=== PATIENT | female | born 1960 | race Caucasian/White ===

== ENCOUNTER 2016-09-02 10:21 | Inpatient (IN) | payer OTHER ==
[2016-09-02 10:26] VITALS: BMI 32.8
--- NOTE | 2016-09-02 12:50 | HP ---
CIWA Score - CIWA Score Nausea/Vomitin Muscle Tremors: 3 Anxiety: 3 Agitation: 2 Paroxysmal Sweats: 2 Orientation: 0-Oriented Tacttile Disturbances: 2-Mild Itch/Numbness/Burn Auditory Disturbances: 2-Mild Harshness/Frighten Visual Disturbances: 2-Mild Sensitivity Headache: 2-Mild CIWA-Ar Total Score: 21 Admission ROS BHS - HPI Chief Complaint: i need help to stop drinking alcohol and marijuana Allergies/Adverse Reactions: Allergies Allergy/AdvReac Type Severity Reaction Status Date / Time watermelon Allergy Severe Difficulty Verified 09/02/16 11:20 Breathing No Known Drug Allergies Allergy Verified 09/02/16 11:20 History of Present Illness: this 56 years old female with alcohol and marijuana dependence,withdrawal symptom,last detox [facility] 04/06/16 to 04/10/16 syncope alcohol related frequent falls s/p back surgery herniated disc at [facility] 12/10 ambulation with cane asthma schizoaffective disorder sobriety longest 5 years Exam Limitations: No Limitations - Ebola screening Have you traveled outside of the country in the last 21 days: No Have you had contact with anyone from an Ebola affected area: No Have you been sick,other than usual withdrawal symptoms: No - Review of Systems Constitutional: Loss of Appetite, Malaise, Changes in sleep EENT: reports: Nose Congestion Respiratory: reports: No Symptoms reported Cardiac: reports: Palpitations GI: reports: Diarrhea, Nausea, Vomiting : reports: No Symptoms Reported Musculoskeletal: reports: Back Pain, Muscle Pain Neuro: reports: Tremors Endocrine: reports: No Symptoms Reported Hematology: reports: No Symptoms Reported Psychiatric: reports: other (schzoaffective disorder) Patient History - Patient Medical History Hx Anemia: No Hx Asthma: Yes (Pt is on MDI) Hx Chronic Obstructive Pulmonary Disease (COPD): No Hx Cancer: No Hx Cardiac Disorders: No Hx Congestive Heart Failure: No Hx Hypertension: No Hx Hypercholesterolemia: No Hx Pacemaker: No HX Cerebrovascular Accident: No Hx Seizures: No Hx Dementia: No Hx Diabetes: No Hx Gastrointestinal Disorders: No Hx Liver Disease: Yes (fatty liver) Hx Genitourinary Disorders: No Hx Sexually Transmitted Disorders: No Hx Renal Disease (ESRD): No Hx Thyroid Disease: No Hx Human Immunodeficiency Virus (HIV): No (last 2014 negative) Hx Hepatitis C: No Hx Depression: Yes Hx Suicide Attempt: Yes (Tried to cut wrist in 2010) Hx Bipolar Disorder: No Hx Schizophrenia: Yes (schizoaffective disorder) Other Medical History: no suicidal,no homicidal,s/p back surgery ambulate with cane - Patient Surgical History Past Surgical History: Yes Hx Neurologic Surgery: No Hx Cataract Extraction: No Hx Cardiac Surgery: No Hx Lung Surgery: No Hx Breast Surgery: No Hx Breast Biopsy: No Hx Abdominal Surgery: No Hx Appendectomy: No Hx Cholecystectomy: No Hx Genitourinary Surgery: No Hx Section: No Hx Orthopedic Surgery: Yes (discectomy 2011; rt bunion sx 1993; rt knee arthoscopy 1991) Other Surgical History: ectopic 1983 R foot sx at age 7 yrs old. Anesthesia Reaction: No - PPD History Previous Implant?: Yes Documented Results: Positive w/o proof Implanted On Prior [facility] Admission?: No PPD to be Administered?: No - Reproductive History Patient is a Female of Child Bearing Age (11 -55 yrs old): No Last Menstrual Period: 09/29/09 Patient : No - Smoking Cessation Smoking history: Current every day smoker Have you smoked in the past 12 months: Yes Aproximately how many cigarettes per day: 20 Hx Chewing Tobacco Use: No Initiated information on smoking cessation: Yes 'Breaking Loose' booklet given: 09/02/16 - Substance & Tx. History Hx Alcohol Use: Yes Hx Substance Use: Yes Substance Use Type: Alcohol, Marijuana Hx Substance Use Treatment: Yes ([facility] 04/06/16 to 04/10/16) - Substances Abused Alcohol Route: Oral Frequency: Daily Amount used: 4 PINTS VODKA/ 5 BEERS Age of first use: 8 Date of Last Use: 09/02/16 Marijuana/Hashish Route: Smoking Frequency: Daily Amount used: 5 BAGS Age of first use: 13 Date of Last Use: 09/01/16 Family Disease History - Family Disease History Family Disease History: CA: Father (alcohol,decesed), Mother (decesed) Admission Physical Exam S - Vital Signs Vital Signs: Vital Signs - 24 hr 09/02/16 10:23 Temperature 97.7 F Pulse Rate 108 H Respiratory 20 Rate Blood Pressure 120/74 - Physical General Appearance: Yes: Moderate Distress, Tremorous, Irritable, Sweating, Anxious HEENTM: Yes: Rhinorrhea Respiratory: Yes: Lungs Clear Neck: Yes: Within Normal Limits Breast: Yes: Within Normal Limits Cardiology: Yes: Tachycardia Abdominal: Yes: Within Normal Limits, Normal Bowel Sounds, Non Tender, Flat, Soft Genitourinary: Yes: Within Normal Limits Back: Yes: Muscle Spasm, Surgical Scar Musculoskeletal: Yes: Back pain, Muscle Pain Extremities: Yes: Tremors, Swelling, Erythema Neurological: Yes: dispute resolution analyst II-XII NML intact, Fully Oriented, Alert, Motor Strength 5/5 Integumentary: Yes: Dry Lymphatic: Yes: Within Normal Limits - Diagnostic (1) Alcohol dependence with uncomplicated withdrawal Current Visit: No Status: Chronic (2) Asthma Current Visit: No Status: Chronic Qualifiers: Asthma severity: mild intermittent Asthma complication type: uncomplicated Qualified Code(s): J45.20 - Mild intermittent asthma, uncomplicated (3) Nicotine dependence Current Visit: No Status: Chronic Qualifiers: Nicotine product type: cigarettes Substance use status: uncomplicated Qualified Code(s): F17.210 - Nicotine dependence, cigarettes, uncomplicated (4) PTSD (post-traumatic stress disorder) Current Visit: No Status: Chronic (5) Schizoaffective disorder Current Visit: No Status: Chronic (6) Cannabis dependence Current Visit: Yes Status: Acute (7) Bilateral cellulitis of lower leg Current Visit: Yes Status: Acute (8) Neuropathy Current Visit: Yes Status: Acute Cleared for Admission [facility] - Detox or Rehab [facility] Level of Care: Medically Managed Detox Regimen/Protocol: Librium [facility] Breath Alcohol Content Breath Alcohol Content: 0.148 Urine Pregancy Test - Result Urine Test Results: Negative- NO Line Present Urine Drug Screen - Results Drug Screen Negative: No Urine Drug Screen Results: THC-Marijuana
[2016-09-02] MEDS ORDERED: guaiFENesin/D-METHORPHAN HB 10 ML UNIT-DOSE CUPS PO PRN (13:02)
[2016-09-02] MEDS ORDERED: MAG HYDROX/AL HYDROX/SIMETH 30 ML UNIT-DOSE CUP PO PRN (13:02)
[2016-09-02] MEDS ORDERED: P-EPHED 60MG/TRIPROLIDI 2.5MG TABLET PO PRN (13:02)
[2016-09-02] MEDS ORDERED: ACETAMINOPHEN 325 MG TABLET (FP) PO PRN (13:02)
[2016-09-02] MEDS ORDERED: MENTHOL/PHENOL 1 EACH UD MM PRN (13:02)
[2016-09-02] MEDS ORDERED: IBUPROFEN 400 MG TABLET (FP) PO PRN (13:02)
[2016-09-02] MEDS ORDERED: hydrOXYzine PAMOATE 50 MG CAPSULE (FP) PO PRN (13:02)
[2016-09-02] MEDS ORDERED: diphenhydrAMINE HCL 50 MG CAPSULE PO PRN (13:02)
[2016-09-02] MEDS ORDERED: LOPERAMIDE HCL 2 MG CAPSULE PO PRN (13:02)
[2016-09-02] MEDS ORDERED: MAGNESIUM HYDROX 2400MG/30ML ORAL SUSPENSION 30 ML CUP PO PRN (13:02)
[2016-09-02] MEDS ORDERED: MAGNESIUM CITRATE 300 ML BOTTLE PO PRN (13:02)
[2016-09-02] MEDS ORDERED: ALBUTEROL SO4 6.7 GM HFA INHALER IH PRN (13:05)
[2016-09-02] MEDS ORDERED: chlordiazePOXIDE HCL 25 MG CAPSULE PO ONE (13:48)
[2016-09-02] MEDS: GABAPENTIN 300 MG CAPSULE (FP) PO SCH ×3 (14:25→22:17)
[2016-09-02] MEDS: NICOTINE 21 MG/24 HOURS TOPICAL PATCH TD SCH (14:27)
--- NOTE | 2016-09-02 16:42 | EKG ---
Test Reason : Blood Pressure : / mmHG Vent. Rate : 093 BPM Atrial Rate : 093 BPM P-R Int : 144 ms QRS Dur : 082 ms QT Int : 352 ms P-R-T Axes : 072 079 054 degrees QTc Int : 437 ms NORMAL SINUS RHYTHM POSSIBLE LEFT ATRIAL ENLARGEMENT BORDERLINE ECG NO PREVIOUS ECGS AVAILABLE Confirmed by FUAD SANTOYO, LEIGH ([id number]) on 09/02/2016 4:41:52 PM Referred By: Alfie Malhotra Confirmed By:LEIGH MERIDA MD
[2016-09-02] MEDS: chlordiazePOXIDE HCL 25 MG CAPSULE PO SCH ×2 (17:22→22:18)
[2016-09-02] MEDS: CEPHALEXIN MONOHYDRATE 500 MG CAPSULE (UD) PO SCH ×2 (17:23→23:07)
[2016-09-02 17:31] LABS: URINE APPEARANCE CLEAR; URINE BILIRUBIN NEGATIVE (NEGATIVE); URINE BLOOD NEGATIVE (NEGATIVE); URINE COLOR LTYELLOW; URINE GLUCOSE (UA) NEGATIVE (NEGATIVE); URINE KETONE NEGATIVE (NEGATIVE); URINE LEUK ESTERASE NEGATIVE (NEGATIVE); URINE NITRITE NEGATIVE (NEGATIVE); URINE PROTEIN NEGATIVE (NEGATIVE); URINE UROBILINOGEN NEGATIVE E.U./dl (0.2-1.0)
[2016-09-02 19:45] LABS: HIV 1 & 2 AB NEGATIVE; HIV 1 AGp24 NEGATIVE
[2016-09-02] MEDS: BUDESONIDE/FORMETEROL FUMARATE 80/4.5 mcg INHALER IH SCH (22:17)
[2016-09-02] MEDS: MONTELUKAST NA 10 MG TABLET PO SCH (22:17)
[2016-09-02] MEDS: THIAMINE HCL 100 MG TABLET (FP) PO SCH (22:18)
[2016-09-03] MEDS: chlordiazePOXIDE HCL 25 MG CAPSULE PO SCH ×4 (05:47→22:14)
[2016-09-03] MEDS: CEPHALEXIN MONOHYDRATE 500 MG CAPSULE (UD) PO SCH ×4 (06:30→23:02)
[2016-09-03] MEDS: GABAPENTIN 300 MG CAPSULE (FP) PO SCH ×3 (06:31→22:14)
[2016-09-03] MEDS: PRENATAL VITAMINS W/ FOLIC ACID TABLET (FP) PO SCH (10:24)
[2016-09-03] MEDS: BUDESONIDE/FORMETEROL FUMARATE 80/4.5 mcg INHALER IH SCH ×2 (10:24→22:14)
[2016-09-03] MEDS: NICOTINE 21 MG/24 HOURS TOPICAL PATCH TD SCH (10:27)
[2016-09-03 10:32] LABS: ALBUMIN 3.8 g/dl (3.4-5.0); ALK PHOS 163 U/L (45-117); ANION GAP 9 (8-16); BILIRUBIN,TOTAL 0.3 mg/dL (0.2-1.0); CALCIUM 9.5 mg/dL (8.5-10.1); CO2 26 mmol/L (21-32); CREATININE 0.9 mg/dL (0.55-1.02); GLUCOSE,RANDOM 91 mg/dL (74-106); SGOT/AST 93 U/L (15-37); SGPT/ALT 67 U/L (12-78); TOT PROT 7.7 g/dl (6.4-8.2)
[2016-09-03 11:07] LABS: MCH 36.4 pg (25.7-33.7); MEAN CELL VOLUME 107.2 fl (80-96); MEAN PLT VOLUME 8.6 fl (7.5-11.1); PLATELET COUNT 250 K/MM3 (134-434); RDW 14.4 % (11.6-15.6); WHITE BLOOD COUNT 5.9 K/mm3 (4.0-10.0)
[2016-09-03] MEDS: CYCLOBENZAPRINE HCL 10 MG TABLET (FP) PO PRN ×2 (11:18→20:03)
--- NOTE | 2016-09-03 11:41 | CONSULT ---
[facility] Psychiatric Consult - Data Date of interview: 09/03/16 Admission source: [facility] Identifying data: Readmission to [facility] for this 56 y/o female seeking detox treatment on for alcohol and marijuana dependence.Patient is ,a mother of one,domiciled,disabled and supported on SSI benefits. Substance Abuse History: - Smoking Cessation. Smoking history: Current every day smoker. Have you smoked in the past 12 months: Yes. Aproximately how many cigarettes per day: 20. Hx Chewing Tobacco Use: No. Initiated information on smoking cessation: Yes. 'Breaking Loose' booklet given: 09/02/16. - Substance & Tx. History. Hx Alcohol Use: Yes. Hx Substance Use: Yes. Substance Use Type : Alcohol, Marijuana. Hx Substance Use Treatment: Yes ([facility] 04/06/16 to ). - Substances Abused. Alcohol. Route: Oral. Frequency: Daily. Amount used: 4 PINTS VODKA/ 5 BEERS. Age of first use: 8. Date of Last Use: . Marijuana/Hashish. Route: Smoking. Frequency: Daily. Amount used : 5 BAGS. Age of first use: 13. Date of Last Use: 09/01/16. Confirmed by patient. Medical History: Significant for a history of bronchial asthma,fatty liver,low back pain (history of discectomy),right bunionectomy and arthroscopic surgery ( right knee). Psychiatric History: Diagnosed with PTSD and Schizoaffective Disorder.History of two psychiatric hospitalizations ([facility] and [facility]).Ms Tim sees Dr Moe at [facility] for medication management (Wellbutrin XL 150 mg po daily + Prozac 40 mg po daily + Trazodone 200 mg po HS + Haldol Decanoate 75 mg IM Q 4 weeks (most recent injection :08/26).Patient reports a remote history of suicide attempts (years ago) via wrist- cutting. Physical/Sexual Abuse/Trauma History: Patient declines to discuss this section. Additional Comment: Urine Drug Screen Results: THC-Marijuana Mental Status Exam - Mental Status Exam Alert and Oriented to: Time, Place, Person Cognitive Function: Good Patient Appearance: Well Groomed (obese) Mood: Nervous, Anxious, Hopeful Affect: Mood Congruent Patient Behavior: Fatigued, Appropriate, Cooperative Speech Pattern: Clear, Appropriate Voice Loudness: Normal Thought Process: Goal Oriented Thought Disorder: Not Present Hallucinations: Denies Suicidal Ideation: Denies Homicidal Ideation: Denies Insight/Judgement: Fair Sleep: Fair (on trazodone at bedtime) Appetite: Fair Muscle strength/Tone: Normal Gait/Station: Other (walks with cane) Psychiatric Findings - Problem List ([place] 1, 2,3) (1) Cannabis dependence Current Visit: Yes Status: Acute (2) Drug-induced mood disorder Current Visit: Yes Status: Acute (3) Alcohol dependence with uncomplicated withdrawal Current Visit: Yes Status: Acute (4) Nicotine dependence Current Visit: Yes Status: Acute Qualifiers: Nicotine product type: cigarettes Substance use status: uncomplicated Qualified Code(s): F17.210 - Nicotine dependence, cigarettes, uncomplicated (5) PTSD (post-traumatic stress disorder) Current Visit: Yes Status: Chronic (6) Schizoaffective disorder Current Visit: Yes Status: Chronic (7) Neuropathy Current Visit: Yes Status: Chronic (8) Positive PPD, treated Current Visit: Yes Status: Chronic (9) Asthma Current Visit: Yes Status: Chronic Qualifiers: Asthma severity: mild intermittent Asthma complication type: uncomplicated Qualified Code(s): J45.20 - Mild intermittent asthma, uncomplicated (10) Bilateral cellulitis of lower leg Current Visit: Yes Status: Acute - Initial Treatment Plan Initial Treatment Plan: Psychoeducation.Detoxification.Medications ordered.See Psychiatric History section for details.Side effects/benefits discussed with patient.She is in agreement with this careplan.Observation.Fall precautions.No scripts at discharge :patient states that she has refills from her OPD psychiatrist,Dr Arreaga.
[2016-09-03] MEDS: FLUoxetine HCL 20 MG CAPSULE (FP) PO SCH (12:27)
[2016-09-03] MEDS: chlordiazePOXIDE HCL 25 MG CAPSULE PO PRN ×2 (14:07→20:03)
[2016-09-03] MEDS: THIAMINE HCL 100 MG TABLET (FP) PO SCH (22:14)
[2016-09-03] MEDS: MONTELUKAST NA 10 MG TABLET PO SCH (22:14)
[2016-09-03] MEDS: traZODone HCL 100 MG TABLET (FP) PO SCH (22:14)
[2016-09-04] MEDS: CEPHALEXIN MONOHYDRATE 500 MG CAPSULE (UD) PO SCH ×4 (05:51→23:14)
[2016-09-04] MEDS: CYCLOBENZAPRINE HCL 10 MG TABLET (FP) PO PRN ×3 (05:51→22:32)
[2016-09-04] MEDS: GABAPENTIN 300 MG CAPSULE (FP) PO SCH ×3 (05:51→22:32)
[2016-09-04] MEDS: chlordiazePOXIDE HCL 25 MG CAPSULE PO SCH ×2 (05:51→10:37)
[2016-09-04] MEDS: BUDESONIDE/FORMETEROL FUMARATE 80/4.5 mcg INHALER IH SCH ×2 (10:36→23:15)
[2016-09-04] MEDS: NICOTINE 21 MG/24 HOURS TOPICAL PATCH TD SCH (10:37)
[2016-09-04] MEDS: PRENATAL VITAMINS W/ FOLIC ACID TABLET (FP) PO SCH (10:37)
[2016-09-04] MEDS: FLUoxetine HCL 20 MG CAPSULE (FP) PO SCH (10:37)
--- NOTE | 2016-09-04 12:58 | PN ---
[facility] CIWA - CIWA Score Nausea/Vomitin Muscle Tremors: 3 Anxiety: 3 Agitation: 2 Paroxysmal Sweats: 1-Minimal Palms Moist Orientation: 0-Oriented Tacttile Disturbances: 1-Very Mild Itch/Numbness Auditory Disturbances: 1-Very Mild Visual Disturbances: 1-Very Mild Sensitivity Headache: 2-Mild CIWA-Ar Total Score: 17 BHS Progress Note (SOAP) Subjective: ALERT,IRRITABLE,ANXIOUS,INTERRUPTED SLEEP,TREMOR Objective: 09/04/16 12:55 Vital Signs Temperature 97.3 F L 09/04/16 09:44 Pulse Rate 99 H 09/04/16 09:44 Respiratory Rate 16 09/04/16 09:44 Blood Pressure 146/80 09/04/16 09:44 O2 Sat by Pulse Oximetry (%) EKG NSR, 09/04/16 12:56 Laboratory Last Values WBC 5.9 K/mm3 (4.0-10.0) 09/03/16 06:00 RBC 3.67 M/mm3 (3.60-5.2) 09/03/16 06:00 Hgb 13.3 GM/dL (10.7-15.3) 09/03/16 06:00 Hct 39.3 % (32.4-45.2) 09/03/16 06:00 MCV 107.2 fl (80-96) H 09/03/16 06:00 MCHC 34.0 g/dl (32.0-36.0) 09/03/16 06:00 RDW 14.4 % (11.6-15.6) 09/03/16 06:00 Plt Count 250 K/MM3 (134-434) 09/03/16 06:00 MPV 8.6 fl (7.5-11.1) 09/03/16 06:00 Macrocytosis 1+ 09/03/16 06:00 Sodium 142 mmol/L (136-145) 09/03/16 06:00 Potassium 4.4 mmol/L (3.5-5.1) 09/03/16 06:00 Chloride 107 mmol/L (98-107) 09/03/16 06:00 Carbon Dioxide 26 mmol/L (21-32) 09/03/16 06:00 Anion Gap 9 (8-16) 09/03/16 06:00 BUN 9 mg/dL (7-18) D 09/03/16 06:00 Creatinine 0.9 mg/dL (0.55-1.02) 09/03/16 06:00 Creat Clearance w eGFR > 60 (>60) 09/03/16 06:00 Random Glucose 91 mg/dL (74-106) 09/03/16 06:00 Calcium 9.5 mg/dL (8.5-10.1) 09/03/16 06:00 Total Bilirubin 0.3 mg/dL (0.2-1.0) D 09/03/16 06:00 AST 93 U/L (15-37) H D 09/03/16 06:00 ALT 67 U/L (12-78) D 09/03/16 06:00 Alkaline Phosphatase 163 U/L (45-117) H D 09/03/16 06:00 Total Protein 7.7 g/dl (6.4-8.2) 09/03/16 06:00 Albumin 3.8 g/dl (3.4-5.0) 09/03/16 06:00 Urine Color Ltyellow 09/02/16 15:00 Urine Appearance Clear 09/02/16 15:00 Urine pH 5.0 (5.0-8.0) 09/02/16 15:00 Ur Specific [place] 1.006 (1.001-1.035) 09/02/16 15:00 Urine Protein Negative (NEGATIVE) 09/02/16 15:00 Urine Glucose (UA) Negative (NEGATIVE) 09/02/16 15:00 Urine Ketones Negative (NEGATIVE) 09/02/16 15:00 Urine Blood Negative (NEGATIVE) 09/02/16 15:00 Urine Nitrite Negative (NEGATIVE) 09/02/16 15:00 Urine Bilirubin Negative (NEGATIVE) 09/02/16 15:00 Urine Urobilinogen Negative E.U./dl (0.2-1.0) 09/02/16 15:00 Ur Leukocyte Esterase Negative (NEGATIVE) 09/02/16 15:00 RPR Titer Nonreactive (NONREACTIVE) 09/03/16 06:00 HIV 1&2 Antibody Screen Negative 09/02/16 11:40 HIV P24 Antigen Negative 09/02/16 11:40 Assessment: 09/04/16 12:57 WITHDRAWAL SYMPTOM Plan: CONTINUE DETOX,D/C TYLENOL,REPEAT CMP,INR
[2016-09-04] MEDS: chlordiazePOXIDE 5 MG CAPSULE PO SCH ×2 (17:30→22:32)
[2016-09-04] MEDS: MONTELUKAST NA 10 MG TABLET PO SCH (22:32)
[2016-09-04] MEDS: traZODone HCL 100 MG TABLET (FP) PO SCH (22:32)
[2016-09-04] MEDS: THIAMINE HCL 100 MG TABLET (FP) PO SCH (23:15)
[2016-09-05] MEDS: chlordiazePOXIDE 5 MG CAPSULE PO SCH ×2 (05:38→10:19)
[2016-09-05] MEDS: CYCLOBENZAPRINE HCL 10 MG TABLET (FP) PO PRN ×3 (05:38→22:09)
[2016-09-05] MEDS: CEPHALEXIN MONOHYDRATE 500 MG CAPSULE (UD) PO SCH ×3 (05:38→18:02)
[2016-09-05] MEDS: GABAPENTIN 300 MG CAPSULE (FP) PO SCH ×3 (05:38→22:09)
[2016-09-05] MEDS: FLUoxetine HCL 20 MG CAPSULE (FP) PO SCH (10:15)
[2016-09-05] MEDS: PRENATAL VITAMINS W/ FOLIC ACID TABLET (FP) PO SCH (10:15)
[2016-09-05] MEDS: NICOTINE 21 MG/24 HOURS TOPICAL PATCH TD SCH (10:15)
[2016-09-05] MEDS: BUDESONIDE/FORMETEROL FUMARATE 80/4.5 mcg INHALER IH SCH ×2 (10:15→22:09)
--- NOTE | 2016-09-05 13:08 | PN ---
S Progress Note (SOAP) Subjective: ALERT,IRRITABLE,ANXIOUS,INTERRUPTED SLEEP Objective: 09/05/16 13:07 Vital Signs Temperature 96.4 F L 09/05/16 10:30 Pulse Rate 92 H 09/05/16 10:30 Respiratory Rate 16 09/05/16 10:30 Blood Pressure 106/72 09/05/16 10:30 O2 Sat by Pulse Oximetry (%) Assessment: 09/05/16 13:07 WITHDRAWAL SYMPTOM Plan: CONTINUE DETOX,DISCHARGE IN AM
[2016-09-05] MEDS: chlordiazePOXIDE HCL 10 MG CAPSULE PO SCH ×2 (18:02→22:09)
[2016-09-05] MEDS: traZODone HCL 100 MG TABLET (FP) PO SCH (22:09)
[2016-09-05] MEDS: THIAMINE HCL 100 MG TABLET (FP) PO SCH (22:09)
[2016-09-05] MEDS: MONTELUKAST NA 10 MG TABLET PO SCH (22:09)
[2016-09-06] MEDS: CEPHALEXIN MONOHYDRATE 500 MG CAPSULE (UD) PO SCH ×2 (00:34→06:50)
--- NOTE | 2016-09-06 02:14 | PN ---
S Progress Note Note: PT. ASSESSED AFTER FALLING IN HER ROOM. THE PATIENT WAS FOUND SLEEPING COMFORTABLY IN BED. SHE REPORTS SHE FELL ON HER KNEES WHILE TRYING TO CLINICAL INFORMATION SYSTEMS DIRECTOR THE CAP OF A MARKER ON THE FLOOR. SHE DENIED PAIN AND DISCOMFORT; SKIN IS INTACT. SHE WAS ENCOURAGED TO NOTIFY THE NURSING STAFF IF SHE NEEDS TO CLINICAL INFORMATION SYSTEMS DIRECTOR ITEMS OFF THE GROUND. FALL PROTOCOL 2 WAS INITIATED AND SHE IS SCHEDULED TO HAVE AMMONIA LEVELS DRAWN AT 6:00AM.
[2016-09-06] MEDS: chlordiazePOXIDE HCL 10 MG CAPSULE PO SCH (06:34)
[2016-09-06] MEDS: GABAPENTIN 300 MG CAPSULE (FP) PO SCH (06:50)
--- NOTE | 2016-09-06 09:31 | DS ---
[facility] Detox Discharge Summary Admission Date: 09/02/16 Discharge Date: 09/06/16 - History Present History: Alcohol Dependence, Cannabis Dependence - Physical Exam Results Vital Signs: Vital Signs Temperature 97.2 F L 09/06/16 06:00 Pulse Rate 99 H 09/06/16 06:00 Respiratory Rate 18 09/06/16 06:00 Blood Pressure 128/73 09/06/16 06:00 O2 Sat by Pulse Oximetry (%) - Treatment Hospital Course: Detox Protocol Followed, Detoxed Safely, Responded well, Discharged Condition Good, Rehab Referral Accepted - Medication Discharge Medications: Ambulatory Orders Naltrexone HCl [Revia -] 50 mg PO HS 04/06/16 Bupropion HCl [Wellbutrin Xl -] 150 mg PO DAILY #30 tab.sr.24h 04/07/16 Fluoxetine HCl [Prozac -] 40 mg PO DAILY #30 capsule 04/07/16 Trazodone HCl [Desyrel -] 200 mg PO HS #30 tablet 04/07/16 Albuterol Sulfate Inhaler - [Ventolin HFA Inhaler -] 2 puff IH Q4H PRN #1 inhaler 04/10/16 Fluticasone/Salmeterol [Advair 250-50 Diskus] 1 each IH BID #1 disk.w.dev Montelukast Na [Singulair -] 10 mg PO HS #30 tablet 04/10/16 Azelastine HCl 205.5 mcg NS BID 09/02/16 Folic Acid - 1 mg PO DAILY 09/02/16 Gabapentin [Neurontin -] 300 mg PO Q8H 09/02/16 Haloperidol Decanoate [Haldol Decanoate 100] 75 mg IM MONTHLY 09/02/16 Loratadine 10 mg PO DAILY 09/02/16 Cephalexin Monohydrate [Keflex -] 500 mg PO Q6HPO #7 capsule 09/06/16 - Diagnosis (1) Alcohol dependence with uncomplicated withdrawal Current Visit: Yes Status: Chronic (2) Bilateral cellulitis of lower leg Current Visit: Yes Status: Chronic (3) Cannabis dependence Current Visit: Yes Status: Chronic (4) Drug-induced mood disorder Current Visit: Yes Status: Chronic (5) Nicotine dependence Current Visit: Yes Status: Chronic Qualifiers: Nicotine product type: cigarettes Substance use status: uncomplicated Qualified Code(s): F17.210 - Nicotine dependence, cigarettes, uncomplicated (6) Asthma Current Visit: Yes Status: Chronic Qualifiers: Asthma severity: mild intermittent Asthma complication type: uncomplicated Qualified Code(s): J45.20 - Mild intermittent asthma, uncomplicated (7) Neuropathy Current Visit: Yes Status: Chronic (8) PTSD (post-traumatic stress disorder) Current Visit: Yes Status: Chronic (9) Positive PPD, treated Current Visit: Yes Status: Chronic (10) Schizoaffective disorder Current Visit: Yes Status: Chronic - AMA Did Patient Leave Against Medical Advice: No
[2016-09-06] MEDS: FLUoxetine HCL 20 MG CAPSULE (FP) PO SCH (10:22)
[2016-09-06] MEDS: PRENATAL VITAMINS W/ FOLIC ACID TABLET (FP) PO SCH (10:23)
[2016-09-06] MEDS: BUDESONIDE/FORMETEROL FUMARATE 80/4.5 mcg INHALER IH SCH (10:24)
[2016-09-06] MEDS: NICOTINE 21 MG/24 HOURS TOPICAL PATCH TD SCH (10:25)
[2016-09-06 12:27] VITALS: BP 137/73; PULSE 87; TEMP 996.4
== END 2016-09-06 11:03 | disposition home or self-care (01) | DRG 775 ==
LOC: YASAS 10:21 → Y6N 13:16
PROVIDERS: ADMIT Internal Medicine Addiction Medicine; ATTEND Internal Medicine Addiction Medicine
PROC: HZ2ZZZZ Detoxification Services for Substance Abuse Treatment (ICD-10-PCS; principal; 2016-09-02)
DX: F10.230 Alcohol dependence with withdrawal, uncomplicated (principal); F12.20 Cannabis dependence, uncomplicated; F17.210 Nicotine dependence, cigarettes, uncomplicated; F19.24 Other psychoactive substance dependence with psychoactive substance-induced mood disorder; F43.10 Post-traumatic stress disorder, unspecified; F25.9 Schizoaffective disorder, unspecified; L03.116 Cellulitis of left lower limb; L03.115 Cellulitis of right lower limb; J45.20 Mild intermittent asthma, uncomplicated; G62.9 Polyneuropathy, unspecified; R76.11 Nonspecific reaction to tuberculin skin test without active tuberculosis; M54.5 Low back pain; K76.0 Fatty (change of) liver, not elsewhere classified; R00.0 Tachycardia, unspecified; R29.6 Repeated falls; Z91.81 History of falling; R26.2 Difficulty in walking, not elsewhere classified; Z91.5 Personal history of self-harm; W18.30XA Fall on same level, unspecified, initial encounter; Y93.9 Activity, unspecified; Y92.230 Patient room in hospital as the place of occurrence of the external cause
CPT/HCPCS: 36415; 71020-TC; 80053; 81003; 82140; 85027; 86593; 87389; 93005; 93010

== ENCOUNTER 2017-01-07 14:19 | Inpatient (IN) | payer OTHER ==
[2017-01-07 19:09] VITALS: BMI 30.3
--- NOTE | 2017-01-07 20:10 | HP ---
CIWA Score - CIWA Score Nausea/Vomitin-Mild Nausea/No Vomiting Muscle Tremors: 4-Moderate,w/Arms Extend Anxiety: 4-Mod. Anxious/Guarded Agitation: 4-Moderately Restless Paroxysmal Sweats: 1-Minimal Palms Moist Orientation: 3-Disoriented Date>2 days Tacttile Disturbances: 0-None Auditory Disturbances: 0-None Visual Disturbances: 0-None Headache: 0-None Present CIWA-Ar Total Score: 17 Admission ROS S - HPI Chief Complaint: withdrawal sx Allergies/Adverse Reactions: Allergies Allergy/AdvReac Type Severity Reaction Status Date / Time watermelon Allergy Severe Difficulty Verified 01/07/17 20:21 Breathing No Known Drug Allergies Allergy Verified 01/07/17 20:21 History of Present Illness: 56 years old female with long history of alcohol nicotine dependence has allergic to dust asthma copd right leg neropathy use cane for ambulation, and depression is admitted to detox Exam Limitations: No Limitations - Ebola screening Have you traveled outside of the country in the last 21 days: No Have you had contact with anyone from an Ebola affected area: No Have you been sick,other than usual withdrawal symptoms: No Do you have a fever: No - Review of Systems Constitutional: Chills, Changes in sleep, Weight Stable EENT: reports: No Symptoms Reported Respiratory: reports: SOB with Exertion, Productive cough (greenish) Cardiac: reports: No Symptoms Reported GI: reports: Nausea, Poor Fluid Intake, Abdominal cramping : reports: No Symptoms Reported Musculoskeletal: reports: Joint Pain (right leg) Integumentary: reports: No Symptoms Reported Neuro: reports: Tremors Endocrine: reports: No Symptoms Reported Hematology: reports: No Symptoms Reported Psychiatric: reports: Judgement Intact, Depressed Other Systems: Reviewed and Negative Patient History - Patient Medical History Hx Anemia: No Hx Asthma: Yes (Pt is on MDI) Hx Chronic Obstructive Pulmonary Disease (COPD): Yes Hx Cancer: No Hx Cardiac Disorders: No Hx Congestive Heart Failure: No Hx Hypertension: No Hx Hypercholesterolemia: No Hx Pacemaker: No HX Cerebrovascular Accident: No Hx Seizures: No Hx Dementia: No Hx Diabetes: No Hx Gastrointestinal Disorders: No Hx Liver Disease: Yes (fatty liver) Hx Genitourinary Disorders: No Hx Sexually Transmitted Disorders: No Hx Renal Disease (ESRD): No Hx Thyroid Disease: No Hx Human Immunodeficiency Virus (HIV): No (last 2014 negative) Hx Hepatitis C: No Hx Depression: Yes Hx Suicide Attempt: Yes (Tried to cut wrist in 2010) Hx Bipolar Disorder: No Hx Schizophrenia: Yes (schizoaffective disorder) - Patient Surgical History Past Surgical History: Yes Hx Neurologic Surgery: No Hx Cataract Extraction: No Hx Cardiac Surgery: No Hx Lung Surgery: No Hx Breast Surgery: No Hx Breast Biopsy: No Hx Abdominal Surgery: No Hx Appendectomy: No Hx Cholecystectomy: No Hx Genitourinary Surgery: No Hx Section: No Hx Orthopedic Surgery: Yes (discectomy 2011; rt bunion sx 1993; rt knee arthoscopy 1991) Other Surgical History: ectopic 1983 R foot sx at age 7 yrs old. Anesthesia Reaction: No - PPD History Previous Implant?: Yes Documented Results: Positive w/o proof Implanted On Prior [facility] Admission?: No PPD to be Administered?: No - Reproductive History Patient is a Female of Child Bearing Age (11 -55 yrs old): No Last Menstrual Period: 09/29/09 Patient : No - Smoking Cessation Smoking history: Current every day smoker Have you smoked in the past 12 months: Yes Aproximately how many cigarettes per day: 20 Cigars Per Day: 0 Hx Chewing Tobacco Use: No Initiated information on smoking cessation: Yes 'Breaking Loose' booklet given: 01/07/17 - Substance & Tx. History Hx Alcohol Use: Yes Hx Substance Use: Yes Substance Use Type: Alcohol, Marijuana Hx Substance Use Treatment: Yes - Substances Abused Alcohol Route: Oral Frequency: Daily Amount used: 3 pints volka Age of first use: 13 Date of Last Use: 01/07/17 Family Disease History - Family Disease History Family Disease History: [place]: Father (alcohol,), Mother (), Other : Brother () Admission Physical Exam BHS - Vital Signs Vital Signs: Vital Signs - 24 hr 01/07/17 19:01 Temperature 97.2 F L Pulse Rate 84 Respiratory 20 Rate Blood Pressure 130/78 - Physical General Appearance: Yes: Appropriately Dressed, Moderate Distress, Alcohol on Breath, Obese, Tremorous, Irritable, Sweating, Anxious HEENTM: Yes: Hearing grossly Normal, Normal ENT Inspection, Normocephalic, Normal Voice Respiratory: Yes: Chest Non-Tender, Lungs Clear, Normal Breath Sounds, No Respiratory Distress, No Accessory Muscle Use Neck: Yes: Supple, Trachea in good position Breast: Yes: Breasts Symetrical Cardiology: Yes: Regular Rhythm, Regular Rate, S1, S2 Abdominal: Yes: Non Tender, Soft Genitourinary: Yes: Within Normal Limits Back: Yes: Normal Inspection Musculoskeletal: Yes: full range of Motion, Gait Steady, Back pain, Muscle Pain , Muscle weakness (right leg) Extremities: Yes: Non-Tender, Tremors Neurological: Yes: Alert, Normal Response, Depressed Affect Integumentary: Yes: Warm Lymphatic: Yes: Within Normal Limits - Diagnostic (1) Alcohol dependence with uncomplicated withdrawal Current Visit: Yes Status: Acute (2) Asthma Current Visit: Yes Status: Chronic Qualifiers: Asthma severity: mild intermittent Asthma complication type: uncomplicated Qualified Code(s): J45.20 - Mild intermittent asthma, uncomplicated (3) Neuropathy Current Visit: Yes Status: Chronic (4) Nicotine dependence Current Visit: Yes Status: Acute Qualifiers: Nicotine product type: cigarettes Substance use status: in withdrawal Qualified Code(s): F17.213 - Nicotine dependence, cigarettes, with withdrawal (5) Positive PPD, treated Current Visit: Yes Status: Resolved (6) Schizoaffective disorder Current Visit: Yes Status: Chronic Qualifiers: Schizoaffective disorder type: other Qualified Code(s): F25.8 - Other schizoaffective disorders (7) COPD (chronic obstructive pulmonary disease) Current Visit: Yes Status: Chronic Qualifiers: COPD type: emphysema Emphysema type: other Qualified Code(s): J43.8 - Other emphysema (8) Use of cane as ambulatory aid Current Visit: Yes Status: Chronic Comment: right leg weakness Cleared for Admission [facility] - Detox or Rehab [facility] Level of Care: Medically Managed Detox Regimen/Protocol: Librium [facility] Breath Alcohol Content Breath Alcohol Content: 0.264 Urine Pregancy Test - Result Urine Test Results: Negative- NO Line Present Urine Drug Screen - Results Drug Screen Negative: No Urine Drug Screen Results: THC-Marijuana
[2017-01-07] MEDS ORDERED: NICOTINE POLACRILEX 4 MG GUM BUC PRN (20:21)
[2017-01-07] MEDS ORDERED: MENTHOL/PHENOL 1 EACH UD MM PRN (20:21)
[2017-01-07] MEDS ORDERED: MAGNESIUM CITRATE 300 ML BOTTLE PO PRN (20:21)
[2017-01-07] MEDS ORDERED: chlordiazePOXIDE HCL 25 MG CAPSULE PO ONE (20:21)
[2017-01-07] MEDS ORDERED: LOPERAMIDE HCL 2 MG CAPSULE PO PRN (20:21)
[2017-01-07] MEDS ORDERED: MAG HYDROX/AL HYDROX/SIMETH 30 ML UNIT-DOSE CUP PO PRN (20:21)
[2017-01-07] MEDS ORDERED: P-EPHED 60MG/TRIPROLIDI 2.5MG TABLET PO PRN (20:21)
[2017-01-07] MEDS ORDERED: hydrOXYzine PAMOATE 50 MG CAPSULE (FP) PO PRN (20:21)
[2017-01-07] MEDS ORDERED: diphenhydrAMINE HCL 50 MG CAPSULE PO PRN (20:21)
[2017-01-07] MEDS ORDERED: guaiFENesin/D-METHORPHAN HB 10 ML UNIT-DOSE CUPS PO PRN (20:21)
[2017-01-07] MEDS ORDERED: ACETAMINOPHEN 325 MG TABLET (FP) PO PRN (20:21)
[2017-01-07] MEDS ORDERED: IBUPROFEN 400 MG TABLET (FP) PO PRN (20:21)
[2017-01-07] MEDS ORDERED: ALBUTEROL SO4 2.5/IPRATROPIUM 0.5 INH SOL 3 ML VIAL.NEB. NEB PRN (20:25)
[2017-01-07] MEDS ORDERED: ALBUTEROL SO4 6.7 GM HFA INHALER IH PRN (20:25)
[2017-01-07] MEDS ORDERED: GABAPENTIN 300 MG CAPSULE (FP) PO SCH (20:30)
[2017-01-07] MEDS: GABAPENTIN 300 MG CAPSULE (FP) PO SCH (21:39)
[2017-01-07] MEDS: MONTELUKAST NA 10 MG TABLET PO SCH (22:26)
[2017-01-07] MEDS: THIAMINE HCL 100 MG TABLET (FP) PO SCH (22:26)
[2017-01-07] MEDS: BUDESONIDE/FORMETEROL FUMARATE 80/4.5 mcg INHALER IH SCH (22:27)
[2017-01-07] MEDS: chlordiazePOXIDE HCL 25 MG CAPSULE PO SCH (22:28)
[2017-01-07 23:08] LABS: URINE APPEARANCE CLEAR; URINE BILIRUBIN NEGATIVE (NEGATIVE); URINE BLOOD NEGATIVE (NEGATIVE); URINE COLOR STRAW; URINE GLUCOSE (UA) NEGATIVE (NEGATIVE); URINE KETONE NEGATIVE (NEGATIVE); URINE LEUK ESTERASE NEGATIVE (NEGATIVE); URINE NITRITE NEGATIVE (NEGATIVE); URINE PROTEIN NEGATIVE (NEGATIVE); URINE UROBILINOGEN NEGATIVE E.U./dl (0.2-1.0)
[2017-01-08] MEDS: GABAPENTIN 300 MG CAPSULE (FP) PO SCH ×3 (06:16→22:03)
[2017-01-08] MEDS: chlordiazePOXIDE HCL 25 MG CAPSULE PO SCH ×4 (06:16→22:03)
[2017-01-08] MEDS: chlordiazePOXIDE HCL 25 MG CAPSULE PO PRN ×3 (08:56→19:40)
[2017-01-08 10:25] LABS: MCH 34.6 pg (25.7-33.7); MCHC 34.4 g/dl (32.0-36.0); MEAN CELL VOLUME 100.6 fl (80-96); PLATELET COUNT 245 K/MM3 (134-434); RDW 14.3 % (11.6-15.6); WHITE BLOOD COUNT 8.4 K/mm3 (4.0-10.0)
--- NOTE | 2017-01-08 10:28 | CONSULT ---
[facility] Psychiatric Consult - Data Date of interview: 01/08/17 Admission source: [facility] Identifying data: This is one of multiple admissions to [facility] for this 56 y/ o female seeking detox treatment on for alcohol and marijuana dependence.Patient is ,a mother of one,domiciled,disabled and supported on SSI benefits. Substance Abuse History: - Smoking Cessation. Smoking history: Current every day smoker. Have you smoked in the past 12 months: Yes. Aproximately how many cigarettes per day: 20. Cigars Per Day: 0. Hx Chewing Tobacco Use: No. Initiated information on smoking cessation: Yes. 'Breaking Loose' booklet given : 01/07/17. - Substance & Tx. History. Hx Alcohol Use: Yes. Hx Substance Use : Yes. Substance Use Type: Alcohol, Marijuana. Hx Substance Use Treatment: Yes. - Substances Abused. Alcohol. Route: Oral. Frequency: Daily. Amount used: 3 pints volka. Age of first use: 13. Date of Last Use: 01/07/17. Confirmed by patient. Medical History: Bronchial asthma,COPD,neuropathy (uses a cane),fatty liver,low back pain (history of discectomy),right bunionectomy and arthroscopic surgery ( right knee).Noted additional history of ectopic (1983). Psychiatric History: Patient is a clear and consistent historian.No major changes from previous encounters at [facility] : Diagnosed with PTSD and Schizoaffective Disorder.History of two psychiatric hospitalizations ([facility] and [facility]).Ms Tim is still under the care of Dr Moe at [facility]PD for medication management (Wellbutrin XL 150 mg po daily + Prozac 40 mg po daily + Trazodone 200 mg po HS + Haldol Decanoate 100 mg IM Q 4 weeks (most recent refill on 01/04/17).Remote history of suicide attempts (years ago) via wrist-cutting/overdoses with " pills " .Pharmacy claims are revisited (medications verified). Physical/Sexual Abuse/Trauma History: Patient declines to volunteer information on that subject. Additional Comment: Urine Drug Screen Results: THC-Marijuana.Noted. Mental Status Exam - Mental Status Exam Alert and Oriented to: Time, Place, Person Cognitive Function: Good Patient Appearance: Well Groomed Mood: Withdrawn, Anxious Affect: Mood Congruent Patient Behavior: Fatigued, Appropriate, Cooperative Speech Pattern: Clear, Appropriate Voice Loudness: Normal Thought Process: Goal Oriented Thought Disorder: Not Present Hallucinations: Denies Suicidal Ideation: Denies Homicidal Ideation: Denies Insight/Judgement: Fair Sleep: Poorly, Difficulty falling asleep Appetite: Good Gait/Station: Other (uses a cane for ambulation.) Psychiatric Findings - Problem List ([place] 1, 2,3) (1) Alcohol dependence with uncomplicated withdrawal Current Visit: Yes Status: Acute (2) Nicotine dependence Current Visit: Yes Status: Acute Qualifiers: Nicotine product type: cigarettes Substance use status: in withdrawal Qualified Code(s): F17.213 - Nicotine dependence, cigarettes, with withdrawal (3) Cannabis dependence Current Visit: Yes Status: Acute (4) PTSD (post-traumatic stress disorder) Current Visit: Yes Status: Chronic (5) Schizoaffective disorder Current Visit: Yes Status: Chronic Qualifiers: Schizoaffective disorder type: other Qualified Code(s): F25.8 - Other schizoaffective disorders (6) Drug-induced mood disorder Current Visit: Yes Status: Acute (7) Asthma Current Visit: Yes Status: Chronic Qualifiers: Asthma severity: mild intermittent Asthma complication type: uncomplicated Qualified Code(s): J45.20 - Mild intermittent asthma, uncomplicated (8) COPD (chronic obstructive pulmonary disease) Current Visit: Yes Status: Chronic Qualifiers: COPD type: emphysema Emphysema type: other Qualified Code(s): J43.8 - Other emphysema (9) Neuropathy Current Visit: Yes Status: Chronic (10) Positive PPD, treated Current Visit: Yes Status: Resolved (11) Use of cane as ambulatory aid Current Visit: Yes Status: Chronic Comment: right leg weakness (12) Insomnia Current Visit: Yes Status: Acute - Initial Treatment Plan Initial Treatment Plan: Psychoeducation.Detoxification.Orders entered for medications (refer to Psychiatric Hisory section for details).Side effects/ benefits of each drug are discussed with the patient,including potential for seizures (wellbutrin) and suicidal ideation/sexual dysfunction (prozac).Patient is in agreement with this careplan.Observation.No need for scripts at discharge.
[2017-01-08 10:33] LABS: ALBUMIN 3.7 g/dl (3.4-5.0); ANION GAP 9 (8-16); BILIRUBIN,TOTAL 0.7 mg/dL (0.2-1.0); CALCIUM 9.3 mg/dL (8.5-10.1); CO2 29 mmol/L (21-32); COCKROFT - GAULT 104.4395; CREATININE 0.8 mg/dL (0.55-1.02); GLUCOSE,RANDOM 84 mg/dL (74-106); SGOT/AST 23 U/L (15-37); SGPT/ALT 23 U/L (12-78)
[2017-01-08 10:34] LABS: ALK PHOS 128 U/L (45-117); TOT PROT 7.3 g/dl (6.4-8.2)
[2017-01-08] MEDS: PRENATAL VITAMINS W/ FOLIC ACID TABLET (FP) PO SCH (11:07)
[2017-01-08] MEDS: LORATADINE 10 MG TABLET PO SCH (11:07)
[2017-01-08] MEDS: BUDESONIDE/FORMETEROL FUMARATE 80/4.5 mcg INHALER IH SCH ×2 (11:07→22:02)
[2017-01-08] MEDS: NICOTINE 21 MG/24 HOURS TOPICAL PATCH TD SCH (11:08)
[2017-01-08] MEDS: FLUoxetine HCL 20 MG CAPSULE (FP) PO SCH (11:10)
--- NOTE | 2017-01-08 14:29 | PN ---
S CIWA - CIWA Score Nausea/Vomitin Muscle Tremors: 3 Anxiety: 3 Agitation: 2 Paroxysmal Sweats: 1-Minimal Palms Moist Orientation: 0-Oriented Tacttile Disturbances: 1-Very Mild Itch/Numbness Auditory Disturbances: 1-Very Mild Visual Disturbances: 1-Very Mild Sensitivity Headache: 2-Mild CIWA-Ar Total Score: 17 S Progress Note (SOAP) Subjective: ALERT,IRRITABLE,ANXIOUS,INTERRUPTED SLEEP,PAIN IN THE BODY,BACK,TREMOR Objective: 01/08/17 14:27 01/08/17 14:27 Vital Signs Temperature 98.1 F 01/08/17 10:39 Pulse Rate 94 H 01/08/17 10:39 Respiratory Rate 20 01/08/17 10:39 Blood Pressure 146/84 01/08/17 10:39 O2 Sat by Pulse Oximetry (%) EKG NSR,NORMAL ECG Laboratory Last Values WBC 8.4 K/mm3 (4.0-10.0) D 01/08/17 08:00 RBC 3.84 M/mm3 (3.60-5.2) 01/08/17 08:00 Hgb 13.3 GM/dL (10.7-15.3) 01/08/17 08:00 Hct 38.6 % (32.4-45.2) 01/08/17 08:00 MCV 100.6 fl (80-96) H 01/08/17 08:00 MCHC 34.4 g/dl (32.0-36.0) 01/08/17 08:00 RDW 14.3 % (11.6-15.6) 01/08/17 08:00 Plt Count 245 K/MM3 (134-434) 01/08/17 08:00 MPV 8.0 fl (7.5-11.1) 01/08/17 08:00 Sodium 140 mmol/L (136-145) 01/08/17 07:40 Potassium 4.0 mmol/L (3.5-5.1) 01/08/17 07:40 Chloride 102 mmol/L (98-107) 01/08/17 07:40 Carbon Dioxide 29 mmol/L (21-32) 01/08/17 07:40 Anion Gap 9 (8-16) 01/08/17 07:40 BUN 11 mg/dL (7-18) D 01/08/17 07:40 Creatinine 0.8 mg/dL (0.55-1.02) 01/08/17 07:40 Creat Clearance w eGFR > 60 (>60) 01/08/17 07:40 Random Glucose 84 mg/dL (74-106) 01/08/17 07:40 Calcium 9.3 mg/dL (8.5-10.1) 01/08/17 07:40 Total Bilirubin 0.7 mg/dL (0.2-1.0) D 01/08/17 07:40 AST 23 U/L (15-37) D 01/08/17 07:40 ALT 23 U/L (12-78) D 01/08/17 07:40 Alkaline Phosphatase 128 U/L (45-117) H D 01/08/17 07:40 Total Protein 7.3 g/dl (6.4-8.2) 01/08/17 07:40 Albumin 3.7 g/dl (3.4-5.0) 01/08/17 07:40 Urine Color Straw 01/07/17 22:14 Urine Appearance Clear 01/07/17 22:14 Urine pH 6.0 (5.0-8.0) 01/07/17 22:14 Urine Protein Negative (NEGATIVE) 01/07/17 22:14 Urine Glucose (UA) Negative (NEGATIVE) 01/07/17 22:14 Urine Ketones Negative (NEGATIVE) 01/07/17 22:14 Urine Blood Negative (NEGATIVE) 01/07/17 22:14 Urine Nitrite Negative (NEGATIVE) 01/07/17 22:14 Urine Bilirubin Negative (NEGATIVE) 01/07/17 22:14 Urine Urobilinogen Negative E.U./dl (0.2-1.0) 01/07/17 22:14 Ur Leukocyte Esterase Negative (NEGATIVE) 01/07/17 22:14 RPR Titer Nonreactive (NONREACTIVE) 01/08/17 07:40 Assessment: 01/08/17 14:28 WITHDRAWAL SYMPTOM Plan: CONTINUE DETOX
[2017-01-08] MEDS: THIAMINE HCL 100 MG TABLET (FP) PO SCH (22:03)
[2017-01-08] MEDS: traZODone HCL 100 MG TABLET (FP) PO SCH (22:03)
[2017-01-08] MEDS: MONTELUKAST NA 10 MG TABLET PO SCH (22:04)
[2017-01-09] MEDS: chlordiazePOXIDE HCL 25 MG CAPSULE PO SCH ×3 (05:43→17:18)
[2017-01-09] MEDS: GABAPENTIN 300 MG CAPSULE (FP) PO SCH ×3 (05:43→22:26)
[2017-01-09] MEDS: PRENATAL VITAMINS W/ FOLIC ACID TABLET (FP) PO SCH (10:04)
[2017-01-09] MEDS: FLUoxetine HCL 20 MG CAPSULE (FP) PO SCH (10:04)
[2017-01-09] MEDS: BUDESONIDE/FORMETEROL FUMARATE 80/4.5 mcg INHALER IH SCH ×2 (10:04→22:26)
[2017-01-09] MEDS: NICOTINE 21 MG/24 HOURS TOPICAL PATCH TD SCH (10:04)
[2017-01-09] MEDS: LORATADINE 10 MG TABLET PO SCH (10:04)
[2017-01-09] MEDS: MAGNESIUM HYDROX 2400MG/30ML ORAL SUSPENSION 30 ML CUP PO PRN (11:06)
--- NOTE | 2017-01-09 11:47 | PN ---
S CIWA - CIWA Score Nausea/Vomitin Muscle Tremors: 3 Anxiety: 3 Agitation: 2 Paroxysmal Sweats: 1-Minimal Palms Moist Orientation: 0-Oriented Tacttile Disturbances: 1-Very Mild Itch/Numbness Auditory Disturbances: 1-Very Mild Visual Disturbances: 1-Very Mild Sensitivity Headache: 2-Mild CIWA-Ar Total Score: 17 BHS Progress Note (SOAP) Subjective: ALERT,IRRITABLE,ANXIOUS,INTERRUPTED SLEEP,TREMOR Objective: 01/09/17 11:47 Vital Signs Temperature 97.7 F 01/09/17 10:22 Pulse Rate 89 01/09/17 10:22 Respiratory Rate 18 01/09/17 10:22 Blood Pressure 130/62 01/09/17 10:22 O2 Sat by Pulse Oximetry (%) Assessment: 01/09/17 11:47 WITHDRAWAL SYMPTOM Plan: CONTINUE DETOX
[2017-01-09] MEDS: chlordiazePOXIDE HCL 25 MG CAPSULE PO PRN ×2 (14:11→19:14)
[2017-01-09] MEDS: traZODone HCL 100 MG TABLET (FP) PO SCH (22:26)
[2017-01-09] MEDS: MONTELUKAST NA 10 MG TABLET PO SCH (22:26)
[2017-01-09] MEDS: chlordiazePOXIDE 5 MG CAPSULE PO SCH (22:26)
[2017-01-09] MEDS: THIAMINE HCL 100 MG TABLET (FP) PO SCH (22:26)
[2017-01-10] MEDS: chlordiazePOXIDE 5 MG CAPSULE PO SCH ×3 (05:40→16:49)
[2017-01-10] MEDS: GABAPENTIN 300 MG CAPSULE (FP) PO SCH ×3 (05:40→22:16)
[2017-01-10] MEDS: chlordiazePOXIDE HCL 25 MG CAPSULE PO PRN ×2 (08:11→12:44)
[2017-01-10] MEDS: LORATADINE 10 MG TABLET PO SCH (10:40)
[2017-01-10] MEDS: FLUoxetine HCL 20 MG CAPSULE (FP) PO SCH (10:40)
[2017-01-10] MEDS: PRENATAL VITAMINS W/ FOLIC ACID TABLET (FP) PO SCH (10:40)
[2017-01-10] MEDS: BUDESONIDE/FORMETEROL FUMARATE 80/4.5 mcg INHALER IH SCH ×2 (10:40→23:26)
[2017-01-10] MEDS: NICOTINE 21 MG/24 HOURS TOPICAL PATCH TD SCH (10:41)
--- NOTE | 2017-01-10 11:06 | PN ---
BHS Progress Note (SOAP) Subjective: INTERRUPTED SLEEP, RT ANKLE SPASM , ANXIETY Objective: 01/10/17 11:03 Vital Signs Temperature 97.5 F L 01/10/17 09:50 Pulse Rate 84 01/10/17 09:50 Respiratory Rate 18 01/10/17 09:50 Blood Pressure 142/70 01/10/17 09:50 O2 Sat by Pulse Oximetry (%) Laboratory Tests 01/07/17 01/08/17 01/08/17 22:14 07:40 07:40 WBC RBC Hgb Hct MCV MCHC RDW Plt Count MPV Sodium 140 Potassium 4.0 Chloride 102 Carbon Dioxide 29 Anion Gap 9 BUN 11 D Creatinine 0.8 Creat Clearance w eGFR > 60 Random Glucose 84 Calcium 9.3 Total Bilirubin 0.7 D AST 23 D ALT 23 D Alkaline Phosphatase 128 H D Total Protein 7.3 Albumin 3.7 Urine Color Straw Urine Appearance Clear Urine pH 6.0 Ur Specific [place] < 1.005 L Urine Protein Negative Urine Glucose (UA) Negative Urine Ketones Negative Urine Blood Negative Urine Nitrite Negative Urine Bilirubin Negative Urine Urobilinogen Negative Ur Leukocyte Esterase Negative RPR Titer Nonreactive 01/08/17 08:00 WBC 8.4 D RBC 3.84 Hgb 13.3 Hct 38.6 MCV 100.6 H MCHC 34.4 RDW 14.3 Plt Count 245 MPV 8.0 Sodium Potassium Chloride Carbon Dioxide Anion Gap BUN Creatinine Creat Clearance w eGFR Random Glucose Calcium Total Bilirubin AST ALT Alkaline Phosphatase Total Protein Albumin Urine Color Urine Appearance Urine pH Ur Specific [place] Urine Protein Urine Glucose (UA) Urine Ketones Urine Blood Urine Nitrite Urine Bilirubin Urine Urobilinogen Ur Leukocyte Esterase RPR Titer PT AOX3 IN NAD AMBULATING WITH LIMP Assessment: 01/10/17 11:04 WWITHDRAWAL SX;S RT ANKLE SPRAIN 01/10/17 11:04 Plan: CONT. DETOX INCREASE FLUIDS D/C IN AM
--- NOTE | 2017-01-10 13:05 | EKG ---
Test Reason : Blood Pressure : / mmHG Vent. Rate : 082 BPM Atrial Rate : 082 BPM P-R Int : 174 ms QRS Dur : 090 ms QT Int : 378 ms P-R-T Axes : 056 076 053 degrees QTc Int : 441 ms NORMAL SINUS RHYTHM NORMAL ECG WHEN COMPARED WITH ECG OF 02-SEP-2016 14:19, NO SIGNIFICANT CHANGE WAS FOUND Confirmed by SENTHIL SANTIAGO MD ([id number]) on 01/10/2017 1:05:07 PM Referred By: Alfie Malhotra Confirmed By:SENTHIL SANTIAGO MD
[2017-01-10] MEDS: MONTELUKAST NA 10 MG TABLET PO SCH (22:16)
[2017-01-10] MEDS: traZODone HCL 100 MG TABLET (FP) PO SCH (22:16)
[2017-01-10] MEDS: THIAMINE HCL 100 MG TABLET (FP) PO SCH (22:16)
[2017-01-10] MEDS: chlordiazePOXIDE HCL 10 MG CAPSULE PO SCH (22:17)
[2017-01-11] MEDS: chlordiazePOXIDE HCL 10 MG CAPSULE PO SCH (05:37)
[2017-01-11] MEDS: GABAPENTIN 300 MG CAPSULE (FP) PO SCH (05:37)
[2017-01-11] MEDS: MAGNESIUM HYDROX 2400MG/30ML ORAL SUSPENSION 30 ML CUP PO PRN (05:49)
[2017-01-11 07:07] VITALS: BP 147/92; PULSE 74; TEMP 97.5
--- NOTE | 2017-01-11 09:07 | DS ---
[facility] Detox Discharge Summary Admission Date: 01/07/17 Discharge Date: 01/11/17 - History Present History: Alcohol Dependence, Cannabis Dependence - Physical Exam Results Vital Signs: Vital Signs Temperature 97.5 F L 01/11/17 06:00 Pulse Rate 74 01/11/17 06:00 Respiratory Rate 18 01/11/17 06:00 Blood Pressure 147/92 01/11/17 06:00 O2 Sat by Pulse Oximetry (%) - Treatment Hospital Course: Detox Protocol Followed, Detoxed Safely, Responded well, Discharged Condition Good, Rehab Referral Accepted - Medication Discharge Medications: Ambulatory Orders Naltrexone HCl [Revia -] 50 mg PO HS 04/06/16 Bupropion HCl [Wellbutrin Xl -] 150 mg PO DAILY #30 tab.sr.24h 04/07/16 Fluoxetine HCl [Prozac -] 40 mg PO DAILY #30 capsule 04/07/16 Trazodone HCl [Desyrel -] 200 mg PO HS #30 tablet 04/07/16 Albuterol Sulfate Inhaler - [Ventolin HFA Inhaler -] 2 puff IH Q4H PRN #1 inhaler 04/10/16 Fluticasone/Salmeterol [Advair 250-50 Diskus] 1 each IH BID #1 disk.w.dev Montelukast Na [Singulair -] 10 mg PO HS #30 tablet 04/10/16 Azelastine HCl 205.5 mcg NS BID 09/02/16 Folic Acid - 1 mg PO DAILY 09/02/16 Gabapentin [Neurontin -] 300 mg PO Q8H 09/02/16 Haloperidol Decanoate [Haldol Decanoate 100] 75 mg IM MONTHLY 09/02/16 Loratadine 10 mg PO DAILY 09/02/16 Cephalexin Monohydrate [Keflex -] 500 mg PO Q6HPO #7 capsule 09/06/16 - Diagnosis (1) Alcohol dependence with uncomplicated withdrawal Current Visit: Yes Status: Chronic (2) Cannabis dependence Current Visit: Yes Status: Chronic (3) Drug-induced mood disorder Current Visit: Yes Status: Acute (4) Insomnia Current Visit: Yes Status: Acute (5) Nicotine dependence Current Visit: Yes Status: Chronic Qualifiers: Nicotine product type: cigarettes Substance use status: uncomplicated Qualified Code(s): F17.210 - Nicotine dependence, cigarettes, uncomplicated (6) Asthma Current Visit: Yes Status: Chronic Qualifiers: Asthma severity: mild intermittent Asthma complication type: uncomplicated Qualified Code(s): J45.20 - Mild intermittent asthma, uncomplicated (7) COPD (chronic obstructive pulmonary disease) Current Visit: Yes Status: Chronic Qualifiers: COPD type: emphysema Emphysema type: other Qualified Code(s): J43.8 - Other emphysema (8) Neuropathy Current Visit: Yes Status: Chronic (9) PTSD (post-traumatic stress disorder) Current Visit: Yes Status: Chronic (10) Schizoaffective disorder Current Visit: Yes Status: Chronic Qualifiers: Schizoaffective disorder type: other Qualified Code(s): F25.8 - Other schizoaffective disorders (11) Use of cane as ambulatory aid Current Visit: Yes Status: Chronic (12) Positive PPD, treated Current Visit: Yes Status: Resolved (13) Bilateral cellulitis of lower leg Current Visit: No Status: Chronic - AMA Did Patient Leave Against Medical Advice: No
== END 2017-01-11 09:11 | disposition home or self-care (01) | DRG 775 ==
LOC: YASAS 14:19 → Y6N 20:18
PROVIDERS: ADMIT Internal Medicine Addiction Medicine; ATTEND Internal Medicine Addiction Medicine
PROC: HZ2ZZZZ Detoxification Services for Substance Abuse Treatment (ICD-10-PCS; principal; 2017-01-07)
DX: F10.230 Alcohol dependence with withdrawal, uncomplicated (principal); F12.20 Cannabis dependence, uncomplicated; F17.210 Nicotine dependence, cigarettes, uncomplicated; F19.24 Other psychoactive substance dependence with psychoactive substance-induced mood disorder; F43.10 Post-traumatic stress disorder, unspecified; F25.8 Other schizoaffective disorders; G47.00 Insomnia, unspecified; J45.20 Mild intermittent asthma, uncomplicated; J43.8 Other emphysema; G62.9 Polyneuropathy, unspecified; R26.2 Difficulty in walking, not elsewhere classified; M54.5 Low back pain; R76.11 Nonspecific reaction to tuberculin skin test without active tuberculosis; L03.116 Cellulitis of left lower limb; L03.115 Cellulitis of right lower limb; K76.0 Fatty (change of) liver, not elsewhere classified; E66.9 Obesity, unspecified; Z68.30 Body mass index [BMI] 30.0-30.9, adult
CPT/HCPCS: 36415; 73130-TC-RT; 80053; 81003; 85027; 86593; 93005; 93010

== ENCOUNTER 2017-03-08 08:36 | Inpatient (IN) | payer OTHER ==
[2017-03-08 09:42] VITALS: BMI 21.9
--- NOTE | 2017-03-08 10:18 | HP ---
CIWA Score - CIWA Score Nausea/Vomitin Muscle Tremors: 3 Anxiety: 3 Agitation: 3 Paroxysmal Sweats: 1-Minimal Palms Moist Orientation: 0-Oriented Tacttile Disturbances: 2-Mild Itch/Numbness/Burn Auditory Disturbances: 2-Mild Harshness/Frighten Visual Disturbances: 2-Mild Sensitivity Headache: 2-Mild CIWA-Ar Total Score: 21 Admission ROS BHS - HPI Chief Complaint: i do not want to drink anymore Allergies/Adverse Reactions: Allergies Allergy/AdvReac Type Severity Reaction Status Date / Time watermelon Allergy Severe Difficulty Verified 03/08/17 10:07 Breathing No Known Drug Allergies Allergy Verified 03/08/17 10:07 History of Present Illness: this 56 years old female with alcohol and cannabis dependence,seeking help to stop drinking alcohol,last detox [facility] form 01/07/17 to 01/11/17 [facility] several admissions in detox but relapsed longest period of sobriety 5 years copd schizoaffective disorder Exam Limitations: No Limitations - Ebola screening Have you traveled outside of the country in the last 21 days: No Have you had contact with anyone from an Ebola affected area: No Have you been sick,other than usual withdrawal symptoms: No - Review of Systems Constitutional: Loss of Appetite, Malaise, Night Sweats, Changes in sleep, Weakness EENT: reports: Tearing, Nose Congestion Respiratory: reports: Wheezing, Other (copd) GI: reports: Diarrhea, Nausea, Vomiting, Abdominal cramping : reports: No Symptoms Reported Musculoskeletal: reports: Back Pain, Muscle Pain Integumentary: reports: Dryness Neuro: reports: Headache, Tremors Endocrine: reports: No Symptoms Reported Hematology: reports: No Symptoms Reported Psychiatric: reports: other (shizoaffective disorder) Patient History - Patient Medical History Hx Anemia: No Hx Asthma: Yes (Pt is on MDI) Hx Chronic Obstructive Pulmonary Disease (COPD): Yes Hx Cancer: No Hx Cardiac Disorders: No Hx Congestive Heart Failure: No Hx Hypertension: No Hx Hypercholesterolemia: No Hx Pacemaker: No HX Cerebrovascular Accident: No Hx Seizures: No Hx Dementia: No Hx Diabetes: No Hx Gastrointestinal Disorders: No Hx Liver Disease: Yes (fatty liver) Hx Genitourinary Disorders: No Hx Sexually Transmitted Disorders: No Hx Renal Disease (ESRD): No Hx Thyroid Disease: No Hx Human Immunodeficiency Virus (HIV): No (last 2014 negative) Hx Hepatitis C: No Hx Depression: Yes Hx Suicide Attempt: Yes (Tried to cut wrist in 2010) Hx Bipolar Disorder: No Hx Schizophrenia: Yes (schizoaffective disorder) Other Medical History: no suicidal,no homicidal,low back pain,neuropathy, pancreatitis - Patient Surgical History Past Surgical History: Yes Hx Neurologic Surgery: No Hx Cataract Extraction: No Hx Cardiac Surgery: No Hx Lung Surgery: No Hx Breast Surgery: No Hx Breast Biopsy: No Hx Abdominal Surgery: No Hx Appendectomy: No Hx Cholecystectomy: No Hx Genitourinary Surgery: No Hx Section: No Hx Orthopedic Surgery: Yes (discectomy 2011; rt bunion sx 1993; rt knee arthoscopy 1991) Other Surgical History: ectopic 1983 R foot sx at age 7 yrs old. Anesthesia Reaction: No - PPD History Implanted On Prior [facility] Admission?: No PPD to be Administered?: No - Reproductive History Last Menstrual Period: 09/29/09 Patient : No - Smoking Cessation Smoking history: Current every day smoker Have you smoked in the past 12 months: Yes Aproximately how many cigarettes per day: 10 Cigars Per Day: 0 Hx Chewing Tobacco Use: No Initiated information on smoking cessation: Yes 'Breaking Loose' booklet given: 03/08/17 - Substance & Tx. History Hx Alcohol Use: Yes Hx Substance Use: Yes Substance Use Type: Alcohol, Marijuana Hx Substance Use Treatment: Yes ([facility] 01/07/17 to ) - Substances Abused Alcohol Route: Oral Frequency: Daily Amount used: 3-4 pints of vodka Age of first use: 13 Date of Last Use: 03/08/17 Marijuana/Hashish Route: Smoking Frequency: 1-2 times per week Amount used: $10 Age of first use: 13 Date of Last Use: 03/07/17 Family Disease History - Family Disease History Family Disease History: [place]: Father (alcohol,), Mother (), Other : Brother () Admission Physical Exam S - Vital Signs Vital Signs: Vital Signs - 24 hr 03/08/17 09:33 Temperature 98.6 F Pulse Rate 109 H Respiratory 16 Rate Blood Pressure 129/70 - Physical General Appearance: Yes: Moderate Distress, Tremorous, Irritable, Sweating, Anxious HEENTM: Yes: Hearing grossly Normal, Normal ENT Inspection, RICARDO Respiratory: Yes: Wheezing Neck: Yes: Within Normal Limits, Supple, Trachea in good position Breast: Yes: Breast Exam Deferred Cardiology: Yes: Within Normal Limits, Regular Rhythm, Regular Rate, S1, S2 Abdominal: Yes: Within Normal Limits, Normal Bowel Sounds, Non Tender, Flat, Soft Genitourinary: Yes: Within Normal Limits Back: Yes: Muscle Spasm Musculoskeletal: Yes: Back pain, Muscle Pain Extremities: Yes: Tremors Neurological: Yes: key cutter II-XII NML intact, Alert, Motor Strength 5/5, Other ( scar in the back) Integumentary: Yes: Dry Lymphatic: Yes: Within Normal Limits - Diagnostic (1) Alcohol dependence with uncomplicated withdrawal Current Visit: No Status: Chronic (2) Asthma Current Visit: No Status: Chronic Qualifiers: Asthma severity: mild intermittent Asthma complication type: uncomplicated Qualified Code(s): J45.20 - Mild intermittent asthma, uncomplicated (3) COPD (chronic obstructive pulmonary disease) Current Visit: No Status: Chronic Qualifiers: COPD type: emphysema Emphysema type: other Qualified Code(s): J43.8 - Other emphysema (4) Cannabis dependence Current Visit: No Status: Chronic (5) Neuropathy Current Visit: No Status: Chronic (6) PTSD (post-traumatic stress disorder) Current Visit: No Status: Chronic (7) Schizoaffective disorder Current Visit: No Status: Chronic Qualifiers: Schizoaffective disorder type: other Qualified Code(s): F25.8 - Other schizoaffective disorders (8) Nicotine dependence Current Visit: No Status: Chronic Qualifiers: Nicotine product type: cigarettes Substance use status: uncomplicated Qualified Code(s): F17.210 - Nicotine dependence, cigarettes, uncomplicated (9) Low back pain Current Visit: Yes Status: Acute (10) Pancreatitis Current Visit: Yes Status: Acute Cleared for Admission S - Detox or Rehab [facility] Level of Care: Medically Managed Detox Regimen/Protocol: Librium [facility] Breath Alcohol Content Breath Alcohol Content: 0.069 Urine Drug Screen - Results Drug Screen Negative: No Urine Drug Screen Results: THC-Marijuana
[2017-03-08] MEDS ORDERED: IBUPROFEN 400 MG TABLET (FP) PO PRN (10:33)
[2017-03-08] MEDS ORDERED: LOPERAMIDE HCL 2 MG CAPSULE PO PRN (10:33)
[2017-03-08] MEDS ORDERED: ACETAMINOPHEN 325 MG TABLET (FP) PO PRN (10:33)
[2017-03-08] MEDS ORDERED: MENTHOL/PHENOL 1 EACH UD MM PRN (10:33)
[2017-03-08] MEDS ORDERED: guaiFENesin/D-METHORPHAN HB 10 ML UNIT-DOSE CUPS PO PRN (10:33)
[2017-03-08] MEDS ORDERED: P-EPHED 60MG/TRIPROLIDI 2.5MG TABLET PO PRN (10:33)
[2017-03-08] MEDS ORDERED: MAGNESIUM CITRATE 300 ML BOTTLE PO PRN (10:33)
[2017-03-08] MEDS ORDERED: MAGNESIUM HYDROX 2400MG/30ML ORAL SUSPENSION 30 ML CUP PO PRN (10:33)
[2017-03-08] MEDS ORDERED: MAG HYDROX/AL HYDROX/SIMETH 30 ML UNIT-DOSE CUP PO PRN (10:33)
[2017-03-08] MEDS ORDERED: ALBUTEROL SO4 6.7 GM HFA INHALER IH PRN (10:36)
[2017-03-08] MEDS ORDERED: ALBUTEROL SO4 2.5/IPRATROPIUM 0.5 INH SOL 3 ML VIAL.NEB. NEB PRN (10:40)
[2017-03-08] MEDS ORDERED: chlordiazePOXIDE HCL 25 MG CAPSULE PO ONE (10:40)
[2017-03-08] MEDS: GABAPENTIN 400 MG CAPSULE (FP) PO SCH ×2 (11:37→19:41)
[2017-03-08] MEDS: NICOTINE 21 MG/24 HOURS TOPICAL PATCH TD SCH (11:38)
[2017-03-08] MEDS: chlordiazePOXIDE HCL 25 MG CAPSULE PO PRN ×2 (14:11→19:43)
[2017-03-08] MEDS: chlordiazePOXIDE HCL 25 MG CAPSULE PO SCH ×2 (16:38→22:03)
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
--- NOTE | 2017-03-08 17:16 | EKG ---
Test Reason : Blood Pressure : / mmHG Vent. Rate : 082 BPM Atrial Rate : 082 BPM P-R Int : 148 ms QRS Dur : 088 ms QT Int : 342 ms P-R-T Axes : 062 083 056 degrees QTc Int : 399 ms NORMAL SINUS RHYTHM NORMAL ECG WHEN COMPARED WITH ECG OF 07-JAN-2017 20:20, NO SIGNIFICANT CHANGE WAS FOUND Confirmed by CONCEPCION CAMARGO MD ([id number]) on 03/08/2017 5:16:29 PM Referred By: Confirmed By:CONCEPCION CAMARGO MD
[2017-03-08] MEDS: THIAMINE HCL 100 MG TABLET (FP) PO SCH (22:03)
[2017-03-08] MEDS: traZODone HCL 100 MG TABLET (FP) PO SCH (22:04)
[2017-03-08] MEDS: BUDESONIDE/FORMETEROL FUMARATE 160/4.5 mcg INHALER IH SCH (22:04)
[2017-03-08] MEDS: FLUTICASONE PROP 0.05% 16 GM NASAL SPRAY NS SCH (22:04)
[2017-03-08] MEDS: MONTELUKAST NA 10 MG TABLET PO SCH (22:04)
[2017-03-08] MEDS: diphenhydrAMINE HCL 50 MG CAPSULE PO PRN (22:05)
[2017-03-08 22:57] LABS: URINE APPEARANCE CLEAR; URINE BILIRUBIN NEGATIVE (NEGATIVE); URINE BLOOD NEGATIVE (NEGATIVE); URINE COLOR STRAW; URINE GLUCOSE (UA) NEGATIVE (NEGATIVE); URINE KETONE NEGATIVE (NEGATIVE); URINE LEUK ESTERASE NEGATIVE (NEGATIVE); URINE NITRITE NEGATIVE (NEGATIVE); URINE PROTEIN NEGATIVE (NEGATIVE); URINE UROBILINOGEN NEGATIVE E.U./dl (0.2-1.0)
[2017-03-09] MEDS: chlordiazePOXIDE HCL 25 MG CAPSULE PO SCH ×4 (05:06→22:21)
[2017-03-09] MEDS: GABAPENTIN 400 MG CAPSULE (FP) PO SCH ×3 (05:06→22:22)
[2017-03-09] MEDS: BUDESONIDE/FORMETEROL FUMARATE 160/4.5 mcg INHALER IH SCH ×2 (10:02→22:21)
[2017-03-09] MEDS: PRENATAL VITAMINS W/ FOLIC ACID TABLET (FP) PO SCH (10:02)
[2017-03-09] MEDS: FLUoxetine HCL 20 MG CAPSULE (FP) PO SCH (10:02)
[2017-03-09] MEDS: LORATADINE 10 MG TABLET PO SCH (10:02)
[2017-03-09] MEDS: FLUTICASONE PROP 0.05% 16 GM NASAL SPRAY NS SCH ×2 (10:02→22:21)
[2017-03-09] MEDS: NICOTINE 21 MG/24 HOURS TOPICAL PATCH TD SCH (10:02)
[2017-03-09] MEDS: hydrOXYzine PAMOATE 50 MG CAPSULE (FP) PO PRN ×2 (11:37→22:25)
--- NOTE | 2017-03-09 11:44 | PN ---
[facility] CIWA - CIWA Score Nausea/Vomitin-No Nausea/No Vomiting Muscle Tremors: 4-Moderate,w/Arms Extend Anxiety: 4-Mod. Anxious/Guarded Agitation: 3 Paroxysmal Sweats: 3 Orientation: 0-Oriented Tacttile Disturbances: 2-Mild Itch/Numbness/Burn Auditory Disturbances: 0-None Visual Disturbances: 0-None Headache: 3-Moderate CIWA-Ar Total Score: 19 BHS Progress Note (SOAP) Subjective: Tremors, Body Aches, H/A, Sweating, Lower Back Ache. Objective: PT. A & O X 3, OBSERVED AMBULATING ON UNIT. NO ACUTE DISTRESS. PT. DENIES CHEST PAIN. 03/09/17 11:41 Vital Signs Temperature 97.7 F 03/09/17 09:11 Pulse Rate 89 03/09/17 09:11 Respiratory Rate 18 03/09/17 09:11 Blood Pressure 129/78 03/09/17 09:11 O2 Sat by Pulse Oximetry (%) Laboratory Tests 03/08/17 16:53 Urine Color Straw Urine Appearance Clear Urine pH 6.0 Ur Specific [place] <= 1.005 Urine Protein Negative Urine Glucose (UA) Negative Urine Ketones Negative Urine Blood Negative Urine Nitrite Negative Urine Bilirubin Negative Urine Urobilinogen Negative Ur Leukocyte Esterase Negative UA RESULTS NOTED. OTHER ADMISSION LABS VALUES PENDING. Assessment: 03/09/17 11:43 WITHDRAWAL SYMPTOMS. Plan: CONTINUE DETOX.
[2017-03-09] MEDS: chlordiazePOXIDE HCL 25 MG CAPSULE PO PRN (13:57)
[2017-03-09 14:41] LABS: MCH 34.9 pg (25.7-33.7); MCHC 33.9 g/dl (32.0-36.0); MEAN CELL VOLUME 103.1 fl (80-96); MEAN PLT VOLUME 8.2 fl (7.5-11.1); PLATELET COUNT 200 K/MM3 (134-434); WHITE BLOOD COUNT 4.7 K/mm3 (4.0-10.0)
[2017-03-09 14:59] LABS: ALBUMIN 3.3 g/dl (3.4-5.0); ANION GAP 5 (8-16); CALCIUM 9.3 mg/dL (8.5-10.1); CO2 32 mmol/L (21-32); CREATININE 0.9 mg/dL (0.55-1.02); GLUCOSE,RANDOM 132 mg/dL (74-106); SGOT/AST 46 U/L (15-37); SGPT/ALT 52 U/L (12-78)
[2017-03-09 15:01] LABS: ALK PHOS 102 U/L (45-117); BILIRUBIN,TOTAL 0.3 mg/dL (0.2-1.0); TOT PROT 6.6 g/dl (6.4-8.2)
[2017-03-09] MEDS: THIAMINE HCL 100 MG TABLET (FP) PO SCH (22:21)
[2017-03-09] MEDS: traZODone HCL 100 MG TABLET (FP) PO SCH (22:22)
[2017-03-09] MEDS: MONTELUKAST NA 10 MG TABLET PO SCH (22:22)
[2017-03-10] MEDS: chlordiazePOXIDE HCL 25 MG CAPSULE PO PRN ×2 (03:03→13:21)
[2017-03-10] MEDS: GABAPENTIN 400 MG CAPSULE (FP) PO SCH ×3 (05:39→22:33)
[2017-03-10] MEDS: chlordiazePOXIDE HCL 25 MG CAPSULE PO SCH ×2 (05:39→10:15)
[2017-03-10] MEDS: BUDESONIDE/FORMETEROL FUMARATE 160/4.5 mcg INHALER IH SCH ×2 (10:15→22:32)
[2017-03-10] MEDS: LORATADINE 10 MG TABLET PO SCH (10:15)
[2017-03-10] MEDS: FLUoxetine HCL 20 MG CAPSULE (FP) PO SCH (10:15)
[2017-03-10] MEDS: FLUTICASONE PROP 0.05% 16 GM NASAL SPRAY NS SCH ×2 (10:15→22:33)
[2017-03-10] MEDS: NICOTINE 21 MG/24 HOURS TOPICAL PATCH TD SCH (10:15)
[2017-03-10] MEDS: PRENATAL VITAMINS W/ FOLIC ACID TABLET (FP) PO SCH (10:15)
[2017-03-10] MEDS: CYCLOBENZAPRINE HCL 10 MG TABLET (FP) PO PRN ×2 (10:17→22:36)
--- NOTE | 2017-03-10 10:57 | PN ---
[facility] CIWA - CIWA Score Nausea/Vomitin-Mild Nausea/No Vomiting Muscle Tremors: 3 Anxiety: 4-Mod. Anxious/Guarded Agitation: 3 Paroxysmal Sweats: No Perspiration Orientation: 0-Oriented Tacttile Disturbances: 3-Moderate Itch/Numb/Burn Auditory Disturbances: 0-None Visual Disturbances: 1-Very Mild Sensitivity Headache: 2-Mild CIWA-Ar Total Score: 17 S Progress Note (SOAP) Subjective: Body Aches, Lower Back Ache, Diarrhea, H/A, Tremors. Objective: PT. A & O X 3, OBSERVED AMBULATING ON UNIT. NO ACUTE DISTRESS. 03/10/17 10:55 Vital Signs Temperature 96.5 F L 03/10/17 09:48 Pulse Rate 82 03/10/17 09:48 Respiratory Rate 16 03/10/17 09:48 Blood Pressure 133/82 03/10/17 09:48 O2 Sat by Pulse Oximetry (%) Laboratory Tests 03/08/17 03/09/17 03/09/17 16:53 10:45 10:45 WBC 4.7 D RBC 3.77 Hgb 13.2 Hct 38.8 MCV 103.1 H MCH 34.9 H MCHC 33.9 RDW 13.0 Plt Count 200 MPV 8.2 Sodium 142 Potassium 4.1 Chloride 105 Carbon Dioxide 32 Anion Gap 5 L BUN 14 D Creatinine 0.9 Creat Clearance w eGFR > 60 Random Glucose 132 H D Calcium 9.3 Total Bilirubin 0.3 D AST 46 H D ALT 52 D Alkaline Phosphatase 102 D Total Protein 6.6 Albumin 3.3 L Urine Color Straw Urine Appearance Clear Urine pH 6.0 Ur Specific [place] <= 1.005 Urine Protein Negative Urine Glucose (UA) Negative Urine Ketones Negative Urine Blood Negative Urine Nitrite Negative Urine Bilirubin Negative Urine Urobilinogen Negative Ur Leukocyte Esterase Negative RPR Titer Hepatitis C Antibody 03/09/17 03/09/17 10:45 10:45 WBC RBC Hgb Hct MCV MCH MCHC RDW Plt Count MPV Sodium Potassium Chloride Carbon Dioxide Anion Gap BUN Creatinine Creat Clearance w eGFR Random Glucose Calcium Total Bilirubin AST ALT Alkaline Phosphatase Total Protein Albumin Urine Color Urine Appearance Urine pH Ur Specific [place] Urine Protein Urine Glucose (UA) Urine Ketones Urine Blood Urine Nitrite Urine Bilirubin Urine Urobilinogen Ur Leukocyte Esterase RPR Titer Nonreactive Hepatitis C Antibody <0.1 LABS NOTED. Assessment: 03/10/17 10:55 WITHDRAWAL SYMPTOMS. Plan: CONTINUE DETOX. ACBK X 1 TOMORROW FOR ELEVATED ADMISSION RANDOM GLUCOSE LEVEL. PRN FLEXERIL FOR BODY ACHES / MUSCLE SPASMS. PRN IMMODIUM FOR DIARRHEA. INCREASE PO FLUID INTAKE.
[2017-03-10] MEDS: chlordiazePOXIDE 5 MG CAPSULE PO SCH ×2 (17:03→22:33)
[2017-03-10] MEDS: THIAMINE HCL 100 MG TABLET (FP) PO SCH (22:32)
[2017-03-10] MEDS: MONTELUKAST NA 10 MG TABLET PO SCH (22:33)
[2017-03-10] MEDS: traZODone HCL 100 MG TABLET (FP) PO SCH (22:34)
[2017-03-10] MEDS: diphenhydrAMINE HCL 50 MG CAPSULE PO PRN (22:34)
[2017-03-11] MEDS: chlordiazePOXIDE 5 MG CAPSULE PO SCH ×2 (05:56→10:35)
[2017-03-11] MEDS: GABAPENTIN 400 MG CAPSULE (FP) PO SCH ×3 (05:56→22:20)
[2017-03-11] MEDS: FLUTICASONE PROP 0.05% 16 GM NASAL SPRAY NS SCH ×2 (10:35→22:48)
[2017-03-11] MEDS: PRENATAL VITAMINS W/ FOLIC ACID TABLET (FP) PO SCH (10:35)
[2017-03-11] MEDS: LORATADINE 10 MG TABLET PO SCH (10:35)
[2017-03-11] MEDS: FLUoxetine HCL 20 MG CAPSULE (FP) PO SCH (10:35)
[2017-03-11] MEDS: NICOTINE 21 MG/24 HOURS TOPICAL PATCH TD SCH (10:36)
[2017-03-11] MEDS: BUDESONIDE/FORMETEROL FUMARATE 160/4.5 mcg INHALER IH SCH ×2 (10:36→22:48)
[2017-03-11] MEDS: CYCLOBENZAPRINE HCL 10 MG TABLET (FP) PO PRN ×2 (10:37→17:02)
--- NOTE | 2017-03-11 10:37 | PN ---
S Progress Note (SOAP) Subjective: ALERT O X 3. OOB EATING IN DAY ROOM. STATES WILL BE GOING TO [facility] FOR AFTERCARE. Objective: 03/11/17 10:36 Vital Signs Temperature 97.7 F 03/11/17 06:24 Pulse Rate 83 03/11/17 06:24 Respiratory Rate 18 03/11/17 06:24 Blood Pressure 105/72 03/11/17 06:24 O2 Sat by Pulse Oximetry (%) Laboratory Last Values WBC 4.7 K/mm3 (4.0-10.0) D 03/09/17 10:45 RBC 3.77 M/mm3 (3.60-5.2) 03/09/17 10:45 Hgb 13.2 GM/dL (10.7-15.3) 03/09/17 10:45 Hct 38.8 % (32.4-45.2) 03/09/17 10:45 MCV 103.1 fl (80-96) H 03/09/17 10:45 MCH 34.9 pg (25.7-33.7) H 03/09/17 10:45 MCHC 33.9 g/dl (32.0-36.0) 03/09/17 10:45 RDW 13.0 % (11.6-15.6) 03/09/17 10:45 Plt Count 200 K/MM3 (134-434) 03/09/17 10:45 MPV 8.2 fl (7.5-11.1) 03/09/17 10:45 Sodium 142 mmol/L (136-145) 03/09/17 10:45 Potassium 4.1 mmol/L (3.5-5.1) 03/09/17 10:45 Chloride 105 mmol/L (98-107) 03/09/17 10:45 Carbon Dioxide 32 mmol/L (21-32) 03/09/17 10:45 Anion Gap 5 (8-16) L 03/09/17 10:45 BUN 14 mg/dL (7-18) D 03/09/17 10:45 Creatinine 0.9 mg/dL (0.55-1.02) 03/09/17 10:45 Creat Clearance w eGFR > 60 (>60) 03/09/17 10:45 POC Glucometer 103 UNITS (()) 03/11/17 05:59 Random Glucose 132 mg/dL (74-106) H D 03/09/17 10:45 Calcium 9.3 mg/dL (8.5-10.1) 03/09/17 10:45 Total Bilirubin 0.3 mg/dL (0.2-1.0) D 03/09/17 10:45 AST 46 U/L (15-37) H D 03/09/17 10:45 ALT 52 U/L (12-78) D 03/09/17 10:45 Alkaline Phosphatase 102 U/L (45-117) D 03/09/17 10:45 Total Protein 6.6 g/dl (6.4-8.2) 03/09/17 10:45 Albumin 3.3 g/dl (3.4-5.0) L 03/09/17 10:45 Urine Color Straw 03/08/17 16:53 Urine Appearance Clear 03/08/17 16:53 Urine pH 6.0 (5.0-8.0) 03/08/17 16:53 Ur Specific [place] <= 1.005 (1.005-1.025) 03/08/17 16:53 Urine Protein Negative (NEGATIVE) 03/08/17 16:53 Urine Glucose (UA) Negative (NEGATIVE) 03/08/17 16:53 Urine Ketones Negative (NEGATIVE) 03/08/17 16:53 Urine Blood Negative (NEGATIVE) 03/08/17 16:53 Urine Nitrite Negative (NEGATIVE) 03/08/17 16:53 Urine Bilirubin Negative (NEGATIVE) 03/08/17 16:53 Urine Urobilinogen Negative E.U./dl (0.2-1.0) 03/08/17 16:53 Ur Leukocyte Esterase Negative (NEGATIVE) 03/08/17 16:53 RPR Titer Nonreactive (NONREACTIVE) 03/09/17 10:45 Hepatitis C Antibody <0.1 s/co ratio (0.0-0.9) 03/09/17 10:45 Assessment: 03/11/17 10:37 WITHDRAWAL SX Plan: CONTINUE DETOX
[2017-03-11] MEDS: hydrOXYzine PAMOATE 50 MG CAPSULE (FP) PO PRN ×2 (14:20→20:00)
[2017-03-11] MEDS: chlordiazePOXIDE HCL 10 MG CAPSULE PO SCH ×2 (17:03→22:20)
[2017-03-11] MEDS: THIAMINE HCL 100 MG TABLET (FP) PO SCH (22:20)
[2017-03-11] MEDS: MONTELUKAST NA 10 MG TABLET PO SCH (22:21)
[2017-03-11] MEDS: diphenhydrAMINE HCL 50 MG CAPSULE PO PRN (22:21)
[2017-03-11] MEDS: traZODone HCL 100 MG TABLET (FP) PO SCH (22:21)
--- NOTE | 2017-03-12 01:37 | PN ---
S Progress Note Note: called by nurse to evaluate patient who reach out for the cap of marker,no injury note,no head injury Vital Signs Temperature 97.3 F L 03/11/17 22:23 Pulse Rate 75 03/11/17 22:23 Respiratory Rate 18 03/12/17 00:30 Blood Pressure 127/84 03/11/17 22:23 O2 Sat by Pulse Oximetry (%) treatment initiate fall protocol 2 fall precaution continue detox
[2017-03-12] MEDS: GABAPENTIN 400 MG CAPSULE (FP) PO SCH (05:42)
[2017-03-12] MEDS: chlordiazePOXIDE HCL 10 MG CAPSULE PO SCH (06:24)
[2017-03-12 08:59] VITALS: BP 135/85; PULSE 76; TEMP 97.8
[2017-03-12] MEDS: FLUoxetine HCL 20 MG CAPSULE (FP) PO SCH (09:30)
[2017-03-12] MEDS: PRENATAL VITAMINS W/ FOLIC ACID TABLET (FP) PO SCH (09:30)
[2017-03-12] MEDS: NICOTINE 21 MG/24 HOURS TOPICAL PATCH TD SCH (09:31)
--- NOTE | 2017-03-12 09:39 | DS ---
[facility] Detox Discharge Summary Admission Date: 03/08/17 Discharge Date: 03/12/17 - History Present History: Alcohol Dependence Pertinent Past History: Asthma, COPD, pancreatitis, h/o suicide attempt - Physical Exam Results Vital Signs: Vital Signs Temperature 97.8 F 03/12/17 08:40 Pulse Rate 76 03/12/17 08:40 Respiratory Rate 18 03/12/17 08:40 Blood Pressure 135/85 03/12/17 08:40 O2 Sat by Pulse Oximetry (%) Pertinent Admission Physical Exam Findings: withdrawal sx Lab Results WBC 4.7 K/mm3 (4.0-10.0) D 03/09/17 10:45 RBC 3.77 M/mm3 (3.60-5.2) 03/09/17 10:45 Hgb 13.2 GM/dL (10.7-15.3) 03/09/17 10:45 Hct 38.8 % (32.4-45.2) 03/09/17 10:45 MCV 103.1 fl (80-96) H 03/09/17 10:45 MCHC 33.9 g/dl (32.0-36.0) 03/09/17 10:45 RDW 13.0 % (11.6-15.6) 03/09/17 10:45 Plt Count 200 K/MM3 (134-434) 03/09/17 10:45 Sodium 142 mmol/L (136-145) 03/09/17 10:45 Potassium 4.1 mmol/L (3.5-5.1) 03/09/17 10:45 Chloride 105 mmol/L (98-107) 03/09/17 10:45 Carbon Dioxide 32 mmol/L (21-32) 03/09/17 10:45 Anion Gap 5 (8-16) L 03/09/17 10:45 BUN 14 mg/dL (7-18) D 03/09/17 10:45 Creatinine 0.9 mg/dL (0.55-1.02) 03/09/17 10:45 Random Glucose 132 mg/dL (74-106) H D 03/09/17 10:45 Calcium 9.3 mg/dL (8.5-10.1) 03/09/17 10:45 Labs noted - Treatment Hospital Course: Detox Protocol Followed, Detoxed Safely, Responded well, Discharged Condition Good - Medication Discharge Medications: Ambulatory Orders Naltrexone HCl [Revia -] 50 mg PO HS 04/06/16 Bupropion HCl [Wellbutrin Xl -] 150 mg PO DAILY #30 tab.sr.24h 04/07/16 Fluoxetine HCl [Prozac -] 40 mg PO DAILY #30 capsule 04/07/16 Trazodone HCl [Desyrel -] 200 mg PO HS #30 tablet 04/07/16 Albuterol Sulfate Inhaler - [Ventolin HFA Inhaler -] 2 puff IH Q4H PRN #1 inhaler 04/10/16 Fluticasone/Salmeterol [Advair 250-50 Diskus] 1 each IH BID #1 disk.w.dev Montelukast Na [Singulair -] 10 mg PO HS #30 tablet 04/10/16 Azelastine HCl 205.5 mcg NS BID 09/02/16 Folic Acid - 1 mg PO DAILY 09/02/16 Gabapentin [Neurontin -] 800 mg PO Q8H 09/02/16 Haloperidol Decanoate [Haldol Decanoate 100] 75 mg IM MONTHLY 09/02/16 Loratadine 10 mg PO DAILY 09/02/16 Hydroxyzine HCl 50 mg PO BID 03/08/17 - Diagnosis (1) Alcohol dependence with uncomplicated withdrawal Current Visit: Yes Status: Acute (2) Nicotine dependence Current Visit: Yes Status: Acute Qualifiers: Nicotine product type: cigarettes Substance use status: uncomplicated Qualified Code(s): F17.210 - Nicotine dependence, cigarettes, uncomplicated (3) COPD (chronic obstructive pulmonary disease) Current Visit: Yes Status: Chronic Qualifiers: COPD type: emphysema Emphysema type: other Qualified Code(s): J43.8 - Other emphysema (4) PTSD (post-traumatic stress disorder) Current Visit: Yes Status: Chronic (5) Schizoaffective disorder Current Visit: Yes Status: Chronic Qualifiers: Schizoaffective disorder type: other Qualified Code(s): F25.8 - Other schizoaffective disorders (6) Drug-induced mood disorder Current Visit: No Status: Acute - AMA Did Patient Leave Against Medical Advice: No
--- NOTE | 2017-03-12 09:39 | PN ---
BHS Progress Note (SOAP) Subjective: Denies pain Objective: 03/12/17 09:36 Vital Signs 03/12/17 03/12/17 03/12/17 04:40 04:53 08:40 Temperature 96.8 F L 96.8 F L 97.8 F Pulse Rate 77 77 76 Respiratory 18 18 18 Rate Blood Pressure 112/71 112/71 135/85 Laboratory Last Values WBC 4.7 K/mm3 (4.0-10.0) D 03/09/17 10:45 RBC 3.77 M/mm3 (3.60-5.2) 03/09/17 10:45 Hgb 13.2 GM/dL (10.7-15.3) 03/09/17 10:45 Hct 38.8 % (32.4-45.2) 03/09/17 10:45 MCV 103.1 fl (80-96) H 03/09/17 10:45 MCH 34.9 pg (25.7-33.7) H 03/09/17 10:45 MCHC 33.9 g/dl (32.0-36.0) 03/09/17 10:45 RDW 13.0 % (11.6-15.6) 03/09/17 10:45 Plt Count 200 K/MM3 (134-434) 03/09/17 10:45 MPV 8.2 fl (7.5-11.1) 03/09/17 10:45 Sodium 142 mmol/L (136-145) 03/09/17 10:45 Potassium 4.1 mmol/L (3.5-5.1) 03/09/17 10:45 Chloride 105 mmol/L (98-107) 03/09/17 10:45 Carbon Dioxide 32 mmol/L (21-32) 03/09/17 10:45 Anion Gap 5 (8-16) L 03/09/17 10:45 BUN 14 mg/dL (7-18) D 03/09/17 10:45 Creatinine 0.9 mg/dL (0.55-1.02) 03/09/17 10:45 Creat Clearance w eGFR > 60 (>60) 03/09/17 10:45 POC Glucometer 115 UNITS (()) 03/12/17 05:43 Random Glucose 132 mg/dL (74-106) H D 03/09/17 10:45 Calcium 9.3 mg/dL (8.5-10.1) 03/09/17 10:45 Total Bilirubin 0.3 mg/dL (0.2-1.0) D 03/09/17 10:45 AST 46 U/L (15-37) H D 03/09/17 10:45 ALT 52 U/L (12-78) D 03/09/17 10:45 Alkaline Phosphatase 102 U/L (45-117) D 03/09/17 10:45 Total Protein 6.6 g/dl (6.4-8.2) 03/09/17 10:45 Albumin 3.3 g/dl (3.4-5.0) L 03/09/17 10:45 Urine Color Straw 03/08/17 16:53 Urine Appearance Clear 03/08/17 16:53 Urine pH 6.0 (5.0-8.0) 03/08/17 16:53 Ur Specific [place] <= 1.005 (1.005-1.025) 03/08/17 16:53 Urine Protein Negative (NEGATIVE) 03/08/17 16:53 Urine Glucose (UA) Negative (NEGATIVE) 03/08/17 16:53 Urine Ketones Negative (NEGATIVE) 03/08/17 16:53 Urine Blood Negative (NEGATIVE) 03/08/17 16:53 Urine Nitrite Negative (NEGATIVE) 03/08/17 16:53 Urine Bilirubin Negative (NEGATIVE) 03/08/17 16:53 Urine Urobilinogen Negative E.U./dl (0.2-1.0) 03/08/17 16:53 Ur Leukocyte Esterase Negative (NEGATIVE) 03/08/17 16:53 RPR Titer Nonreactive (NONREACTIVE) 03/09/17 10:45 Hepatitis C Antibody <0.1 s/co ratio (0.0-0.9) 03/09/17 10:45 Labs noted a&ox3,s/p fall on right hip, no visible injury, denies hitting head, no ecchymosis or bruises, right hip area non-tender,moves all extremities x4, denies pain Assessment: 03/12/17 09:36 Resolved withdrawal symptoms Fall, no visible injury Plan: Completed detox, d/c home
== END 2017-03-12 09:34 | disposition home or self-care (01) | DRG 775 ==
LOC: YASAS 08:36 → Y3N 10:27
PROVIDERS: ADMIT Internal Medicine; ATTEND Internal Medicine
PROC: HZ2ZZZZ Detoxification Services for Substance Abuse Treatment (ICD-10-PCS; principal; 2017-03-12)
DX: F10.230 Alcohol dependence with withdrawal, uncomplicated (principal); F12.20 Cannabis dependence, uncomplicated; F19.24 Other psychoactive substance dependence with psychoactive substance-induced mood disorder; F43.10 Post-traumatic stress disorder, unspecified; J43.8 Other emphysema; M54.5 Low back pain; G62.9 Polyneuropathy, unspecified; R26.89 Other abnormalities of gait and mobility; Z99.89 Dependence on other enabling machines and devices
CPT/HCPCS: 36415; 80053; 81003; 85027; 86593; 86803; 93005; 93010; 94640

== ENCOUNTER 2017-06-24 11:09 | Inpatient (IN) | payer OTHER ==
[2017-06-24 13:02] VITALS: BMI 30.7
[2017-06-24] MEDS ORDERED: diphenhydrAMINE HCL 50 MG CAPSULE PO PRN (15:13)
[2017-06-24] MEDS ORDERED: chlordiazePOXIDE HCL 25 MG CAPSULE PO ONE (15:13)
[2017-06-24] MEDS ORDERED: MAG HYDROX/AL HYDROX/SIMETH 30 ML UNIT-DOSE CUP PO PRN (15:13)
[2017-06-24] MEDS ORDERED: MAGNESIUM HYDROX 2400MG/30ML ORAL SUSPENSION 30 ML CUP PO PRN (15:13)
[2017-06-24] MEDS ORDERED: IBUPROFEN 400 MG TABLET (FP) PO PRN (15:13)
[2017-06-24] MEDS ORDERED: LOPERAMIDE HCL 2 MG CAPSULE PO PRN (15:13)
[2017-06-24] MEDS ORDERED: P-EPHED 60MG/TRIPROLIDI 2.5MG TABLET PO PRN (15:13)
[2017-06-24] MEDS ORDERED: guaiFENesin/D-METHORPHAN HB 10 ML UNIT-DOSE CUPS PO PRN (15:13)
[2017-06-24] MEDS ORDERED: MAGNESIUM CITRATE 300 ML BOTTLE PO PRN (15:13)
[2017-06-24] MEDS ORDERED: ACETAMINOPHEN 325 MG TABLET (FP) PO PRN (15:13)
[2017-06-24] MEDS ORDERED: NICOTINE POLACRILEX 2 MG GUM BC PRN (15:13)
[2017-06-24] MEDS ORDERED: MENTHOL/PHENOL 1 EACH UD MM PRN (15:13)
--- NOTE | 2017-06-24 15:24 | HP ---
CIWA Score - CIWA Score Nausea/Vomitin-Mild Nausea/No Vomiting Muscle Tremors: 4-Moderate,w/Arms Extend Anxiety: 4-Mod. Anxious/Guarded Agitation: 3 Paroxysmal Sweats: 3 Orientation: 0-Oriented Tacttile Disturbances: 0-None Auditory Disturbances: 0-None Visual Disturbances: 0-None Headache: 0-None Present CIWA-Ar Total Score: 15 Admission ROS BHS - HPI Chief Complaint: Withdrawal sx. Allergies/Adverse Reactions: Allergies Allergy/AdvReac Type Severity Reaction Status Date / Time watermelon Allergy Severe Difficulty Verified 03/08/17 10:07 Breathing No Known Drug Allergies Allergy Verified 03/08/17 10:07 History of Present Illness: 57 y/o woman with a long hx. of alcoholism is admitted for detox. Pt. has been in previous detox, denies significant sobriety. She was her 3x this year. Exam Limitations: No Limitations - Ebola screening Have you traveled outside of the country in the last 21 days: No Have you had contact with anyone from an Ebola affected area: No Have you been sick,other than usual withdrawal symptoms: No Do you have a fever: No - Review of Systems Constitutional: Diaphoresis EENT: reports: No Symptoms Reported Respiratory: reports: No Symptoms reported Cardiac: reports: No Symptoms Reported GI: reports: Nausea, Abdominal cramping : reports: Frequency Musculoskeletal: reports: Back Pain Integumentary: reports: Sweating Neuro: reports: Numbness, Tingling, Tremors Endocrine: reports: No Symptoms Reported Hematology: reports: No Symptoms Reported Psychiatric: reports: No Sypmtoms Reported Other Systems: Reviewed and Negative Patient History - Patient Medical History Hx Anemia: No Hx Asthma: Yes (Pt is on MDI) Hx Chronic Obstructive Pulmonary Disease (COPD): Yes Hx Cancer: No Hx Cardiac Disorders: No Hx Congestive Heart Failure: No Hx Hypertension: No Hx Hypercholesterolemia: Yes (No meds) Hx Pacemaker: No HX Cerebrovascular Accident: No Hx Seizures: No Hx Dementia: No Hx Diabetes: No Hx Gastrointestinal Disorders: No Hx Liver Disease: Yes (fatty liver) Hx Genitourinary Disorders: No Hx Sexually Transmitted Disorders: Yes (GC) Hx Renal Disease (ESRD): No Hx Thyroid Disease: No Hx Human Immunodeficiency Virus (HIV): No Hx Hepatitis C: No Hx Depression: Yes Hx Suicide Attempt: Yes (Tried to cut wrist in 2010) Hx Bipolar Disorder: No Hx Schizophrenia: Yes (schizoaffective disorder) - Patient Surgical History Past Surgical History: Yes Hx Neurologic Surgery: No Hx Cataract Extraction: No Hx Cardiac Surgery: No Hx Lung Surgery: No Hx Breast Surgery: No Hx Breast Biopsy: No Hx Abdominal Surgery: No Hx Appendectomy: No Hx Cholecystectomy: No Hx Genitourinary Surgery: No Hx Section: No Hx Orthopedic Surgery: Yes (discectomy 2011; rt bunion sx 1993; rt knee arthoscopy 1991) Other Surgical History: ectopic 1983 R foot sx at age 7 yrs old. Anesthesia Reaction: No - PPD History Previous Implant?: Yes Documented Results: Positive w/o proof PPD to be Administered?: No - Reproductive History Last Menstrual Period: 09/29/09 Patient : No - Smoking Cessation Smoking history: Current every day smoker Have you smoked in the past 12 months: Yes Aproximately how many cigarettes per day: 13 Cigars Per Day: 0 Hx Chewing Tobacco Use: No Initiated information on smoking cessation: Yes 'Breaking Loose' booklet given: 06/24/17 - Substance & Tx. History Hx Alcohol Use: Yes Hx Substance Use: Yes Substance Use Type: Alcohol, Marijuana Hx Substance Use Treatment: Yes (Detox at [facility] this year & [facility] rehab) - Substances Abused Alcohol-vodka/beer Route: Oral Frequency: Daily Amount used: Vodka 3-4 pints, Beer 1(6pack) Age of first use: 13 Date of Last Use: 06/24/17 Family Disease History - Family Disease History Family Disease History: [place]: Father (alcohol,), Mother (), Other : Brother () Admission Physical Exam [facility] - Vital Signs Vital Signs: Vital Signs - 24 hr 06/24/17 12:53 Temperature 98 F Pulse Rate 99 H Respiratory 20 Rate Blood Pressure 96/58 - Physical General Appearance: Yes: Alcohol on Breath, Tremorous, Irritable, Sweating, Anxious HEENTM: Yes: Within Normal Limits Respiratory: Yes: Chest Non-Tender, Lungs Clear, Normal Breath Sounds Neck: Yes: Supple Breast: Yes: Breast Exam Deferred Cardiology: Yes: Regular Rhythm, Regular Rate, S1, S2 Abdominal: Yes: Normal Bowel Sounds, Non Tender, Soft Genitourinary: Yes: Within Normal Limits Back: Yes: Within Normal Limits Musculoskeletal: Yes: Within Normal Limits Extremities: Yes: Tremors Neurological: Yes: Fully Oriented, Alert Integumentary: Yes: Diaphoresis Lymphatic: Yes: Within Normal Limits - Diagnostic (1) Alcohol dependence with uncomplicated withdrawal Current Visit: Yes Status: Acute (2) Cannabis dependence Current Visit: Yes Status: Acute (3) Nicotine dependence Current Visit: Yes Status: Acute Qualifiers: Nicotine product type: cigarettes Substance use status: uncomplicated Qualified Code(s): F17.210 - Nicotine dependence, cigarettes, uncomplicated; F17.210 - Nicotine dependence, cigarettes, uncomplicated (4) Asthma Current Visit: Yes Status: Chronic Qualifiers: Asthma severity: mild intermittent Asthma complication type: uncomplicated Qualified Code(s): J45.20 - Mild intermittent asthma, uncomplicated; J45.20 - Mild intermittent asthma, uncomplicated; J45.20 - Mild intermittent asthma, uncomplicated Cleared for Admission [facility] - Detox or Rehab [facility] Level of Care: Medically Managed Detox Regimen/Protocol: Librium S Breath Alcohol Content Breath Alcohol Content: 0.139 Urine Pregancy Test - Result Urine Test Results: Negative- NO Line Present Urine Drug Screen - Results Drug Screen Negative: No Urine Drug Screen Results: THC-Marijuana, BZO-Benzodiazepines, TCA-Tricyclic Antidepress
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
[2017-06-24] MEDS: chlordiazePOXIDE HCL 25 MG CAPSULE PO SCH ×2 (18:18→22:28)
[2017-06-24] MEDS: NICOTINE 21 MG/24 HOURS TOPICAL PATCH TD SCH (18:19)
[2017-06-24 21:05] LABS: URINE APPEARANCE SLCLOUDY; URINE BILIRUBIN NEGATIVE (NEGATIVE); URINE BLOOD NEGATIVE (NEGATIVE); URINE COLOR LTYELLOW; URINE GLUCOSE (UA) NEGATIVE (NEGATIVE); URINE KETONE NEGATIVE (NEGATIVE); URINE NITRITE NEGATIVE (NEGATIVE); URINE PROTEIN NEGATIVE (NEGATIVE); URINE UROBILINOGEN NEGATIVE mg/dL (0.2-1.0)
[2017-06-24] MEDS: THIAMINE HCL 100 MG TABLET (FP) PO SCH (22:27)
[2017-06-24] MEDS: hydrOXYzine PAMOATE 50 MG CAPSULE (FP) PO SCH (22:27)
[2017-06-24] MEDS: MONTELUKAST NA 10 MG TABLET PO SCH (22:28)
[2017-06-24] MEDS: CYCLOBENZAPRINE HCL 5 MG TABLET PO PRN (22:28)
[2017-06-24] MEDS: traZODone HCL 100 MG TABLET (FP) PO SCH (22:28)
[2017-06-24 23:03] LABS: URINE LEUK ESTERASE Negative (NEGATIVE)
[2017-06-25] MEDS: chlordiazePOXIDE HCL 25 MG CAPSULE PO SCH ×4 (05:51→23:00)
[2017-06-25] MEDS: PRENATAL VITAMINS W/ FOLIC ACID TABLET (FP) PO SCH (10:42)
[2017-06-25] MEDS: hydrOXYzine PAMOATE 50 MG CAPSULE (FP) PO SCH ×2 (10:43→23:00)
[2017-06-25] MEDS: NICOTINE 21 MG/24 HOURS TOPICAL PATCH TD SCH (10:43)
[2017-06-25] MEDS: CYCLOBENZAPRINE HCL 5 MG TABLET PO PRN (10:43)
[2017-06-25] MEDS: FLUoxetine HCL 20 MG CAPSULE (FP) PO SCH (10:43)
[2017-06-25 11:06] LABS: MCH 35.7 pg (25.7-33.7); MCHC 34.3 g/dl (32.0-36.0); MEAN PLT VOLUME 8.2 fl (7.5-11.1); PLATELET COUNT 276 K/MM3 (134-434); WHITE BLOOD COUNT 7.3 K/mm3 (4.0-10.0)
[2017-06-25 11:15] LABS: ALBUMIN 3.8 g/dl (3.4-5.0); ANION GAP 8 (8-16); CO2 28 mmol/L (21-32); GLUCOSE,RANDOM 106 mg/dL (74-106)
[2017-06-25 11:21] LABS: ALK PHOS 114 U/L (45-117); BILIRUBIN,TOTAL 0.3 mg/dL (0.2-1.0); CREATININE 1.1 mg/dL (0.55-1.02); SGOT/AST 48 U/L (15-37); SGPT/ALT 36 U/L (12-78); TOT PROT 7.6 g/dl (6.4-8.2)
[2017-06-25 12:07] LABS: HIV 1 & 2 AB NEGATIVE; HIV 1 AGp24 NEGATIVE
[2017-06-25] MEDS: GABAPENTIN 400 MG CAPSULE (FP) PO SCH ×2 (14:07→23:01)
[2017-06-25] MEDS: chlordiazePOXIDE HCL 25 MG CAPSULE PO PRN ×2 (14:07→18:28)
[2017-06-25] MEDS: ALBUTEROL SO4 18 GM HFA INHALER IH PRN (14:08)
--- NOTE | 2017-06-25 14:25 | PN ---
S CIWA - CIWA Score Nausea/Vomitin Muscle Tremors: 3 Anxiety: 3 Agitation: 3 Paroxysmal Sweats: 1-Minimal Palms Moist Orientation: 0-Oriented Tacttile Disturbances: 1-Very Mild Itch/Numbness Auditory Disturbances: 1-Very Mild Visual Disturbances: 0-None Headache: 2-Mild CIWA-Ar Total Score: 17 BHS Progress Note (SOAP) Subjective: ALERT,IRRITABLE,ANXIOUS,INTERRUPTED SLEEP,TREMOR Objective: 06/25/17 14:23 Vital Signs Temperature 97.4 F L 06/25/17 14:10 Pulse Rate 96 H 06/25/17 14:10 Respiratory Rate 18 06/25/17 14:10 Blood Pressure 153/88 06/25/17 14:10 O2 Sat by Pulse Oximetry (%) EKG NSR 06/25/17 14:24 Laboratory Last Values WBC 7.3 K/mm3 (4.0-10.0) D 06/25/17 06:08 RBC 3.73 M/mm3 (3.60-5.2) 06/25/17 06:08 Hgb 13.3 GM/dL (10.7-15.3) 06/25/17 06:08 Hct 38.8 % (32.4-45.2) 06/25/17 06:08 MCV 104.0 fl (80-96) H 06/25/17 06:08 MCH 35.7 pg (25.7-33.7) H 06/25/17 06:08 MCHC 34.3 g/dl (32.0-36.0) 06/25/17 06:08 RDW 15.0 % (11.6-15.6) D 06/25/17 06:08 Plt Count 276 K/MM3 (134-434) D 06/25/17 06:08 MPV 8.2 fl (7.5-11.1) 06/25/17 06:08 Sodium 142 mmol/L (136-145) 06/25/17 06:08 Potassium 4.0 mmol/L (3.5-5.1) 06/25/17 06:08 Chloride 106 mmol/L (98-107) 06/25/17 06:08 Carbon Dioxide 28 mmol/L (21-32) 06/25/17 06:08 Anion Gap 8 (8-16) 06/25/17 06:08 BUN 19 mg/dL (7-18) H D 06/25/17 06:08 Creatinine 1.1 mg/dL (0.55-1.02) H D 06/25/17 06:08 Creat Clearance w eGFR 51.02 (>60) 06/25/17 06:08 Random Glucose 106 mg/dL (74-106) 06/25/17 06:08 Calcium 9.0 mg/dL (8.5-10.1) 06/25/17 06:08 Total Bilirubin 0.3 mg/dL (0.2-1.0) 06/25/17 06:08 AST 48 U/L (15-37) H 06/25/17 06:08 ALT 36 U/L (12-78) D 06/25/17 06:08 Alkaline Phosphatase 114 U/L (45-117) 06/25/17 06:08 Total Protein 7.6 g/dl (6.4-8.2) 06/25/17 06:08 Albumin 3.8 g/dl (3.4-5.0) 06/25/17 06:08 Urine Color Ltyellow 06/24/17 20:00 Urine Appearance Slcloudy 06/24/17 20:00 Urine pH 5.0 (5.0-8.0) 06/24/17 20:00 Ur Specific [place] 1.015 (1.005-1.025) 06/24/17 20:00 Urine Protein Negative (NEGATIVE) 06/24/17 20:00 Urine Glucose (UA) Negative (NEGATIVE) 06/24/17 20:00 Urine Ketones Negative (NEGATIVE) 06/24/17 20:00 Urine Blood Negative (NEGATIVE) 06/24/17 20:00 Urine Nitrite Negative (NEGATIVE) 06/24/17 20:00 Urine Bilirubin Negative (NEGATIVE) 06/24/17 20:00 Urine Urobilinogen Negative mg/dL (0.2-1.0) 06/24/17 20:00 Ur Leukocyte Esterase Negative (NEGATIVE) 06/24/17 20:00 RPR Titer Nonreactive (NONREACTIVE) 06/25/17 06:08 HIV 1&2 Antibody Screen Negative 06/25/17 08:45 HIV P24 Antigen Negative 06/25/17 08:45 Assessment: 06/25/17 14:24 WITHDRAWAL SYMPTOM Plan: CONTINUE DETOX,ENCOURAGE ORAL FLUID,BUN 19,CREATININE 1.1
[2017-06-25] MEDS: THIAMINE HCL 100 MG TABLET (FP) PO SCH (23:00)
[2017-06-25] MEDS: traZODone HCL 100 MG TABLET (FP) PO SCH (23:01)
[2017-06-25] MEDS: MONTELUKAST NA 10 MG TABLET PO SCH (23:02)
[2017-06-26] MEDS: chlordiazePOXIDE HCL 25 MG CAPSULE PO SCH ×2 (05:58→10:51)
[2017-06-26] MEDS: GABAPENTIN 400 MG CAPSULE (FP) PO SCH ×3 (05:58→22:35)
--- NOTE | 2017-06-26 09:13 | EKG ---
Test Reason : Blood Pressure : / mmHG Vent. Rate : 093 BPM Atrial Rate : 093 BPM P-R Int : 150 ms QRS Dur : 090 ms QT Int : 350 ms P-R-T Axes : 069 080 050 degrees QTc Int : 435 ms NORMAL SINUS RHYTHM POSSIBLE LEFT ATRIAL ENLARGEMENT BORDERLINE ECG WHEN COMPARED WITH ECG OF 08-MAR-2017 10:42, NO SIGNIFICANT CHANGE WAS FOUND Confirmed by JIM WADE MD ([id number]) on 06/26/2017 9:12:50 AM Referred By: Confirmed By:JIM WADE MD
[2017-06-26] MEDS: FLUoxetine HCL 20 MG CAPSULE (FP) PO SCH (10:51)
[2017-06-26] MEDS: CYCLOBENZAPRINE HCL 5 MG TABLET PO PRN (10:51)
[2017-06-26] MEDS: PRENATAL VITAMINS W/ FOLIC ACID TABLET (FP) PO SCH (10:51)
[2017-06-26] MEDS: hydrOXYzine PAMOATE 50 MG CAPSULE (FP) PO SCH ×2 (10:52→22:35)
[2017-06-26] MEDS: NICOTINE 21 MG/24 HOURS TOPICAL PATCH TD SCH (10:52)
[2017-06-26] MEDS: ALBUTEROL SO4 18 GM HFA INHALER IH PRN (10:53)
[2017-06-26] MEDS: chlordiazePOXIDE HCL 25 MG CAPSULE PO PRN ×2 (13:14→17:26)
--- NOTE | 2017-06-26 14:42 | PN ---
S CIWA - CIWA Score Nausea/Vomitin Muscle Tremors: 3 Anxiety: 3 Agitation: 3 Paroxysmal Sweats: 1-Minimal Palms Moist Orientation: 0-Oriented Tacttile Disturbances: 1-Very Mild Itch/Numbness Auditory Disturbances: 1-Very Mild Visual Disturbances: 0-None Headache: 2-Mild CIWA-Ar Total Score: 17 BHS Progress Note (SOAP) Subjective: ALERT,IRRITABLE,ANXIOUS,INTERRUPTED SLEEP,PAIN IN THE BODY Objective: 06/26/17 14:40 Vital Signs Temperature 98.2 F 06/26/17 13:56 Pulse Rate 85 06/26/17 13:56 Respiratory Rate 18 06/26/17 13:56 Blood Pressure 126/73 06/26/17 13:56 O2 Sat by Pulse Oximetry (%) 06/26/17 14:41 Laboratory Last Values WBC 7.3 K/mm3 (4.0-10.0) D 06/25/17 06:08 RBC 3.73 M/mm3 (3.60-5.2) 06/25/17 06:08 Hgb 13.3 GM/dL (10.7-15.3) 06/25/17 06:08 Hct 38.8 % (32.4-45.2) 06/25/17 06:08 MCV 104.0 fl (80-96) H 06/25/17 06:08 MCH 35.7 pg (25.7-33.7) H 06/25/17 06:08 MCHC 34.3 g/dl (32.0-36.0) 06/25/17 06:08 RDW 15.0 % (11.6-15.6) D 06/25/17 06:08 Plt Count 276 K/MM3 (134-434) D 06/25/17 06:08 MPV 8.2 fl (7.5-11.1) 06/25/17 06:08 Sodium 142 mmol/L (136-145) 06/25/17 06:08 Potassium 4.0 mmol/L (3.5-5.1) 06/25/17 06:08 Chloride 106 mmol/L (98-107) 06/25/17 06:08 Carbon Dioxide 28 mmol/L (21-32) 06/25/17 06:08 Anion Gap 8 (8-16) 06/25/17 06:08 BUN 19 mg/dL (7-18) H D 06/25/17 06:08 Creatinine 1.1 mg/dL (0.55-1.02) H D 06/25/17 06:08 Creat Clearance w eGFR 51.02 (>60) 06/25/17 06:08 Random Glucose 106 mg/dL (74-106) 06/25/17 06:08 Calcium 9.0 mg/dL (8.5-10.1) 06/25/17 06:08 Total Bilirubin 0.3 mg/dL (0.2-1.0) 06/25/17 06:08 AST 48 U/L (15-37) H 06/25/17 06:08 ALT 36 U/L (12-78) D 06/25/17 06:08 Alkaline Phosphatase 114 U/L (45-117) 06/25/17 06:08 Total Protein 7.6 g/dl (6.4-8.2) 06/25/17 06:08 Albumin 3.8 g/dl (3.4-5.0) 06/25/17 06:08 Urine Color Ltyellow 06/24/17 20:00 Urine Appearance Slcloudy 06/24/17 20:00 Urine pH 5.0 (5.0-8.0) 06/24/17 20:00 Ur Specific [place] 1.015 (1.005-1.025) 06/24/17 20:00 Urine Protein Negative (NEGATIVE) 06/24/17 20:00 Urine Glucose (UA) Negative (NEGATIVE) 06/24/17 20:00 Urine Ketones Negative (NEGATIVE) 06/24/17 20:00 Urine Blood Negative (NEGATIVE) 06/24/17 20:00 Urine Nitrite Negative (NEGATIVE) 06/24/17 20:00 Urine Bilirubin Negative (NEGATIVE) 06/24/17 20:00 Urine Urobilinogen Negative mg/dL (0.2-1.0) 06/24/17 20:00 Ur Leukocyte Esterase Negative (NEGATIVE) 06/24/17 20:00 RPR Titer Nonreactive (NONREACTIVE) 06/25/17 06:08 HIV 1&2 Antibody Screen Negative 06/25/17 08:45 HIV P24 Antigen Negative 06/25/17 08:45 Assessment: 06/26/17 14:41 WITHDRAWAL SYMPTOM Plan: CONTINUE DETOX,ENCOURAGE ORAL FLUID
[2017-06-26] MEDS: chlordiazePOXIDE 5 MG CAPSULE PO SCH ×2 (17:28→22:35)
[2017-06-26] MEDS: MONTELUKAST NA 10 MG TABLET PO SCH (22:35)
[2017-06-26] MEDS: traZODone HCL 100 MG TABLET (FP) PO SCH (22:35)
[2017-06-26] MEDS: THIAMINE HCL 100 MG TABLET (FP) PO SCH (22:35)
[2017-06-27] MEDS: chlordiazePOXIDE 5 MG CAPSULE PO SCH ×2 (06:24→10:33)
[2017-06-27] MEDS: GABAPENTIN 400 MG CAPSULE (FP) PO SCH ×3 (06:24→22:22)
[2017-06-27] MEDS: PRENATAL VITAMINS W/ FOLIC ACID TABLET (FP) PO SCH (10:33)
[2017-06-27] MEDS: FLUoxetine HCL 20 MG CAPSULE (FP) PO SCH (10:33)
[2017-06-27] MEDS: hydrOXYzine PAMOATE 50 MG CAPSULE (FP) PO SCH ×2 (10:33→22:23)
[2017-06-27] MEDS: CYCLOBENZAPRINE HCL 5 MG TABLET PO PRN ×2 (10:33→22:23)
[2017-06-27] MEDS: NICOTINE 21 MG/24 HOURS TOPICAL PATCH TD SCH (10:34)
--- NOTE | 2017-06-27 11:22 | PN ---
BHS Progress Note (SOAP) Subjective: tired sleepy Objective: 06/27/17 11:22 Vital Signs Temperature 97.7 F 06/27/17 09:44 Pulse Rate 84 06/27/17 09:44 Respiratory Rate 18 06/27/17 09:44 Blood Pressure 127/78 06/27/17 09:44 O2 Sat by Pulse Oximetry (%) aaox3 ambulating no acute distress Assessment: 06/27/17 11:22 mild withdrawal sx Plan: continue detox increase fluids d/c in am
[2017-06-27] MEDS: chlordiazePOXIDE HCL 25 MG CAPSULE PO PRN (14:24)
[2017-06-27] MEDS: chlordiazePOXIDE HCL 10 MG CAPSULE PO SCH ×2 (16:49→22:21)
[2017-06-27] MEDS: MONTELUKAST NA 10 MG TABLET PO SCH (22:22)
[2017-06-27] MEDS: traZODone HCL 100 MG TABLET (FP) PO SCH (22:22)
[2017-06-27] MEDS: THIAMINE HCL 100 MG TABLET (FP) PO SCH (22:23)
[2017-06-28] MEDS: GABAPENTIN 400 MG CAPSULE (FP) PO SCH (05:49)
[2017-06-28] MEDS: chlordiazePOXIDE HCL 10 MG CAPSULE PO SCH (05:49)
[2017-06-28 06:17] VITALS: BP 136/79; PULSE 90; TEMP 98.2
[2017-06-28] MEDS: hydrOXYzine PAMOATE 50 MG CAPSULE (FP) PO SCH (09:17)
[2017-06-28] MEDS: PRENATAL VITAMINS W/ FOLIC ACID TABLET (FP) PO SCH (09:17)
[2017-06-28] MEDS: NICOTINE 21 MG/24 HOURS TOPICAL PATCH TD SCH (09:18)
[2017-06-28] MEDS: FLUoxetine HCL 20 MG CAPSULE (FP) PO SCH (09:18)
--- NOTE | 2017-06-28 11:06 | DS ---
[facility] Detox Discharge Summary Admission Date: 06/24/17 Discharge Date: 06/28/17 - History Present History: Alcohol Dependence, Cannabis Dependence Additional Comments: Detox completed. Patient is alert and oriented x 3 and in acute distress. Patient encouraged to follow up with Dr. Moe at [facility] for medical management. Patient has a history of suicidal attempt and denies suicidal ideation at this time. - Physical Exam Results Vital Signs: Vital Signs Temperature 98.2 F 06/28/17 06:00 Pulse Rate 90 06/28/17 06:00 Respiratory Rate 18 06/28/17 06:00 Blood Pressure 136/79 06/28/17 06:00 O2 Sat by Pulse Oximetry (%) Laboratory Last Values WBC 7.3 K/mm3 (4.0-10.0) D 06/25/17 06:08 RBC 3.73 M/mm3 (3.60-5.2) 06/25/17 06:08 Hgb 13.3 GM/dL (10.7-15.3) 06/25/17 06:08 Hct 38.8 % (32.4-45.2) 06/25/17 06:08 MCV 104.0 fl (80-96) H 06/25/17 06:08 MCH 35.7 pg (25.7-33.7) H 06/25/17 06:08 MCHC 34.3 g/dl (32.0-36.0) 06/25/17 06:08 RDW 15.0 % (11.6-15.6) D 06/25/17 06:08 Plt Count 276 K/MM3 (134-434) D 06/25/17 06:08 MPV 8.2 fl (7.5-11.1) 06/25/17 06:08 Sodium 142 mmol/L (136-145) 06/25/17 06:08 Potassium 4.0 mmol/L (3.5-5.1) 06/25/17 06:08 Chloride 106 mmol/L (98-107) 06/25/17 06:08 Carbon Dioxide 28 mmol/L (21-32) 06/25/17 06:08 Anion Gap 8 (8-16) 06/25/17 06:08 BUN 19 mg/dL (7-18) H D 06/25/17 06:08 Creatinine 1.1 mg/dL (0.55-1.02) H D 06/25/17 06:08 Creat Clearance w eGFR 51.02 (>60) 06/25/17 06:08 Random Glucose 106 mg/dL (74-106) 06/25/17 06:08 Calcium 9.0 mg/dL (8.5-10.1) 06/25/17 06:08 Total Bilirubin 0.3 mg/dL (0.2-1.0) 06/25/17 06:08 AST 48 U/L (15-37) H 06/25/17 06:08 ALT 36 U/L (12-78) D 06/25/17 06:08 Alkaline Phosphatase 114 U/L (45-117) 06/25/17 06:08 Total Protein 7.6 g/dl (6.4-8.2) 06/25/17 06:08 Albumin 3.8 g/dl (3.4-5.0) 06/25/17 06:08 Urine Color Ltyellow 06/24/17 20:00 Urine Appearance Slcloudy 06/24/17 20:00 Urine pH 5.0 (5.0-8.0) 06/24/17 20:00 Ur Specific [place] 1.015 (1.005-1.025) 06/24/17 20:00 Urine Protein Negative (NEGATIVE) 06/24/17 20:00 Urine Glucose (UA) Negative (NEGATIVE) 06/24/17 20:00 Urine Ketones Negative (NEGATIVE) 06/24/17 20:00 Urine Blood Negative (NEGATIVE) 06/24/17 20:00 Urine Nitrite Negative (NEGATIVE) 06/24/17 20:00 Urine Bilirubin Negative (NEGATIVE) 06/24/17 20:00 Urine Urobilinogen Negative mg/dL (0.2-1.0) 06/24/17 20:00 Ur Leukocyte Esterase Negative (NEGATIVE) 06/24/17 20:00 RPR Titer Nonreactive (NONREACTIVE) 06/25/17 06:08 HIV 1&2 Antibody Screen Negative 06/25/17 08:45 HIV P24 Antigen Negative 06/25/17 08:45 Lab s reviewed Pertinent Admission Physical Exam Findings: Alcohol withdrawal symptoms - Treatment Hospital Course: Detox Protocol Followed, Detoxed Safely, Responded well, Discharged Condition Good Patient has Accepted a Rehab Referral to: [facility].[place], [place]. - Medication Discharge Medications: Ambulatory Orders Naltrexone HCl [Revia -] 50 mg PO HS 04/06/16 Bupropion HCl [Wellbutrin Xl -] 150 mg PO DAILY #30 tab.sr.24h 04/07/16 Fluoxetine HCl [Prozac -] 40 mg PO DAILY #30 capsule 04/07/16 Albuterol Sulfate Inhaler - [Ventolin HFA Inhaler -] 2 puff IH Q4H PRN #1 inhaler 04/10/16 Fluticasone/Salmeterol [Advair 250-50 Diskus] 1 each IH BID #1 disk.w.dev Montelukast Na [Singulair -] 10 mg PO HS #30 tablet 04/10/16 Azelastine HCl 205.5 mcg NS BID 09/02/16 Gabapentin [Neurontin -] 800 mg PO Q8H 09/02/16 Haloperidol Decanoate [Haldol Decanoate 100] 75 mg IM MONTHLY 09/02/16 Loratadine 10 mg PO DAILY 09/02/16 Hydroxyzine HCl 50 mg PO BID 03/08/17 Cyclobenzaprine HCl 5 mg PO TID 06/24/17 Trazodone HCl [Desyrel -] 300 mg PO HS 06/24/17 - Diagnosis (1) Alcohol dependence with uncomplicated withdrawal Status: Acute (2) Cannabis dependence Status: Acute (3) Nicotine dependence Status: Acute Qualifiers: Nicotine product type: cigarettes Substance use status: uncomplicated Qualified Code(s): F17.210 - Nicotine dependence, cigarettes, uncomplicated; F17.210 - Nicotine dependence, cigarettes, uncomplicated (4) Pancreatitis Status: Chronic (5) Asthma Status: Chronic Qualifiers: Asthma severity: mild intermittent Asthma complication type: uncomplicated (6) COPD (chronic obstructive pulmonary disease) Status: Chronic Qualifiers: COPD type: emphysema Emphysema type: other Qualified Code(s): J43.8 - Other emphysema; J43.8 - Other emphysema; J43.8 - Other emphysema; J43.8 - Other emphysema (7) Low back pain Status: Chronic (8) Use of cane as ambulatory aid Status: Chronic - AMA Did Patient Leave Against Medical Advice: No
== END 2017-06-28 09:38 | disposition home or self-care (01) | DRG 775 ==
LOC: YASAS 11:09 → Y6N 17:04
PROVIDERS: ADMIT Internal Medicine; ATTEND Internal Medicine
PROC: HZ2ZZZZ Detoxification Services for Substance Abuse Treatment (ICD-10-PCS; principal; 2017-06-24)
DX: F10.230 Alcohol dependence with withdrawal, uncomplicated (principal); F12.20 Cannabis dependence, uncomplicated; F17.210 Nicotine dependence, cigarettes, uncomplicated; F19.24 Other psychoactive substance dependence with psychoactive substance-induced mood disorder; F25.8 Other schizoaffective disorders; F43.10 Post-traumatic stress disorder, unspecified; G62.9 Polyneuropathy, unspecified; G47.00 Insomnia, unspecified; K85.90 Acute pancreatitis without necrosis or infection, unspecified; J43.8 Other emphysema; J45.20 Mild intermittent asthma, uncomplicated; M54.5 Low back pain; G89.29 Other chronic pain; R26.89 Other abnormalities of gait and mobility; Z99.89 Dependence on other enabling machines and devices
CPT/HCPCS: 36415; 80053; 81003; 85027; 86593; 87389; 93005; 93010

== ENCOUNTER 2017-09-17 09:54 | Inpatient (IN) | payer OTHER ==
[2017-09-17 10:21] VITALS: BMI 29.5
--- NOTE | 2017-09-17 11:59 | HP ---
CIWA Score - CIWA Score Nausea/Vomitin-Mild Nausea/No Vomiting Muscle Tremors: 4-Moderate,w/Arms Extend Anxiety: 4-Mod. Anxious/Guarded Agitation: 1-Slight > Activity Paroxysmal Sweats: 1-Minimal Palms Moist Orientation: 1-Uncertain about Date Tacttile Disturbances: 0-None Auditory Disturbances: 1-Very Mild Visual Disturbances: 1-Very Mild Sensitivity Headache: 1-Very Mild CIWA-Ar Total Score: 15 Admission ROS BHS - HPI Chief Complaint: I want to stop drinking, I can't, I have too many cravings Allergies/Adverse Reactions: Allergies Allergy/AdvReac Type Severity Reaction Status Date / Time watermelon Allergy Severe Difficulty Verified 09/17/17 12:43 Breathing No Known Drug Allergies Allergy Verified 09/17/17 12:43 History of Present Illness: 57 yo woman last here may 2017 for detox from alcohol - denies seizures but does have black outs - this is one of many admissions. Exam Limitations: Clinical Condition - Ebola screening Have you traveled outside of the country in the last 21 days: No (N) Have you had contact with anyone from an Ebola affected area: No Have you been sick,other than usual withdrawal symptoms: No Do you have a fever: No - Review of Systems Constitutional: Loss of Appetite, Night Sweats, Changes in sleep EENT: reports: Blurred Vision Respiratory: reports: Cough, SOB with Exertion Cardiac: reports: Palpitations GI: reports: Nausea, Poor Appetite, Indigestion : reports: Frequency Musculoskeletal: reports: Back Pain, Muscle Pain Integumentary: reports: Dryness Neuro: reports: Headache, Tremors Endocrine: reports: No Symptoms Reported Hematology: reports: No Symptoms Reported Psychiatric: reports: Judgement Intact, Mood/Affect Appropiate, Anxious Other Systems: Reviewed and Negative Patient History - Patient Medical History Hx Anemia: No Hx Asthma: Yes (on inhalers) Hx Chronic Obstructive Pulmonary Disease (COPD): Yes Hx Cancer: No Hx Cardiac Disorders: No Hx Congestive Heart Failure: No Hx Hypertension: No Hx Hypercholesterolemia: Yes (No meds) Hx Pacemaker: No HX Cerebrovascular Accident: No Hx Seizures: No Hx Dementia: No Hx Diabetes: No Hx Gastrointestinal Disorders: No Hx Liver Disease: Yes (fatty liver) Hx Genitourinary Disorders: No Hx Sexually Transmitted Disorders: Yes (GC) Hx Renal Disease (ESRD): No Hx Thyroid Disease: No Hx Human Immunodeficiency Virus (HIV): No Hx Hepatitis C: No Hx Depression: Yes Hx Suicide Attempt: Yes (Tried to cut wrist in 2010) Hx Bipolar Disorder: No Hx Schizophrenia: Yes (schizoaffective disorder) Other Medical History: back pain - Patient Surgical History Past Surgical History: Yes Hx Neurologic Surgery: No Hx Cataract Extraction: No Hx Cardiac Surgery: No Hx Lung Surgery: No Hx Breast Surgery: No Hx Breast Biopsy: No Hx Abdominal Surgery: No Hx Appendectomy: No Hx Cholecystectomy: No Hx Genitourinary Surgery: No Hx Section: No Hx Orthopedic Surgery: Yes (discectomy 2011; rt bunion sx 1993; rt knee arthoscopy 1991) Other Surgical History: ectopic 1983 R foot sx at age 7 yrs old. Anesthesia Reaction: No - PPD History Previous Implant?: Yes Documented Results: Positive w/o proof (took medication 'years ago') PPD to be Administered?: No - Reproductive History Patient is a Female of Child Bearing Age (11 -55 yrs old): Yes Last Menstrual Period: 09/29/09 Patient : No - Smoking Cessation Smoking history: Current every day smoker Have you smoked in the past 12 months: Yes Aproximately how many cigarettes per day: 20 Cigars Per Day: 0 Hx Chewing Tobacco Use: No Initiated information on smoking cessation: Yes 'Breaking Loose' booklet given: 09/17/17 (give on floor) - Substance & Tx. History Hx Alcohol Use: Yes Hx Substance Use: Yes Substance Use Type: Alcohol, Marijuana Hx Substance Use Treatment: Yes (detox, rehab) - Substances Abused Alcohol Frequency: Daily Amount used: 3 pints vodka, 2 cans 24 oz beer Age of first use: 13 Date of Last Use: 09/17/17 Marijuana/Hashish Route: Smoking Frequency: 1-3 times last 30 days Amount used: 1 joint Age of first use: 13 Date of Last Use: 09/16/17 cocaine Route: Inhalation Frequency: 1-3 times last 30 days Amount used: $20 Age of first use: 57 Date of Last Use: 09/14/17 Family Disease History - Family Disease History Family Disease History: [place]: Father (alcohol,), Mother (, etoh), Sister (three - lupus, depression, ), Other: Brother (, etoh), Sister, Daughter (one - lupus, age 38) Admission Physical Exam [facility] - Vital Signs Vital Signs: Vital Signs - 24 hr 09/17/17 10:18 Temperature 98.4 F Pulse Rate 106 H Respiratory 18 Rate Blood Pressure 124/78 - Physical General Appearance: Yes: Nourished, Appropriately Dressed, Mild Distress, Irritable HEENTM: Yes: Hearing grossly Normal, Normocephalic, Normal Voice, Pharynx Normal , Other (states tooth abscess, poor dentition) Respiratory: Yes: No Respiratory Distress, Rhonchi Neck: Yes: No masses,lesions,Nodules, Supple Breast: Yes: Breast Exam Deferred Cardiology: Yes: Regular Rhythm, Regular Rate Abdominal: Yes: Flat, Soft Genitourinary: Yes: Frequency Back: Yes: Normal Inspection, Surgical Scar Musculoskeletal: Yes: full range of Motion, Gait Steady, Back pain Extremities: Yes: Normal Inspection, Non-Tender Neurological: Yes: Alert, Motor Strength 5/5, Normal Mood/Affect, Normal Response, Numbness Integumentary: Yes: Normal Color, Warm Lymphatic: Yes: Within Normal Limits - Diagnostic (1) Alcohol dependence with uncomplicated withdrawal Current Visit: Yes Status: Chronic (2) Asthma Current Visit: Yes Status: Chronic Qualifiers: Asthma severity: moderate Asthma complication type: uncomplicated (3) Nicotine dependence Current Visit: Yes Status: Chronic Qualifiers: Nicotine product type: cigarettes Substance use status: uncomplicated Qualified Code(s): F17.210 - Nicotine dependence, cigarettes, uncomplicated (4) Cannabis dependence Current Visit: Yes Status: Chronic (5) Neuropathy Current Visit: Yes Status: Chronic (6) Use of cane as ambulatory aid Current Visit: Yes Status: Chronic Comment: right leg weakness (7) COPD (chronic obstructive pulmonary disease) Current Visit: Yes Status: Chronic Qualifiers: COPD type: emphysema Emphysema type: other Qualified Code(s): J43.8 - Other emphysema (8) Low back pain Current Visit: Yes Status: Chronic Qualifiers: Chronicity: chronic Back pain laterality: bilateral Sciatica laterality: sciatica of right side (9) Tooth abscess Current Visit: Yes Status: Acute Comment: on augmentin - for three more days (10) Cocaine abuse Current Visit: Yes Status: Acute Cleared for Admission [facility] - Detox or Rehab [facility] Level of Care: Medically Managed Detox Regimen/Protocol: Librium S Breath Alcohol Content Breath Alcohol Content: 0.177 Urine Pregancy Test - Result Urine Test Results: Negative- NO Line Present Urine Drug Screen - Results Drug Screen Negative: No Urine Drug Screen Results: THC-Marijuana, SAMANTHA-Cocaine, TCA-Tricyclic Antidepress
[2017-09-17] MEDS ORDERED: MENTHOL/PHENOL 1 EACH UD MM PRN (12:37)
[2017-09-17] MEDS ORDERED: IBUPROFEN 400 MG TABLET (FP) PO PRN (12:37)
[2017-09-17] MEDS ORDERED: MAG HYDROX/AL HYDROX/SIMETH 30 ML UNIT-DOSE CUP PO PRN (12:37)
[2017-09-17] MEDS ORDERED: LOPERAMIDE HCL 2 MG CAPSULE PO PRN (12:37)
[2017-09-17] MEDS ORDERED: ACETAMINOPHEN 325 MG TABLET (FP) PO PRN (12:37)
[2017-09-17] MEDS ORDERED: hydrOXYzine PAMOATE 25 MG CAPSULE (FP) PO PRN (12:37)
[2017-09-17] MEDS ORDERED: P-EPHED 60MG/TRIPROLIDI 2.5MG TABLET PO PRN (12:37)
[2017-09-17] MEDS ORDERED: guaiFENesin/D-METHORPHAN HB 10 ML UNIT-DOSE CUPS PO PRN (12:37)
[2017-09-17] MEDS ORDERED: MAGNESIUM HYDROX 2400MG/30ML ORAL SUSPENSION 30 ML CUP PO PRN (12:37)
[2017-09-17] MEDS ORDERED: MAGNESIUM CITRATE 300 ML BOTTLE PO PRN (12:37)
[2017-09-17] MEDS ORDERED: ALBUTEROL SO4 2.5/IPRATROPIUM 0.5 INH SOL 3 ML VIAL.NEB. NEB PRN (12:44)
[2017-09-17] MEDS ORDERED: chlordiazePOXIDE HCL 25 MG CAPSULE PO ONE (13:30)
[2017-09-17] MEDS: CYCLOBENZAPRINE HCL 5 MG TABLET PO SCH ×2 (13:58→22:41)
[2017-09-17] MEDS: BUDESONIDE/FORMETEROL FUMARATE 160/4.5 mcg INHALER IH SCH ×2 (13:59→22:40)
[2017-09-17] MEDS: ALBUTEROL SO4 18 GM HFA INHALER IH PRN (14:00)
[2017-09-17] MEDS: NICOTINE 21 MG/24 HOURS TOPICAL PATCH TD SCH (14:03)
[2017-09-17] MEDS: chlordiazePOXIDE HCL 25 MG CAPSULE PO SCH ×2 (17:36→22:41)
[2017-09-17 19:47] LABS: URINE APPEARANCE CLOUDY; URINE BILIRUBIN NEGATIVE (NEGATIVE); URINE BLOOD NEGATIVE (NEGATIVE); URINE COLOR DKYELLOW; URINE GLUCOSE (UA) NEGATIVE (NEGATIVE); URINE KETONE TRACE (NEGATIVE); URINE NITRITE NEGATIVE (NEGATIVE)
[2017-09-17 19:50] LABS: URINE LEUK ESTERASE 1+ (NEGATIVE); URINE PROTEIN 1+ (NEGATIVE)
[2017-09-17 19:52] LABS: EPI CELLS MODERATE /HPF (FEW); URINE BACTERIA RARE /hpf (NONE SEEN); URINE HYALINE CAST 2 /lpf; URINE MUCUS RARE; YEAST MANY
[2017-09-17] MEDS: chlordiazePOXIDE HCL 25 MG CAPSULE PO PRN (20:10)
[2017-09-17] MEDS ORDERED: MONTELUKAST NA 10 MG TABLET PO SCH (22:00)
[2017-09-17] MEDS: AMOX TR/POT CLAV 875MG/125MG TABLETS (FP) PO SCH (22:40)
[2017-09-17] MEDS: THIAMINE HCL 100 MG TABLET (FP) PO SCH (22:40)
[2017-09-18] MEDS: chlordiazePOXIDE HCL 25 MG CAPSULE PO PRN ×4 (01:18→19:10)
[2017-09-18] MEDS: chlordiazePOXIDE HCL 25 MG CAPSULE PO SCH ×4 (05:49→22:46)
[2017-09-18] MEDS: CYCLOBENZAPRINE HCL 5 MG TABLET PO SCH ×3 (05:49→22:46)
--- NOTE | 2017-09-18 09:43 | PN ---
S CIWA - CIWA Score Nausea/Vomitin-No Nausea/No Vomiting Muscle Tremors: 3 Anxiety: 4-Mod. Anxious/Guarded Agitation: 4-Moderately Restless Paroxysmal Sweats: 1-Minimal Palms Moist Orientation: 0-Oriented Tacttile Disturbances: 1-Very Mild Itch/Numbness Auditory Disturbances: 0-None Visual Disturbances: 0-None Headache: 0-None Present CIWA-Ar Total Score: 13 BHS Progress Note (SOAP) Subjective: tremor sweat restlessness anxiety Objective: 09/18/17 09:42 Vital Signs Temperature 97.7 F 09/18/17 06:29 Pulse Rate 86 09/18/17 06:29 Respiratory Rate 18 09/18/17 06:29 Blood Pressure 113/77 09/18/17 06:29 O2 Sat by Pulse Oximetry (%) Laboratory Last Values Urine Color Dkyellow 09/17/17 19:00 Urine Appearance Cloudy 09/17/17 19:00 Urine pH 5.0 (5.0-8.0) 09/17/17 19:00 Ur Specific [place] 1.026 (1.001-1.035) 09/17/17 19:00 Urine Protein 1+ (NEGATIVE) H 09/17/17 19:00 Urine Glucose (UA) Negative (NEGATIVE) 09/17/17 19:00 Urine Ketones Trace (NEGATIVE) H 09/17/17 19:00 Urine Blood Negative (NEGATIVE) 09/17/17 19:00 Urine Nitrite Negative (NEGATIVE) 09/17/17 19:00 Urine Bilirubin Negative (NEGATIVE) 09/17/17 19:00 Urine Urobilinogen 2.0 mg/dL (0.2-1.0) H 09/17/17 19:00 Ur Leukocyte Esterase 1+ (NEGATIVE) H 09/17/17 19:00 Urine WBC (Auto) 5 /hpf (3-5) 09/17/17 19:00 Urine RBC (Auto) 2 /hpf (0-3) 09/17/17 19:00 Ur Epithelial Cells Moderate /HPF (FEW) 09/17/17 19:00 Urine Bacteria Rare /hpf (NONE SEEN) 09/17/17 19:00 Hyaline Casts 2 /lpf 09/17/17 19:00 Urine Mucus Rare 09/17/17 19:00 Urine Yeast Many 09/17/17 19:00 lab noted Assessment: 09/18/17 09:42 withdrawal sx Plan: continue detox
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
[2017-09-18 10:29] LABS: HEMATOCRIT 41.2 % (32.4-45.2); RBC 4.03 M/mm3 (3.60-5.2); WHITE BLOOD COUNT 5.5 K/mm3 (4.0-10.0)
[2017-09-18 10:31] LABS: HEMOGLOBIN 13.5 GM/dL (10.7-15.3); MCH 33.6 pg (25.7-33.7); MCHC 32.8 g/dl (32.0-36.0); MEAN CELL VOLUME 102.3 fl (80-96); PLATELET COUNT 272 K/MM3 (134-434); RDW 13.6 % (11.6-15.6)
[2017-09-18 10:37] LABS: CHLORIDE 100 mmol/L (98-107); POTASSIUM 3.9 mmol/L (3.5-5.1); SODIUM 137 mmol/L (136-145)
[2017-09-18 10:45] LABS: ALBUMIN 3.6 g/dl (3.4-5.0); ALK PHOS 117 U/L (45-117); ANION GAP 9 (8-16); BILIRUBIN,TOTAL 0.6 mg/dL (0.2-1.0); BLOOD UREA NITROGEN 22 mg/dL (7-18); CALCIUM 9.5 mg/dL (8.5-10.1); CO2 28 mmol/L (21-32); CREATININE 0.9 mg/dL (0.55-1.02); GLUCOSE,RANDOM 139 mg/dL (74-106); SGOT/AST 34 U/L (15-37); SGPT/ALT 48 U/L (12-78); TOT PROT 7.6 g/dl (6.4-8.2)
[2017-09-18] MEDS: GABAPENTIN 400 MG CAPSULE (FP) PO SCH ×3 (10:53→22:46)
[2017-09-18] MEDS: PRENATAL VITAMINS W/ FOLIC ACID TABLET (FP) PO SCH (10:53)
[2017-09-18] MEDS: BUDESONIDE/FORMETEROL FUMARATE 160/4.5 mcg INHALER IH SCH ×2 (10:53→22:46)
[2017-09-18] MEDS: AMOX TR/POT CLAV 875MG/125MG TABLETS (FP) PO SCH ×2 (10:53→22:46)
[2017-09-18] MEDS: NICOTINE 21 MG/24 HOURS TOPICAL PATCH TD SCH (10:54)
[2017-09-18] MEDS ORDERED: MONTELUKAST NA 10 MG TABLET PO SCH (11:15)
--- NOTE | 2017-09-18 12:57 | EKG ---
Test Reason : Blood Pressure : / mmHG Vent. Rate : 097 BPM Atrial Rate : 097 BPM P-R Int : 144 ms QRS Dur : 084 ms QT Int : 330 ms P-R-T Axes : 066 076 050 degrees QTc Int : 419 ms NORMAL SINUS RHYTHM POSSIBLE LEFT ATRIAL ENLARGEMENT BORDERLINE ECG WHEN COMPARED WITH ECG OF 24-JUN-2017 17:37, NO SIGNIFICANT CHANGE WAS FOUND Confirmed by Ritesh Adams ([id number]) on 09/18/2017 12:57:12 PM Referred By: Confirmed By:Ritesh Adams
[2017-09-18] MEDS: FLUoxetine HCL 20 MG CAPSULE (FP) PO SCH (15:10)
[2017-09-18] MEDS ORDERED: QUEtiapine FUMARATE 100 MG TABLET (FP) PO SCH (22:00)
[2017-09-18] MEDS: THIAMINE HCL 100 MG TABLET (FP) PO SCH (22:46)
[2017-09-18] MEDS: ALBUTEROL SO4 18 GM HFA INHALER IH PRN (23:27)
[2017-09-19] MEDS: CYCLOBENZAPRINE HCL 5 MG TABLET PO SCH ×2 (05:22→13:13)
[2017-09-19] MEDS: chlordiazePOXIDE HCL 25 MG CAPSULE PO SCH ×2 (05:22→11:07)
[2017-09-19] MEDS: GABAPENTIN 400 MG CAPSULE (FP) PO SCH ×2 (05:22→13:13)
[2017-09-19] MEDS: chlordiazePOXIDE HCL 25 MG CAPSULE PO PRN ×2 (09:11→13:13)
[2017-09-19 09:28] VITALS: BP 146/72; PULSE 94; TEMP 97.1
[2017-09-19] MEDS: FLUoxetine HCL 20 MG CAPSULE (FP) PO SCH (11:07)
[2017-09-19] MEDS: PRENATAL VITAMINS W/ FOLIC ACID TABLET (FP) PO SCH (11:07)
[2017-09-19] MEDS: NICOTINE 21 MG/24 HOURS TOPICAL PATCH TD SCH (11:07)
[2017-09-19] MEDS: AMOX TR/POT CLAV 875MG/125MG TABLETS (FP) PO SCH (11:07)
[2017-09-19] MEDS: BUDESONIDE/FORMETEROL FUMARATE 160/4.5 mcg INHALER IH SCH (11:08)
--- NOTE | 2017-09-19 14:43 | PN ---
S CIWA - CIWA Score Nausea/Vomitin Muscle Tremors: 3 Anxiety: 3 Agitation: 3 Paroxysmal Sweats: 1-Minimal Palms Moist Orientation: 0-Oriented Tacttile Disturbances: 0-None Auditory Disturbances: 0-None Visual Disturbances: 0-None Headache: 0-None Present CIWA-Ar Total Score: 12 S Progress Note (SOAP) Subjective: tremors shakes Objective: 09/19/17 14:41 Laboratory Last Values WBC 5.5 K/mm3 (4.0-10.0) 09/18/17 07:40 RBC 4.03 M/mm3 (3.60-5.2) 09/18/17 07:40 Hgb 13.5 GM/dL (10.7-15.3) 09/18/17 07:40 Hct 41.2 % (32.4-45.2) 09/18/17 07:40 MCV 102.3 fl (80-96) H 09/18/17 07:40 MCH 33.6 pg (25.7-33.7) 09/18/17 07:40 MCHC 32.8 g/dl (32.0-36.0) 09/18/17 07:40 RDW 13.6 % (11.6-15.6) 09/18/17 07:40 Plt Count 272 K/MM3 (134-434) 09/18/17 07:40 MPV 8.0 fl (7.5-11.1) 09/18/17 07:40 Sodium 137 mmol/L (136-145) 09/18/17 07:40 Potassium 3.9 mmol/L (3.5-5.1) 09/18/17 07:40 Chloride 100 mmol/L (98-107) 09/18/17 07:40 Carbon Dioxide 28 mmol/L (21-32) 09/18/17 07:40 Anion Gap 9 (8-16) 09/18/17 07:40 BUN 22 mg/dL (7-18) H 09/18/17 07:40 Creatinine 0.9 mg/dL (0.55-1.02) 09/18/17 07:40 Creat Clearance w eGFR > 60 (>60) 09/18/17 07:40 Random Glucose 139 mg/dL (74-106) H 09/18/17 07:40 Calcium 9.5 mg/dL (8.5-10.1) 09/18/17 07:40 Total Bilirubin 0.6 mg/dL (0.2-1.0) D 09/18/17 07:40 AST 34 U/L (15-37) 09/18/17 07:40 ALT 48 U/L (12-78) 09/18/17 07:40 Alkaline Phosphatase 117 U/L (45-117) 09/18/17 07:40 Total Protein 7.6 g/dl (6.4-8.2) 09/18/17 07:40 Albumin 3.6 g/dl (3.4-5.0) 09/18/17 07:40 Urine Color [place] 09/17/17 19:00 Urine Appearance Cloudy 09/17/17 19:00 Urine pH 5.0 (5.0-8.0) 09/17/17 19:00 Ur Specific [place] 1.026 (1.001-1.035) 09/17/17 19:00 Urine Protein 1+ (NEGATIVE) H 09/17/17 19:00 Urine Glucose (UA) Negative (NEGATIVE) 09/17/17 19:00 Urine Ketones Trace (NEGATIVE) H 09/17/17 19:00 Urine Blood Negative (NEGATIVE) 09/17/17 19:00 Urine Nitrite Negative (NEGATIVE) 09/17/17 19:00 Urine Bilirubin Negative (NEGATIVE) 09/17/17 19:00 Urine Urobilinogen 2.0 mg/dL (0.2-1.0) H 09/17/17 19:00 Ur Leukocyte Esterase 1+ (NEGATIVE) H 09/17/17 19:00 Urine WBC (Auto) 5 /hpf (3-5) 09/17/17 19:00 Urine RBC (Auto) 2 /hpf (0-3) 09/17/17 19:00 Ur Epithelial Cells Moderate /HPF (FEW) 09/17/17 19:00 Urine Bacteria Rare /hpf (NONE SEEN) 09/17/17 19:00 Hyaline Casts 2 /lpf 09/17/17 19:00 Urine Mucus Rare 09/17/17 19:00 Urine Yeast Many 09/17/17 19:00 RPR Titer Nonreactive (NONREACTIVE) 09/18/17 07:40 HIV 1&2 Antibody Screen Negative 09/18/17 07:40 HIV P24 Antigen Negative 09/18/17 07:40 labs noted Assessment: 09/19/17 14:42 withdrawal sx Plan: continue detox
--- NOTE | 2017-09-19 16:16 | DS ---
[facility] Detox Discharge Summary Admission Date: 09/17/17 Discharge Date: 09/19/17 - History Additional Comments: pt insisted on leaving despite education to the contrary to complete detox. Pt was A & ox 3, not in acute distress. Pertinent Past History: Asthma - Physical Exam Results Vital Signs: Vital Signs Temperature 97.1 F L 09/19/17 09:27 Pulse Rate 94 H 09/19/17 09:27 Respiratory Rate 20 09/19/17 09:27 Blood Pressure 146/72 09/19/17 09:27 O2 Sat by Pulse Oximetry (%) Pertinent Admission Physical Exam Findings: withdrawal sx - Medication Discharge Medications: Ambulatory Orders Naltrexone HCl [Revia -] 50 mg PO HS 04/06/16 Bupropion HCl [Wellbutrin Xl -] 150 mg PO DAILY #30 tab.sr.24h 04/07/16 Albuterol Sulfate Inhaler - [Ventolin HFA Inhaler -] 2 puff IH Q4H PRN #1 inhaler 04/10/16 Fluticasone/Salmeterol [Advair 250-50 Diskus] 1 each IH BID #1 disk.w.dev Montelukast Na [Singulair -] 10 mg PO HS #30 tablet 04/10/16 Azelastine HCl 205.5 mcg NS BID 09/02/16 Gabapentin [Neurontin -] 800 mg PO Q8H 09/02/16 Haloperidol Decanoate [Haldol Decanoate 100] 75 mg IM MONTHLY 09/02/16 Loratadine 10 mg PO DAILY 09/02/16 Hydroxyzine HCl 50 mg PO BID 03/08/17 Cyclobenzaprine HCl 5 mg PO TID 06/24/17 Amox-Tr/K Cl [Augmentin - 875Mg Tablet] 1 tab PO BID 09/17/17 Budesonide/Formeterol Fumarate [SYMBICORT 160/4.5mcg -] 1 inh PO BID 09/17/17 Bupropion HCl [Wellbutrin Xl -] 150 mg PO DAILY #30 tab.sr.24h 09/18/17 Fluoxetine HCl [Prozac -] 40 mg PO DAILY #60 capsule 09/18/17 Quetiapine Fumarate [Seroquel] 100 tab PO HS #30 tablet 09/18/17 - Diagnosis (1) Alcohol dependence with uncomplicated withdrawal Status: Acute (2) Cannabis dependence Status: Acute (3) Cocaine abuse Status: Acute (4) Asthma Status: Chronic Qualifiers: Asthma severity: moderate Asthma complication type: uncomplicated - AMA Did Patient Leave Against Medical Advice: Yes
[2017-09-19] MEDS ORDERED: chlordiazePOXIDE 5 MG CAPSULE PO SCH (17:00)
[2017-09-20] MEDS ORDERED: chlordiazePOXIDE HCL 10 MG CAPSULE PO SCH (17:00)
== END 2017-09-19 14:00 | disposition left against medical advice (07) | DRG 770 ==
LOC: YASAS 09:54 → Y6N 13:07
PROVIDERS: ADMIT Internal Medicine; ATTEND Internal Medicine
PROC: HZ2ZZZZ Detoxification Services for Substance Abuse Treatment (ICD-10-PCS; principal; 2017-09-17)
DX: F10.230 Alcohol dependence with withdrawal, uncomplicated (principal); F12.20 Cannabis dependence, uncomplicated; F14.10 Cocaine abuse, uncomplicated; F17.210 Nicotine dependence, cigarettes, uncomplicated; F25.8 Other schizoaffective disorders; F43.10 Post-traumatic stress disorder, unspecified; F19.24 Other psychoactive substance dependence with psychoactive substance-induced mood disorder; F19.282 Other psychoactive substance dependence with psychoactive substance-induced sleep disorder; J45.909 Unspecified asthma, uncomplicated; J43.8 Other emphysema; M54.5 Low back pain; G89.29 Other chronic pain; K76.0 Fatty (change of) liver, not elsewhere classified; R26.2 Difficulty in walking, not elsewhere classified; K04.7 Periapical abscess without sinus; Z99.89 Dependence on other enabling machines and devices; Z91.018 Allergy to other foods; Z87.42 Personal history of other diseases of the female genital tract; Z91.5 Personal history of self-harm
CPT/HCPCS: 36415; 71046-TC; 80053; 81003; 81015; 85027; 86593; 87389; 93005; 93010

== ENCOUNTER 2017-10-06 16:25 | Inpatient (IN) | payer OTHER ==
[2017-10-06 16:49] VITALS: BMI 31.1
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
[2017-10-06] MEDS ORDERED: MENTHOL/PHENOL 1 EACH UD MM PRN (19:57)
[2017-10-06] MEDS ORDERED: IBUPROFEN 400 MG TABLET (FP) PO PRN (19:57)
[2017-10-06] MEDS ORDERED: P-EPHED 60MG/TRIPROLIDI 2.5MG TABLET PO PRN (19:57)
[2017-10-06] MEDS ORDERED: MAGNESIUM CITRATE 300 ML BOTTLE PO PRN (19:57)
[2017-10-06] MEDS ORDERED: MAG HYDROX/AL HYDROX/SIMETH 30 ML UNIT-DOSE CUP PO PRN (19:57)
[2017-10-06] MEDS ORDERED: hydrOXYzine PAMOATE 50 MG CAPSULE (FP) PO PRN (19:57)
[2017-10-06] MEDS ORDERED: guaiFENesin/D-METHORPHAN HB 10 ML UNIT-DOSE CUPS PO PRN (19:57)
[2017-10-06] MEDS ORDERED: ACETAMINOPHEN 325 MG TABLET (FP) PO PRN (19:57)
[2017-10-06] MEDS ORDERED: LOPERAMIDE HCL 2 MG CAPSULE PO PRN (19:57)
[2017-10-06] MEDS ORDERED: NICOTINE POLACRILEX 4 MG GUM BC PRN (19:57)
[2017-10-06] MEDS ORDERED: MAGNESIUM HYDROX 2400MG/30ML ORAL SUSPENSION 30 ML CUP PO PRN (19:57)
[2017-10-06] MEDS ORDERED: chlordiazePOXIDE HCL 25 MG CAPSULE PO ONE (19:57)
[2017-10-06] MEDS ORDERED: ALBUTEROL SO4 18 GM HFA INHALER IH PRN (19:59)
[2017-10-06] MEDS ORDERED: ALBUTEROL SO4 2.5/IPRATROPIUM 0.5 INH SOL 3 ML VIAL.NEB. NEB PRN (20:13)
[2017-10-06] MEDS ORDERED: ALBUTEROL SO4 2.5/IPRATROPIUM 0.5 INH SOL 3 ML VIAL.NEB. NEB ONE (20:15)
[2017-10-06] MEDS: NICOTINE 21 MG/24 HOURS TOPICAL PATCH TD SCH (21:50)
[2017-10-06] MEDS ORDERED: PATIENT'S OWN MEDICATION (NON-FORMULARY) (Azelastine Hcl [Azelastine Hcl] 205.5 MCG) NS SCH (22:00)
[2017-10-06] MEDS: CYCLOBENZAPRINE HCL 5 MG TABLET PO SCH (22:19)
[2017-10-06] MEDS: NAPROXEN 500 MG TABLET (FP) PO SCH (22:19)
[2017-10-06] MEDS: THIAMINE HCL 100 MG TABLET (FP) PO SCH (22:19)
[2017-10-06] MEDS: MONTELUKAST NA 10 MG TABLET PO SCH (22:19)
[2017-10-06] MEDS: GABAPENTIN 400 MG CAPSULE (FP) PO SCH (22:19)
[2017-10-06] MEDS: chlordiazePOXIDE HCL 25 MG CAPSULE PO SCH (22:20)
[2017-10-06] MEDS: BUDESONIDE/FORMETEROL FUMARATE 80/4.5 mcg INHALER IH SCH (22:22)
[2017-10-07] MEDS: CYCLOBENZAPRINE HCL 5 MG TABLET PO SCH ×3 (05:16→22:28)
[2017-10-07] MEDS: chlordiazePOXIDE HCL 25 MG CAPSULE PO SCH ×4 (05:16→22:28)
[2017-10-07] MEDS: GABAPENTIN 400 MG CAPSULE (FP) PO SCH ×3 (06:41→22:28)
[2017-10-07] MEDS: chlordiazePOXIDE HCL 25 MG CAPSULE PO PRN ×3 (08:40→19:43)
[2017-10-07] MEDS: NAPROXEN 500 MG TABLET (FP) PO SCH ×2 (10:11→22:28)
[2017-10-07] MEDS: NICOTINE 21 MG/24 HOURS TOPICAL PATCH TD SCH (10:11)
[2017-10-07] MEDS: PRENATAL VITAMINS W/ FOLIC ACID TABLET (FP) PO SCH (10:11)
[2017-10-07] MEDS: FLUoxetine HCL 20 MG CAPSULE (FP) PO SCH (10:12)
[2017-10-07] MEDS: BUDESONIDE/FORMETEROL FUMARATE 80/4.5 mcg INHALER IH SCH ×2 (10:12→22:28)
[2017-10-07 10:30] LABS: HEMATOCRIT 40.7 % (32.4-45.2); HEMOGLOBIN 13.4 GM/dL (10.7-15.3); MCH 33.5 pg (25.7-33.7); MEAN CELL VOLUME 101.6 fl (80-96); MEAN PLT VOLUME 7.8 fl (7.5-11.1); PLATELET COUNT 263 K/MM3 (134-434); RBC 4.01 M/mm3 (3.60-5.2); RDW 14.4 % (11.6-15.6)
[2017-10-07 10:46] LABS: ALBUMIN 3.4 g/dl (3.4-5.0); ANION GAP 7 (8-16); BILIRUBIN,TOTAL 0.6 mg/dL (0.2-1.0); BLOOD UREA NITROGEN 10 mg/dL (7-18); CALCIUM 8.3 mg/dL (8.5-10.1); CHLORIDE 105 mmol/L (98-107); CO2 30 mmol/L (21-32); CREATININE 0.7 mg/dL (0.55-1.02); GLUCOSE,RANDOM 92 mg/dL (74-106); POTASSIUM 3.6 mmol/L (3.5-5.1); SGOT/AST 41 U/L (15-37); SGPT/ALT 44 U/L (12-78); SODIUM 142 mmol/L (136-145); TOT PROT 6.6 g/dl (6.4-8.2)
[2017-10-07 10:48] LABS: ALK PHOS 108 U/L (45-117)
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
--- NOTE | 2017-10-07 10:59 | PN ---
S CIWA - CIWA Score Nausea/Vomitin Muscle Tremors: 3 Anxiety: 3 Agitation: 2 Paroxysmal Sweats: 1-Minimal Palms Moist Orientation: 0-Oriented Tacttile Disturbances: 1-Very Mild Itch/Numbness Auditory Disturbances: 1-Very Mild Visual Disturbances: 0-None Headache: 2-Mild CIWA-Ar Total Score: 16 BHS Progress Note (SOAP) Subjective: ALERT,IRRITABLE,ANXIOUS,INTERRUPTED SLEEP,TREMOR,PAIN IN THE BODY Objective: 10/07/17 10:57 Vital Signs Temperature 97.3 F L 10/07/17 05:56 Pulse Rate 76 10/07/17 05:56 Respiratory Rate 18 10/07/17 05:56 Blood Pressure 150/87 10/07/17 05:56 O2 Sat by Pulse Oximetry (%) EKG NSR Laboratory Last Values WBC 4.0 K/mm3 (4.0-10.0) 10/07/17 07:00 RBC 4.01 M/mm3 (3.60-5.2) 10/07/17 07:00 Hgb 13.4 GM/dL (10.7-15.3) 10/07/17 07:00 Hct 40.7 % (32.4-45.2) 10/07/17 07:00 MCV 101.6 fl (80-96) H 10/07/17 07:00 MCH 33.5 pg (25.7-33.7) 10/07/17 07:00 MCHC 33.0 g/dl (32.0-36.0) 10/07/17 07:00 RDW 14.4 % (11.6-15.6) 10/07/17 07:00 Plt Count 263 K/MM3 (134-434) 10/07/17 07:00 MPV 7.8 fl (7.5-11.1) 10/07/17 07:00 Sodium 142 mmol/L (136-145) 10/07/17 07:00 Potassium 3.6 mmol/L (3.5-5.1) 10/07/17 07:00 Chloride 105 mmol/L (98-107) 10/07/17 07:00 Carbon Dioxide 30 mmol/L (21-32) 10/07/17 07:00 Anion Gap 7 (8-16) L 10/07/17 07:00 BUN 10 mg/dL (7-18) 10/07/17 07:00 Creatinine 0.7 mg/dL (0.55-1.02) 10/07/17 07:00 Creat Clearance w eGFR > 60 (>60) 10/07/17 07:00 Random Glucose 92 mg/dL (74-106) 10/07/17 07:00 Calcium 8.3 mg/dL (8.5-10.1) L 10/07/17 07:00 Total Bilirubin 0.6 mg/dL (0.2-1.0) 10/07/17 07:00 AST 41 U/L (15-37) H 10/07/17 07:00 ALT 44 U/L (12-78) 10/07/17 07:00 Alkaline Phosphatase 108 U/L (45-117) 10/07/17 07:00 Total Protein 6.6 g/dl (6.4-8.2) 10/07/17 07:00 Albumin 3.4 g/dl (3.4-5.0) 10/07/17 07:00 Assessment: 10/07/17 10:58 WITHDRAWAL SYMPTOM Plan: CONTINUE DETOX
--- NOTE | 2017-10-07 14:20 | EKG ---
Test Reason : Blood Pressure : / mmHG Vent. Rate : 083 BPM Atrial Rate : 083 BPM P-R Int : 148 ms QRS Dur : 088 ms QT Int : 390 ms P-R-T Axes : 061 074 048 degrees QTc Int : 458 ms POOR DATA QUALITY, INTERPRETATION MAY BE ADVERSELY AFFECTED NORMAL SINUS RHYTHM POSSIBLE LEFT ATRIAL ENLARGEMENT WHEN COMPARED WITH ECG OF 17-SEP-2017 14:05, NO SIGNIFICANT CHANGE WAS FOUND Confirmed by GABRIELA LUCERO MD ([id number]) on 10/07/2017 2:20:09 PM Referred By: Confirmed By:GABRIELA LUCERO MD
[2017-10-07 15:24] LABS: URINE APPEARANCE CLEAR; URINE BILIRUBIN NEGATIVE (NEGATIVE); URINE BLOOD NEGATIVE (NEGATIVE); URINE COLOR AMBER; URINE GLUCOSE (UA) NEGATIVE (NEGATIVE); URINE KETONE 1+ (NEGATIVE); URINE LEUK ESTERASE NEGATIVE (NEGATIVE); URINE NITRITE NEGATIVE (NEGATIVE)
[2017-10-07 15:41] LABS: URINE PROTEIN 1+ (NEGATIVE)
[2017-10-07 15:54] LABS: EPI CELLS RARE /HPF (FEW); URINE HYALINE CAST 6 /lpf; URINE MUCUS MANY; YEAST FEW
[2017-10-07] MEDS: FLUTICASONE PROP 0.05% 16 GM NASAL SPRAY NS SCH (19:00)
[2017-10-07] MEDS: THIAMINE HCL 100 MG TABLET (FP) PO SCH (22:27)
[2017-10-07] MEDS: MONTELUKAST NA 10 MG TABLET PO SCH (22:28)
[2017-10-07] MEDS: QUEtiapine FUMARATE 100 MG TABLET (FP) PO SCH (22:28)
[2017-10-08] MEDS: chlordiazePOXIDE HCL 25 MG CAPSULE PO SCH ×3 (06:01→17:25)
[2017-10-08] MEDS: GABAPENTIN 400 MG CAPSULE (FP) PO SCH ×3 (06:01→22:28)
[2017-10-08] MEDS: CYCLOBENZAPRINE HCL 5 MG TABLET PO SCH ×3 (06:01→22:28)
[2017-10-08] MEDS: chlordiazePOXIDE HCL 25 MG CAPSULE PO PRN ×3 (08:04→21:18)
[2017-10-08] MEDS: NICOTINE 21 MG/24 HOURS TOPICAL PATCH TD SCH (10:25)
[2017-10-08] MEDS: PRENATAL VITAMINS W/ FOLIC ACID TABLET (FP) PO SCH (10:25)
[2017-10-08] MEDS: NAPROXEN 500 MG TABLET (FP) PO SCH ×2 (10:25→22:28)
[2017-10-08] MEDS: FLUoxetine HCL 20 MG CAPSULE (FP) PO SCH (10:25)
[2017-10-08] MEDS: BUDESONIDE/FORMETEROL FUMARATE 80/4.5 mcg INHALER IH SCH ×2 (10:26→22:29)
[2017-10-08] MEDS: FLUTICASONE PROP 0.05% 16 GM NASAL SPRAY NS SCH (10:30)
--- NOTE | 2017-10-08 13:19 | PN ---
S CIWA - CIWA Score Nausea/Vomitin Muscle Tremors: 3 Anxiety: 4-Mod. Anxious/Guarded Agitation: 4-Moderately Restless Paroxysmal Sweats: 2 Orientation: 0-Oriented Tacttile Disturbances: 0-None Auditory Disturbances: 0-None Visual Disturbances: 0-None Headache: 0-None Present CIWA-Ar Total Score: 16 S Progress Note (SOAP) Subjective: shakes sleep disturbance Objective: 10/08/17 13:17 ambulating steadily within unit no acute distress noted Vital Signs Temperature 97 F L 10/08/17 10:00 Pulse Rate 76 10/08/17 10:00 Respiratory Rate 18 10/08/17 10:00 Blood Pressure 132/91 10/08/17 10:00 O2 Sat by Pulse Oximetry (%) Laboratory Last Values WBC 4.0 K/mm3 (4.0-10.0) 10/07/17 07:00 RBC 4.01 M/mm3 (3.60-5.2) 10/07/17 07:00 Hgb 13.4 GM/dL (10.7-15.3) 10/07/17 07:00 Hct 40.7 % (32.4-45.2) 10/07/17 07:00 MCV 101.6 fl (80-96) H 10/07/17 07:00 MCH 33.5 pg (25.7-33.7) 10/07/17 07:00 MCHC 33.0 g/dl (32.0-36.0) 10/07/17 07:00 RDW 14.4 % (11.6-15.6) 10/07/17 07:00 Plt Count 263 K/MM3 (134-434) 10/07/17 07:00 MPV 7.8 fl (7.5-11.1) 10/07/17 07:00 Sodium 142 mmol/L (136-145) 10/07/17 07:00 Potassium 3.6 mmol/L (3.5-5.1) 10/07/17 07:00 Chloride 105 mmol/L (98-107) 10/07/17 07:00 Carbon Dioxide 30 mmol/L (21-32) 10/07/17 07:00 Anion Gap 7 (8-16) L 10/07/17 07:00 BUN 10 mg/dL (7-18) 10/07/17 07:00 Creatinine 0.7 mg/dL (0.55-1.02) 10/07/17 07:00 Creat Clearance w eGFR > 60 (>60) 10/07/17 07:00 Random Glucose 92 mg/dL (74-106) 10/07/17 07:00 Calcium 8.3 mg/dL (8.5-10.1) L 10/07/17 07:00 Total Bilirubin 0.6 mg/dL (0.2-1.0) 10/07/17 07:00 AST 41 U/L (15-37) H 10/07/17 07:00 ALT 44 U/L (12-78) 10/07/17 07:00 Alkaline Phosphatase 108 U/L (45-117) 10/07/17 07:00 Total Protein 6.6 g/dl (6.4-8.2) 10/07/17 07:00 Albumin 3.4 g/dl (3.4-5.0) 10/07/17 07:00 Urine Color [place] 10/07/17 11:25 Urine Appearance Clear 10/07/17 11:25 Urine pH 5.0 (5.0-8.0) 10/07/17 11:25 Ur Specific [place] 1.026 (1.001-1.035) 10/07/17 11:25 Urine Protein 1+ (NEGATIVE) H 10/07/17 11:25 Urine Glucose (UA) Negative (NEGATIVE) 10/07/17 11:25 Urine Ketones 1+ (NEGATIVE) H 10/07/17 11:25 Urine Blood Negative (NEGATIVE) 10/07/17 11:25 Urine Nitrite Negative (NEGATIVE) 10/07/17 11:25 Urine Bilirubin Negative (NEGATIVE) 10/07/17 11:25 Urine Urobilinogen 2.0 mg/dL (0.2-1.0) H 10/07/17 11:25 Ur Leukocyte Esterase Negative (NEGATIVE) 10/07/17 11:25 Urine WBC (Auto) 3 /hpf (3-5) 10/07/17 11:25 Urine RBC (Auto) 4 /hpf (0-3) 10/07/17 11:25 Ur Epithelial Cells Rare /HPF (FEW) 10/07/17 11:25 Hyaline Casts 6 /lpf 10/07/17 11:25 Urine Mucus Many 10/07/17 11:25 Urine Yeast Few 10/07/17 11:25 RPR Titer Nonreactive (NONREACTIVE) 10/07/17 07:00 labs noted Assessment: 10/08/17 13:18 withdrawal sx Plan: continue detox
[2017-10-08] MEDS: QUEtiapine FUMARATE 100 MG TABLET (FP) PO SCH (22:28)
[2017-10-08] MEDS: MONTELUKAST NA 10 MG TABLET PO SCH (22:28)
[2017-10-08] MEDS: THIAMINE HCL 100 MG TABLET (FP) PO SCH (22:28)
[2017-10-08] MEDS: chlordiazePOXIDE 5 MG CAPSULE PO SCH (23:48)
[2017-10-09] MEDS: chlordiazePOXIDE HCL 25 MG CAPSULE PO PRN ×3 (01:17→18:53)
[2017-10-09] MEDS: CYCLOBENZAPRINE HCL 5 MG TABLET PO SCH ×3 (05:26→23:17)
[2017-10-09] MEDS: GABAPENTIN 400 MG CAPSULE (FP) PO SCH ×3 (05:26→22:09)
[2017-10-09] MEDS: chlordiazePOXIDE 5 MG CAPSULE PO SCH ×3 (05:26→16:49)
[2017-10-09] MEDS: FLUoxetine HCL 20 MG CAPSULE (FP) PO SCH (10:25)
[2017-10-09] MEDS: PRENATAL VITAMINS W/ FOLIC ACID TABLET (FP) PO SCH (10:25)
[2017-10-09] MEDS: NAPROXEN 500 MG TABLET (FP) PO SCH ×2 (10:26→22:09)
[2017-10-09] MEDS: BUDESONIDE/FORMETEROL FUMARATE 80/4.5 mcg INHALER IH SCH ×2 (10:26→22:10)
[2017-10-09] MEDS: NICOTINE 21 MG/24 HOURS TOPICAL PATCH TD SCH (10:26)
[2017-10-09] MEDS: FLUTICASONE PROP 0.05% 16 GM NASAL SPRAY NS SCH (10:26)
--- NOTE | 2017-10-09 10:51 | PN ---
BHS Progress Note (SOAP) Subjective: alert oriented x 3 mild sweat no tremor reports feeling better Objective: 10/09/17 10:52 Vital Signs Temperature 97.5 F L 10/09/17 10:00 Pulse Rate 79 10/09/17 10:00 Respiratory Rate 18 10/09/17 10:00 Blood Pressure 118/73 10/09/17 10:00 O2 Sat by Pulse Oximetry (%) Laboratory Last Values WBC 4.0 K/mm3 (4.0-10.0) 10/07/17 07:00 RBC 4.01 M/mm3 (3.60-5.2) 10/07/17 07:00 Hgb 13.4 GM/dL (10.7-15.3) 10/07/17 07:00 Hct 40.7 % (32.4-45.2) 10/07/17 07:00 MCV 101.6 fl (80-96) H 10/07/17 07:00 MCH 33.5 pg (25.7-33.7) 10/07/17 07:00 MCHC 33.0 g/dl (32.0-36.0) 10/07/17 07:00 RDW 14.4 % (11.6-15.6) 10/07/17 07:00 Plt Count 263 K/MM3 (134-434) 10/07/17 07:00 MPV 7.8 fl (7.5-11.1) 10/07/17 07:00 Sodium 142 mmol/L (136-145) 10/07/17 07:00 Potassium 3.6 mmol/L (3.5-5.1) 10/07/17 07:00 Chloride 105 mmol/L (98-107) 10/07/17 07:00 Carbon Dioxide 30 mmol/L (21-32) 10/07/17 07:00 Anion Gap 7 (8-16) L 10/07/17 07:00 BUN 10 mg/dL (7-18) 10/07/17 07:00 Creatinine 0.7 mg/dL (0.55-1.02) 10/07/17 07:00 Creat Clearance w eGFR > 60 (>60) 10/07/17 07:00 Random Glucose 92 mg/dL (74-106) 10/07/17 07:00 Calcium 8.3 mg/dL (8.5-10.1) L 10/07/17 07:00 Total Bilirubin 0.6 mg/dL (0.2-1.0) 10/07/17 07:00 AST 41 U/L (15-37) H 10/07/17 07:00 ALT 44 U/L (12-78) 10/07/17 07:00 Alkaline Phosphatase 108 U/L (45-117) 10/07/17 07:00 Total Protein 6.6 g/dl (6.4-8.2) 10/07/17 07:00 Albumin 3.4 g/dl (3.4-5.0) 10/07/17 07:00 Urine Color [place] 10/07/17 11:25 Urine Appearance Clear 10/07/17 11:25 Urine pH 5.0 (5.0-8.0) 10/07/17 11:25 Ur Specific [place] 1.026 (1.001-1.035) 10/07/17 11:25 Urine Protein 1+ (NEGATIVE) H 10/07/17 11:25 Urine Glucose (UA) Negative (NEGATIVE) 10/07/17 11:25 Urine Ketones 1+ (NEGATIVE) H 10/07/17 11:25 Urine Blood Negative (NEGATIVE) 10/07/17 11:25 Urine Nitrite Negative (NEGATIVE) 10/07/17 11:25 Urine Bilirubin Negative (NEGATIVE) 10/07/17 11:25 Urine Urobilinogen 2.0 mg/dL (0.2-1.0) H 10/07/17 11:25 Ur Leukocyte Esterase Negative (NEGATIVE) 10/07/17 11:25 Urine WBC (Auto) 3 /hpf (3-5) 10/07/17 11:25 Urine RBC (Auto) 4 /hpf (0-3) 10/07/17 11:25 Ur Epithelial Cells Rare /HPF (FEW) 10/07/17 11:25 Hyaline Casts 6 /lpf 10/07/17 11:25 Urine Mucus Many 10/07/17 11:25 Urine Yeast Few 10/07/17 11:25 RPR Titer Nonreactive (NONREACTIVE) 10/07/17 07:00 lab noted Assessment: 10/09/17 10:53 mild withdrawal sx Plan: medically supervised detox soft diet - upper teeth removed "few days ago" chlorhexidine mouth rinsing
[2017-10-09] MEDS ORDERED: CHLORHEXIDINE GLUCONATE 0.12% 15ML CUP MM SCH ×2 (11:00→11:41)
[2017-10-09] MEDS: THIAMINE HCL 100 MG TABLET (FP) PO SCH (22:09)
[2017-10-09] MEDS: MONTELUKAST NA 10 MG TABLET PO SCH (22:09)
[2017-10-09] MEDS: chlordiazePOXIDE HCL 10 MG CAPSULE PO SCH (22:09)
[2017-10-09] MEDS: QUEtiapine FUMARATE 100 MG TABLET (FP) PO SCH (22:09)
[2017-10-10] MEDS: chlordiazePOXIDE HCL 10 MG CAPSULE PO SCH (05:37)
[2017-10-10] MEDS: GABAPENTIN 400 MG CAPSULE (FP) PO SCH (05:37)
[2017-10-10] MEDS: CYCLOBENZAPRINE HCL 5 MG TABLET PO SCH (05:37)
[2017-10-10 06:14] VITALS: BP 141/84; PULSE 72; TEMP 97.5
--- NOTE | 2017-10-10 09:15 | DS ---
[facility] Detox Discharge Summary Admission Date: 10/06/17 Discharge Date: 10/10/17 - History Present History: Alcohol Dependence, Cannabis Dependence, Cocaine Dependence Additional Comments: follow up with after care program as arrangement Pertinent Past History: asthma copd neuropathy nicotine dependence - Physical Exam Results Vital Signs: Vital Signs Temperature 97.5 F L 10/10/17 06:14 Pulse Rate 72 10/10/17 06:14 Respiratory Rate 18 10/10/17 06:14 Blood Pressure 141/84 10/10/17 06:14 O2 Sat by Pulse Oximetry (%) Pertinent Admission Physical Exam Findings: withdrawal symptom and finding - Treatment Hospital Course: Detox Protocol Followed, Detoxed Safely, Responded well, Discharged Condition Good, Rehab Referral Accepted Patient has Accepted [facility] Referral [facility] - Medication Discharge Medications: Ambulatory Orders Naltrexone HCl [Revia -] 50 mg PO HS 04/06/16 Bupropion HCl [Wellbutrin Xl -] 150 mg PO DAILY #30 tab.sr.24h 04/07/16 Albuterol Sulfate Inhaler - [Ventolin HFA Inhaler -] 2 puff IH Q4H PRN #1 inhaler 04/10/16 Fluticasone/Salmeterol [Advair 250-50 Diskus] 1 each IH BID #1 disk.w.dev Montelukast Na [Singulair -] 10 mg PO HS #30 tablet 04/10/16 Azelastine HCl 205.5 mcg NS BID 09/02/16 Gabapentin [Neurontin -] 800 mg PO Q8H 09/02/16 Haloperidol Decanoate [Haldol Decanoate 100] 75 mg IM MONTHLY 09/02/16 Loratadine 10 mg PO DAILY 09/02/16 Hydroxyzine HCl 50 mg PO BID 03/08/17 Cyclobenzaprine HCl 5 mg PO TID 06/24/17 Amox-Tr/K Cl [Augmentin - 875Mg Tablet] 1 tab PO BID 09/17/17 Budesonide/Formeterol Fumarate [SYMBICORT 160/4.5mcg -] 1 inh PO BID 09/17/17 Bupropion HCl [Wellbutrin Xl -] 150 mg PO DAILY #30 tab.sr.24h 09/18/17 Fluoxetine HCl [Prozac -] 40 mg PO DAILY #60 capsule 09/18/17 Quetiapine Fumarate [Seroquel] 100 tab PO HS #30 tablet 09/18/17 - Diagnosis (1) Alcohol dependence with uncomplicated withdrawal Current Visit: Yes Status: Acute (2) Nicotine dependence Current Visit: Yes Status: Chronic Qualifiers: Nicotine product type: cigarettes Substance use status: uncomplicated Qualified Code(s): F17.210 - Nicotine dependence, cigarettes, uncomplicated (3) PTSD (post-traumatic stress disorder) Current Visit: Yes Status: Chronic (4) Cannabis dependence Current Visit: No Status: Acute (5) Cocaine abuse Current Visit: No Status: Acute (6) Drug-induced mood disorder Current Visit: No Status: Acute (7) Substance induced mood disorder Current Visit: No Status: Acute (8) Substance-induced sleep disorder Current Visit: No Status: Acute (9) Asthma Current Visit: No Status: Chronic Qualifiers: Asthma severity: moderate Asthma complication type: uncomplicated (10) COPD (chronic obstructive pulmonary disease) Current Visit: No Status: Chronic Qualifiers: COPD type: emphysema Emphysema type: other Qualified Code(s): J43.8 - Other emphysema (11) Insomnia Current Visit: No Status: Chronic (12) Low back pain Current Visit: No Status: Chronic Qualifiers: Chronicity: chronic Back pain laterality: bilateral Sciatica laterality: sciatica of right side (13) Neuropathy Current Visit: No Status: Chronic - AMA Did Patient Leave Against Medical Advice: No
== END 2017-10-10 09:23 | disposition home or self-care (01) | DRG 774 ==
LOC: YASAS 16:25 → Y6N 18:13
PROVIDERS: ADMIT Internal Medicine; ATTEND Internal Medicine
PROC: HZ2ZZZZ Detoxification Services for Substance Abuse Treatment (ICD-10-PCS; principal; 2017-10-06)
DX: F10.230 Alcohol dependence with withdrawal, uncomplicated (principal); F14.20 Cocaine dependence, uncomplicated; F12.10 Cannabis abuse, uncomplicated; F17.210 Nicotine dependence, cigarettes, uncomplicated; F43.10 Post-traumatic stress disorder, unspecified; F19.24 Other psychoactive substance dependence with psychoactive substance-induced mood disorder; F19.282 Other psychoactive substance dependence with psychoactive substance-induced sleep disorder; F25.9 Schizoaffective disorder, unspecified; J45.909 Unspecified asthma, uncomplicated; J43.8 Other emphysema; G47.00 Insomnia, unspecified; M54.5 Low back pain; G89.29 Other chronic pain; G62.9 Polyneuropathy, unspecified; Z87.42 Personal history of other diseases of the female genital tract; Z91.5 Personal history of self-harm
CPT/HCPCS: 36415; 80053; 81003; 81015; 85027; 86593; 93005; 93010

== ENCOUNTER 2020-04-11 15:48 | Inpatient (IN) | payer OTHER ==
--- NOTE | 2020-04-11 19:47 | BHS.RME ---
Substance Use & Tx History - Substance Use History Alcohol Substance amount: 4 pints of Vodka Frequency of use: Daily Substance route: Oral Date of Last Use: 04/11/20 - Last Treatment Date of last treatment: 01/23/20-01/27/20 Treatment type: Substance Use Disorder (JODIE) Where was last treatment: Detox Physical/Psych/Mental Status - Behavior Eye Contact: Normal - Cooperativeness Cooperativeness: Cooperative - Thinking Thought Processes: Logical Thought content: Future oriented - Physical Health Problems Is patient presently having any pain?: No Does patient presently have any injuries (include location): No Does patient currently have a fever: No Is patient : No CIWA Nausea/Vomitin Muscle Tremors: 3 Anxiety: 3 Agitation: 3 Paroxysmal Sweats: 2 Orientation: 0-Oriented Tacttile Disturbances: 0-None Auditory Disturbances: 0-None Visual Disturbances: 0-None Headache: 0-None Present CIWA-Ar Total Score: 13
[2020-04-11 21:11] VITALS: BMI 34.2
--- NOTE | 2020-04-11 22:00 | HP ---
CIWA Score Nausea/Vomitin Muscle Tremors: 3 Anxiety: 3 Agitation: 3 Paroxysmal Sweats: 2 Orientation: 0-Oriented Tacttile Disturbances: 0-None Auditory Disturbances: 0-None Visual Disturbances: 0-None Headache: 3-Moderate (Frontal dull heacheache "6") CIWA-Ar Total Score: 16 - Admission Criteria OASAS Guidelines: Admission for Medically Managed Detox: Requires at least one of the followin. CIWA greater than 12 2. Seizures within the past 24 hours 3. Delirium tremens within the past 24 hours 4. Hallucinations within the past 24 hours 5. Acute intervention needed for co occurring medical disorder 6. Acute intervention needed for co occurring psychiatric disorder 7. Severe withdrawal that cannot be handled at a lower level of care (continued vomiting, continued diarrhea, abnormal vital signs) requiring intravenous medication and/or fluids 8. Patient presents the following: CIWA greater than 12 Admission Criteria Met: Admission criteria met Admitting History and Physical - Past Medical History ...LMP: 09/29/09 ...: No - Smoking History Smoking history: Current every day smoker Have you smoked in the past 12 months: Yes Aproximately how many cigarettes per day: 20 If you are a former smoker, when did you quit?: pt is on chantix quit 1 wk ago - Alcohol/Substance Use Hx Alcohol Use: Yes Admission ROS S - HPI Chief Complaint: States I need detox because I'm tired of drinking. Allergies/Adverse Reactions: Allergies Allergy/AdvReac Type Severity Reaction Status Date / Time clindamycin Allergy Severe Verified 04/11/20 20:37 watermelon Allergy Severe Difficulty Verified 04/11/20 20:37 Breathing History of Present Illness: 59 y0 w/ alcohol intoxication and withdrawal symptoms seeking detox. TICO: 0.128 UTox: Neg Denies seizures or overdoses. Last blackout - 5 months ago Alcohol use began at age 13. Currently drinks 4 pints of Vodka/day. Last drink today. Nicotine use began at age. Smokes 1 PPD. PMHx: HTN, Asthma/COPD; Back and hip pain - uses a rolling walker/ MHx: Anxiety, Depression, Schizo-affective disorder, PTSD. Last saw MH Provider 03/26/20. Denies thoughts of harming self or others. SHx: Domiciled. SSI. Denies current legal issues. Search Terms: Kasia Glenroy, 1960 Search Date: 04/11/2020 22:03:09 PM The Drug Utilization Report below displays all of the controlled substance prescriptions, if any, that your patient has filled in the last twelve months. The information displayed on this report is compiled from pharmacy submissions to the Department, and accurately reflects the information as submitted by the pharmacies. This report was requested by: Yaz Swift | Reference #: [id number] There are no results for the search terms that you entered. Exam Limitations: No Limitations - Ebola screening Have you traveled outside of the country in the last 21 days: No (Denies known COVID exposure) Have you had contact with anyone from an Ebola affected area: No Have you been sick,other than usual withdrawal symptoms: No Do you have a fever: No - Review of Systems Constitutional: Diaphoresis EENT: reports: Cataracts ((L) eye), Blurred Vision, Dental Problems (Dentures at home. Chews and swallows ok) Respiratory: reports: Cough (Cough x years), Shortness of Breath Cardiac: reports: Edema (Edema of legs x 2 years - off and on), Palpitations ( triggered by withdrawal) GI: reports: Nausea, Indigestion (on Pantoprazole) : reports: No Symptoms Reported Musculoskeletal: reports: Back Pain (Chronic sharp low back - triggered by walking. Improves w/ sitting.), Joint Pain (Hip pain - achy.), Other (Uses a rolling walker.) Integumentary: reports: Change in Color (Legs swollen and reddened x 2 weeks) Neuro: reports: Headache (Frontal dull heacheache "6") Endocrine: reports: Increased Thirst Hematology: reports: Easy Bruising Psychiatric: reports: Judgement Intact, Orientated x3, Agitated, Anxious, Depressed (Denies thoughts of harming self or others.) Patient History - Patient Medical History Hx Anemia: No Hx Asthma: Yes Hx Chronic Obstructive Pulmonary Disease (COPD): Yes Hx Cancer: No Hx Cardiac Disorders: No Hx Congestive Heart Failure: No Hx Hypertension: No Hx Hypercholesterolemia: Yes (No meds) Hx Pacemaker: No HX Cerebrovascular Accident: No Hx Seizures: No Hx Dementia: No Hx Diabetes: No Hx Gastrointestinal Disorders: No Hx Liver Disease: Yes (fatty liver) Hx Genitourinary Disorders: No Hx Sexually Transmitted Disorders: No Hx Renal Disease (ESRD): No Hx Thyroid Disease: No Hx Human Immunodeficiency Virus (HIV): No Hx Hepatitis C: No Hx Depression: Yes Hx Suicide Attempt: No Hx Bipolar Disorder: No Hx Schizophrenia: No - Patient Surgical History Past Surgical History: Yes Hx Neurologic Surgery: No Hx Cataract Extraction: No Hx Cardiac Surgery: No Hx Lung Surgery: No Hx Breast Surgery: No Hx Breast Biopsy: No Hx Abdominal Surgery: No Hx Appendectomy: No Hx Cholecystectomy: No Hx Genitourinary Surgery: No Hx Section: No Hx Orthopedic Surgery: Yes (discectomy 2011; rt bunion sx 1993; rt knee arthoscopy 1991) Other Surgical History: ectopic 1984 R foot sx at age 7 yrs old. Anesthesia Reaction: No - PPD History Previous Implant?: Yes Documented Results: Positive w/o proof Results: CXR 12/2019 PPD to be Administered?: No - Reproductive History Last Menstrual Period: 09/29/09 Patient : No - Smoking Cessation Smoking history: Current every day smoker Have you smoked in the past 12 months: Yes Aproximately how many cigarettes per day: 20 If you are a former smoker, when did you quit?: pt is on chantix states completed 3 weeks ago Cigars Per Day: 0 Hx Chewing Tobacco Use: No Initiated information on smoking cessation: Yes 'Breaking Loose' booklet given: 04/11/20 - Substance & Tx. History Hx Alcohol Use: Yes Hx Substance Use: Yes Substance Use Type: Alcohol Hx Substance Use Treatment: Yes (detox, rehab) - Substances abused Alcohol Substance route: Oral Frequency: Daily Amount used: 4 pints of vodka Age of first use: 13 Date of last use: 04/11/20 Admission Physical Exam S - Vital Signs Vital Signs: Vital Signs - 24 hr 04/11/20 04/11/20 21:07 21:18 Temperature 98.5 F Pulse Rate 108 H Respiratory 18 Rate Blood Pressure 155/83 O2 Sat by Pulse 96 Oximetry (%) - Physical General Appearance: Yes: Nourished, Mild Distress, Alcohol on Breath, Intoxicated, Tremorous, Sweating (Increased facial moisture), Anxious HEENTM: Yes: EOMI (Jerking movement of eyes upon lateral gaze), Hearing grossly Normal, Normocephalic, Normal Voice, RICARDO (Pupils = 3 mm), Pharynx Normal Respiratory: Yes: Lungs Clear, Normal Breath Sounds, Wheezing (Inspiratory and expiratory. Pulse Ox = 95%), Other (Cough productive yellowish phlegm) Neck: Yes: No masses,lesions,Nodules, Supple Breast: Yes: Breast Exam Deferred Cardiology: Yes: Regular Rhythm, Regular Rate (HR: 96), S1, S2 Abdominal: Yes: Non Tender, Soft, Increased Bowel Sounds, Protuberent (Increased abdominal adiposity) Genitourinary: Yes: Within Normal Limits Back: Yes: Normal Inspection Musculoskeletal: Yes: full range of Motion, Gait Steady (Gait slow/slightly unsteady w/o walker) Extremities: Yes: Normal Capillary Refill, Tremors (Gross tremors), Erythema (Bilatera erythema, 1+ edema and increased warmth from ankles to below knee. Pedal pulses faint. Capp refill < 3 sec.) Neurological: Yes: cupola charger insulation II-XII NML intact (Jerking movement of eyes upon lateral gaze), Fully Oriented, Alert, Normal Response Integumentary: Yes: Normal Color, Warm, Moist (Increased facial moisture), Other (Bilateral increased erythema, 1+ edema and increased warmth from ankles to below knee. Pedal pulses faint. Capp refill < 3 sec.) Lymphatic: Yes: Within Normal Limits - Diagnostic (1) History of positive PPD Current Visit: Yes Status: Chronic (2) Alcohol dependence with uncomplicated withdrawal Current Visit: Yes Status: Acute (3) Nicotine dependence Current Visit: Yes Status: Chronic Qualifiers: Nicotine product type: cigarettes Substance use status: uncomplicated Qualified Code(s): F17.210 - Nicotine dependence, cigarettes, uncomplicated (4) Asthma Current Visit: Yes Status: Chronic Qualifiers: Asthma severity: mild Asthma persistence: intermittent Asthma complication type: uncomplicated Qualified Code(s): J45.20 - Mild intermittent asthma, uncomplicated (5) Uses roller walker Current Visit: Yes Status: Chronic (6) Bilateral cellulitis of lower leg Current Visit: Yes Status: Acute (7) Unspecified nystagmus Current Visit: Yes Status: Acute (8) COPD (chronic obstructive pulmonary disease) Current Visit: Yes Status: Chronic Qualifiers: COPD type: unspecified COPD Qualified Code(s): J44.9 - Chronic obstructive pulmonary disease, unspecified (9) Chronic low back pain Current Visit: Yes Status: Chronic Qualifiers: Back pain laterality: unspecified Sciatica presence: unspecified whether sciatica present Qualified Code(s): M54.5 - Low back pain; G89.29 - Other chronic pain (10) Obesity (BMI 30.0-34.9) Current Visit: Yes Status: Chronic (11) Cough Current Visit: Yes Status: Chronic (12) HTN (hypertension) Current Visit: Yes Status: Chronic Qualifiers: Hypertension type: unspecified Qualified Code(s): I10 - Essential (primary) hypertension Cleared for Admission S - Detox or Rehab [facility] Level of Care: Medically Managed Detox Regimen/Protocol: Librium Claeared for Rehab Admission: No Breathalyzer - Breathalyzer Breathalyzer: 0.128 Urine Drug Screen - Test Device Lot number: [id number] Expiration date: 12/04/21 - Control Is test valid?: Yes - Results Drug screen NEGATIVE: Yes Inpatient Rehab Admission - Rehab Decision to Admit Inpatient rehab admission?: No
[2020-04-11] MEDS ORDERED: ACETAMINOPHEN 325 MG TABLET (FP) PO PRN ×2 (22:46)
[2020-04-11] MEDS ORDERED: MENTHOL/PHENOL 1 EACH UD MM PRN (22:46)
[2020-04-11] MEDS ORDERED: MAGNESIUM HYDROX 2400MG/30ML ORAL SUSPENSION 30 ML CUP PO PRN (22:46)
[2020-04-11] MEDS ORDERED: MAG HYDROX/AL HYDROX/SIMETH 30 ML UNIT-DOSE CUP PO PRN (22:46)
[2020-04-11] MEDS ORDERED: BISMUTH SUBSALICYLATE 524 MG/30 ML UD PO PRN (22:46)
[2020-04-11] MEDS ORDERED: NICOTINE POLACRILEX 2 MG GUM BUC PRN (22:46)
[2020-04-11] MEDS ORDERED: MAGNESIUM CITRATE 300 ML BOTTLE PO PRN (22:46)
[2020-04-11] MEDS ORDERED: traZODone HCL 100 MG TABLET (FP) PO ONE (22:50)
[2020-04-11] MEDS ORDERED: ONDANSETRON *ODT* 4 MG TABLET SL ONE (23:15)
[2020-04-11] MEDS: chlordiazePOXIDE HCL 25 MG CAPSULE PO SCH (23:43)
[2020-04-11] MEDS: guaiFENesin 200 MG/10 ML 10 ML UNIT-DOSE CUPS PO SCH (23:43)
[2020-04-11] MEDS: CEPHALEXIN MONOHYDRATE 500 MG CAPSULE (UD) PO SCH (23:43)
[2020-04-12] MEDS: chlordiazePOXIDE HCL 25 MG CAPSULE PO SCH ×4 (06:06→22:24)
[2020-04-12] MEDS: guaiFENesin 200 MG/10 ML 10 ML UNIT-DOSE CUPS PO SCH ×3 (06:07→18:07)
[2020-04-12] MEDS: CEPHALEXIN MONOHYDRATE 500 MG CAPSULE (UD) PO SCH ×3 (06:07→18:07)
[2020-04-12] MEDS ORDERED: PATIENT'S OWN MEDICATION (NON-FORMULARY) (Fluticasone Propion/Salmeterol [Fluticasone-Salm PO SCH (10:00)
[2020-04-12] MEDS ORDERED: UMECLIDINIUM BROMIDE PO SCH (10:00)
[2020-04-12] MEDS: HYDROCHLOROTHIAZIDE 25 MG TABLET (FP) PO SCH (10:38)
[2020-04-12] MEDS: LORATADINE 10 MG TABLET PO SCH (10:38)
[2020-04-12] MEDS: PANTOPRAZOLE 40 MG TABLET PO SCH (10:38)
[2020-04-12] MEDS: NICOTINE 14 MG/24 HOURS TOPICAL PATCH TD SCH (10:39)
[2020-04-12] MEDS: PRENATAL VITAMINS W/ FOLIC ACID TABLET (FP) PO SCH (10:39)
[2020-04-12] MEDS: TIOTROPIUM BROMIDE 2.5 MCG (SPIRIVA) RESPIMAT INHALER IH SCH (11:16)
[2020-04-12] MEDS: BUDESONIDE/FORMETEROL FUMARATE 80/4.5 mcg INHALER IH SCH ×2 (11:17→22:25)
[2020-04-12 12:01] LABS: HEMATOCRIT 37.6 % (32.4-45.2); HEMOGLOBIN 12.9 GM/dL (10.7-15.3); MCH 35.2 pg (25.7-33.7); MCHC 34.3 g/dl (32.0-36.0); MEAN CELL VOLUME 102.6 fl (80-96); PLATELET COUNT 167 K/MM3 (134-434); RBC 3.66 M/mm3 (3.60-5.2); RDW 15.1 % (11.6-15.6); WHITE BLOOD COUNT 5.2 K/mm3 (4.0-10.0)
[2020-04-12 12:03] LABS: ALBUMIN 3.2 g/dl (3.4-5.0); BILIRUBIN,TOTAL 0.5 mg/dL (0.2-1); BLOOD UREA NITROGEN 9.3 mg/dL (7-18); CALCIUM 8.8 mg/dL (8.5-10.1); CREATININE 0.6 mg/dL (0.55-1.3); POTASSIUM 3.8 mmol/L (3.5-5.1); TOT PROT 6.7 g/dl (6.4-8.2)
[2020-04-12] MEDS: chlordiazePOXIDE HCL 25 MG CAPSULE PO PRN ×2 (13:35→19:27)
--- NOTE | 2020-04-12 15:44 | PN ---
[facility] CIWA - CIWA Score Nausea/Vomitin-No Nausea/No Vomiting Muscle Tremors: 3 Anxiety: 2 Agitation: 2 Paroxysmal Sweats: 3 Orientation: 0-Oriented Tacttile Disturbances: 0-None Auditory Disturbances: 2-Mild Harshness/Frighten Visual Disturbances: 0-None Headache: 0-None Present CIWA-Ar Total Score: 12 S Progress Note (SOAP) Subjective: Anxious, Restless, Sweating, Stomach Cramping, Tremors. Objective: Patient A & O X 3, Observed Ambulating on Detox Unit Unassisted. In No Acute Distress. 04/12/20 15:42 Vital Signs Temperature 98.6 F 04/12/20 12:55 Pulse Rate 105 H 04/12/20 12:55 Respiratory Rate 18 04/12/20 12:55 Blood Pressure 129/87 04/12/20 12:55 O2 Sat by Pulse Oximetry (%) 97 04/12/20 12:55 Laboratory Tests 04/12/20 04/12/20 04/12/20 07:50 07:50 07:50 WBC 5.2 RBC 3.66 Hgb 12.9 Hct 37.6 D MCV 102.6 H MCH 35.2 H MCHC 34.3 RDW 15.1 Plt Count 167 D MPV 8.0 Sodium 140 Potassium 3.8 Chloride 103 Carbon Dioxide 28 Anion Gap 10 BUN 9.3 Creatinine 0.6 Est GFR (CKD-EPI)AfAm 114.82 Est GFR (CKD-EPI)NonAf 99.07 Random Glucose 110 H Calcium 8.8 Total Bilirubin 0.5 AST 55 H ALT 80 H Alkaline Phosphatase 137 H Total Protein 6.7 Albumin 3.2 L Syphilis Serology Non-reactive Lab Results Noted. Assessment: 04/12/20 15:42 WITHDRAWAL SYMPTOMS. ELEVATED ALT LEVEL. ELEVATED AST LEVEL. ELEVATED AP LEVEL. 04/12/20 15:43 Plan: Continue Detox. PRN Mylanta Oral for upset Stomach.
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
[2020-04-12] MEDS: ALBUTEROL SO4 HFA INHALER IH PRN (17:21)
[2020-04-12] MEDS ORDERED: MIRTAZAPINE 15 MG TABLET (FP) PO SCH (22:00)
[2020-04-12] MEDS: ATORVASTATIN CA 40 MG TABLET (FP) PO SCH (22:24)
[2020-04-12] MEDS: THIAMINE HCL 100 MG TABLET (FP) PO SCH (22:25)
[2020-04-12] MEDS: MONTELUKAST NA 10 MG TABLET PO SCH (22:25)
[2020-04-12] MEDS: MELATONIN 5 MG TABLETS PO SCH (22:25)
[2020-04-12] MEDS: IBUPROFEN 400 MG TABLET (FP) PO PRN (22:26)
[2020-04-13] MEDS: guaiFENesin 200 MG/10 ML 10 ML UNIT-DOSE CUPS PO SCH ×4 (00:19→17:52)
[2020-04-13] MEDS: CEPHALEXIN MONOHYDRATE 500 MG CAPSULE (UD) PO SCH ×4 (00:19→17:52)
[2020-04-13] MEDS: chlordiazePOXIDE HCL 25 MG CAPSULE PO SCH ×4 (06:12→22:08)
[2020-04-13] MEDS: FLUoxetine HCL 20 MG CAPSULE PO SCH (10:33)
[2020-04-13] MEDS: HYDROCHLOROTHIAZIDE 25 MG TABLET (FP) PO SCH (10:33)
[2020-04-13] MEDS: LORATADINE 10 MG TABLET PO SCH (10:33)
[2020-04-13] MEDS: BUDESONIDE/FORMETEROL FUMARATE 80/4.5 mcg INHALER IH SCH ×2 (10:34→22:08)
[2020-04-13] MEDS: TIOTROPIUM BROMIDE 2.5 MCG (SPIRIVA) RESPIMAT INHALER IH SCH (10:34)
[2020-04-13] MEDS: PANTOPRAZOLE 40 MG TABLET PO SCH (10:34)
[2020-04-13] MEDS: PRENATAL VITAMINS W/ FOLIC ACID TABLET (FP) PO SCH (10:34)
[2020-04-13] MEDS: NICOTINE 14 MG/24 HOURS TOPICAL PATCH TD SCH (10:34)
--- NOTE | 2020-04-13 13:17 | PN ---
[facility] Progress Note Note: Psychiatric nurse practitoner note: Patient approached mortgage underwriter in the [place] concerning her trazodone dose. Patient reports taking trazodone 300mg HS. Patient seen by Dr. Daniels on 04/12/20. Dr. Daniels note read and appreciated. Patient reports poor sleep. She is currently prescribed Wellbutrin 150mg daily + Prozac 20mg daily + trazodone 300mg HS + Haldol Decanoate 100mg which she received last week. There is no justification for three antidepressants medication at antidepressant doses, therefore will address patient's insomnia with Seroquel 50mg HS.
[2020-04-13] MEDS: chlordiazePOXIDE HCL 25 MG CAPSULE PO PRN (13:30)
[2020-04-13] MEDS: CYCLOBENZAPRINE HCL 10 MG TABLET (FP) PO PRN ×2 (13:30→22:07)
[2020-04-13] MEDS: IBUPROFEN 400 MG TABLET (FP) PO PRN (15:37)
--- NOTE | 2020-04-13 17:29 | PN ---
S CIWA - CIWA Score Nausea/Vomitin-Mild Nausea/No Vomiting Muscle Tremors: 2 Anxiety: 2 Agitation: 2 Paroxysmal Sweats: 2 Orientation: 0-Oriented Tacttile Disturbances: 1-Very Mild Itch/Numbness Auditory Disturbances: 0-None Visual Disturbances: 0-None Headache: 0-None Present CIWA-Ar Total Score: 10 BHS Progress Note (SOAP) Subjective: Interrupted sleep, sweating Objective: 04/13/20 17:26 Last Vital Signs Temp Pulse Resp BP Pulse Ox 98.4 F 96 H 18 114/66 95 04/13/20 12:54 04/13/20 12:54 04/13/20 12:54 04/13/20 12:54 04/13/20 12:54 Laboratory Tests 04/11/20 04/12/20 04/12/20 22:00 07:50 07:50 WBC 5.2 RBC 3.66 Hgb 12.9 Hct 37.6 D MCV 102.6 H MCH 35.2 H MCHC 34.3 RDW 15.1 Plt Count 167 D MPV 8.0 Sodium 140 Potassium 3.8 Chloride 103 Carbon Dioxide 28 Anion Gap 10 BUN 9.3 Creatinine 0.6 Est GFR (CKD-EPI)AfAm 114.82 Est GFR (CKD-EPI)NonAf 99.07 Random Glucose 110 H Calcium 8.8 Total Bilirubin 0.5 AST 55 H ALT 80 H Alkaline Phosphatase 137 H Total Protein 6.7 Albumin 3.2 L Syphilis Serology COVID-19 (KARLOS) Not detected 04/12/20 07:50 WBC RBC Hgb Hct MCV MCH MCHC RDW Plt Count MPV Sodium Potassium Chloride Carbon Dioxide Anion Gap BUN Creatinine Est GFR (CKD-EPI)AfAm Est GFR (CKD-EPI)NonAf Random Glucose Calcium Total Bilirubin AST ALT Alkaline Phosphatase Total Protein Albumin Syphilis Serology Non-reactive COVID-19 (KARLOS) Labs reviewed: elevated LFTs and mild hyperglycemia noted Assessment: 04/13/20 17:27 Withdrawal sxs Elevated LFTs and mild hyperglycemia noted Plan: Continue detox Encourage PO water hydration Elevated LFTs: most likely due to alcoholism, repeat LFTs Mild hyperglycemia: most likely due to withdrawal, repeat fasting glucose level
[2020-04-13] MEDS: THIAMINE HCL 100 MG TABLET (FP) PO SCH (22:07)
[2020-04-13] MEDS: MONTELUKAST NA 10 MG TABLET PO SCH (22:07)
[2020-04-13] MEDS: QUEtiapine FUMARATE 50 MG TABLET PO SCH (22:07)
[2020-04-13] MEDS: ATORVASTATIN CA 40 MG TABLET (FP) PO SCH (22:07)
[2020-04-13] MEDS: ALBUTEROL SO4 HFA INHALER IH PRN (22:08)
[2020-04-13] MEDS: MELATONIN 5 MG TABLETS PO SCH (22:08)
[2020-04-14] MEDS ORDERED: chlordiazePOXIDE HCL 10 MG CAPSULE PO PRN
[2020-04-14] MEDS: guaiFENesin 200 MG/10 ML 10 ML UNIT-DOSE CUPS PO SCH ×5 (01:13→23:32)
[2020-04-14] MEDS: CEPHALEXIN MONOHYDRATE 500 MG CAPSULE (UD) PO SCH ×5 (01:14→23:33)
[2020-04-14] MEDS: chlordiazePOXIDE HCL 10 MG CAPSULE PO SCH ×4 (05:13→22:08)
[2020-04-14] MEDS: HYDROCHLOROTHIAZIDE 25 MG TABLET (FP) PO SCH (10:14)
[2020-04-14] MEDS: FLUoxetine HCL 20 MG CAPSULE PO SCH (10:14)
[2020-04-14] MEDS: PRENATAL VITAMINS W/ FOLIC ACID TABLET (FP) PO SCH (10:14)
[2020-04-14] MEDS: NICOTINE 14 MG/24 HOURS TOPICAL PATCH TD SCH (10:14)
[2020-04-14] MEDS: PANTOPRAZOLE 40 MG TABLET PO SCH (10:14)
[2020-04-14] MEDS: BUDESONIDE/FORMETEROL FUMARATE 80/4.5 mcg INHALER IH SCH ×2 (10:15→22:07)
[2020-04-14] MEDS: LORATADINE 10 MG TABLET PO SCH (10:15)
[2020-04-14] MEDS: TIOTROPIUM BROMIDE 2.5 MCG (SPIRIVA) RESPIMAT INHALER IH SCH (10:15)
--- NOTE | 2020-04-14 11:37 | PN ---
S CIWA - CIWA Score Nausea/Vomitin-No Nausea/No Vomiting Muscle Tremors: 1-None Visible, but [place] Anxiety: 1-Mildly Anxious Agitation: 0-Normal Activity Paroxysmal Sweats: 1-Minimal Palms Moist Orientation: 0-Oriented Tacttile Disturbances: 0-None Auditory Disturbances: 0-None Visual Disturbances: 0-None Headache: 0-None Present CIWA-Ar Total Score: 3 BHS Progress Note (SOAP) Subjective: mild shakes sweats the flexiril 10mg is not helping with my muscle spasms Objective: 04/14/20 11:30 Vital Signs Temperature 97.5 F L 04/14/20 05:50 Pulse Rate 86 04/14/20 05:50 Respiratory Rate 16 04/14/20 05:50 Blood Pressure 118/70 04/14/20 05:50 O2 Sat by Pulse Oximetry (%) 95 04/14/20 05:50 aaox3 ambulating no acute distress Assessment: 04/14/20 11:57 withdrawals Plan: continue detox flexiril d/c robaxin ordered.
[2020-04-14] MEDS: METHOCARBAMOL 500 MG TABLET PO PRN (11:55)
[2020-04-14 12:36] LABS: ALBUMIN 3.1 g/dl (3.4-5.0); BILIRUBIN,DIRECT 0.1 mg/dL (0.0-0.2); TOT PROT 6.7 g/dl (6.4-8.2)
[2020-04-14] MEDS ORDERED: METHOCARBAMOL 500 MG TABLET PO SCH (14:00)
[2020-04-14] MEDS: ALBUTEROL SO4 HFA INHALER IH PRN (18:23)
[2020-04-14] MEDS: ATORVASTATIN CA 40 MG TABLET (FP) PO SCH (22:07)
[2020-04-14] MEDS: THIAMINE HCL 100 MG TABLET (FP) PO SCH (22:07)
[2020-04-14] MEDS: MONTELUKAST NA 10 MG TABLET PO SCH (22:08)
[2020-04-14] MEDS: QUEtiapine FUMARATE 50 MG TABLET PO SCH (22:08)
[2020-04-14] MEDS: MELATONIN 5 MG TABLETS PO SCH (22:11)
[2020-04-15] MEDS: METHOCARBAMOL 500 MG TABLET PO PRN (00:49)
[2020-04-15] MEDS ORDERED: chlordiazePOXIDE HCL 10 MG CAPSULE PO SCH (05:00)
[2020-04-15] MEDS: CEPHALEXIN MONOHYDRATE 500 MG CAPSULE (UD) PO SCH (05:20)
[2020-04-15 06:32] VITALS: BP 103/70; PULSE 89; TEMP 97.1
--- NOTE | 2020-04-15 06:57 | DS ---
[facility] Detox Discharge Summary Admission Date: 04/11/20 - History Additional Comments: pt requesting to leave , states " I have things to do in my house " . Pt was educated about the risks of leaving before completing detox, including seizures and . Pt declined further medical assistance and insisted on leaving . Pt ambulating freely w/ walker , AAO . Vital Signs - 24 hr 04/14/20 04/14/20 04/14/20 09:03 12:56 17:10 Temperature 96.8 F L 97.8 F 97.6 F Pulse Rate 95 H 101 H 97 H Respiratory 18 18 18 Rate Blood Pressure 128/78 125/57 L 130/81 O2 Sat by Pulse 95 95 95 Oximetry (%) 04/14/20 04/15/20 21:00 06:30 Temperature 97.9 F 97.1 F L Pulse Rate 94 H 89 Respiratory 18 18 Rate Blood Pressure 106/66 103/70 O2 Sat by Pulse 97 97 Oximetry (%) - Physical Exam Results Vital Signs: Vital Signs Temperature 97.1 F L 04/15/20 06:30 Pulse Rate 89 04/15/20 06:30 Respiratory Rate 18 04/15/20 06:30 Blood Pressure 103/70 04/15/20 06:30 O2 Sat by Pulse Oximetry (%) 97 04/15/20 06:30 - Medication Discharge Medications: Ambulatory Orders Albuterol Sulfate Inhaler - [Ventolin HFA Inhaler -] 2 puff IH Q4H PRN #1 inhaler 04/10/16 Montelukast Na [Singulair -] 10 mg PO HS #30 tablet 04/10/16 Haloperidol Decanoate [Haldol Decanoate (Long-Acting) -] 75 mg IM MONTHLY 09/02/16 Budesonide/Formeterol Fumarate [SYMBICORT 160/4.5mcg -] 1 inh PO BID 09/17/17 Bupropion HCl [Wellbutrin Xl -] 150 mg PO DAILY #30 tab.sr.24h 10/10/17 Gabapentin [Neurontin -] 800 mg PO TID capsule 10/10/17 Mirtazapine 7.5 mg PO DAILY 01/23/20 Varenicline Tartrate [Chantix -] 1 mg PO BID 01/23/20 Acamprosate Calcium [Campral -] 2 tablet PO TID 04/11/20 Atorvastatin Ca [Lipitor] 40 mg PO HS 04/11/20 Fluoxetine HCl [Prozac] 40 mg PO DAILY 04/11/20 Fluticasone Propion/Salmeterol [Fluticasone-Salmeterol 500-50] 1 puff PO BID 04/11/20 Folic Acid 1 mg PO DAILY 04/11/20 Hydrochlorothiazide [Hctz -] 25 mg PO DAILY 04/11/20 Loratadine 10 mg PO DAILY 04/11/20 Pantoprazole Sodium [Protonix] 40 mg PO DAILY 04/11/20 Trazodone HCl 2 tab PO HS 04/11/20 Umeclidinium [place] [Incruse Ellipta] 1 inhaler PO DAILY 04/11/20 - AMA Did Patient Leave Against Medical Advice: Yes
[2020-04-16] MEDS ORDERED: chlordiazePOXIDE HCL 10 MG CAPSULE PO ONE (05:00)
== END 2020-04-15 08:10 | disposition home or self-care (01) | DRG 775 ==
LOC: YASAS 15:48 → Y6N 21:05
PROVIDERS: ADMIT Allergy & Immunology; ATTEND Allergy & Immunology
PROC: HZ2ZZZZ Detoxification Services for Substance Abuse Treatment (ICD-10-PCS; principal; 2020-04-11)
DX: F10.230 Alcohol dependence with withdrawal, uncomplicated (principal); F12.20 Cannabis dependence, uncomplicated; F17.210 Nicotine dependence, cigarettes, uncomplicated; F25.9 Schizoaffective disorder, unspecified; F43.10 Post-traumatic stress disorder, unspecified; G62.9 Polyneuropathy, unspecified; L03.115 Cellulitis of right lower limb; L03.116 Cellulitis of left lower limb; J44.9 Chronic obstructive pulmonary disease, unspecified; G47.39 Other sleep apnea; J45.20 Mild intermittent asthma, uncomplicated; M54.17 Radiculopathy, lumbosacral region; H55.00 Unspecified nystagmus; R05 Cough; R94.5 Abnormal results of liver function studies; R73.9 Hyperglycemia, unspecified; R60.0 Localized edema; R76.11 Nonspecific reaction to tuberculin skin test without active tuberculosis; Z62.810 Personal history of physical and sexual abuse in childhood; E66.9 Obesity, unspecified; Z68.34 Body mass index [BMI] 34.0-34.9, adult; Z91.410 Personal history of adult physical and sexual abuse; Z91.018 Allergy to other foods
CPT/HCPCS: 36415; 80053; 80076; 82947; 85027; 86780; Q0162; U0003

== ENCOUNTER 2021-07-06 18:00 | Inpatient (IN) | payer OTHER ==
[2021-07-06] MEDS ORDERED: ALBUTEROL SO4 2.5/IPRATROPIUM 0.5 INH SOL 3 ML VIAL.NEB. NEB ONE (19:58)
[2021-07-06] MEDS ORDERED: ALBUTEROL SO4 HFA INHALER IH ONE ×2 (20:35→21:42)
[2021-07-06 20:47] LABS: BASO % 0.4 % (0-2.0); EOS % 0.6 % (0-4.5); HEMATOCRIT 24.2 % (32.4-45.2); LYMPH % 11.6 % (8-40); MCH 36.2 pg (25.7-33.7); MCHC 33.1 g/dl (32.0-36.0); MEAN CELL VOLUME 109.2 fl (80-96); MEAN PLT VOLUME 9.8 fl (7.5-11.1); MONO % 1.9 % (3.8-10.2); NEUT % 85.5 % (42.8-82.8); PLATELET COUNT 210 10^3/uL (134-434); RBC 2.22 M/mm3 (3.60-5.2); RDW 16.4 % (11.6-15.6); WHITE BLOOD COUNT 11.1 K/mm3 (4.0-10.0)
[2021-07-06 20:53] LABS: INR 1.56 (0.83-1.09); PROTHROMBIN TIME (PATIENT) 17.5 SEC (9.7-13.0)
[2021-07-06 20:56] LABS: ACTIVATED PTT 29.9 SECONDS (25.2-36.5)
[2021-07-06 21:15] LABS: CHLORIDE 92 mmol/L (98-107); LACTIC ACID 3.5 mmol/L (0.4-2.0); SODIUM 132 mmol/L (136-145)
[2021-07-06 21:18] LABS: ALBUMIN 1.9 g/dl (3.4-5.0); ANION GAP 14 MMOL/L (8-16); BLOOD UREA NITROGEN 34.2 mg/dL (7-18); CALCIUM 8.6 mg/dL (8.5-10.1); CO2 26 mmol/L (21-32); LIPASE 1087 U/L (73-393)
[2021-07-06 21:20] LABS: BILIRUBIN,DIRECT 2.8 mg/dL (0.0-0.2)
[2021-07-06 21:21] LABS: CREATININE 2.4 mg/dL (0.55-1.3); SGOT/AST 86 U/L (15-37); SGPT/ALT 19 U/L (13-61)
[2021-07-06 21:23] LABS: BILIRUBIN,TOTAL 3.5 mg/dL (0.2-1); TOT PROT 6.2 g/dl (6.4-8.2)
[2021-07-06] MEDS ORDERED: LACTATED RINGERS SOLUTION 1,000 ML with POTASSIUM CHLORIDE 20 MEQ IV ONE (21:23)
[2021-07-06 21:24] LABS: ALK PHOS 246 U/L (45-117)
[2021-07-06 21:29] LABS: GLUCOSE,RANDOM 39 mg/dL (74-106)
[2021-07-06] MEDS ORDERED: DEXTROSE 50%-WATER - 25 GM/50 ML VIAL IVPUSH ONE ×4 (21:31→23:10)
[2021-07-06] MEDS ORDERED: DEXTROSE 50%-WATER 25 GM/50 ML DISP.SYRIN ONE ×2 (21:44→23:06)
[2021-07-06] MEDS ORDERED: THIAMINE HCL 200 MG/2 ML VIAL IVPB ONE (21:47)
[2021-07-06 21:49] LABS: ANISOCYTOSIS 2+; MACROCYTOSIS 2+; PLATELET ESTIMATE NORMAL; TARGET CELLS 2+
[2021-07-06] MEDS ORDERED: PANTOPRAZOLE SODIUM 40 MG VIAL IVPUSH ONE ×2 (22:55→22:56)
[2021-07-06] MEDS ORDERED: DEXTROSE 10%-WATER 500 ML INFUS.BAG IV ONE (23:04)
[2021-07-06] MEDS ORDERED: THIAMINE HCL 200 MG/2 ML VIAL ONE ×2 (23:14→23:15)
[2021-07-06] MEDS ORDERED: PIPERACILLIN/TAZOB 3.375 GM 3.375 GM in DEXTROSE 5%-WATER - 50 ML IVPB ONE (23:22)
[2021-07-06] MEDS ORDERED: PANTOPRAZOLE SODIUM 40 MG VIAL ONE (23:24)
[2021-07-06] MEDS ORDERED: LORazepam 2 MG/ML SDV VIAL IVPUSH SCH (23:45)
[2021-07-07] MEDS ORDERED: DEXTROSE 50%-WATER 25 GM/50 ML DISP.SYRIN ONE (00:09)
[2021-07-07] MEDS ORDERED: PIPERACILLIN/TAZOB 3.375 GM 3.375 GM/50 ML BAG IVPB ONE ×2 (00:09→12:50)
[2021-07-07] MEDS ORDERED: LORazepam 2 MG/ML SDV VIAL IVPUSH PRN (02:16)
[2021-07-07 02:51] LABS: LACTIC ACID 4.3 mmol/L (0.4-2.0)
[2021-07-07 03:44] LABS: TRIGLYCERIDES 277 mg/dL (0-150)
[2021-07-07 03:45] LABS: IRON SERUM 116 ug/dL (50-175); TOTAL IRON BINDING CAPACITY 98 ug/dL (250-450)
[2021-07-07] MEDS ORDERED: SODIUM CHLORIDE IVPB ONE (05:45)
[2021-07-07] MEDS ORDERED: FOLIC ACID IVPB ONE (05:45)
[2021-07-07] MEDS ORDERED: THIAMINE HCL IVPB ONE (05:45)
[2021-07-07] MEDS ORDERED: ACETAMINOPHEN 325 MG TABLET (FP) PO PRN (05:55)
[2021-07-07] MEDS ORDERED: ACAMPROSATE CALCIUM 333 MG TABLET.DR PO SCH ×2 (06:00)
[2021-07-07] MEDS: LACTATED RINGERS SOLUTION 1,000 ML/1,000 ML INFUS.BAG IV SCH ×2 (06:29→21:51)
[2021-07-07 09:06] LABS: BASO % 0.3 % (0-2.0); EOS % 1.3 % (0-4.5); HEMATOCRIT 26.1 % (32.4-45.2); HEMOGLOBIN 8.9 GM/dL (10.7-15.3); LYMPH % 11.3 % (8-40); MEAN CELL VOLUME 102.8 fl (80-96); MEAN PLT VOLUME 9.6 fl (7.5-11.1); MONO % 2.6 % (3.8-10.2); NEUT % 84.5 % (42.8-82.8); PLATELET COUNT 182 10^3/uL (134-434); RBC 2.53 M/mm3 (3.60-5.2); RDW 19.8 % (11.6-15.6)
[2021-07-07 09:15] LABS: CHLORIDE 94 mmol/L (98-107); SODIUM 133 mmol/L (136-145)
[2021-07-07 09:16] LABS: CALCIUM 8.5 mg/dL (8.5-10.1)
[2021-07-07 09:17] LABS: BLOOD UREA NITROGEN 39.9 mg/dL (7-18); CO2 29 mmol/L (21-32); GLUCOSE,RANDOM 92 mg/dL (74-106); MAGNESIUM 1.6 mg/dL (1.8-2.4)
[2021-07-07 09:20] LABS: CREATININE 2.4 mg/dL (0.55-1.3); PHOSPHOROUS 1.8 mg/dL (2.5-4.9)
[2021-07-07 09:23] LABS: ANION GAP 11 MMOL/L (8-16)
[2021-07-07] MEDS ORDERED: PANTOPRAZOLE SODIUM 40 MG VIAL IVPUSH SCH (10:00)
[2021-07-07] MEDS ORDERED: LORATADINE 10 MG TABLET PO SCH (10:00)
[2021-07-07] MEDS: KCL 10 MEQ IVPB 10 MEQ/100 ML INFUS.BAG IVPB SCH ×4 (12:48→14:07)
[2021-07-07] MEDS ORDERED: PT OWN MED DRAWER 7, Y5N ONE (12:49)
[2021-07-07] MEDS: PIPERACILLIN/TAZOB 3.375 GM 3.375 GM in DEXTROSE 5%-WATER - 50 ML IVPB SCH ×2 (12:50→19:50)
[2021-07-07] MEDS ORDERED: PHYTONADIONE 10 MG/1 ML AMP ONE (12:54)
[2021-07-07] MEDS ORDERED: KCL 10 MEQ IVPB 10 MEQ/100 ML INFUS.BAG IVPB ONE (12:54)
[2021-07-07] MEDS ORDERED: OCTREOTIDE ACETATE 100 MCG/1 ML ONE (12:55)
[2021-07-07] MEDS ORDERED: PHYTONADIONE 10 MG/1 ML AMP IVPB ONE (13:00)
[2021-07-07] MEDS ORDERED: OCTREOTIDE ACETATE 50 MCG/1 ML - 1 ML VIAL IVPUSH ONE (13:00)
[2021-07-07] MEDS: OCTREOTIDE ACETATE 1,200 MCG in DEXTROSE 5%-WATER - 488 ML IVPB SCH (14:07)
[2021-07-07] MEDS: PANTOPRAZOLE SODIUM 80 MG in SODIUM CHLORIDE 100 ML IVPB SCH (14:07)
[2021-07-07] MEDS: POTASSIUM CHLORIDE TABS 20 MEQ TABLET.ER (FP) PO SCH ×2 (15:56→19:54)
[2021-07-07] MEDS ORDERED: POTASSIUM CHLORIDE TABS 20 MEQ TABLET.ER (FP) PO ONE (15:59)
[2021-07-07] MEDS ORDERED: ALBUTEROL SO4 HFA INHALER IH PRN (16:15)
[2021-07-07] MEDS ORDERED: MAGNESIUM SULF 50% (8.12 MEQ/2 ML-1 GM VIAL) IVPB ONE (16:22)
[2021-07-07] MEDS ORDERED: NAPH,MB-DB/K PH,MBDB POWDER PACKET PO ONE (16:27)
[2021-07-07] MEDS ORDERED: MAGNESIUM SULFATE IN WATER 2 GM/50 ML IVPB IVPB ONE (16:38)
[2021-07-07 19:45] LABS: BASO % 0.3 % (0-2.0); EOS % 2.7 % (0-4.5); HEMATOCRIT 25.2 % (32.4-45.2); HEMOGLOBIN 8.7 GM/dL (10.7-15.3); MCH 35.1 pg (25.7-33.7); MCHC 34.4 g/dl (32.0-36.0); MEAN CELL VOLUME 102.1 fl (80-96); MEAN PLT VOLUME 9.6 fl (7.5-11.1); MONO % 2.1 % (3.8-10.2); NEUT % 81.9 % (42.8-82.8); PLATELET COUNT 192 10^3/uL (134-434); RBC 2.47 M/mm3 (3.60-5.2); RDW 19.9 % (11.6-15.6); WHITE BLOOD COUNT 8.6 K/mm3 (4.0-10.0)
[2021-07-07 20:26] LABS: CHLORIDE 95 mmol/L (98-107); SODIUM 132 mmol/L (136-145)
[2021-07-07 20:30] LABS: CALCIUM 8.2 mg/dL (8.5-10.1)
[2021-07-07 20:31] LABS: BLOOD UREA NITROGEN 43.7 mg/dL (7-18); CO2 28 mmol/L (21-32); GLUCOSE,RANDOM 142 mg/dL (74-106); LIPASE 804 U/L (73-393)
[2021-07-07 20:34] LABS: CREATININE 2.4 mg/dL (0.55-1.3)
[2021-07-07 20:37] LABS: AMYLASE 901 U/L (25-115); ANION GAP 10 MMOL/L (8-16)
[2021-07-07] MEDS ORDERED: PIPERACILLIN/TAZOBACTAM 2.25 GM VIAL IVPB ONE (21:35)
[2021-07-07] MEDS ORDERED: DEXTROSE 5%-WATER - 50 ML IVPB ONE (21:36)
[2021-07-07] MEDS: traZODone HCL 100 MG TABLET (FP) PO SCH (21:38)
[2021-07-07] MEDS: PIPERACILLIN/TAZOB 2.25 GM 2.25 GM in DEXTROSE 5%-WATER - 50 ML IVPB SCH (21:38)
[2021-07-07] MEDS: MONTELUKAST NA 10 MG TABLET PO SCH (21:39)
[2021-07-07] MEDS: MIRTAZAPINE 15 MG TABLET (FP) PO SCH (21:39)
[2021-07-07] MEDS: BUDESONIDE/FORMETEROL FUMARATE 160/4.5 mcg INHALER IH SCH (21:58)
[2021-07-08 00:19] VITALS: BMI 31.3
[2021-07-08] MEDS ORDERED: PT OWN MED DRAWER 7, Y5N ONE ×2 (01:15→15:34)
[2021-07-08] MEDS ORDERED: DEXTROSE 5%-WATER - 50 ML IVPB ONE ×3 (01:25→21:22)
[2021-07-08] MEDS ORDERED: PIPERACILLIN/TAZOBACTAM 2.25 GM VIAL IVPB ONE ×3 (01:25→21:21)
[2021-07-08] MEDS: PANTOPRAZOLE SODIUM 80 MG in SODIUM CHLORIDE 100 ML IVPB SCH ×2 (01:39→10:59)
[2021-07-08] MEDS: PIPERACILLIN/TAZOB 2.25 GM 2.25 GM in DEXTROSE 5%-WATER - 50 ML IVPB SCH ×4 (02:03→21:31)
[2021-07-08] MEDS: LACTATED RINGERS SOLUTION 1,000 ML/1,000 ML INFUS.BAG IV SCH ×2 (06:43→16:08)
[2021-07-08 09:12] LABS: BASO % 0.3 % (0-2.0); EOS % 2.5 % (0-4.5); HEMATOCRIT 24.3 % (32.4-45.2); HEMOGLOBIN 8.4 GM/dL (10.7-15.3); LYMPH % 12.2 % (8-40); MCH 34.9 pg (25.7-33.7); MCHC 34.5 g/dl (32.0-36.0); MEAN CELL VOLUME 101.1 fl (80-96); MEAN PLT VOLUME 9.3 fl (7.5-11.1); MONO % 3.2 % (3.8-10.2); NEUT % 81.8 % (42.8-82.8); PLATELET COUNT 174 10^3/uL (134-434); RBC 2.41 M/mm3 (3.60-5.2); RDW 19.8 % (11.6-15.6); WHITE BLOOD COUNT 8.3 K/mm3 (4.0-10.0)
[2021-07-08 09:13] LABS: INR 1.54 (0.83-1.09); PROTHROMBIN TIME (PATIENT) 17.3 SEC (9.7-13.0)
[2021-07-08 09:44] LABS: CALCIUM 8.4 mg/dL (8.5-10.1)
[2021-07-08 09:47] LABS: BILIRUBIN,DIRECT 2.4 mg/dL (0.0-0.2)
[2021-07-08 09:48] LABS: TOT PROT 5.2 g/dl (6.4-8.2)
[2021-07-08 09:49] LABS: BILIRUBIN,TOTAL 2.7 mg/dL (0.2-1)
[2021-07-08 09:53] LABS: ALBUMIN 1.5 g/dl (3.4-5.0)
[2021-07-08] MEDS ORDERED: PIPERACILLIN/TAZOB 3.375 GM 3.375 GM in DEXTROSE 5%-WATER - 50 ML IVPB SCH (10:00)
[2021-07-08 10:21] LABS: MAGNESIUM 1.5 mg/dL (1.8-2.4)
[2021-07-08] MEDS: BUDESONIDE/FORMETEROL FUMARATE 160/4.5 mcg INHALER IH SCH ×2 (11:00→21:32)
[2021-07-08] MEDS: FLUoxetine HCL 20 MG CAPSULE PO SCH ×2 (11:00→15:36)
[2021-07-08] MEDS: POLYETHYLENE GLYCOL (HEALTHYLAX) 3350 17 GM PACKET PO SCH ×2 (15:19→21:31)
[2021-07-08] MEDS: OCTREOTIDE ACETATE 1,200 MCG in DEXTROSE 5%-WATER - 488 ML IVPB SCH (15:27)
[2021-07-08] MEDS ORDERED: MAGNESIUM 2GM/50ML STERILE WATER IVPB IVPB ONE (18:26)
[2021-07-08] MEDS: KCL 10 MEQ IVPB 10 MEQ/100 ML INFUS.BAG IVPB SCH (21:31)
[2021-07-08] MEDS: MIRTAZAPINE 15 MG TABLET (FP) PO SCH (21:31)
[2021-07-08] MEDS: NAPH,MB-DB/K PH,MBDB POWDER PACKET PO SCH (21:31)
[2021-07-08] MEDS: traZODone HCL 100 MG TABLET (FP) PO SCH (21:31)
[2021-07-08] MEDS: MONTELUKAST NA 10 MG TABLET PO SCH (21:32)
[2021-07-09] MEDS ORDERED: DEXTROSE 5%-WATER - 50 ML IVPB ONE ×2 (01:54→10:42)
[2021-07-09] MEDS ORDERED: PIPERACILLIN/TAZOBACTAM 2.25 GM VIAL IVPB ONE ×2 (01:54→10:42)
[2021-07-09] MEDS: PIPERACILLIN/TAZOB 2.25 GM 2.25 GM in DEXTROSE 5%-WATER - 50 ML IVPB SCH ×2 (02:01→10:44)
[2021-07-09] MEDS: POLYETHYLENE GLYCOL (HEALTHYLAX) 3350 17 GM PACKET PO SCH ×4 (05:23→23:19)
[2021-07-09] MEDS ORDERED: PEG 3350/NA SULF BICARB CL/KCL 4000 ML SOLN.RECON PO ONE (09:00)
[2021-07-09 10:36] LABS: URINE APPEARANCE CLEAR; URINE BILIRUBIN 1+ (NEGATIVE); URINE COLOR DK YELLOW; URINE GLUCOSE (UA) NEGATIVE (NEGATIVE); URINE KETONE NEGATIVE (NEGATIVE); URINE LEUK ESTERASE NEGATIVE (NEGATIVE); URINE NITRITE NEGATIVE (NEGATIVE); URINE PROTEIN NEGATIVE (NEGATIVE)
[2021-07-09 10:40] LABS: HEMATOCRIT 25.7 % (32.4-45.2); HEMOGLOBIN 8.8 GM/dL (10.7-15.3); MCH 34.8 pg (25.7-33.7); MCHC 34.1 g/dl (32.0-36.0); MEAN PLT VOLUME 9.2 fl (7.5-11.1); PLATELET COUNT 166 10^3/uL (134-434); RBC 2.52 M/mm3 (3.60-5.2); RDW 19.4 % (11.6-15.6); WHITE BLOOD COUNT 7.9 K/mm3 (4.0-10.0)
[2021-07-09 10:41] LABS: CHLORIDE 102 mmol/L (98-107); SODIUM 138 mmol/L (136-145)
[2021-07-09] MEDS ORDERED: PT OWN MED DRAWER 7, Y5N ONE (10:41)
[2021-07-09] MEDS: NAPH,MB-DB/K PH,MBDB POWDER PACKET PO SCH ×3 (10:44→23:17)
[2021-07-09] MEDS: PANTOPRAZOLE 40 MG TABLET PO SCH (10:44)
[2021-07-09] MEDS: FLUoxetine HCL 20 MG CAPSULE PO SCH (10:45)
[2021-07-09 10:46] LABS: CALCIUM 8.8 mg/dL (8.5-10.1)
[2021-07-09 10:47] LABS: ALBUMIN 1.5 g/dl (3.4-5.0); ANION GAP 5 MMOL/L (8-16); CO2 31 mmol/L (21-32); GLUCOSE,RANDOM 102 mg/dL (74-106); MAGNESIUM 2.1 mg/dL (1.8-2.4)
[2021-07-09] MEDS: BUDESONIDE/FORMETEROL FUMARATE 160/4.5 mcg INHALER IH SCH ×2 (10:48→23:17)
[2021-07-09 10:50] LABS: CREATININE 1.2 mg/dL (0.55-1.3); SGOT/AST 44 U/L (15-37); SGPT/ALT 12 U/L (13-61)
[2021-07-09 10:52] LABS: TOT PROT 5.2 g/dl (6.4-8.2)
[2021-07-09 10:53] LABS: ALK PHOS 215 U/L (45-117)
[2021-07-09 12:46] LABS: INR 1.34 (0.83-1.09)
[2021-07-09 13:10] LABS: LIPASE 259 U/L (73-393)
[2021-07-09 13:11] LABS: BILIRUBIN,DIRECT 2.6 mg/dL (0.0-0.2)
[2021-07-09 13:20] LABS: AMYLASE 788 U/L (25-115); PHOSPHOROUS 0.8 mg/dL (2.5-4.9)
[2021-07-09 14:25] LABS: ANISOCYTOSIS 1+; MACROCYTOSIS 1+; PLATELET ESTIMATE NORMAL; TARGET CELLS 2+
[2021-07-09] MEDS: LACTATED RINGERS SOLUTION 1,000 ML/1,000 ML INFUS.BAG IV SCH (14:37)
[2021-07-09] MEDS ORDERED: POTASSIUM PHOSPHATE 15 MM in DEXTROSE 5%-WATER - 250 ML IVPB ONE (15:00)
[2021-07-09] MEDS ORDERED: BISACODYL 5 MG TABLET.DR (FP) PO ONE (18:00)
[2021-07-09] MEDS: KCL 10 MEQ IVPB 10 MEQ/100 ML INFUS.BAG IVPB SCH ×2 (18:11→22:39)
[2021-07-09] MEDS: MONTELUKAST NA 10 MG TABLET PO SCH (22:38)
[2021-07-09] MEDS: MIRTAZAPINE 15 MG TABLET (FP) PO SCH ×2 (22:38→23:19)
[2021-07-09] MEDS: traZODone HCL 100 MG TABLET (FP) PO SCH ×2 (22:38→23:18)
[2021-07-10] MEDS ORDERED: KCL 10 MEQ IVPB 10 MEQ/100 ML INFUS.BAG IVPB SCH (01:15)
[2021-07-10] MEDS: KCL 10 MEQ IVPB 10 MEQ/100 ML INFUS.BAG IVPB SCH (01:20)
[2021-07-10] MEDS: NAPH,MB-DB/K PH,MBDB POWDER PACKET PO SCH ×3 (06:59→22:09)
[2021-07-10] MEDS: POLYETHYLENE GLYCOL (HEALTHYLAX) 3350 17 GM PACKET PO SCH ×3 (06:59→22:09)
[2021-07-10 09:06] LABS: INR 1.28 (0.83-1.09)
[2021-07-10 09:09] LABS: HEMATOCRIT 24.1 % (32.4-45.2); HEMOGLOBIN 8.2 GM/dL (10.7-15.3); MCH 35.3 pg (25.7-33.7); MCHC 34.1 g/dl (32.0-36.0); MEAN CELL VOLUME 103.5 fl (80-96); MEAN PLT VOLUME 10.5 fl (7.5-11.1); PLATELET COUNT 160 10^3/uL (134-434); RBC 2.33 M/mm3 (3.60-5.2); RDW 19.2 % (11.6-15.6); WHITE BLOOD COUNT 10.6 K/mm3 (4.0-10.0)
[2021-07-10 09:23] LABS: ALBUMIN 1.4 g/dl (3.4-5.0); BLOOD UREA NITROGEN 28.1 mg/dL (7-18); CALCIUM 8.3 mg/dL (8.5-10.1); MAGNESIUM 1.7 mg/dL (1.8-2.4)
[2021-07-10 09:27] LABS: CREATININE 0.7 mg/dL (0.55-1.3)
[2021-07-10 09:28] LABS: BILIRUBIN,TOTAL 2.9 mg/dL (0.2-1)
[2021-07-10 10:29] LABS: ANISOCYTOSIS 2+; MACROCYTOSIS 2+; PLATELET ESTIMATE NORMAL; TARGET CELLS 1+
[2021-07-10] MEDS ORDERED: PT OWN MED DRAWER 7, Y5N ONE (10:36)
[2021-07-10] MEDS: PANTOPRAZOLE 40 MG TABLET PO SCH (10:39)
[2021-07-10] MEDS: FLUoxetine HCL 20 MG CAPSULE PO SCH ×2 (10:39→10:46)
[2021-07-10] MEDS: BUDESONIDE/FORMETEROL FUMARATE 160/4.5 mcg INHALER IH SCH ×2 (10:40→22:10)
[2021-07-10] MEDS: LACTATED RINGERS SOLUTION 1,000 ML/1,000 ML INFUS.BAG IV SCH (13:16)
[2021-07-10] MEDS: MAGNESIUM OXIDE 400 MG TABLET (FP) PO ONE ×2 (14:44→14:51)
[2021-07-10] MEDS: traZODone HCL 100 MG TABLET (FP) PO SCH (22:09)
[2021-07-10] MEDS: MIRTAZAPINE 15 MG TABLET (FP) PO SCH (22:09)
[2021-07-10] MEDS: MONTELUKAST NA 10 MG TABLET PO SCH (22:10)
[2021-07-11] MEDS: POLYETHYLENE GLYCOL (HEALTHYLAX) 3350 17 GM PACKET PO SCH ×3 (06:17→22:03)
[2021-07-11] MEDS: NAPH,MB-DB/K PH,MBDB POWDER PACKET PO SCH ×3 (06:17→22:05)
[2021-07-11] MEDS ORDERED: PT OWN MED DRAWER 7, Y5N ONE (10:39)
[2021-07-11] MEDS: BUDESONIDE/FORMETEROL FUMARATE 160/4.5 mcg INHALER IH SCH ×2 (11:02→23:52)
[2021-07-11] MEDS: PANTOPRAZOLE 40 MG TABLET PO SCH (11:02)
[2021-07-11] MEDS: FLUoxetine HCL 20 MG CAPSULE PO SCH (11:02)
[2021-07-11 19:38] LABS: BASO % 0.2 % (0-2.0); EOS % 1.3 % (0-4.5); HEMATOCRIT 25.8 % (32.4-45.2); HEMOGLOBIN 8.5 GM/dL (10.7-15.3); LYMPH % 14.7 % (8-40); MCH 34.1 pg (25.7-33.7); MEAN CELL VOLUME 103.5 fl (80-96); MEAN PLT VOLUME 9.6 fl (7.5-11.1); MONO % 10.6 % (3.8-10.2); NEUT % 73.2 % (42.8-82.8); PLATELET COUNT 195 10^3/uL (134-434); RDW 19.6 % (11.6-15.6); WHITE BLOOD COUNT 18.8 K/mm3 (4.0-10.0)
[2021-07-11 19:44] LABS: INR 1.43 (0.83-1.09); PROTHROMBIN TIME (PATIENT) 16.1 SEC (9.7-13.0)
[2021-07-11 20:06] LABS: ALBUMIN 1.4 g/dl (3.4-5.0); BLOOD UREA NITROGEN 16.1 mg/dL (7-18); CALCIUM 8.5 mg/dL (8.5-10.1); MAGNESIUM 1.5 mg/dL (1.8-2.4)
[2021-07-11 20:09] LABS: CREATININE 0.6 mg/dL (0.55-1.3); PHOSPHOROUS 1.4 mg/dL (2.5-4.9)
[2021-07-11 20:10] LABS: BILIRUBIN,TOTAL 4.5 mg/dL (0.2-1); TOT PROT 5.3 g/dl (6.4-8.2)
[2021-07-11 20:15] LABS: ANISOCYTOSIS 2+; MACROCYTOSIS 0; PLATELET ESTIMATE NORMAL; TARGET CELLS 1+
[2021-07-11] MEDS: MAGNESIUM OXIDE 400 MG TABLET (FP) PO SCH (22:06)
[2021-07-11] MEDS: MIRTAZAPINE 15 MG TABLET (FP) PO SCH (23:52)
[2021-07-11] MEDS: traZODone HCL 100 MG TABLET (FP) PO SCH (23:52)
[2021-07-11] MEDS: MONTELUKAST NA 10 MG TABLET PO SCH (23:52)
[2021-07-12] MEDS: NAPH,MB-DB/K PH,MBDB POWDER PACKET PO SCH ×4 (05:50→22:27)
[2021-07-12] MEDS: POLYETHYLENE GLYCOL (HEALTHYLAX) 3350 17 GM PACKET PO SCH ×3 (06:05→22:23)
[2021-07-12] MEDS ORDERED: PT OWN MED DRAWER 7, Y5N ONE ×2 (06:29→11:46)
[2021-07-12] MEDS: MAGNESIUM OXIDE 400 MG TABLET (FP) PO SCH ×2 (07:17→12:06)
[2021-07-12] MEDS: PANTOPRAZOLE 40 MG TABLET PO SCH (12:06)
[2021-07-12] MEDS: BUDESONIDE/FORMETEROL FUMARATE 160/4.5 mcg INHALER IH SCH ×2 (12:07→22:24)
[2021-07-12] MEDS: FLUoxetine HCL 20 MG CAPSULE PO SCH (12:07)
[2021-07-12 12:09] LABS: LACTIC ACID 2.2 mmol/L (0.4-2.0)
[2021-07-12] MEDS ORDERED: PIPERACILLIN/TAZOB 3.375 GM 3.375 GM in DEXTROSE 5%-WATER - 50 ML IVPB ONE (13:54)
[2021-07-12] MEDS ORDERED: methylPREDNISolone 4 MG TABLET PO ONE (17:23)
[2021-07-12] MEDS ORDERED: DEXTROSE 5%-WATER - 50 ML IVPB ONE (17:55)
[2021-07-12] MEDS ORDERED: PIPERACILLIN/TAZOBACTAM 3.375 GM VIAL IVPB ONE (17:55)
[2021-07-12] MEDS: MONTELUKAST NA 10 MG TABLET PO SCH (22:23)
[2021-07-12] MEDS: traZODone HCL 100 MG TABLET (FP) PO SCH (22:23)
[2021-07-12] MEDS: MIRTAZAPINE 15 MG TABLET (FP) PO SCH (22:23)
[2021-07-13] MEDS: MAGNESIUM OXIDE 400 MG TABLET (FP) PO SCH ×3 (01:27→21:47)
[2021-07-13] MEDS: POLYETHYLENE GLYCOL (HEALTHYLAX) 3350 17 GM PACKET PO SCH ×3 (05:58→21:47)
[2021-07-13] MEDS: NAPH,MB-DB/K PH,MBDB POWDER PACKET PO SCH ×3 (05:58→21:48)
[2021-07-13 08:50] LABS: BASO % 0.6 % (0-2.0); EOS % 1.1 % (0-4.5); HEMATOCRIT 23.4 % (32.4-45.2); HEMOGLOBIN 7.8 GM/dL (10.7-15.3); LYMPH % 12.3 % (8-40); MCH 34.3 pg (25.7-33.7); MCHC 33.4 g/dl (32.0-36.0); MEAN CELL VOLUME 102.7 fl (80-96); MEAN PLT VOLUME 9.7 fl (7.5-11.1); MONO % 6.6 % (3.8-10.2); NEUT % 79.4 % (42.8-82.8); PLATELET COUNT 247 10^3/uL (134-434); RBC 2.28 M/mm3 (3.60-5.2); RDW 18.8 % (11.6-15.6); WHITE BLOOD COUNT 19.8 K/mm3 (4.0-10.0)
[2021-07-13 09:30] LABS: BLOOD UREA NITROGEN 14.8 mg/dL (7-18)
[2021-07-13 09:32] LABS: ALBUMIN 1.3 g/dl (3.4-5.0); CALCIUM 8.4 mg/dL (8.5-10.1); MAGNESIUM 1.5 mg/dL (1.8-2.4)
[2021-07-13 09:33] LABS: CREATININE 0.7 mg/dL (0.55-1.3)
[2021-07-13 09:35] LABS: BILIRUBIN,TOTAL 4.7 mg/dL (0.2-1); TOT PROT 4.9 g/dl (6.4-8.2)
[2021-07-13] MEDS ORDERED: PT OWN MED DRAWER 7, Y5N ONE (09:55)
[2021-07-13] MEDS: BUDESONIDE/FORMETEROL FUMARATE 160/4.5 mcg INHALER IH SCH ×2 (10:47→21:48)
[2021-07-13] MEDS: PANTOPRAZOLE 40 MG TABLET PO SCH (10:47)
[2021-07-13] MEDS: FLUoxetine HCL 20 MG CAPSULE PO SCH (10:47)
[2021-07-13] MEDS ORDERED: PIPERACILLIN/TAZOBACTAM 3.375 GM VIAL IVPB ONE (14:05)
[2021-07-13] MEDS ORDERED: DEXTROSE 5%-WATER - 50 ML IVPB ONE (14:06)
[2021-07-13] MEDS: PIPERACILLIN/TAZOB 3.375 GM 3.375 GM in DEXTROSE 5%-WATER - 50 ML IVPB SCH ×2 (15:56→18:09)
[2021-07-13] MEDS ORDERED: AMOX TR/POT CLAV 875MG/125MG TABLETS (FP) PO SCH (17:30)
[2021-07-13] MEDS: MONTELUKAST NA 10 MG TABLET PO SCH (21:43)
[2021-07-13] MEDS: MIRTAZAPINE 15 MG TABLET (FP) PO SCH (21:43)
[2021-07-13] MEDS: traZODone HCL 100 MG TABLET (FP) PO SCH (21:47)
[2021-07-14] MEDS ORDERED: PIPERACILLIN/TAZOBACTAM 3.375 GM VIAL IVPB ONE ×3 (01:30→16:27)
[2021-07-14] MEDS ORDERED: DEXTROSE 5%-WATER - 50 ML IVPB ONE ×3 (01:31→16:27)
[2021-07-14] MEDS: PIPERACILLIN/TAZOB 3.375 GM 3.375 GM in DEXTROSE 5%-WATER - 50 ML IVPB SCH ×3 (02:00→17:03)
[2021-07-14] MEDS: POLYETHYLENE GLYCOL (HEALTHYLAX) 3350 17 GM PACKET PO SCH ×3 (06:56→23:01)
[2021-07-14] MEDS: NAPH,MB-DB/K PH,MBDB POWDER PACKET PO SCH ×3 (06:57→23:02)
[2021-07-14] MEDS: MAGNESIUM OXIDE 400 MG TABLET (FP) PO SCH (10:09)
[2021-07-14] MEDS: PANTOPRAZOLE 40 MG TABLET PO SCH (10:10)
[2021-07-14] MEDS ORDERED: PT OWN MED DRAWER 7, Y5N ONE (10:12)
[2021-07-14] MEDS: FLUoxetine HCL 20 MG CAPSULE PO SCH (10:16)
[2021-07-14] MEDS: BUDESONIDE/FORMETEROL FUMARATE 160/4.5 mcg INHALER IH SCH ×2 (10:17→22:59)
[2021-07-14 10:54] LABS: BASO % 0.3 % (0-2.0); EOS % 0.8 % (0-4.5); HEMATOCRIT 24.1 % (32.4-45.2); LYMPH % 10.4 % (8-40); MCH 34.1 pg (25.7-33.7); MCHC 33.4 g/dl (32.0-36.0); MEAN CELL VOLUME 102.1 fl (80-96); MEAN PLT VOLUME 9.7 fl (7.5-11.1); MONO % 6.1 % (3.8-10.2); NEUT % 82.4 % (42.8-82.8); PLATELET COUNT 284 10^3/uL (134-434); RBC 2.36 M/mm3 (3.60-5.2); RDW 18.6 % (11.6-15.6); WHITE BLOOD COUNT 19.8 K/mm3 (4.0-10.0)
[2021-07-14 10:59] LABS: INR 1.43 (0.83-1.09); PROTHROMBIN TIME (PATIENT) 16.8 SEC (9.7-13.0)
[2021-07-14 11:42] LABS: ALBUMIN 1.3 g/dl (3.4-5.0); BLOOD UREA NITROGEN 13.4 mg/dL (7-18)
[2021-07-14 11:43] LABS: BILIRUBIN,TOTAL 5.5 mg/dL (0.2-1); TOT PROT 5.2 g/dl (6.4-8.2)
[2021-07-14 11:44] LABS: CALCIUM 8.5 mg/dL (8.5-10.1); CREATININE 0.9 mg/dL (0.55-1.3)
[2021-07-14 11:45] LABS: MAGNESIUM 1.7 mg/dL (1.8-2.4)
[2021-07-14] MEDS: DEXTROSE 5%-0.45% SALINE 1,000 ML IV SCH (15:03)
[2021-07-14] MEDS: MIRTAZAPINE 15 MG TABLET (FP) PO SCH (22:59)
[2021-07-14] MEDS: MONTELUKAST NA 10 MG TABLET PO SCH (22:59)
[2021-07-14] MEDS: traZODone HCL 100 MG TABLET (FP) PO SCH (23:01)
[2021-07-15] MEDS ORDERED: DEXTROSE 5%-WATER - 50 ML IVPB ONE ×3 (01:43→16:48)
[2021-07-15] MEDS ORDERED: PIPERACILLIN/TAZOBACTAM 3.375 GM VIAL IVPB ONE ×3 (01:43→16:48)
[2021-07-15] MEDS: PIPERACILLIN/TAZOB 3.375 GM 3.375 GM in DEXTROSE 5%-WATER - 50 ML IVPB SCH ×3 (01:56→18:00)
[2021-07-15] MEDS: DEXTROSE 5%-0.45% SALINE 1,000 ML IV SCH ×3 (04:35→22:28)
[2021-07-15] MEDS: NAPH,MB-DB/K PH,MBDB POWDER PACKET PO SCH ×3 (06:49→21:41)
[2021-07-15] MEDS: POLYETHYLENE GLYCOL (HEALTHYLAX) 3350 17 GM PACKET PO SCH ×3 (06:49→21:40)
[2021-07-15 08:39] LABS: HEMATOCRIT 23.3 % (32.4-45.2); HEMOGLOBIN 7.8 GM/dL (10.7-15.3); MCHC 33.5 g/dl (32.0-36.0); MEAN CELL VOLUME 101.5 fl (80-96); MEAN PLT VOLUME 9.7 fl (7.5-11.1); PLATELET COUNT 294 10^3/uL (134-434); RDW 18.7 % (11.6-15.6); WHITE BLOOD COUNT 19.7 K/mm3 (4.0-10.0)
[2021-07-15 08:50] LABS: INR 1.44 (0.83-1.09); PROTHROMBIN TIME (PATIENT) 16.2 SEC (9.7-13.0)
[2021-07-15 09:05] LABS: CALCIUM 8.1 mg/dL (8.5-10.1)
[2021-07-15 09:06] LABS: ALBUMIN 1.2 g/dl (3.4-5.0); BLOOD UREA NITROGEN 12.5 mg/dL (7-18); MAGNESIUM 1.6 mg/dL (1.8-2.4)
[2021-07-15 09:09] LABS: CREATININE 0.9 mg/dL (0.55-1.3)
[2021-07-15 09:10] LABS: BILIRUBIN,TOTAL 5.9 mg/dL (0.2-1); TOT PROT 5.1 g/dl (6.4-8.2)
[2021-07-15 09:39] LABS: ANISOCYTOSIS 2+; MACROCYTOSIS 1+; PLATELET ESTIMATE NORMAL; TARGET CELLS 2+
[2021-07-15] MEDS: PANTOPRAZOLE 40 MG TABLET PO SCH ×2 (09:49→10:00)
[2021-07-15] MEDS: FLUoxetine HCL 20 MG CAPSULE PO SCH ×2 (09:50→10:00)
[2021-07-15] MEDS: BUDESONIDE/FORMETEROL FUMARATE 160/4.5 mcg INHALER IH SCH ×2 (09:51→21:42)
[2021-07-15] MEDS: MIRTAZAPINE 15 MG TABLET (FP) PO SCH (21:41)
[2021-07-15] MEDS: MONTELUKAST NA 10 MG TABLET PO SCH (21:42)
[2021-07-15] MEDS: traZODone HCL 100 MG TABLET (FP) PO SCH (21:42)
[2021-07-16] MEDS ORDERED: PIPERACILLIN/TAZOBACTAM 3.375 GM VIAL IVPB ONE ×3 (01:03→15:28)
[2021-07-16] MEDS ORDERED: DEXTROSE 5%-WATER - 50 ML IVPB ONE ×3 (01:03→15:28)
[2021-07-16] MEDS: PIPERACILLIN/TAZOB 3.375 GM 3.375 GM in DEXTROSE 5%-WATER - 50 ML IVPB SCH ×2 (01:23→09:53)
[2021-07-16] MEDS: NAPH,MB-DB/K PH,MBDB POWDER PACKET PO SCH ×3 (06:09→21:22)
[2021-07-16] MEDS: POLYETHYLENE GLYCOL (HEALTHYLAX) 3350 17 GM PACKET PO SCH ×3 (06:09→21:23)
[2021-07-16 08:50] LABS: INR 1.47 (0.83-1.09); PROTHROMBIN TIME (PATIENT) 17.3 SEC (9.7-13.0)
[2021-07-16] MEDS: BUDESONIDE/FORMETEROL FUMARATE 160/4.5 mcg INHALER IH SCH ×2 (09:52→21:22)
[2021-07-16] MEDS: DEXTROSE 5%-0.45% SALINE 1,000 ML IV SCH ×3 (09:55→22:41)
[2021-07-16 11:43] LABS: BASO % 0.5 % (0-2.0); EOS % 0.5 % (0-4.5); HEMATOCRIT 23.6 % (32.4-45.2); HEMOGLOBIN 7.8 GM/dL (10.7-15.3); LYMPH % 10.2 % (8-40); MCH 33.5 pg (25.7-33.7); MCHC 32.8 g/dl (32.0-36.0); MEAN CELL VOLUME 102.1 fl (80-96); MONO % 6.7 % (3.8-10.2); NEUT % 82.1 % (42.8-82.8); PLATELET COUNT 332 10^3/uL (134-434); RBC 2.32 M/mm3 (3.60-5.2); RDW 18.2 % (11.6-15.6); WHITE BLOOD COUNT 19.4 K/mm3 (4.0-10.0)
[2021-07-16 12:00] LABS: ALBUMIN 1.2 g/dl (3.4-5.0); MAGNESIUM 1.7 mg/dL (1.8-2.4)
[2021-07-16 12:01] LABS: BLOOD UREA NITROGEN 10.6 mg/dL (7-18)
[2021-07-16 12:03] LABS: CREATININE 0.8 mg/dL (0.55-1.3)
[2021-07-16 12:05] LABS: BILIRUBIN,TOTAL 6.6 mg/dL (0.2-1)
[2021-07-16] MEDS: PANTOPRAZOLE 40 MG TABLET PO SCH (12:39)
[2021-07-16] MEDS: FLUoxetine HCL 20 MG CAPSULE PO SCH (12:39)
[2021-07-16] MEDS ORDERED: morphine SULFATE 4 MG/ML VIAL IM ONE (14:14)
[2021-07-16] MEDS ORDERED: morphine SULFATE 4 MG/ML VIAL ONE (15:35)
[2021-07-16] MEDS ORDERED: PT OWN MED DRAWER 7, Y5N ONE (21:12)
[2021-07-16] MEDS: traZODone HCL 100 MG TABLET (FP) PO SCH (21:22)
[2021-07-16] MEDS: MONTELUKAST NA 10 MG TABLET PO SCH (21:22)
[2021-07-16] MEDS: MIRTAZAPINE 15 MG TABLET (FP) PO SCH (21:22)
[2021-07-17] MEDS: POLYETHYLENE GLYCOL (HEALTHYLAX) 3350 17 GM PACKET PO SCH ×3 (06:07→21:40)
[2021-07-17] MEDS: NAPH,MB-DB/K PH,MBDB POWDER PACKET PO SCH ×3 (06:07→21:40)
[2021-07-17 09:53] LABS: INR 1.49 (0.83-1.09); PROTHROMBIN TIME (PATIENT) 16.7 SEC (9.7-13.0)
[2021-07-17 10:01] LABS: BASO % 0.4 % (0-2.0); EOS % 0.7 % (0-4.5); HEMATOCRIT 22.7 % (32.4-45.2); HEMOGLOBIN 7.8 GM/dL (10.7-15.3); MCH 34.8 pg (25.7-33.7); MCHC 34.3 g/dl (32.0-36.0); MEAN CELL VOLUME 101.4 fl (80-96); MEAN PLT VOLUME 9.9 fl (7.5-11.1); MONO % 6.9 % (3.8-10.2); PLATELET COUNT 343 10^3/uL (134-434); RBC 2.23 M/mm3 (3.60-5.2); WHITE BLOOD COUNT 19.1 K/mm3 (4.0-10.0)
[2021-07-17 10:14] LABS: CALCIUM 8.2 mg/dL (8.5-10.1)
[2021-07-17 10:15] LABS: ALBUMIN 1.2 g/dl (3.4-5.0); BLOOD UREA NITROGEN 10.7 mg/dL (7-18); MAGNESIUM 1.6 mg/dL (1.8-2.4)
[2021-07-17 10:18] LABS: CREATININE 0.8 mg/dL (0.55-1.3)
[2021-07-17 10:19] LABS: BILIRUBIN,TOTAL 7.3 mg/dL (0.2-1); TOT PROT 5.2 g/dl (6.4-8.2)
[2021-07-17] MEDS: BUDESONIDE/FORMETEROL FUMARATE 160/4.5 mcg INHALER IH SCH ×2 (10:25→21:39)
[2021-07-17] MEDS: FLUoxetine HCL 20 MG CAPSULE PO SCH (10:26)
[2021-07-17] MEDS ORDERED: DEXTROSE 5% IVPB ONE ×3 (13:30→18:30)
[2021-07-17] MEDS ORDERED: WATER IVPB ONE ×3 (13:30→18:30)
[2021-07-17] MEDS ORDERED: ACETYLCYSTEINE IVPB ONE ×3 (13:30→18:30)
[2021-07-17 15:35] LABS: BF WBC & OTHER NUCLEATED CELLS 66 /mm3
[2021-07-17 16:25] LABS: BODY FLUID MESOTHELIAL 5 %
[2021-07-17 16:27] LABS: BODY FLUID MACROPHAGES 68 %
[2021-07-17] MEDS: MIRTAZAPINE 15 MG TABLET (FP) PO SCH (21:40)
[2021-07-17] MEDS: traZODone HCL 100 MG TABLET (FP) PO SCH (21:40)
[2021-07-17] MEDS: MONTELUKAST NA 10 MG TABLET PO SCH (21:41)
[2021-07-18] MEDS: POLYETHYLENE GLYCOL (HEALTHYLAX) 3350 17 GM PACKET PO SCH ×3 (05:57→22:10)
[2021-07-18] MEDS: NAPH,MB-DB/K PH,MBDB POWDER PACKET PO SCH (05:57)
[2021-07-18] MEDS ORDERED: PT OWN MED DRAWER 7, Y5N ONE ×2 (09:50→12:30)
[2021-07-18] MEDS: BUDESONIDE/FORMETEROL FUMARATE 160/4.5 mcg INHALER IH SCH ×2 (10:01→22:11)
[2021-07-18 10:50] LABS: BASO % 0.6 % (0-2.0); EOS % 0.5 % (0-4.5); HEMOGLOBIN 8.1 GM/dL (10.7-15.3); LYMPH % 11.4 % (8-40); MCH 34.1 pg (25.7-33.7); MCHC 33.9 g/dl (32.0-36.0); MEAN CELL VOLUME 100.4 fl (80-96); MEAN PLT VOLUME 9.7 fl (7.5-11.1); MONO % 7.3 % (3.8-10.2); NEUT % 80.2 % (42.8-82.8); PLATELET COUNT 367 10^3/uL (134-434); RBC 2.39 M/mm3 (3.60-5.2); RDW 18.3 % (11.6-15.6); WHITE BLOOD COUNT 19.4 K/mm3 (4.0-10.0)
[2021-07-18 10:53] LABS: INR 1.64 (0.83-1.09); PROTHROMBIN TIME (PATIENT) 19.3 SEC (9.7-13.0)
[2021-07-18 11:12] LABS: ALBUMIN 1.1 g/dl (3.4-5.0); MAGNESIUM 1.4 mg/dL (1.8-2.4)
[2021-07-18 11:16] LABS: CREATININE 1.1 mg/dL (0.55-1.3)
[2021-07-18 11:17] LABS: BILIRUBIN,TOTAL 7.7 mg/dL (0.2-1)
[2021-07-18] MEDS: FUROSEMIDE 40 MG TABLET (FP) PO SCH (11:26)
[2021-07-18] MEDS: PANTOPRAZOLE 20 MG TABLET PO SCH (11:26)
[2021-07-18] MEDS: FLUoxetine HCL 20 MG CAPSULE PO SCH (11:28)
[2021-07-18] MEDS ORDERED: methylPREDNISolone 8 MG TABLET PO SCH (11:30)
[2021-07-18] MEDS ORDERED: methylPREDNISolone 4 MG TABLET PO SCH (11:33)
[2021-07-18] MEDS ORDERED: MAGNESIUM SULF 50% (8.12 MEQ/2 ML-1 GM VIAL) IVPB ONE (12:02)
[2021-07-18] MEDS: SPIRONOLACTONE 25 MG TABLET PO SCH (12:30)
[2021-07-18] MEDS: POTASSIUM CHLORIDE TABS 20 MEQ TABLET.ER (FP) PO SCH ×2 (12:30→16:24)
[2021-07-18] MEDS: morphine SULFATE 4 MG/ML VIAL IVPUSH PRN (17:16)
[2021-07-18] MEDS: KCL 10 MEQ IVPB 10 MEQ/100 ML INFUS.BAG IVPB SCH ×3 (19:00→21:38)
[2021-07-18] MEDS: MONTELUKAST NA 10 MG TABLET PO SCH (22:09)
[2021-07-18] MEDS: traZODone HCL 100 MG TABLET (FP) PO SCH (22:09)
[2021-07-18] MEDS: MIRTAZAPINE 15 MG TABLET (FP) PO SCH (22:11)
[2021-07-19] MEDS: POLYETHYLENE GLYCOL (HEALTHYLAX) 3350 17 GM PACKET PO SCH ×3 (06:36→21:56)
[2021-07-19 09:44] LABS: BASO % 0.7 % (0-2.0); EOS % 0.7 % (0-4.5); HEMATOCRIT 22.5 % (32.4-45.2); HEMOGLOBIN 7.5 GM/dL (10.7-15.3); LYMPH % 11.8 % (8-40); MCH 33.7 pg (25.7-33.7); MCHC 33.4 g/dl (32.0-36.0); MEAN CELL VOLUME 100.8 fl (80-96); MEAN PLT VOLUME 9.7 fl (7.5-11.1); NEUT % 78.8 % (42.8-82.8); PLATELET COUNT 370 10^3/uL (134-434); RBC 2.23 M/mm3 (3.60-5.2); RDW 18.9 % (11.6-15.6); WHITE BLOOD COUNT 17.8 K/mm3 (4.0-10.0)
[2021-07-19 09:48] LABS: INR 1.55 (0.83-1.09); PROTHROMBIN TIME (PATIENT) 17.4 SEC (9.7-13.0)
[2021-07-19 10:08] LABS: BLOOD UREA NITROGEN 14.3 mg/dL (7-18); CALCIUM 8.5 mg/dL (8.5-10.1); MAGNESIUM 1.8 mg/dL (1.8-2.4)
[2021-07-19 10:11] LABS: CREATININE 1.3 mg/dL (0.55-1.3)
[2021-07-19 10:13] LABS: BILIRUBIN,TOTAL 7.8 mg/dL (0.2-1); TOT PROT 4.7 g/dl (6.4-8.2)
[2021-07-19] MEDS ORDERED: methylPREDNISolone NA SUCC 40 MG/1 ML VIAL IVPB SCH (10:45)
[2021-07-19] MEDS ORDERED: ONDANSETRON 4 MG/2 ML VIAL IVPUSH ONE (11:15)
[2021-07-19] MEDS: methylPREDNISolone NA SUCC 40 MG/1 ML VIAL IVPUSH SCH (11:52)
[2021-07-19] MEDS: BUDESONIDE/FORMETEROL FUMARATE 160/4.5 mcg INHALER IH SCH ×2 (12:37→21:56)
[2021-07-19] MEDS: FLUoxetine HCL 20 MG CAPSULE PO SCH (12:37)
[2021-07-19] MEDS: morphine SULFATE 4 MG/ML VIAL IVPUSH PRN (13:55)
[2021-07-19] MEDS: FUROSEMIDE 40 MG TABLET (FP) PO SCH (14:01)
[2021-07-19] MEDS: SPIRONOLACTONE 25 MG TABLET PO SCH (14:01)
[2021-07-19] MEDS: PANTOPRAZOLE 20 MG TABLET PO SCH (14:13)
[2021-07-19] MEDS: MONTELUKAST NA 10 MG TABLET PO SCH (21:53)
[2021-07-19] MEDS: MIRTAZAPINE 15 MG TABLET (FP) PO SCH (21:56)
[2021-07-19] MEDS: traZODone HCL 100 MG TABLET (FP) PO SCH (21:56)
[2021-07-20] MEDS: POLYETHYLENE GLYCOL (HEALTHYLAX) 3350 17 GM PACKET PO SCH ×4 (06:39→23:02)
[2021-07-20] MEDS: methylPREDNISolone NA SUCC 40 MG/1 ML VIAL IVPUSH SCH (10:08)
[2021-07-20] MEDS: PANTOPRAZOLE 20 MG TABLET PO SCH (10:09)
[2021-07-20] MEDS: FUROSEMIDE 40 MG TABLET (FP) PO SCH (10:11)
[2021-07-20] MEDS: FLUoxetine HCL 20 MG CAPSULE PO SCH (10:13)
[2021-07-20] MEDS: SPIRONOLACTONE 25 MG TABLET PO SCH (10:13)
[2021-07-20] MEDS: BUDESONIDE/FORMETEROL FUMARATE 160/4.5 mcg INHALER IH SCH ×3 (10:13→23:03)
[2021-07-20 11:45] LABS: HEMATOCRIT 26.6 % (32.4-45.2); HEMOGLOBIN 8.9 GM/dL (10.7-15.3); MCH 33.7 pg (25.7-33.7); MCHC 33.5 g/dl (32.0-36.0); MEAN CELL VOLUME 100.8 fl (80-96); MEAN PLT VOLUME 9.4 fl (7.5-11.1); PLATELET COUNT 469 10^3/uL (134-434); RBC 2.64 M/mm3 (3.60-5.2); RDW 18.6 % (11.6-15.6); WHITE BLOOD COUNT 18.6 K/mm3 (4.0-10.0)
[2021-07-20 11:51] LABS: INR 1.35 (0.83-1.09); PROTHROMBIN TIME (PATIENT) 15.9 SEC (9.7-13.0)
[2021-07-20 12:16] LABS: CALCIUM 9.1 mg/dL (8.5-10.1)
[2021-07-20 12:17] LABS: ALBUMIN 1.2 g/dl (3.4-5.0); BLOOD UREA NITROGEN 19.5 mg/dL (7-18)
[2021-07-20 12:20] LABS: BILIRUBIN,DIRECT 7.3 mg/dL (0.0-0.2); CREATININE 1.7 mg/dL (0.55-1.3)
[2021-07-20 12:22] LABS: BILIRUBIN,TOTAL 8.3 mg/dL (0.2-1); TOT PROT 5.4 g/dl (6.4-8.2)
[2021-07-20] MEDS ORDERED: LACTATED RINGERS SOLUTION 1,000 ML/1,000 ML INFUS.BAG IV SCH (13:00)
[2021-07-20] MEDS ORDERED: PT OWN MED DRAWER 7, Y5N ONE (14:02)
[2021-07-20 17:57] LABS: ANISOCYTOSIS 2+; MACROCYTOSIS 2+; OVALOCYTE 1+; PLATELET ESTIMATE INCREASED; TARGET CELLS 2+
[2021-07-20] MEDS: MONTELUKAST NA 10 MG TABLET PO SCH ×2 (22:53→23:02)
[2021-07-20] MEDS: traZODone HCL 100 MG TABLET (FP) PO SCH (22:53)
[2021-07-20] MEDS: MIRTAZAPINE 15 MG TABLET (FP) PO SCH ×2 (22:54→23:02)
[2021-07-21] MEDS: POLYETHYLENE GLYCOL (HEALTHYLAX) 3350 17 GM PACKET PO SCH ×3 (06:09→23:30)
[2021-07-21 09:20] LABS: HEMATOCRIT 24.4 % (32.4-45.2); HEMOGLOBIN 8.2 GM/dL (10.7-15.3); MCH 33.8 pg (25.7-33.7); MCHC 33.6 g/dl (32.0-36.0); MEAN CELL VOLUME 100.5 fl (80-96); MEAN PLT VOLUME 9.3 fl (7.5-11.1); PLATELET COUNT 445 10^3/uL (134-434); RBC 2.43 M/mm3 (3.60-5.2); RDW 18.3 % (11.6-15.6); WHITE BLOOD COUNT 18.4 K/mm3 (4.0-10.0)
[2021-07-21 10:40] LABS: ANISOCYTOSIS 2+; MACROCYTOSIS 1+; PLATELET ESTIMATE NORMAL; TARGET CELLS 1+
[2021-07-21] MEDS ORDERED: PT OWN MED DRAWER 7, Y5N ONE (11:08)
[2021-07-21] MEDS: SPIRONOLACTONE 25 MG TABLET PO SCH (11:23)
[2021-07-21] MEDS: FUROSEMIDE 40 MG TABLET (FP) PO SCH (11:24)
[2021-07-21] MEDS: PANTOPRAZOLE 20 MG TABLET PO SCH (11:24)
[2021-07-21] MEDS: FLUoxetine HCL 20 MG CAPSULE PO SCH (11:25)
[2021-07-21] MEDS: methylPREDNISolone NA SUCC 40 MG/1 ML VIAL IVPUSH SCH (11:26)
[2021-07-21] MEDS: BUDESONIDE/FORMETEROL FUMARATE 160/4.5 mcg INHALER IH SCH ×2 (11:26→23:30)
[2021-07-21 18:08] LABS: BODY FLUID ALBUMIN 0.6 g/dL (Not Estab.)
[2021-07-21 19:03] LABS: CREATININE 1.5 mg/dL (0.55-1.3)
[2021-07-21 19:04] LABS: ALBUMIN 1.2 g/dl (3.4-5.0)
[2021-07-21] MEDS: MIRTAZAPINE 15 MG TABLET (FP) PO SCH (23:30)
[2021-07-21] MEDS: MONTELUKAST NA 10 MG TABLET PO SCH (23:30)
[2021-07-21] MEDS: traZODone HCL 100 MG TABLET (FP) PO SCH (23:30)
[2021-07-22] MEDS: POLYETHYLENE GLYCOL (HEALTHYLAX) 3350 17 GM PACKET PO SCH ×3 (06:23→23:24)
[2021-07-22] MEDS ORDERED: methylPREDNISolone 4 MG TABLET PO SCH (10:00)
[2021-07-22] MEDS: FUROSEMIDE 40 MG TABLET (FP) PO SCH (13:21)
[2021-07-22] MEDS: SPIRONOLACTONE 25 MG TABLET PO SCH (13:21)
[2021-07-22] MEDS: BUDESONIDE/FORMETEROL FUMARATE 160/4.5 mcg INHALER IH SCH ×2 (13:22→23:25)
[2021-07-22] MEDS: FLUoxetine HCL 20 MG CAPSULE PO SCH (13:22)
[2021-07-22] MEDS: PANTOPRAZOLE 20 MG TABLET PO SCH (13:22)
[2021-07-22] MEDS: methylPREDNISolone NA SUCC 40 MG/1 ML VIAL IVPUSH SCH (15:32)
[2021-07-22] MEDS: traZODone HCL 100 MG TABLET (FP) PO SCH (23:24)
[2021-07-22] MEDS: LACTULOSE 20 GM/30 ML UDC (FOR ORAL USE ONLY) PO SCH (23:24)
[2021-07-22] MEDS: MIRTAZAPINE 15 MG TABLET (FP) PO SCH (23:25)
[2021-07-22] MEDS: MONTELUKAST NA 10 MG TABLET PO SCH (23:25)
[2021-07-23] MEDS: POLYETHYLENE GLYCOL (HEALTHYLAX) 3350 17 GM PACKET PO SCH ×3 (06:01→21:35)
[2021-07-23] MEDS ORDERED: PT OWN MED DRAWER 7, Y5N ONE (11:52)
[2021-07-23] MEDS: FLUoxetine HCL 20 MG CAPSULE PO SCH (11:58)
[2021-07-23] MEDS: PANTOPRAZOLE 20 MG TABLET PO SCH (11:58)
[2021-07-23] MEDS: methylPREDNISolone NA SUCC 40 MG/1 ML VIAL IVPUSH SCH (11:58)
[2021-07-23] MEDS: FUROSEMIDE 40 MG TABLET (FP) PO SCH (11:58)
[2021-07-23] MEDS: SPIRONOLACTONE 25 MG TABLET PO SCH (11:58)
[2021-07-23] MEDS: LACTULOSE 20 GM/30 ML UDC (FOR ORAL USE ONLY) PO SCH ×2 (11:58→21:34)
[2021-07-23] MEDS: BUDESONIDE/FORMETEROL FUMARATE 160/4.5 mcg INHALER IH SCH ×2 (11:59→21:35)
[2021-07-23] MEDS: traZODone HCL 100 MG TABLET (FP) PO SCH (21:34)
[2021-07-23] MEDS: MONTELUKAST NA 10 MG TABLET PO SCH (21:35)
[2021-07-23] MEDS: MIRTAZAPINE 15 MG TABLET (FP) PO SCH (21:35)
[2021-07-24] MEDS: POLYETHYLENE GLYCOL (HEALTHYLAX) 3350 17 GM PACKET PO SCH ×3 (06:10→22:29)
[2021-07-24] MEDS ORDERED: PT OWN MED DRAWER 7, Y5N ONE (10:23)
[2021-07-24] MEDS: BUDESONIDE/FORMETEROL FUMARATE 160/4.5 mcg INHALER IH SCH ×2 (10:43→22:29)
[2021-07-24] MEDS: FLUoxetine HCL 20 MG CAPSULE PO SCH (10:44)
[2021-07-24] MEDS: SPIRONOLACTONE 25 MG TABLET PO SCH (10:44)
[2021-07-24] MEDS: prednisoLONE SODIUM PHOSPHATE 15 MG/5 ML ORAL SOLN BOTTLE PO SCH (10:56)
[2021-07-24] MEDS: PANTOPRAZOLE 20 MG TABLET PO SCH (10:56)
[2021-07-24] MEDS: FUROSEMIDE 40 MG TABLET (FP) PO SCH (10:56)
[2021-07-24] MEDS: LACTULOSE 20 GM/30 ML UDC (FOR ORAL USE ONLY) PO SCH ×2 (10:59→22:29)
[2021-07-24 20:07] LABS: BILIRUBIN,TOTAL 6.4 mg/dL (0.2-1); BLOOD UREA NITROGEN 23.2 mg/dL (7-18); CALCIUM 8.9 mg/dL (8.5-10.1); TOT PROT 5.1 g/dl (6.4-8.2)
[2021-07-24] MEDS: traZODone HCL 100 MG TABLET (FP) PO SCH (22:29)
[2021-07-24] MEDS: MONTELUKAST NA 10 MG TABLET PO SCH (22:29)
[2021-07-24] MEDS: MIRTAZAPINE 15 MG TABLET (FP) PO SCH (22:29)
[2021-07-25] MEDS: POLYETHYLENE GLYCOL (HEALTHYLAX) 3350 17 GM PACKET PO SCH ×3 (05:00→22:37)
[2021-07-25 08:43] LABS: HEMATOCRIT 27.4 % (32.4-45.2); HEMOGLOBIN 8.8 GM/dL (10.7-15.3); MCH 32.7 pg (25.7-33.7); MCHC 32.3 g/dl (32.0-36.0); MEAN CELL VOLUME 101.4 fl (80-96); MEAN PLT VOLUME 8.3 fl (7.5-11.1); PLATELET COUNT 390 10^3/uL (134-434); RDW 18.7 % (11.6-15.6); WHITE BLOOD COUNT 27.5 K/mm3 (4.0-10.0)
[2021-07-25 08:49] LABS: INR 1.53 (0.83-1.09); PROTHROMBIN TIME (PATIENT) 17.2 SEC (9.7-13.0)
[2021-07-25] MEDS ORDERED: PT OWN MED DRAWER 7, Y5N ONE ×2 (10:49→17:23)
[2021-07-25] MEDS: prednisoLONE SODIUM PHOSPHATE 15 MG/5 ML ORAL SOLN BOTTLE PO SCH (11:07)
[2021-07-25] MEDS: LACTULOSE 20 GM/30 ML UDC (FOR ORAL USE ONLY) PO SCH ×2 (11:07→22:36)
[2021-07-25] MEDS: SPIRONOLACTONE 25 MG TABLET PO SCH (11:07)
[2021-07-25] MEDS: FUROSEMIDE 40 MG TABLET (FP) PO SCH (11:07)
[2021-07-25] MEDS: PANTOPRAZOLE 20 MG TABLET PO SCH (11:07)
[2021-07-25] MEDS: FLUoxetine HCL 20 MG CAPSULE PO SCH (11:07)
[2021-07-25] MEDS: BUDESONIDE/FORMETEROL FUMARATE 160/4.5 mcg INHALER IH SCH ×2 (11:08→22:37)
[2021-07-25 11:32] LABS: ANISOCYTOSIS 2+; MACROCYTOSIS 1+; PLATELET ESTIMATE NORMAL
[2021-07-25 12:27] LABS: HEMATOCRIT 29.7 % (32.4-45.2); HEMOGLOBIN 9.6 GM/dL (10.7-15.3); MCH 32.9 pg (25.7-33.7); MCHC 32.2 g/dl (32.0-36.0); MEAN CELL VOLUME 102.2 fl (80-96); MEAN PLT VOLUME 8.6 fl (7.5-11.1); PLATELET COUNT 427 10^3/uL (134-434); RBC 2.91 M/mm3 (3.60-5.2); RDW 18.6 % (11.6-15.6); WHITE BLOOD COUNT 26.6 K/mm3 (4.0-10.0)
[2021-07-25 12:31] LABS: CALCIUM 9.1 mg/dL (8.5-10.1)
[2021-07-25 12:32] LABS: ALBUMIN 1.2 g/dl (3.4-5.0); BLOOD UREA NITROGEN 18.1 mg/dL (7-18)
[2021-07-25 12:34] LABS: INR 1.54 (0.83-1.09); PROTHROMBIN TIME (PATIENT) 17.3 SEC (9.7-13.0)
[2021-07-25 12:35] LABS: CREATININE 1.2 mg/dL (0.55-1.3)
[2021-07-25 12:36] LABS: TOT PROT 5.4 g/dl (6.4-8.2)
[2021-07-25 12:37] LABS: BILIRUBIN,TOTAL 10.9 mg/dL (0.2-1)
[2021-07-25 12:40] LABS: LACTIC ACID 2.8 mmol/L (0.4-2.0)
[2021-07-25] MEDS ORDERED: SODIUM CHLORIDE 500 ML IV STA (13:01)
[2021-07-25 14:08] LABS: ANISOCYTOSIS 1+; MACROCYTOSIS 1+; TARGET CELLS 1+
[2021-07-25] MEDS: NYSTATIN 100000 UNIT/GM TOPICAL OINTMENT 15 GM TUBE TP SCH ×2 (18:09→22:37)
[2021-07-25] MEDS ORDERED: KCL 10 MEQ IVPB 10 MEQ/100 ML INFUS.BAG IVPB SCH (18:15)
[2021-07-25] MEDS: traZODone HCL 100 MG TABLET (FP) PO SCH (22:37)
[2021-07-25] MEDS: MIRTAZAPINE 15 MG TABLET (FP) PO SCH (22:37)
[2021-07-25] MEDS: MONTELUKAST NA 10 MG TABLET PO SCH (22:37)
[2021-07-26] MEDS: POLYETHYLENE GLYCOL (HEALTHYLAX) 3350 17 GM PACKET PO SCH ×4 (06:18→21:47)
[2021-07-26 08:52] LABS: HEMATOCRIT 27.6 % (32.4-45.2); MCH 33.1 pg (25.7-33.7); MCHC 32.7 g/dl (32.0-36.0); MEAN CELL VOLUME 101.2 fl (80-96); MEAN PLT VOLUME 8.4 fl (7.5-11.1); PLATELET COUNT 415 10^3/uL (134-434); RBC 2.73 M/mm3 (3.60-5.2); RDW 18.1 % (11.6-15.6); WHITE BLOOD COUNT 28.8 K/mm3 (4.0-10.0)
[2021-07-26 08:53] LABS: INR 1.39 (0.83-1.09); PROTHROMBIN TIME (PATIENT) 16.3 SEC (9.7-13.0)
[2021-07-26 09:21] LABS: CALCIUM 8.6 mg/dL (8.5-10.1)
[2021-07-26 09:22] LABS: ALBUMIN 1.1 g/dl (3.4-5.0); BLOOD UREA NITROGEN 19.8 mg/dL (7-18)
[2021-07-26 09:25] LABS: CREATININE 1.2 mg/dL (0.55-1.3)
[2021-07-26 09:26] LABS: BILIRUBIN,TOTAL 9.3 mg/dL (0.2-1)
[2021-07-26 09:27] LABS: TOT PROT 5.3 g/dl (6.4-8.2)
[2021-07-26] MEDS: FUROSEMIDE 40 MG TABLET (FP) PO SCH (10:51)
[2021-07-26] MEDS: LACTULOSE 20 GM/30 ML UDC (FOR ORAL USE ONLY) PO SCH ×3 (10:51→21:47)
[2021-07-26] MEDS: NYSTATIN 100000 UNIT/GM TOPICAL OINTMENT 15 GM TUBE TP SCH ×3 (10:51→21:47)
[2021-07-26] MEDS: SPIRONOLACTONE 25 MG TABLET PO SCH (10:51)
[2021-07-26] MEDS: prednisoLONE SODIUM PHOSPHATE 15 MG/5 ML ORAL SOLN BOTTLE PO SCH (10:53)
[2021-07-26] MEDS: BUDESONIDE/FORMETEROL FUMARATE 160/4.5 mcg INHALER IH SCH ×3 (10:54→21:48)
[2021-07-26] MEDS: PANTOPRAZOLE 20 MG TABLET PO SCH (10:54)
[2021-07-26] MEDS: FLUoxetine HCL 20 MG CAPSULE PO SCH (10:54)
[2021-07-26 11:35] LABS: ANISOCYTOSIS 2+; MACROCYTOSIS 1+; PLATELET ESTIMATE NORMAL; TARGET CELLS 1+
[2021-07-26 13:39] LABS: LACTIC ACID 3.5 mmol/L (0.4-2.0)
[2021-07-26] MEDS ORDERED: SODIUM CHLORIDE 500 ML IV STA (14:29)
[2021-07-26] MEDS: MONTELUKAST NA 10 MG TABLET PO SCH ×2 (21:41→21:48)
[2021-07-26] MEDS: MIRTAZAPINE 15 MG TABLET (FP) PO SCH ×2 (21:41→21:47)
[2021-07-26] MEDS: traZODone HCL 100 MG TABLET (FP) PO SCH ×2 (21:41→21:47)
[2021-07-27] MEDS: POLYETHYLENE GLYCOL (HEALTHYLAX) 3350 17 GM PACKET PO SCH ×3 (05:07→21:38)
[2021-07-27] MEDS: SPIRONOLACTONE 25 MG TABLET PO SCH (11:01)
[2021-07-27] MEDS: LACTULOSE 20 GM/30 ML UDC (FOR ORAL USE ONLY) PO SCH ×2 (11:02→21:38)
[2021-07-27] MEDS: FUROSEMIDE 40 MG TABLET (FP) PO SCH (11:02)
[2021-07-27] MEDS: PANTOPRAZOLE 20 MG TABLET PO SCH (11:02)
[2021-07-27] MEDS: NYSTATIN 100000 UNIT/GM TOPICAL OINTMENT 15 GM TUBE TP SCH ×2 (11:02→21:38)
[2021-07-27] MEDS: FLUoxetine HCL 20 MG CAPSULE PO SCH (11:02)
[2021-07-27] MEDS: BUDESONIDE/FORMETEROL FUMARATE 160/4.5 mcg INHALER IH SCH ×2 (11:02→21:38)
[2021-07-27] MEDS: prednisoLONE SODIUM PHOSPHATE 15 MG/5 ML ORAL SOLN BOTTLE PO SCH ×2 (12:03)
[2021-07-27 12:40] LABS: HEMATOCRIT 29.5 % (32.4-45.2); HEMOGLOBIN 9.5 GM/dL (10.7-15.3); MCH 32.9 pg (25.7-33.7); MCHC 32.2 g/dl (32.0-36.0); MEAN CELL VOLUME 102.2 fl (80-96); MEAN PLT VOLUME 9.1 fl (7.5-11.1); PLATELET COUNT 437 10^3/uL (134-434); RBC 2.89 M/mm3 (3.60-5.2); RDW 17.9 % (11.6-15.6)
[2021-07-27 12:46] LABS: INR 1.38 (0.83-1.09); PROTHROMBIN TIME (PATIENT) 15.5 SEC (9.7-13.0)
[2021-07-27 13:05] LABS: WHITE BLOOD COUNT 30.5 K/mm3 (4.0-10.0)
[2021-07-27 13:07] LABS: CALCIUM 8.7 mg/dL (8.5-10.1); CREATININE 1.1 mg/dL (0.55-1.3)
[2021-07-27 13:08] LABS: ALBUMIN 1.3 g/dl (3.4-5.0); BILIRUBIN,TOTAL 7.8 mg/dL (0.2-1); BLOOD UREA NITROGEN 19.9 mg/dL (7-18)
[2021-07-27 13:09] LABS: TOT PROT 5.5 g/dl (6.4-8.2)
[2021-07-27 14:57] LABS: ANISOCYTOSIS 2+; MACROCYTOSIS 2+; PLATELET ESTIMATE NORMAL
[2021-07-27] MEDS: traZODone HCL 100 MG TABLET (FP) PO SCH (21:38)
[2021-07-27] MEDS: MONTELUKAST NA 10 MG TABLET PO SCH (21:38)
[2021-07-27] MEDS: MIRTAZAPINE 15 MG TABLET (FP) PO SCH (21:38)
[2021-07-28] MEDS: POLYETHYLENE GLYCOL (HEALTHYLAX) 3350 17 GM PACKET PO SCH ×3 (05:37→22:59)
[2021-07-28] MEDS ORDERED: prednisoLONE SODIUM PHOSPHATE 15 MG/5 ML ORAL SOLN BOTTLE PO SCH (10:00)
[2021-07-28] MEDS: LACTULOSE 20 GM/30 ML UDC (FOR ORAL USE ONLY) PO SCH ×2 (10:47→22:59)
[2021-07-28] MEDS: prednisoLONE SODIUM PHOSPHATE 15 MG/5 ML ORAL SOLN BOTTLE PO SCH (10:47)
[2021-07-28] MEDS: FUROSEMIDE 40 MG TABLET (FP) PO SCH (10:47)
[2021-07-28] MEDS: NYSTATIN 100000 UNIT/GM TOPICAL OINTMENT 15 GM TUBE TP SCH ×2 (10:47→23:00)
[2021-07-28] MEDS: SPIRONOLACTONE 25 MG TABLET PO SCH (10:47)
[2021-07-28] MEDS: FLUoxetine HCL 20 MG CAPSULE PO SCH (10:48)
[2021-07-28] MEDS: BUDESONIDE/FORMETEROL FUMARATE 160/4.5 mcg INHALER IH SCH ×2 (10:48→23:00)
[2021-07-28] MEDS: PANTOPRAZOLE 20 MG TABLET PO SCH (10:48)
[2021-07-28 11:07] LABS: HEMATOCRIT 28.5 % (32.4-45.2); HEMOGLOBIN 9.2 GM/dL (10.7-15.3); MCH 32.9 pg (25.7-33.7); MCHC 32.4 g/dl (32.0-36.0); MEAN CELL VOLUME 101.6 fl (80-96); MEAN PLT VOLUME 8.9 fl (7.5-11.1); PLATELET COUNT 372 10^3/uL (134-434); RBC 2.81 M/mm3 (3.60-5.2); RDW 18.8 % (11.6-15.6)
[2021-07-28 11:12] LABS: WHITE BLOOD COUNT 32.6 K/mm3 (4.0-10.0)
[2021-07-28 11:16] LABS: INR 1.46 (0.83-1.09); PROTHROMBIN TIME (PATIENT) 17.2 SEC (9.7-13.0)
[2021-07-28 12:06] LABS: ANISOCYTOSIS 1+; MACROCYTOSIS 1+; PLATELET ESTIMATE NORMAL; TARGET CELLS 1+
[2021-07-28 12:08] LABS: CALCIUM 8.7 mg/dL (8.5-10.1)
[2021-07-28 12:09] LABS: ALBUMIN 1.2 g/dl (3.4-5.0); BLOOD UREA NITROGEN 17.3 mg/dL (7-18)
[2021-07-28 12:12] LABS: CREATININE 1.1 mg/dL (0.55-1.3)
[2021-07-28 12:14] LABS: BILIRUBIN,TOTAL 7.6 mg/dL (0.2-1); TOT PROT 5.2 g/dl (6.4-8.2)
[2021-07-28] MEDS: traZODone HCL 100 MG TABLET (FP) PO SCH (22:59)
[2021-07-28] MEDS: MONTELUKAST NA 10 MG TABLET PO SCH (23:00)
[2021-07-28] MEDS: MIRTAZAPINE 15 MG TABLET (FP) PO SCH (23:00)
[2021-07-29] MEDS: POLYETHYLENE GLYCOL (HEALTHYLAX) 3350 17 GM PACKET PO SCH (05:25)
[2021-07-29 06:43] VITALS: TEMP 98.4
[2021-07-29] MEDS: SPIRONOLACTONE 25 MG TABLET PO SCH (09:24)
[2021-07-29] MEDS: prednisoLONE SODIUM PHOSPHATE 15 MG/5 ML ORAL SOLN BOTTLE PO SCH (09:25)
[2021-07-29] MEDS: LACTULOSE 20 GM/30 ML UDC (FOR ORAL USE ONLY) PO SCH (09:40)
[2021-07-29] MEDS: NYSTATIN 100000 UNIT/GM TOPICAL OINTMENT 15 GM TUBE TP SCH (09:40)
[2021-07-29] MEDS: PANTOPRAZOLE 20 MG TABLET PO SCH (09:40)
[2021-07-29] MEDS: FLUoxetine HCL 20 MG CAPSULE PO SCH (09:40)
[2021-07-29] MEDS: FUROSEMIDE 40 MG TABLET (FP) PO SCH (09:40)
[2021-07-29] MEDS: BUDESONIDE/FORMETEROL FUMARATE 160/4.5 mcg INHALER IH SCH (09:41)
[2021-07-29 10:09] LABS: HEMATOCRIT 30.6 % (32.4-45.2); HEMOGLOBIN 9.7 GM/dL (10.7-15.3); MCH 32.7 pg (25.7-33.7); MCHC 31.8 g/dl (32.0-36.0); MEAN CELL VOLUME 102.9 fl (80-96); MEAN PLT VOLUME 9.2 fl (7.5-11.1); PLATELET COUNT 409 10^3/uL (134-434); RBC 2.98 M/mm3 (3.60-5.2); RDW 18.9 % (11.6-15.6)
[2021-07-29 10:11] LABS: INR 1.4 (0.83-1.09); PROTHROMBIN TIME (PATIENT) 15.7 SEC (9.7-13.0); WHITE BLOOD COUNT 32.2 K/mm3 (4.0-10.0)
[2021-07-29 10:37] LABS: BLOOD UREA NITROGEN 16.6 mg/dL (7-18); CALCIUM 8.5 mg/dL (8.5-10.1)
[2021-07-29 10:39] LABS: CREATININE 1.1 mg/dL (0.55-1.3)
[2021-07-29 10:41] LABS: BILIRUBIN,TOTAL 6.7 mg/dL (0.2-1); TOT PROT 5.6 g/dl (6.4-8.2)
[2021-07-29 10:43] LABS: ALBUMIN 1.2 g/dl (3.4-5.0)
[2021-07-29 10:50] LABS: ANISOCYTOSIS 1+; MACROCYTOSIS 1+; PLATELET ESTIMATE NORMAL
[2021-07-29 12:51] VITALS: BP 116/76; PULSE 92
== END 2021-07-29 13:42 | DRG 264 ==
LOC: JER 18:00 → JERBED 19:59 → J5S 07-07 18:28
PROVIDERS: ATTEND Nurse Practitioner Acute Care
PROC: 30233N1 Transfusion of Nonautologous Red Blood Cells into Peripheral Vein, Percutaneous Approach (ICD-10-PCS; 2021-07-06)
PROC: 0DB68ZX Excision of Stomach, Via Natural or Artificial Opening Endoscopic, Diagnostic (ICD-10-PCS; 2021-07-08)
PROC: 0W9G3ZX Drainage of Peritoneal Cavity, Percutaneous Approach, Diagnostic (ICD-10-PCS; principal; 2021-07-17)
DX: K70.11 Alcoholic hepatitis with ascites (principal); E87.2 Acidosis; N17.9 Acute kidney failure, unspecified; E46 Unspecified protein-calorie malnutrition; E87.1 Hypo-osmolality and hyponatremia; E87.5 Hyperkalemia; K92.2 Gastrointestinal hemorrhage, unspecified; K85.20 Alcohol induced acute pancreatitis without necrosis or infection; R16.0 Hepatomegaly, not elsewhere classified; D64.9 Anemia, unspecified; E16.2 Hypoglycemia, unspecified; F10.20 Alcohol dependence, uncomplicated; F12.10 Cannabis abuse, uncomplicated; F41.8 Other specified anxiety disorders; E78.5 Hyperlipidemia, unspecified; D72.829 Elevated white blood cell count, unspecified; E66.9 Obesity, unspecified; Z68.30 Body mass index [BMI] 30.0-30.9, adult; I10 Essential (primary) hypertension; J44.9 Chronic obstructive pulmonary disease, unspecified; F25.9 Schizoaffective disorder, unspecified; E87.6 Hypokalemia; K44.9 Diaphragmatic hernia without obstruction or gangrene; K29.50 Unspecified chronic gastritis without bleeding
CPT/HCPCS: 36415; 36430; 36511; 71045-TC-FY; 71250-TC; 74176-TC; 74178-TC; 74181-TC; 76705-TC; 76775-TC; 76942-TC; 80048; 80053; 80076; 80307; 81003; 82042; 82105; 82140; 82150; 82248; 82272; 82436; 82465; 82570; 82728; 82945; 82962; 83516; 83540; 83550; 83605; 83615; 83690; 83735; 83986; 84100; 84133; 84156; 84157; 84300; 84478; 84484; 85025; 85610; 85730; 86038; 86140; 86705; 86708; 86850; 86900; 86901; 86922; 87040; 87045; 87046; 87070; 87075; 87102; 87116; 87186; 87205; 87206; 87210; 87324; 87340; 87350; 87517; 87522; 88108; 88305-TC; 93005; 93010; 97116-GP; 97162-GP; 99285-25; C9803; P9038; P9058; Q9967; U0003; U0005

== ENCOUNTER 2021-12-22 15:41 | Inpatient (IN) | payer OTHER ==
[2021-12-22] MEDS ORDERED: SODIUM CHLORIDE 0.9% 500 ML INFUS.BAG IV ONE (16:27)
[2021-12-22 17:17] LABS: BASO % 0.3 % (0-2.0); EOS % 0.9 % (0-4.5); HEMATOCRIT 27.9 % (32.4-45.2); HEMOGLOBIN 9.3 GM/dL (10.7-15.3); LYMPH % 12.8 % (8-40); MCH 31.8 pg (25.7-33.7); MCHC 33.4 g/dl (32.0-36.0); MEAN CELL VOLUME 95.3 fl (80-96); MEAN PLT VOLUME 9.5 fl (7.5-11.1); MONO % 6.2 % (3.8-10.2); NEUT % 79.8 % (42.8-82.8); PLATELET COUNT 256 10^3/uL (134-434); RBC 2.93 M/mm3 (3.60-5.2); RDW 14.9 % (11.6-15.6); WHITE BLOOD COUNT 9.6 K/mm3 (4.0-10.0)
[2021-12-22 17:20] LABS: EPI CELLS 28 /uL (0-25.1); HYALINE CASTS 11 /uL (0-3.1); PH,URINE 5.5 (5.0-8.0); URINE APPEARANCE CLEAR; URINE BACTERIA 12 /uL (0-1359); URINE BILIRUBIN 1+ (NEGATIVE); URINE COLOR DK YELLOW; URINE GLUCOSE (UA) NEGATIVE (NEGATIVE); URINE KETONE NEGATIVE (NEGATIVE); URINE LEUK ESTERASE TRACE (NEGATIVE); URINE NITRITE NEGATIVE (NEGATIVE); URINE PROTEIN NEGATIVE (NEGATIVE); URINE RBC 13 /uL (0-23.9); URINE WBC 54 /uL (0-25.8)
[2021-12-22 17:24] LABS: INR 1.38 (0.83-1.09); PROTHROMBIN TIME (PATIENT) 15.9 SEC (9.7-13.0)
[2021-12-22 17:27] LABS: ACTIVATED PTT 30.4 SECONDS (25.2-36.5)
[2021-12-22 17:46] LABS: CALCIUM 8.6 mg/dL (8.5-10.1)
[2021-12-22 17:47] LABS: ALBUMIN 2.1 g/dl (3.4-5.0)
[2021-12-22 17:50] LABS: CREATININE 1.3 mg/dL (0.55-1.3)
[2021-12-22 17:52] LABS: BILIRUBIN,TOTAL 1.4 mg/dL (0.2-1); TOT PROT 6.7 g/dl (6.4-8.2)
[2021-12-22 18:34] LABS: LACTIC ACID 2.2 mmol/L (0.4-2.0)
[2021-12-22] MEDS ORDERED: LACTULOSE 20 GM/30 ML UDC (FOR ORAL USE ONLY) PO ONE (18:50)
[2021-12-22] MEDS ORDERED: levETIRAcetam 500 MG/5 ML INJECTION VIAL IVPB ONE ×2 (19:02→20:05)
[2021-12-22 19:44] LABS: YEAST MODERATE (NEGATIVE)
[2021-12-22] MEDS ORDERED: LACTULOSE 20 GM/30 ML UDC (FOR ORAL USE ONLY) ONE (20:05)
[2021-12-22] MEDS ORDERED: PIPERACILLIN/TAZOB 3.375 GM 3.375 GM in DEXTROSE 5%-WATER - 50 ML IVPB ONE (23:21)
[2021-12-23] MEDS ORDERED: DEXTROSE 5%-WATER - 50 ML IVPB ONE ×3 (01:11→17:26)
[2021-12-23] MEDS ORDERED: PIPERACILLIN/TAZOBACTAM 3.375 GM VIAL IVPB ONE ×3 (01:11→17:26)
[2021-12-23] MEDS: DEXTROSE 5%-0.45% SALINE 1,000 ML IV SCH (01:14)
[2021-12-23 02:20] VITALS: BMI 22.8
[2021-12-23] MEDS ORDERED: ALBUTEROL SO4 HFA INHALER IH PRN (06:40)
[2021-12-23] MEDS: MIDODRINE HCL 5 MG TABLET PO SCH ×3 (09:03→17:30)
[2021-12-23] MEDS: PIPERACILLIN/TAZOB 3.375 GM 3.375 GM in DEXTROSE 5%-WATER - 50 ML IVPB SCH ×2 (09:03→17:30)
[2021-12-23] MEDS: levETIRAcetam 500 MG/5 ML INJECTION VIAL IVPB SCH ×2 (09:05→21:40)
[2021-12-23] MEDS ORDERED: traMADol HCL 50 MG TABLET PO PRN (11:28)
[2021-12-23] MEDS: LACTULOSE 20 GM/30 ML UDC (FOR ORAL USE ONLY) PO SCH (21:40)
[2021-12-23] MEDS: buPROPion HCL 75 MG TABLET PO SCH (21:40)
[2021-12-24] MEDS ORDERED: PIPERACILLIN/TAZOBACTAM 3.375 GM VIAL IVPB ONE (00:50)
[2021-12-24] MEDS ORDERED: DEXTROSE 5%-WATER - 50 ML IVPB ONE (00:51)
[2021-12-24] MEDS: PIPERACILLIN/TAZOB 3.375 GM 3.375 GM in DEXTROSE 5%-WATER - 50 ML IVPB SCH ×3 (01:03→12:34)
[2021-12-24 08:45] LABS: BASO % 0.8 % (0-2.0); EOS % 2.6 % (0-4.5); MCH 31.5 pg (25.7-33.7); MCHC 33.6 g/dl (32.0-36.0); MEAN CELL VOLUME 93.9 fl (80-96); MEAN PLT VOLUME 8.8 fl (7.5-11.1); NEUT % 66.6 % (42.8-82.8); PLATELET COUNT 208 10^3/uL (134-434); RBC 2.55 M/mm3 (3.60-5.2); RDW 14.7 % (11.6-15.6); WHITE BLOOD COUNT 6.6 K/mm3 (4.0-10.0)
[2021-12-24 08:55] LABS: INR 1.5 (0.83-1.09); PROTHROMBIN TIME (PATIENT) 17.3 SEC (9.7-13.0)
[2021-12-24 09:19] LABS: BLOOD UREA NITROGEN 8.7 mg/dL (7-18); CALCIUM 8.2 mg/dL (8.5-10.1)
[2021-12-24 09:23] LABS: CREATININE 1.1 mg/dL (0.55-1.3)
[2021-12-24] MEDS: MIDODRINE HCL 5 MG TABLET PO SCH ×3 (09:23→17:28)
[2021-12-24] MEDS: FLUoxetine HCL 10 MG CAPSULE PO SCH (09:23)
[2021-12-24] MEDS: buPROPion HCL 75 MG TABLET PO SCH ×2 (09:23→22:10)
[2021-12-24] MEDS: levETIRAcetam 500 MG/5 ML INJECTION VIAL IVPB SCH ×2 (09:23→22:10)
[2021-12-24] MEDS: LACTULOSE 20 GM/30 ML UDC (FOR ORAL USE ONLY) PO SCH ×2 (09:24→22:07)
[2021-12-24] MEDS: DEXTROSE 5%-0.45% SALINE 1,000 ML IV SCH (09:24)
[2021-12-24 09:41] LABS: BILIRUBIN,TOTAL 0.7 mg/dL (0.2-1); TOT PROT 5.5 g/dl (6.4-8.2)
[2021-12-24 09:49] LABS: ALBUMIN 1.6 g/dl (3.4-5.0)
[2021-12-24] MEDS: MIRTAZAPINE 15 MG TABLET (FP) PO SCH (22:10)
[2021-12-25] MEDS: VANCOMYCIN 250 MG/5 ML ORAL SOLUTION PO SCH ×4 (00:05→17:16)
[2021-12-25] MEDS: levETIRAcetam 500 MG/5 ML INJECTION VIAL IVPB SCH ×2 (10:37→22:02)
[2021-12-25] MEDS: LACTULOSE 20 GM/30 ML UDC (FOR ORAL USE ONLY) PO SCH (10:37)
[2021-12-25] MEDS: MIDODRINE HCL 5 MG TABLET PO SCH ×3 (10:37→17:16)
[2021-12-25] MEDS: buPROPion HCL 75 MG TABLET PO SCH ×2 (10:38→22:02)
[2021-12-25] MEDS: FLUoxetine HCL 10 MG CAPSULE PO SCH (10:38)
[2021-12-25 10:47] LABS: BASO % 1.1 % (0-2.0); HEMATOCRIT 25.6 % (32.4-45.2); HEMOGLOBIN 8.6 GM/dL (10.7-15.3); LYMPH % 25.8 % (8-40); MCH 31.8 pg (25.7-33.7); MCHC 33.5 g/dl (32.0-36.0); MEAN PLT VOLUME 8.4 fl (7.5-11.1); NEUT % 62.1 % (42.8-82.8); PLATELET COUNT 229 10^3/uL (134-434); RBC 2.69 M/mm3 (3.60-5.2); RDW 14.7 % (11.6-15.6); WHITE BLOOD COUNT 7.1 K/mm3 (4.0-10.0)
[2021-12-25 10:51] LABS: INR 1.49 (0.83-1.09); PROTHROMBIN TIME (PATIENT) 17.2 SEC (9.7-13.0)
[2021-12-25 11:33] LABS: ALBUMIN 1.7 g/dl (3.4-5.0); BILIRUBIN,TOTAL 0.6 mg/dL (0.2-1); BLOOD UREA NITROGEN 7.7 mg/dL (7-18); CALCIUM 8.2 mg/dL (8.5-10.1); CREATININE 1.4 mg/dL (0.55-1.3); TOT PROT 5.8 g/dl (6.4-8.2)
[2021-12-25 14:15] LABS: BF WBC & OTHER NUCLEATED CELLS 115 /mm3
[2021-12-25 15:22] LABS: BODY FLUID MACROPHAGES 46 %; BODY FLUID MONOCYTE 8 %
[2021-12-25] MEDS: MIRTAZAPINE 15 MG TABLET (FP) PO SCH (22:02)
[2021-12-26] MEDS: VANCOMYCIN 250 MG/5 ML ORAL SOLUTION PO SCH ×4 (00:49→17:33)
[2021-12-26] MEDS: SPIRONOLACTONE 25 MG TABLET PO SCH (10:33)
[2021-12-26] MEDS: MIDODRINE HCL 5 MG TABLET PO SCH ×3 (10:33→17:33)
[2021-12-26] MEDS: LACTULOSE 20 GM/30 ML UDC (FOR ORAL USE ONLY) PO SCH (10:33)
[2021-12-26] MEDS: levETIRAcetam 500 MG/5 ML INJECTION VIAL IVPB SCH ×2 (10:33→21:35)
[2021-12-26] MEDS: FLUoxetine HCL 10 MG CAPSULE PO SCH (10:34)
[2021-12-26] MEDS: buPROPion HCL 75 MG TABLET PO SCH ×2 (10:34→21:35)
[2021-12-26 11:19] LABS: BASO % 0.8 % (0-2.0); EOS % 1.5 % (0-4.5); HEMATOCRIT 25.9 % (32.4-45.2); HEMOGLOBIN 8.8 GM/dL (10.7-15.3); LYMPH % 26.8 % (8-40); MCH 31.8 pg (25.7-33.7); MCHC 33.9 g/dl (32.0-36.0); MEAN CELL VOLUME 93.8 fl (80-96); MEAN PLT VOLUME 8.2 fl (7.5-11.1); MONO % 8.2 % (3.8-10.2); NEUT % 62.7 % (42.8-82.8); PLATELET COUNT 249 10^3/uL (134-434); RBC 2.76 M/mm3 (3.60-5.2); RDW 14.7 % (11.6-15.6); WHITE BLOOD COUNT 7.5 K/mm3 (4.0-10.0)
[2021-12-26 11:27] LABS: INR 1.46 (0.83-1.09); PROTHROMBIN TIME (PATIENT) 16.8 SEC (9.7-13.0)
[2021-12-26 11:41] LABS: CALCIUM 8.1 mg/dL (8.5-10.1)
[2021-12-26 11:42] LABS: ALBUMIN 1.7 g/dl (3.4-5.0)
[2021-12-26 11:44] LABS: BILIRUBIN,DIRECT 0.3 mg/dL (0.0-0.2)
[2021-12-26 11:45] LABS: CREATININE 1.1 mg/dL (0.55-1.3)
[2021-12-26 11:46] LABS: BILIRUBIN,TOTAL 0.6 mg/dL (0.2-1); TOT PROT 5.6 g/dl (6.4-8.2)
[2021-12-26] MEDS ORDERED: ALBUMIN HUMAN 25% 12.5 GM/50 ML VIAL IV SCH (12:00)
[2021-12-26] MEDS: RIFAXIMIN 550 MG TABLET PO SCH ×2 (13:03→21:35)
[2021-12-26] MEDS ORDERED: ONDANSETRON 4 MG/2 ML VIAL IVPUSH ONE (21:07)
[2021-12-26] MEDS: MIRTAZAPINE 15 MG TABLET (FP) PO SCH (21:35)
[2021-12-27] MEDS: VANCOMYCIN 250 MG/5 ML ORAL SOLUTION PO SCH ×4 (00:41→17:12)
[2021-12-27 00:46] LABS: EPI CELLS >36 /uL (0-25.1); HYALINE CASTS 16 /uL (0-3.1); URINE APPEARANCE CLOUDY; URINE BACTERIA 130 /uL (0-1359); URINE BILIRUBIN 1+ (NEGATIVE); URINE COLOR DK YELLOW; URINE GLUCOSE (UA) NEGATIVE (NEGATIVE); URINE KETONE TRACE (NEGATIVE); URINE LEUK ESTERASE 1+ (NEGATIVE); URINE NITRITE NEGATIVE (NEGATIVE); URINE PROTEIN TRACE (NEGATIVE); URINE UROBILINOGEN 0.2 mg/dL (0.2-1.0); URINE WBC 572 /uL (0-25.8)
[2021-12-27 06:58] LABS: URINE CRYSTALS NONE SEEN /hpf; URINE RBC 47.4 /uL (0-23.9); YEAST MODERATE (NEGATIVE)
[2021-12-27 10:44] LABS: CALCIUM 8.3 mg/dL (8.5-10.1)
[2021-12-27 10:48] LABS: CREATININE 1.4 mg/dL (0.55-1.3)
[2021-12-27] MEDS: FLUoxetine HCL 10 MG CAPSULE PO SCH (11:04)
[2021-12-27] MEDS: RIFAXIMIN 550 MG TABLET PO SCH ×2 (11:04→21:41)
[2021-12-27] MEDS: SPIRONOLACTONE 25 MG TABLET PO SCH (11:04)
[2021-12-27] MEDS: levETIRAcetam 500 MG/5 ML INJECTION VIAL IVPB SCH ×2 (11:05→21:41)
[2021-12-27] MEDS: MIDODRINE HCL 5 MG TABLET PO SCH ×3 (11:05→17:11)
[2021-12-27] MEDS: buPROPion HCL 75 MG TABLET PO SCH ×2 (11:05→21:41)
[2021-12-27] MEDS: MIRTAZAPINE 15 MG TABLET (FP) PO SCH (21:41)
[2021-12-28] MEDS: VANCOMYCIN 250 MG/5 ML ORAL SOLUTION PO SCH ×5 (00:05→23:08)
[2021-12-28] MEDS: levETIRAcetam 500 MG/5 ML INJECTION VIAL IVPB SCH (09:47)
[2021-12-28] MEDS: buPROPion HCL 75 MG TABLET PO SCH ×2 (09:49→21:09)
[2021-12-28] MEDS: SPIRONOLACTONE 25 MG TABLET PO SCH (09:49)
[2021-12-28] MEDS: MIDODRINE HCL 5 MG TABLET PO SCH ×3 (09:49→17:13)
[2021-12-28] MEDS: RIFAXIMIN 550 MG TABLET PO SCH ×2 (09:49→21:09)
[2021-12-28] MEDS: FLUoxetine HCL 10 MG CAPSULE PO SCH (09:50)
[2021-12-28 10:17] LABS: EOS % 1.9 % (0-4.5); HEMATOCRIT 25.2 % (32.4-45.2); HEMOGLOBIN 8.4 GM/dL (10.7-15.3); INR 1.47 (0.83-1.09); LYMPH % 22.5 % (8-40); MCH 31.7 pg (25.7-33.7); MCHC 33.4 g/dl (32.0-36.0); MEAN CELL VOLUME 94.7 fl (80-96); MEAN PLT VOLUME 8.5 fl (7.5-11.1); NEUT % 66.6 % (42.8-82.8); PLATELET COUNT 264 10^3/uL (134-434); RBC 2.66 M/mm3 (3.60-5.2); RDW 15.1 % (11.6-15.6); WHITE BLOOD COUNT 10.3 K/mm3 (4.0-10.0)
[2021-12-28 12:21] LABS: BLOOD UREA NITROGEN 12.7 mg/dL (7-18); CALCIUM 8.1 mg/dL (8.5-10.1)
[2021-12-28 12:22] LABS: ALBUMIN 1.6 g/dl (3.4-5.0)
[2021-12-28 12:25] LABS: CREATININE 1.4 mg/dL (0.55-1.3)
[2021-12-28 12:26] LABS: BILIRUBIN,TOTAL 0.6 mg/dL (0.2-1); TOT PROT 5.7 g/dl (6.4-8.2)
[2021-12-28] MEDS ORDERED: PIPERACILLIN/TAZOBACTAM 3.375 GM VIAL IVPB ONE (17:39)
[2021-12-28] MEDS ORDERED: DEXTROSE 5%-WATER - 50 ML IVPB ONE (17:39)
[2021-12-28] MEDS: PIPERACILLIN/TAZOB 3.375 GM 3.375 GM in DEXTROSE 5%-WATER - 50 ML IVPB SCH (17:51)
[2021-12-28] MEDS: MIRTAZAPINE 15 MG TABLET (FP) PO SCH (21:09)
[2021-12-28] MEDS: levETIRAcetam 250 MG TABLET PO SCH (21:09)
[2021-12-29] MEDS ORDERED: PIPERACILLIN/TAZOBACTAM 3.375 GM VIAL IVPB ONE ×2 (00:43→10:26)
[2021-12-29] MEDS ORDERED: DEXTROSE 5%-WATER - 50 ML IVPB ONE ×2 (00:43→10:26)
[2021-12-29] MEDS: PIPERACILLIN/TAZOB 3.375 GM 3.375 GM in DEXTROSE 5%-WATER - 50 ML IVPB SCH ×2 (01:06→10:40)
[2021-12-29] MEDS ORDERED: TRIMETHOBENZAMIDE HCL 200MG/2ML INJ IM PRN (01:19)
[2021-12-29] MEDS: VANCOMYCIN 250 MG/5 ML ORAL SOLUTION PO SCH ×3 (05:04→18:07)
[2021-12-29 08:59] LABS: BASO % 0.9 % (0-2.0); EOS % 1.1 % (0-4.5); HEMATOCRIT 27.3 % (32.4-45.2); HEMOGLOBIN 8.9 GM/dL (10.7-15.3); LYMPH % 16.2 % (8-40); MCH 30.9 pg (25.7-33.7); MCHC 32.6 g/dl (32.0-36.0); MEAN CELL VOLUME 94.7 fl (80-96); MEAN PLT VOLUME 8.6 fl (7.5-11.1); MONO % 7.6 % (3.8-10.2); NEUT % 74.2 % (42.8-82.8); PLATELET COUNT 275 10^3/uL (134-434); RBC 2.88 M/mm3 (3.60-5.2); RDW 15.2 % (11.6-15.6); WHITE BLOOD COUNT 13.8 K/mm3 (4.0-10.0)
[2021-12-29 09:20] LABS: CALCIUM 8.2 mg/dL (8.5-10.1)
[2021-12-29 09:21] LABS: ALBUMIN 1.7 g/dl (3.4-5.0); BLOOD UREA NITROGEN 14.5 mg/dL (7-18)
[2021-12-29 09:23] LABS: CREATININE 1.4 mg/dL (0.55-1.3)
[2021-12-29 09:25] LABS: BILIRUBIN,TOTAL 0.7 mg/dL (0.2-1); TOT PROT 6.1 g/dl (6.4-8.2)
[2021-12-29] MEDS: MIDODRINE HCL 5 MG TABLET PO SCH ×3 (10:39→18:06)
[2021-12-29] MEDS: FLUoxetine HCL 10 MG CAPSULE PO SCH (10:39)
[2021-12-29] MEDS: SPIRONOLACTONE 25 MG TABLET PO SCH (10:39)
[2021-12-29] MEDS: RIFAXIMIN 550 MG TABLET PO SCH ×2 (10:39→22:09)
[2021-12-29] MEDS: levETIRAcetam 250 MG TABLET PO SCH ×2 (10:39→22:14)
[2021-12-29] MEDS: buPROPion HCL 75 MG TABLET PO SCH ×2 (10:40→22:09)
[2021-12-29] MEDS ORDERED: LOPERAMIDE HCL 2 MG CAPSULE PO ONE ×2 (12:15→17:19)
[2021-12-29 14:09] LABS: BODY FLUID ALBUMIN 0.6 g/dL (Not Estab.)
[2021-12-29 17:08] LABS: SARS-CoV-2 NAA Not Detected (Not Detected)
[2021-12-29] MEDS: MIRTAZAPINE 15 MG TABLET (FP) PO SCH (22:09)
[2021-12-30] MEDS: VANCOMYCIN 250 MG/5 ML ORAL SOLUTION PO SCH ×4 (00:51→17:36)
[2021-12-30 09:02] LABS: BASO % 0.9 % (0-2.0); EOS % 1.6 % (0-4.5); HEMATOCRIT 27.1 % (32.4-45.2); HEMOGLOBIN 9.3 GM/dL (10.7-15.3); LYMPH % 22.8 % (8-40); MCH 32.2 pg (25.7-33.7); MCHC 34.2 g/dl (32.0-36.0); MEAN PLT VOLUME 8.4 fl (7.5-11.1); MONO % 6.9 % (3.8-10.2); NEUT % 67.8 % (42.8-82.8); PLATELET COUNT 287 10^3/uL (134-434); RBC 2.88 M/mm3 (3.60-5.2); RDW 15.5 % (11.6-15.6)
[2021-12-30] MEDS: buPROPion HCL 75 MG TABLET PO SCH ×2 (09:41→22:20)
[2021-12-30] MEDS: FLUoxetine HCL 10 MG CAPSULE PO SCH (09:41)
[2021-12-30] MEDS: RIFAXIMIN 550 MG TABLET PO SCH ×2 (09:41→22:20)
[2021-12-30] MEDS: SPIRONOLACTONE 25 MG TABLET PO SCH (09:42)
[2021-12-30] MEDS: MIDODRINE HCL 5 MG TABLET PO SCH ×3 (09:42→17:35)
[2021-12-30] MEDS: levETIRAcetam 250 MG TABLET PO SCH ×2 (09:42→22:20)
[2021-12-30 12:18] LABS: BF WBC & OTHER NUCLEATED CELLS 108 /mm3
[2021-12-30 13:02] LABS: BODY FLUID MACROPHAGES 38 %; BODY FLUID MESOTHELIAL 3 %; BODY FLUID MONOCYTE 14 %
[2021-12-30] MEDS: MIRTAZAPINE 15 MG TABLET (FP) PO SCH (22:20)
[2021-12-31] MEDS: VANCOMYCIN 250 MG/5 ML ORAL SOLUTION PO SCH ×4 (01:12→17:30)
[2021-12-31] MEDS: RIFAXIMIN 550 MG TABLET PO SCH (10:02)
[2021-12-31] MEDS: levETIRAcetam 250 MG TABLET PO SCH (10:02)
[2021-12-31] MEDS: SPIRONOLACTONE 25 MG TABLET PO SCH (10:02)
[2021-12-31] MEDS: MIDODRINE HCL 5 MG TABLET PO SCH ×3 (10:02→17:31)
[2021-12-31] MEDS: buPROPion HCL 75 MG TABLET PO SCH (10:04)
[2021-12-31] MEDS: FLUoxetine HCL 10 MG CAPSULE PO SCH (10:04)
[2021-12-31 15:57] VITALS: BP 121/67; PULSE 84; TEMP 98.7
== END 2021-12-31 18:07 | DRG 53 ==
LOC: JER 15:41 → JERBED 19:09 → J5S 12-23 01:06 → J8W 12-29 17:04
PROVIDERS: ADMIT Hospitalist; ATTEND Internal Medicine
DX: R56.9 Unspecified convulsions (principal); I10 Essential (primary) hypertension; J44.9 Chronic obstructive pulmonary disease, unspecified; J45.20 Mild intermittent asthma, uncomplicated; K70.31 Alcoholic cirrhosis of liver with ascites; N39.0 Urinary tract infection, site not specified; E87.2 Acidosis; A04.71 Enterocolitis due to Clostridium difficile, recurrent; E78.5 Hyperlipidemia, unspecified; F41.8 Other specified anxiety disorders; F25.9 Schizoaffective disorder, unspecified; K76.0 Fatty (change of) liver, not elsewhere classified; G47.30 Sleep apnea, unspecified; E53.8 Deficiency of other specified B group vitamins; K72.00 Acute and subacute hepatic failure without coma; B96.89 Other specified bacterial agents as the cause of diseases classified elsewhere; D72.829 Elevated white blood cell count, unspecified; K31.89 Other diseases of stomach and duodenum
CPT/HCPCS: 36415; 70450-TC; 70551-TC; 71045-TC-FY; 74177-TC; 76700-TC; 80048; 80053; 80076; 81003; 82042; 82140; 82150; 82728; 82945; 82962; 83540; 83550; 83605; 83615; 84157; 84466; 84484; 85025; 85610; 85730; 86140; 87040; 87045; 87046; 87070; 87075; 87086; 87116; 87186; 87205; 87206; 87324; 87449; 87493; 93005; 93010; 97116-GP; 97162-GP; 99285-25; C9803-CS; Q9967; U0003; U0005

== ENCOUNTER 2022-03-23 15:17 | Inpatient (IN) | payer OTHER ==
[2022-03-23 15:40] VITALS: BMI 22.6
[2022-03-23] MEDS ORDERED: ONDANSETRON 4 MG/2 ML VIAL IVPUSH ONE (17:48)
[2022-03-23] MEDS ORDERED: morphine CARPU-JECT 2 MG/1 ML DISP.SYRIN IVPUSH ONE ×2 (17:48→21:29)
[2022-03-23] MEDS ORDERED: ONDANSETRON 4 MG/2 ML VIAL ONE (17:53)
[2022-03-23 18:42] LABS: BASO % 0.2 % (0-2.0); EOS % 0.4 % (0-4.5); LYMPH % 17.5 % (8-40); MCH 32.8 pg (25.7-33.7); MCHC 33.7 g/dl (32.0-36.0); MEAN CELL VOLUME 97.4 fl (80-96); MEAN PLT VOLUME 8.4 fl (7.5-11.1); MONO % 9.8 % (3.8-10.2); NEUT % 72.1 % (42.8-82.8); PLATELET COUNT 177 10^3/uL (134-434); RBC 2.06 M/mm3 (3.60-5.2); RDW 21.1 % (11.6-15.6); WHITE BLOOD COUNT 8.8 K/mm3 (4.0-10.0)
[2022-03-23 18:57] LABS: HEMOGLOBIN 6.7 GM/dL (10.7-15.3); INR 1.32 (0.83-1.09); PROTHROMBIN TIME (PATIENT) 15.2 SEC (9.7-13.0)
[2022-03-23] MEDS ORDERED: PANTOPRAZOLE SODIUM 40 MG VIAL IVPUSH ONE (18:58)
[2022-03-23 19:00] LABS: ACTIVATED PTT 28.3 SECONDS (25.2-36.5)
[2022-03-23 19:02] LABS: ALBUMIN 1.8 g/dl (3.4-5.0); BLOOD UREA NITROGEN 20.4 mg/dL (7-18); CALCIUM 8.5 mg/dL (8.5-10.1)
[2022-03-23 19:05] LABS: CREATININE 1.6 mg/dL (0.55-1.3)
[2022-03-23 19:07] LABS: BILIRUBIN,TOTAL 0.5 mg/dL (0.2-1); TOT PROT 6.1 g/dl (6.4-8.2)
[2022-03-23] MEDS ORDERED: PANTOPRAZOLE SODIUM 40 MG/100 ML BAG IVPB ONE (19:11)
[2022-03-23 20:23] LABS: ANISOCYTOSIS 2+; MACROCYTOSIS 1+; OVALOCYTE 1+
[2022-03-23] MEDS ORDERED: HYDROmorphone HCl 2 MG/ML VIAL ONE (22:01)
[2022-03-24 00:58] VITALS: RESP 18
[2022-03-24] MEDS ORDERED: LIDOCAINE 5% TOPICAL PATCH TP ONE (02:58)
[2022-03-24 04:41] VITALS: TEMP 98.5
[2022-03-24 08:45] VITALS: BP 95/44; PULSE 95
[2022-03-24] MEDS ORDERED: FLUoxetine HCL 20 MG CAPSULE PO SCH (10:00)
[2022-03-24] MEDS ORDERED: MIDODRINE HCL 5 MG TABLET PO SCH (10:00)
[2022-03-24] MEDS ORDERED: levETIRAcetam 250 MG TABLET PO SCH (10:00)
[2022-03-24] MEDS ORDERED: SPIRONOLACTONE 25 MG TABLET PO SCH (10:00)
[2022-03-24] MEDS ORDERED: PANTOPRAZOLE 40 MG TABLET PO SCH (10:00)
[2022-03-24] MEDS ORDERED: buPROPion HCL 75 MG TABLET PO SCH (10:00)
[2022-03-24] MEDS ORDERED: PANTOPRAZOLE SODIUM 40 MG VIAL IVPUSH SCH (10:00)
[2022-03-24] MEDS ORDERED: FOLIC ACID 1 MG TABLET (FP) PO SCH (10:00)
[2022-03-24] MEDS ORDERED: MIRTAZAPINE 15 MG TABLET (FP) PO SCH (10:00)
[2022-03-24] MEDS ORDERED: ENOXAPARIN NA (PORCINE) 40 MG/0.4 ML DISP.SYRIN SQ SCH (10:00)
[2022-03-24] MEDS ORDERED: LIDOCAINE PATCH REMOVAL MC ONE (16:00)
[2022-03-24] MEDS ORDERED: traZODone HCL 50 MG TABLET (FP) PO SCH (22:00)
== END 2022-03-24 09:00 | disposition left against medical advice (07) | DRG 253 ==
LOC: JER 15:17 → JERBED 22:09 → J8W 03-24 02:30 → OBSVTOIN 03-24 05:05
PROVIDERS: ADMIT Hospitalist; ATTEND Internal Medicine
PROC: 30233N1 Transfusion of Nonautologous Red Blood Cells into Peripheral Vein, Percutaneous Approach (ICD-10-PCS; principal; 2022-03-23)
DX: K92.2 Gastrointestinal hemorrhage, unspecified (principal); F41.8 Other specified anxiety disorders; J44.9 Chronic obstructive pulmonary disease, unspecified; J45.909 Unspecified asthma, uncomplicated; E78.5 Hyperlipidemia, unspecified; I10 Essential (primary) hypertension; F20.9 Schizophrenia, unspecified; I12.9 Hypertensive chronic kidney disease with stage 1 through stage 4 chronic kidney disease, or unspecified chronic kidney disease; N18.9 Chronic kidney disease, unspecified; M54.9 Dorsalgia, unspecified; F43.10 Post-traumatic stress disorder, unspecified; R56.9 Unspecified convulsions; R18.8 Other ascites; R11.2 Nausea with vomiting, unspecified; K70.30 Alcoholic cirrhosis of liver without ascites
CPT/HCPCS: 36415; 36430; 71045-TC-FY; 72170-TC-FY; 73502-TC-LT-FY; 74176-TC; 80053; 82272; 83690; 84484; 85025; 85610; 85730; 86850; 86900; 86901; 86922; 93005; 93010; 99285-25; C9803-CS; G0378; P9058; U0003; U0005

== ENCOUNTER 2022-03-25 19:46 | Inpatient (IN) | payer OTHER ==
[2022-03-25 23:08] LABS: BASO % 0.4 % (0-2.0); EOS % 1.2 % (0-4.5); HEMATOCRIT 20.7 % (32.4-45.2); LYMPH % 26.8 % (8-40); MCH 32.3 pg (25.7-33.7); MCHC 33.5 g/dl (32.0-36.0); MEAN CELL VOLUME 96.7 fl (80-96); MEAN PLT VOLUME 7.9 fl (7.5-11.1); MONO % 11.2 % (3.8-10.2); NEUT % 60.4 % (42.8-82.8); PLATELET COUNT 172 10^3/uL (134-434); RBC 2.14 M/mm3 (3.60-5.2); WHITE BLOOD COUNT 7.4 K/mm3 (4.0-10.0)
[2022-03-25 23:15] LABS: HEMOGLOBIN 6.9 GM/dL (10.7-15.3)
[2022-03-25 23:22] LABS: INR 1.21 (0.83-1.09)
[2022-03-25 23:24] LABS: ACTIVATED PTT 29.3 SECONDS (25.2-36.5)
[2022-03-25 23:32] LABS: BLOOD UREA NITROGEN 29.6 mg/dL (7-18); CALCIUM 8.1 mg/dL (8.5-10.1)
[2022-03-25 23:33] LABS: ALBUMIN 1.7 g/dl (3.4-5.0)
[2022-03-25 23:35] LABS: CREATININE 1.8 mg/dL (0.55-1.3)
[2022-03-25 23:37] LABS: BILIRUBIN,TOTAL 0.4 mg/dL (0.2-1); TOT PROT 5.6 g/dl (6.4-8.2)
[2022-03-26] MEDS: KCL 10 MEQ IVPB 10 MEQ/100 ML INFUS.BAG IVPB SCH ×3 (04:20→08:13)
[2022-03-26] MEDS ORDERED: POTASSIUM CHLORIDE TABS 20 MEQ TABLET.ER (FP) PO ONE ×2 (04:26→05:46)
[2022-03-26] MEDS ORDERED: LIDOCAINE 5% TOPICAL PATCH TP ONE ×2 (04:51)
[2022-03-26] MEDS ORDERED: LACTATED RINGERS SOLUTION 1000 ML INFUS.BAG IV ONE (04:51)
[2022-03-26] MEDS ORDERED: KCL 10 MEQ IVPB 20 MEQ/200 ML INFUS.BAG IVPB ONE (05:47)
[2022-03-26] MEDS ORDERED: ALBUTEROL SO4 HFA INHALER IH PRN (06:15)
[2022-03-26] MEDS ORDERED: MAG HYDROX/AL HYDROX/SIMETH 30 ML UNIT-DOSE CUP PO PRN (06:15)
[2022-03-26] MEDS ORDERED: IPRATROPIUM BR 0.02% 0.5 MG/2.5 ML VIAL.NEB. NEB PRN (06:15)
[2022-03-26] MEDS ORDERED: SODIUM CHLORIDE 0.9% 500 ML INFUS.BAG IV ONE (07:01)
[2022-03-26 07:27] LABS: HEMOGLOBIN 7.6 GM/dL (10.7-15.3); MCH 32.5 pg (25.7-33.7); MCHC 34.4 g/dl (32.0-36.0); MEAN CELL VOLUME 94.3 fl (80-96); MEAN PLT VOLUME 8.2 fl (7.5-11.1); PLATELET COUNT 156 10^3/uL (134-434); RBC 2.33 M/mm3 (3.60-5.2); RDW 19.1 % (11.6-15.6); WHITE BLOOD COUNT 7.7 K/mm3 (4.0-10.0)
[2022-03-26] MEDS ORDERED: PANTOPRAZOLE SODIUM 160 MG in SODIUM CHLORIDE 290 ML IVPB SCH (07:37)
[2022-03-26 07:40] LABS: MAGNESIUM 1.8 mg/dL (1.8-2.4)
[2022-03-26 07:41] LABS: ALBUMIN 1.6 g/dl (3.4-5.0); BLOOD UREA NITROGEN 38.1 mg/dL (7-18); CALCIUM 7.6 mg/dL (8.5-10.1)
[2022-03-26] MEDS ORDERED: SODIUM CHLORIDE 500 ML IV STA (07:41)
[2022-03-26] MEDS ORDERED: SODIUM CHLORIDE 250 ML IV STA ×2 (07:42→07:43)
[2022-03-26 07:43] LABS: CREATININE 1.6 mg/dL (0.55-1.3)
[2022-03-26 07:44] LABS: PHOSPHOROUS 3.4 mg/dL (2.5-4.9)
[2022-03-26] MEDS ORDERED: KCL 10 MEQ IVPB 10 MEQ/100 ML INFUS.BAG IVPB ONE (08:08)
[2022-03-26] MEDS ORDERED: PANTOPRAZOLE SODIUM 40 MG VIAL IVPUSH SCH (10:00)
[2022-03-26] MEDS: levETIRAcetam 250 MG TABLET PO SCH ×3 (10:33→21:53)
[2022-03-26] MEDS: buPROPion HCL 75 MG TABLET PO SCH ×2 (11:25→21:53)
[2022-03-26] MEDS: FLUoxetine HCL 20 MG CAPSULE PO SCH (11:25)
[2022-03-26] MEDS: MIRTAZAPINE 15 MG TABLET (FP) PO SCH (11:25)
[2022-03-26] MEDS: FOLIC ACID 1 MG TABLET (FP) PO SCH (11:26)
[2022-03-26] MEDS: SPIRONOLACTONE 25 MG TABLET PO SCH (11:26)
[2022-03-26] MEDS: MIDODRINE HCL 5 MG TABLET PO SCH ×2 (15:26→18:12)
[2022-03-26] MEDS ORDERED: LIDOCAINE PATCH REMOVAL MC ONE (18:00)
[2022-03-26] MEDS: traZODone HCL 50 MG TABLET (FP) PO SCH (21:46)
[2022-03-26] MEDS ORDERED: traZODone HCL 50 MG TABLET (FP) PO SCH (22:00)
[2022-03-27] MEDS: levETIRAcetam 250 MG TABLET PO SCH ×2 (09:59→23:22)
[2022-03-27] MEDS: MIDODRINE HCL 5 MG TABLET PO SCH ×3 (09:59→19:04)
[2022-03-27] MEDS: FOLIC ACID 1 MG TABLET (FP) PO SCH (09:59)
[2022-03-27] MEDS: SPIRONOLACTONE 25 MG TABLET PO SCH (09:59)
[2022-03-27] MEDS: MIRTAZAPINE 15 MG TABLET (FP) PO SCH (09:59)
[2022-03-27] MEDS: FLUoxetine HCL 20 MG CAPSULE PO SCH (10:01)
[2022-03-27] MEDS: buPROPion HCL 75 MG TABLET PO SCH ×2 (10:01→23:22)
[2022-03-27 10:23] LABS: HEMATOCRIT 21.9 % (32.4-45.2); HEMOGLOBIN 7.4 GM/dL (10.7-15.3); MCH 32.5 pg (25.7-33.7); MCHC 33.9 g/dl (32.0-36.0); MEAN CELL VOLUME 95.7 fl (80-96); MEAN PLT VOLUME 8.3 fl (7.5-11.1); PLATELET COUNT 166 10^3/uL (134-434); RBC 2.29 M/mm3 (3.60-5.2); RDW 21.7 % (11.6-15.6); WHITE BLOOD COUNT 5.5 K/mm3 (4.0-10.0)
[2022-03-27 11:02] LABS: CALCIUM 8.3 mg/dL (8.5-10.1)
[2022-03-27 11:03] LABS: ALBUMIN 1.7 g/dl (3.4-5.0); BLOOD UREA NITROGEN 52.1 mg/dL (7-18); MAGNESIUM 1.9 mg/dL (1.8-2.4)
[2022-03-27 11:04] LABS: TOT PROT 5.3 g/dl (6.4-8.2)
[2022-03-27 11:06] LABS: CREATININE 1.5 mg/dL (0.55-1.3)
[2022-03-27 11:07] LABS: BILIRUBIN,TOTAL 0.5 mg/dL (0.2-1)
[2022-03-27] MEDS ORDERED: SODIUM CHLORIDE 1,000 ML IV STA ×2 (14:09)
[2022-03-27 14:12] LABS: BASO % 0.5 % (0-2.0); EOS % 1.7 % (0-4.5); HEMATOCRIT 20.7 % (32.4-45.2); LYMPH % 44.5 % (8-40); MCH 32.4 pg (25.7-33.7); MCHC 33.3 g/dl (32.0-36.0); MEAN CELL VOLUME 97.2 fl (80-96); MEAN PLT VOLUME 8.3 fl (7.5-11.1); MONO % 9.3 % (3.8-10.2); PLATELET COUNT 182 10^3/uL (134-434); RBC 2.13 M/mm3 (3.60-5.2); RDW 22.5 % (11.6-15.6); WHITE BLOOD COUNT 8.8 K/mm3 (4.0-10.0)
[2022-03-27 14:18] LABS: HEMOGLOBIN 6.9 GM/dL (10.7-15.3)
[2022-03-27] MEDS ORDERED: ONDANSETRON 4 MG/2 ML VIAL IVPUSH STA (14:42)
[2022-03-27] MEDS ORDERED: CALCIUM GLUCONATE 10% - 1,000 MG/10 ML VIAL IVPB STA (14:54)
[2022-03-27 14:55] LABS: ANISOCYTOSIS 1+; MACROCYTOSIS 1+
[2022-03-27] MEDS ORDERED: PHYTONADIONE 10 MG/1 ML AMP IVPB STA (15:05)
[2022-03-27] MEDS ORDERED: OCTREOTIDE ACETATE 200 MCG, OCTREOTIDE ACETATE 1,000 MCG in DEXTROSE 5%-WATER - 496 ML IVPB SCH (15:15)
[2022-03-27] MEDS ORDERED: ETOMIDATE 20 MG/10 ML AMPUL IVPUSH ONE (15:24)
[2022-03-27] MEDS ORDERED: DESMOPRESSIN ACETATE 4 MCG/ML AMP IVPB ONE (16:00)
[2022-03-27] MEDS ORDERED: MIDAZOLAM HCL 2 MG/2 ML SINGLE DOSE VIAL ONE (16:14)
[2022-03-27] MEDS ORDERED: PROPOFOL 1,000,000 MCG/100 ML VIAL ONE (16:51)
[2022-03-27] MEDS: PHENYLEPHRINE NS PREMIX 50,000 MCG/500 ML BAG IVPB SCH (17:20)
[2022-03-27] MEDS ORDERED: CEFTRIAXONE 1 GM in DEXTROSE 5%-WATER - 50 ML IVPB ONE (17:31)
[2022-03-27] MEDS: PROPOFOL 1,000,000 MCG/100 ML VIAL IVPB SCH ×2 (17:38→23:17)
[2022-03-27] MEDS ORDERED: cefTRIAXone SODIUM 1 GM VIAL ONE (17:56)
[2022-03-27] MEDS ORDERED: DEXTROSE 5%-WATER - 50 ML IVPB ONE (17:56)
[2022-03-27] MEDS: PANTOPRAZOLE SODIUM 80 MG in SODIUM CHLORIDE 100 ML IVPB SCH (18:25)
[2022-03-27 21:15] LABS: ARTERIAL BLD GAS O2 SATURATION 99.4 % (95-98); ARTERIAL BLOOD GAS BASE EXCESS -13.1 mmol/L (-2-2); ARTERIAL BLOOD GAS PO2 224.5 mmHg (80-100); ARTERIAL BLOOD GAS pH 7.302 (7.350-7.450)
[2022-03-27 21:16] LABS: VENT MODE A/C
[2022-03-27 21:17] LABS: VENT RATE 13
[2022-03-27 21:36] LABS: HEMATOCRIT 27.5 % (32.4-45.2); HEMOGLOBIN 9.2 GM/dL (10.7-15.3); MCHC 33.3 g/dl (32.0-36.0); MEAN CELL VOLUME 90.1 fl (80-96); MEAN PLT VOLUME 7.9 fl (7.5-11.1); PLATELET COUNT 205 10^3/uL (134-434); RBC 3.05 M/mm3 (3.60-5.2); RDW 16.4 % (11.6-15.6); WHITE BLOOD COUNT 15.2 K/mm3 (4.0-10.0)
[2022-03-27 21:57] LABS: CALCIUM 7.4 mg/dL (8.5-10.1)
[2022-03-27 21:58] LABS: BLOOD UREA NITROGEN 48.7 mg/dL (7-18); MAGNESIUM 1.6 mg/dL (1.8-2.4)
[2022-03-27] MEDS ORDERED: PANTOPRAZOLE SODIUM 40 MG VIAL IVPUSH SCH (22:00)
[2022-03-27 22:01] LABS: CREATININE 1.6 mg/dL (0.55-1.3); PHOSPHOROUS 3.6 mg/dL (2.5-4.9)
[2022-03-27] MEDS: CHLORHEXIDINE GLUCONATE 4% CLEANSER FOR DECOLONIZATION TP SCH (23:21)
[2022-03-27] MEDS: traZODone HCL 50 MG TABLET (FP) PO SCH (23:21)
[2022-03-27] MEDS: MUPIROCIN 2% TOPICAL OINTMENT FOR DECOLONIZATION NS SCH (23:21)
[2022-03-28] MEDS: PANTOPRAZOLE SODIUM 80 MG in SODIUM CHLORIDE 100 ML IVPB SCH ×2 (02:50→14:07)
[2022-03-28] MEDS: PHENYLEPHRINE NS PREMIX 50,000 MCG/500 ML BAG IVPB SCH (06:45)
[2022-03-28] MEDS ORDERED: cefTRIAXone SODIUM 1 GM VIAL ONE (10:14)
[2022-03-28] MEDS ORDERED: DEXTROSE 5%-WATER - 50 ML IVPB ONE (10:15)
[2022-03-28] MEDS: levETIRAcetam 500 MG/5 ML INJECTION VIAL IVPB SCH ×2 (10:16→23:46)
[2022-03-28] MEDS: buPROPion HCL 75 MG TABLET PO SCH ×2 (10:19→23:46)
[2022-03-28] MEDS: MIRTAZAPINE 15 MG TABLET (FP) PO SCH (10:19)
[2022-03-28] MEDS: FOLIC ACID 1 MG TABLET (FP) PO SCH (10:19)
[2022-03-28] MEDS: FLUoxetine HCL 20 MG CAPSULE PO SCH (10:19)
[2022-03-28] MEDS: CEFTRIAXONE 1 GM in DEXTROSE 5%-WATER - 50 ML IVPB SCH (10:19)
[2022-03-28] MEDS: MIDODRINE HCL 5 MG TABLET PO SCH ×3 (10:19→20:25)
[2022-03-28] MEDS: MUPIROCIN 2% TOPICAL OINTMENT FOR DECOLONIZATION NS SCH ×2 (10:20→23:45)
[2022-03-28] MEDS: SPIRONOLACTONE 25 MG TABLET PO SCH (10:20)
[2022-03-28] MEDS ORDERED: MAGNESIUM SULFATE IN WATER 2 GM/50 ML IVPB IVPB ONE (10:30)
[2022-03-28 11:54] LABS: COCAINE, UR NEGATIVE (NEGATIVE); METHADONE, UR NEGATIVE (NEGATIVE); OPIATES, URI NEGATIVE (NEGATIVE); PHENCYCLIDINE,URINE NEGATIVE (NEGATIVE); URINE AMPHETAMINES NEGATIVE (NEGATIVE); URINE BARBITURATES NEGATIVE (NEGATIVE); URINE BENZODIAZEPINES POSITIVE (NEGATIVE)
[2022-03-28 12:37] LABS: EPI CELLS 25 /uL (0-25.1); HYALINE CASTS 18 /uL (0-3.1); PH,URINE 5.5 (5.0-8.0); URINE APPEARANCE CLEAR; URINE BACTERIA 20 /uL (0-1359); URINE BILIRUBIN NEGATIVE (NEGATIVE); URINE COLOR YELLOW; URINE GLUCOSE (UA) NEGATIVE (NEGATIVE); URINE KETONE NEGATIVE (NEGATIVE); URINE LEUK ESTERASE 1+ (NEGATIVE); URINE NITRITE NEGATIVE (NEGATIVE); URINE PROTEIN TRACE (NEGATIVE); URINE RBC 21 /uL (0-23.9); URINE UROBILINOGEN 0.2 mg/dL (0.2-1.0); URINE WBC 54 /uL (0-25.8)
[2022-03-28] MEDS ORDERED: BISACODYL 5 MG TABLET.DR (FP) PO ONE (12:43)
[2022-03-28 12:55] LABS: BASO % 0.8 % (0-2.0); HEMATOCRIT 24.7 % (32.4-45.2); HEMOGLOBIN 8.2 GM/dL (10.7-15.3); LYMPH % 27.2 % (8-40); MCHC 33.2 g/dl (32.0-36.0); MEAN CELL VOLUME 90.3 fl (80-96); MEAN PLT VOLUME 7.5 fl (7.5-11.1); MONO % 14.6 % (3.8-10.2); NEUT % 56.4 % (42.8-82.8); PLATELET COUNT 250 10^3/uL (134-434); RBC 2.73 M/mm3 (3.60-5.2); RDW 17.6 % (11.6-15.6); WHITE BLOOD COUNT 16.2 K/mm3 (4.0-10.0)
[2022-03-28 13:20] LABS: BLOOD UREA NITROGEN 53.7 mg/dL (7-18); CALCIUM 7.9 mg/dL (8.5-10.1)
[2022-03-28 13:21] LABS: ALBUMIN 1.4 g/dl (3.4-5.0); MAGNESIUM 2.3 mg/dL (1.8-2.4)
[2022-03-28 13:23] LABS: CREATININE 2.2 mg/dL (0.55-1.3); PHOSPHOROUS 4.2 mg/dL (2.5-4.9)
[2022-03-28 13:25] LABS: BILIRUBIN,TOTAL 0.5 mg/dL (0.2-1); TOT PROT 4.2 g/dl (6.4-8.2)
[2022-03-28] MEDS: THIAMINE HCL 200 MG/2 ML VIAL IVPB SCH (14:10)
[2022-03-28] MEDS ORDERED: PEG 3350/NA SULF BICARB CL/KCL 4000 ML SOLN.RECON PO ONE (14:44)
[2022-03-28] MEDS ORDERED: ALBUMIN HUMAN 5% 250 ML IV SOLUTION IV ONE ×2 (15:43→15:47)
[2022-03-28 17:39] LABS: HEMATOCRIT 23.8 % (32.4-45.2); HEMOGLOBIN 7.9 GM/dL (10.7-15.3); MCH 30.8 pg (25.7-33.7); MCHC 33.2 g/dl (32.0-36.0); MEAN CELL VOLUME 92.6 fl (80-96); MEAN PLT VOLUME 7.3 fl (7.5-11.1); PLATELET COUNT 222 10^3/uL (134-434); RBC 2.57 M/mm3 (3.60-5.2); RDW 18.2 % (11.6-15.6); WHITE BLOOD COUNT 14.1 K/mm3 (4.0-10.0)
[2022-03-28 18:00] LABS: BLOOD UREA NITROGEN 53.1 mg/dL (7-18); CALCIUM 7.8 mg/dL (8.5-10.1)
[2022-03-28 18:01] LABS: ALBUMIN 1.5 g/dl (3.4-5.0)
[2022-03-28 18:03] LABS: CREATININE 2.2 mg/dL (0.55-1.3)
[2022-03-28 18:05] LABS: BILIRUBIN,TOTAL 0.5 mg/dL (0.2-1); TOT PROT 4.3 g/dl (6.4-8.2)
[2022-03-28 18:56] LABS: ARTERIAL BLOOD GAS BASE EXCESS -13.1 mmol/L (-2-2); ARTERIAL BLOOD GAS PO2 162.7 mmHg (80-100); ARTERIAL BLOOD GAS pH 7.303 (7.350-7.450)
[2022-03-28 18:57] LABS: ALLENS TEST POSITIVE
[2022-03-28 18:58] LABS: VENT MODE PSV
[2022-03-28] MEDS ORDERED: SODIUM BICARBONATE 8.4% - 150 MEQ in DEXTROSE 5%-WATER - 1,000 ML IV SCH (19:15)
[2022-03-28] MEDS: PROPOFOL 1,000,000 MCG/100 ML VIAL IVPB SCH (20:25)
[2022-03-28] MEDS: CHLORHEXIDINE GLUCONATE 4% CLEANSER FOR DECOLONIZATION TP SCH (23:45)
[2022-03-28] MEDS: traZODone HCL 50 MG TABLET (FP) PO SCH (23:45)
[2022-03-29 06:23] LABS: ARTERIAL BLD GAS O2 SATURATION 99.2 % (95-98); ARTERIAL BLOOD GAS BASE EXCESS -9.7 mmol/L (-2-2); ARTERIAL BLOOD GAS PO2 166.7 mmHg (80-100); ARTERIAL BLOOD GAS pH 7.402 (7.350-7.450)
[2022-03-29 06:29] LABS: ALLENS TEST POSITIVE
[2022-03-29 06:30] LABS: VENT MODE PSV; VENT RATE 12
[2022-03-29] MEDS ORDERED: FUROSEMIDE 40 MG/4 ML INJECTABLE VIAL IVPUSH ONE (06:41)
[2022-03-29] MEDS ORDERED: FUROSEMIDE 40 MG/4 ML INJECTABLE VIAL ONE (06:43)
[2022-03-29 08:00] LABS: BASO % 0.6 % (0-2.0); EOS % 1.1 % (0-4.5); HEMATOCRIT 22.4 % (32.4-45.2); HEMOGLOBIN 7.7 GM/dL (10.7-15.3); MCH 30.5 pg (25.7-33.7); MCHC 34.5 g/dl (32.0-36.0); MEAN CELL VOLUME 88.3 fl (80-96); MEAN PLT VOLUME 7.6 fl (7.5-11.1); NEUT % 66.3 % (42.8-82.8); PLATELET COUNT 170 10^3/uL (134-434); RBC 2.54 M/mm3 (3.60-5.2); RDW 17.8 % (11.6-15.6); WHITE BLOOD COUNT 10.3 K/mm3 (4.0-10.0)
[2022-03-29 08:34] LABS: BLOOD UREA NITROGEN 49.8 mg/dL (7-18); MAGNESIUM 2.2 mg/dL (1.8-2.4)
[2022-03-29 08:37] LABS: CREATININE 2.3 mg/dL (0.55-1.3); PHOSPHOROUS 3.5 mg/dL (2.5-4.9)
[2022-03-29 08:38] LABS: TOT PROT 4.6 g/dl (6.4-8.2)
[2022-03-29 08:39] LABS: ALBUMIN 1.8 g/dl (3.4-5.0)
[2022-03-29] MEDS: PANTOPRAZOLE SODIUM 80 MG in SODIUM CHLORIDE 100 ML IVPB SCH ×2 (09:30→21:52)
[2022-03-29] MEDS: MIDODRINE HCL 5 MG TABLET PO SCH ×3 (09:42→17:23)
[2022-03-29] MEDS: FOLIC ACID 1 MG TABLET (FP) PO SCH (09:42)
[2022-03-29] MEDS: SPIRONOLACTONE 25 MG TABLET PO SCH (09:42)
[2022-03-29] MEDS: MIRTAZAPINE 15 MG TABLET (FP) PO SCH (09:43)
[2022-03-29] MEDS: FLUoxetine HCL 20 MG CAPSULE PO SCH (09:43)
[2022-03-29] MEDS: buPROPion HCL 75 MG TABLET PO SCH ×2 (09:43→21:53)
[2022-03-29] MEDS ORDERED: cefTRIAXone SODIUM 1 GM VIAL ONE (09:45)
[2022-03-29] MEDS ORDERED: DEXTROSE 5%-WATER - 50 ML IVPB ONE (09:46)
[2022-03-29] MEDS: levETIRAcetam 500 MG/5 ML INJECTION VIAL IVPB SCH ×2 (09:54→21:53)
[2022-03-29] MEDS: THIAMINE HCL 200 MG/2 ML VIAL IVPB SCH (09:56)
[2022-03-29] MEDS: MUPIROCIN 2% TOPICAL OINTMENT FOR DECOLONIZATION NS SCH ×2 (09:56→21:52)
[2022-03-29] MEDS: CEFTRIAXONE 1 GM in DEXTROSE 5%-WATER - 50 ML IVPB SCH (09:57)
[2022-03-29] MEDS: ALBUMIN HUMAN 25% 12.5 GM/50 ML VIAL IV SCH ×3 (14:30→21:55)
[2022-03-29] MEDS ORDERED: ALBUMIN HUMAN 25% 100 ML VIAL IV SCH (14:30)
[2022-03-29 17:16] LABS: BASO % 0.7 % (0-2.0); EOS % 1.8 % (0-4.5); HEMATOCRIT 20.2 % (32.4-45.2); LYMPH % 21.9 % (8-40); MCH 29.8 pg (25.7-33.7); MCHC 33.9 g/dl (32.0-36.0); MEAN CELL VOLUME 87.9 fl (80-96); MEAN PLT VOLUME 7.5 fl (7.5-11.1); NEUT % 64.6 % (42.8-82.8); PLATELET COUNT 159 10^3/uL (134-434); RDW 18.9 % (11.6-15.6); WHITE BLOOD COUNT 8.4 K/mm3 (4.0-10.0)
[2022-03-29 17:39] LABS: HEMOGLOBIN 6.8 GM/dL (10.7-15.3)
[2022-03-29 21:42] LABS: EPI CELLS 16 /uL (0-25.1); HYALINE CASTS 3 /uL (0-3.1); PH,URINE 5.5 (5.0-8.0); URINE APPEARANCE CLEAR; URINE BACTERIA 6 /uL (0-1359); URINE BILIRUBIN NEGATIVE (NEGATIVE); URINE COLOR YELLOW; URINE GLUCOSE (UA) NEGATIVE (NEGATIVE); URINE KETONE NEGATIVE (NEGATIVE); URINE LEUK ESTERASE 2+ (NEGATIVE); URINE NITRITE NEGATIVE (NEGATIVE); URINE PROTEIN TRACE (NEGATIVE); URINE RBC 44 /uL (0-23.9); URINE UROBILINOGEN 0.2 mg/dL (0.2-1.0); URINE WBC 67 /uL (0-25.8)
[2022-03-29] MEDS: CHLORHEXIDINE GLUCONATE 4% CLEANSER FOR DECOLONIZATION TP SCH (21:53)
[2022-03-29] MEDS: traZODone HCL 50 MG TABLET (FP) PO SCH (21:53)
[2022-03-30] MEDS: ALBUMIN HUMAN 25% 12.5 GM/50 ML VIAL IV SCH (02:30)
[2022-03-30] MEDS ORDERED: LACTATED RINGERS SOLUTION 1000 ML INFUS.BAG IV ONE (04:03)
[2022-03-30 04:04] LABS: BASO % 0.9 % (0-2.0); EOS % 2.2 % (0-4.5); HEMATOCRIT 22.7 % (32.4-45.2); HEMOGLOBIN 7.8 GM/dL (10.7-15.3); LYMPH % 19.6 % (8-40); MCHC 34.1 g/dl (32.0-36.0); MEAN CELL VOLUME 87.9 fl (80-96); MEAN PLT VOLUME 7.4 fl (7.5-11.1); MONO % 11.4 % (3.8-10.2); NEUT % 65.9 % (42.8-82.8); PLATELET COUNT 149 10^3/uL (134-434); RBC 2.59 M/mm3 (3.60-5.2); RDW 17.5 % (11.6-15.6); WHITE BLOOD COUNT 7.9 K/mm3 (4.0-10.0)
[2022-03-30] MEDS: PANTOPRAZOLE SODIUM 80 MG in SODIUM CHLORIDE 100 ML IVPB SCH ×2 (06:49→12:00)
[2022-03-30 07:49] LABS: BASO % 0.5 % (0-2.0); EOS % 2.1 % (0-4.5); HEMATOCRIT 24.5 % (32.4-45.2); HEMOGLOBIN 8.2 GM/dL (10.7-15.3); LYMPH % 17.4 % (8-40); MCHC 33.6 g/dl (32.0-36.0); MEAN CELL VOLUME 89.5 fl (80-96); MEAN PLT VOLUME 7.9 fl (7.5-11.1); MONO % 11.5 % (3.8-10.2); NEUT % 68.5 % (42.8-82.8); PLATELET COUNT 149 10^3/uL (134-434); RBC 2.74 M/mm3 (3.60-5.2); RDW 17.9 % (11.6-15.6); WHITE BLOOD COUNT 8.3 K/mm3 (4.0-10.0)
[2022-03-30 07:58] LABS: BLOOD UREA NITROGEN 45.9 mg/dL (7-18); CALCIUM 8.1 mg/dL (8.5-10.1); MAGNESIUM 2.1 mg/dL (1.8-2.4)
[2022-03-30 08:00] LABS: PHOSPHOROUS 3.6 mg/dL (2.5-4.9)
[2022-03-30 08:01] LABS: CREATININE 2.2 mg/dL (0.55-1.3)
[2022-03-30 08:02] LABS: BILIRUBIN,TOTAL 0.9 mg/dL (0.2-1); TOT PROT 5.2 g/dl (6.4-8.2)
[2022-03-30 08:05] LABS: ALBUMIN 2.3 g/dl (3.4-5.0)
[2022-03-30] MEDS ORDERED: cefTRIAXone SODIUM 1 GM VIAL ONE (09:01)
[2022-03-30] MEDS ORDERED: DEXTROSE 5%-WATER - 50 ML IVPB ONE (09:02)
[2022-03-30] MEDS: levETIRAcetam 500 MG/5 ML INJECTION VIAL IVPB SCH ×2 (09:18→22:55)
[2022-03-30] MEDS: THIAMINE HCL 200 MG/2 ML VIAL IVPB SCH (09:20)
[2022-03-30] MEDS: CEFTRIAXONE 1 GM in DEXTROSE 5%-WATER - 50 ML IVPB SCH (09:21)
[2022-03-30] MEDS: METOCLOPRAMIDE HCL INJECTION 10 MG/2 ML VIAL IVPUSH SCH ×2 (09:21→17:27)
[2022-03-30] MEDS: MIDODRINE HCL 5 MG TABLET PO SCH ×3 (09:27→17:27)
[2022-03-30] MEDS: MUPIROCIN 2% TOPICAL OINTMENT FOR DECOLONIZATION NS SCH ×2 (09:27→22:55)
[2022-03-30] MEDS: buPROPion HCL 75 MG TABLET PO SCH ×2 (09:27→22:00)
[2022-03-30] MEDS: FOLIC ACID 1 MG TABLET (FP) PO SCH (09:27)
[2022-03-30] MEDS: MIRTAZAPINE 15 MG TABLET (FP) PO SCH (09:27)
[2022-03-30] MEDS: SPIRONOLACTONE 25 MG TABLET PO SCH (09:27)
[2022-03-30] MEDS: FLUoxetine HCL 20 MG CAPSULE PO SCH (09:27)
[2022-03-30] MEDS: LACTULOSE 20 GM/30 ML UDC (FOR ORAL USE ONLY) PO SCH (13:06)
[2022-03-30] MEDS ORDERED: LACTULOSE 20 GM/30 ML UDC (FOR ORAL USE ONLY) PO SCH (14:00)
[2022-03-30 14:06] LABS: INR 1.11 (0.83-1.09); PROTHROMBIN TIME (PATIENT) 12.8 SEC (9.7-13.0)
[2022-03-30] MEDS ORDERED: DEXTROSE 5%-WATER - 1,000 ML IV SCH (14:15)
[2022-03-30 14:40] LABS: BASO % 0.6 % (0-2.0); EOS % 1.8 % (0-4.5); HEMATOCRIT 23.7 % (32.4-45.2); LYMPH % 19.6 % (8-40); MCH 29.8 pg (25.7-33.7); MCHC 33.7 g/dl (32.0-36.0); MEAN CELL VOLUME 88.5 fl (80-96); MEAN PLT VOLUME 7.5 fl (7.5-11.1); PLATELET COUNT 166 10^3/uL (134-434); RBC 2.68 M/mm3 (3.60-5.2); RDW 19.4 % (11.6-15.6); WHITE BLOOD COUNT 7.2 K/mm3 (4.0-10.0)
[2022-03-30 19:30] LABS: CALCIUM 8.2 mg/dL (8.5-10.1)
[2022-03-30 19:34] LABS: CREATININE 2.1 mg/dL (0.55-1.3)
[2022-03-30] MEDS ORDERED: PANTOPRAZOLE SODIUM 80 MG in SODIUM CHLORIDE 100 ML IVPB SCH (21:21)
[2022-03-30] MEDS: traZODone HCL 50 MG TABLET (FP) PO SCH (22:00)
[2022-03-30] MEDS: PANTOPRAZOLE SODIUM 160 MG in SODIUM CHLORIDE 290 ML IVPB SCH (22:10)
[2022-03-30] MEDS: CHLORHEXIDINE GLUCONATE 4% CLEANSER FOR DECOLONIZATION TP SCH (22:54)
[2022-03-31] MEDS: LACTULOSE 20 GM/30 ML UDC (FOR ORAL USE ONLY) PO SCH ×4 (01:17→21:05)
[2022-03-31] MEDS: METOCLOPRAMIDE HCL INJECTION 10 MG/2 ML VIAL IVPUSH SCH ×2 (01:50→10:56)
[2022-03-31 07:54] LABS: BASO % 0.8 % (0-2.0); EOS % 1.6 % (0-4.5); HEMATOCRIT 23.9 % (32.4-45.2); HEMOGLOBIN 8.1 GM/dL (10.7-15.3); LYMPH % 18.7 % (8-40); MCH 30.6 pg (25.7-33.7); MCHC 34.1 g/dl (32.0-36.0); MEAN CELL VOLUME 89.6 fl (80-96); MEAN PLT VOLUME 7.8 fl (7.5-11.1); MONO % 10.2 % (3.8-10.2); NEUT % 68.7 % (42.8-82.8); PLATELET COUNT 173 10^3/uL (134-434); RBC 2.66 M/mm3 (3.60-5.2); RDW 19.6 % (11.6-15.6); WHITE BLOOD COUNT 7.2 K/mm3 (4.0-10.0)
[2022-03-31 08:17] LABS: ALBUMIN 2.4 g/dl (3.4-5.0); BLOOD UREA NITROGEN 39.8 mg/dL (7-18); CALCIUM 8.7 mg/dL (8.5-10.1); MAGNESIUM 2.4 mg/dL (1.8-2.4)
[2022-03-31 08:20] LABS: PHOSPHOROUS 3.8 mg/dL (2.5-4.9)
[2022-03-31 08:21] LABS: CREATININE 2.1 mg/dL (0.55-1.3)
[2022-03-31 08:22] LABS: BILIRUBIN,TOTAL 0.7 mg/dL (0.2-1); TOT PROT 5.4 g/dl (6.4-8.2)
[2022-03-31] MEDS: PHENYLEPHRINE NS PREMIX 50,000 MCG/500 ML BAG IVPB SCH ×2 (10:49→14:21)
[2022-03-31] MEDS: CEFTRIAXONE 1 GM in DEXTROSE 5%-WATER - 50 ML IVPB SCH (10:51)
[2022-03-31] MEDS: FLUoxetine HCL 20 MG CAPSULE PO SCH (10:52)
[2022-03-31] MEDS: buPROPion HCL 75 MG TABLET PO SCH ×2 (10:53→21:12)
[2022-03-31] MEDS: levETIRAcetam 500 MG/5 ML INJECTION VIAL IVPB SCH ×2 (10:54→21:05)
[2022-03-31] MEDS: MIRTAZAPINE 15 MG TABLET (FP) PO SCH (10:54)
[2022-03-31] MEDS: MIDODRINE HCL 5 MG TABLET PO SCH ×3 (10:54→18:09)
[2022-03-31] MEDS: SPIRONOLACTONE 25 MG TABLET PO SCH (10:55)
[2022-03-31] MEDS: FOLIC ACID 1 MG TABLET (FP) PO SCH (10:56)
[2022-03-31] MEDS: MUPIROCIN 2% TOPICAL OINTMENT FOR DECOLONIZATION NS SCH (10:56)
[2022-03-31] MEDS: THIAMINE HCL 200 MG/2 ML VIAL IVPB SCH (10:57)
[2022-03-31] MEDS ORDERED: DEXTROSE 5%-WATER - 1,000 ML IV SCH ×2 (12:48→13:00)
[2022-03-31] MEDS: AMINO ACIDS 4.25%/D5W 1,000 ML IV SCH (18:10)
[2022-03-31] MEDS: PANTOPRAZOLE SODIUM 160 MG in SODIUM CHLORIDE 290 ML IVPB SCH (20:47)
[2022-03-31] MEDS: traZODone HCL 50 MG TABLET (FP) PO SCH (21:05)
[2022-04-01] MEDS: AMINO ACIDS 4.25%/D5W 1,000 ML IV SCH ×2 (06:01→11:33)
[2022-04-01] MEDS: LACTULOSE 20 GM/30 ML UDC (FOR ORAL USE ONLY) PO SCH ×3 (06:08→22:55)
[2022-04-01 09:03] LABS: BASO % 0.8 % (0-2.0); EOS % 2.8 % (0-4.5); HEMATOCRIT 23.7 % (32.4-45.2); LYMPH % 22.4 % (8-40); MCH 30.5 pg (25.7-33.7); MCHC 33.7 g/dl (32.0-36.0); MEAN CELL VOLUME 90.6 fl (80-96); MEAN PLT VOLUME 7.5 fl (7.5-11.1); MONO % 10.4 % (3.8-10.2); NEUT % 63.6 % (42.8-82.8); PLATELET COUNT 188 10^3/uL (134-434); RBC 2.62 M/mm3 (3.60-5.2); RDW 19.9 % (11.6-15.6); WHITE BLOOD COUNT 6.1 K/mm3 (4.0-10.0)
[2022-04-01 09:49] LABS: CREATININE 1.8 mg/dL (0.55-1.3)
[2022-04-01 09:51] LABS: BILIRUBIN,TOTAL 0.8 mg/dL (0.2-1); TOT PROT 5.3 g/dl (6.4-8.2)
[2022-04-01 09:52] LABS: ALBUMIN 2.1 g/dl (3.4-5.0); BLOOD UREA NITROGEN 36.4 mg/dL (7-18)
[2022-04-01 09:55] LABS: CALCIUM 8.2 mg/dL (8.5-10.1); MAGNESIUM 2.2 mg/dL (1.8-2.4)
[2022-04-01] MEDS: MIDODRINE HCL 5 MG TABLET PO SCH ×3 (11:25→18:29)
[2022-04-01] MEDS: levETIRAcetam 500 MG/5 ML INJECTION VIAL IVPB SCH ×2 (11:28→22:55)
[2022-04-01] MEDS: FOLIC ACID 1 MG TABLET (FP) PO SCH (11:29)
[2022-04-01] MEDS: SPIRONOLACTONE 25 MG TABLET PO SCH (11:29)
[2022-04-01] MEDS: THIAMINE HCL 200 MG/2 ML VIAL IVPB SCH (11:30)
[2022-04-01] MEDS: MIRTAZAPINE 15 MG TABLET (FP) PO SCH ×2 (12:11→23:00)
[2022-04-01] MEDS: FLUoxetine HCL 20 MG CAPSULE PO SCH (13:26)
[2022-04-01] MEDS: buPROPion HCL 75 MG TABLET PO SCH ×2 (13:26→22:56)
[2022-04-01] MEDS: POTASSIUM CHLORIDE 10 MEQ in AMINO ACIDS 4.25%/D5W 1,000 ML IV SCH (14:34)
[2022-04-01] MEDS: traZODone HCL 50 MG TABLET (FP) PO SCH (22:56)
[2022-04-01] MEDS: PANTOPRAZOLE SODIUM 40 MG VIAL IVPUSH SCH (23:01)
[2022-04-02] MEDS: POTASSIUM CHLORIDE 10 MEQ in AMINO ACIDS 4.25%/D5W 1,000 ML IV SCH ×2 (03:13→18:04)
[2022-04-02] MEDS: LACTULOSE 20 GM/30 ML UDC (FOR ORAL USE ONLY) PO SCH ×3 (06:13→23:12)
[2022-04-02 10:33] LABS: BASO % 0.6 % (0-2.0); HEMATOCRIT 24.8 % (32.4-45.2); HEMOGLOBIN 8.2 GM/dL (10.7-15.3); LYMPH % 25.5 % (8-40); MCH 30.5 pg (25.7-33.7); MCHC 33.2 g/dl (32.0-36.0); MEAN CELL VOLUME 91.9 fl (80-96); MEAN PLT VOLUME 7.6 fl (7.5-11.1); MONO % 9.9 % (3.8-10.2); PLATELET COUNT 180 10^3/uL (134-434); RBC 2.69 M/mm3 (3.60-5.2); RDW 21.9 % (11.6-15.6); WHITE BLOOD COUNT 6.8 K/mm3 (4.0-10.0)
[2022-04-02 10:36] LABS: INR 1.17 (0.83-1.09); PROTHROMBIN TIME (PATIENT) 13.5 SEC (9.7-13.0)
[2022-04-02 10:57] LABS: BLOOD UREA NITROGEN 35.5 mg/dL (7-18); CALCIUM 8.4 mg/dL (8.5-10.1); MAGNESIUM 2.1 mg/dL (1.8-2.4)
[2022-04-02 10:59] LABS: PHOSPHOROUS 2.2 mg/dL (2.5-4.9)
[2022-04-02 11:00] LABS: BILIRUBIN,DIRECT 0.3 mg/dL (0.0-0.2); CREATININE 1.7 mg/dL (0.55-1.3)
[2022-04-02] MEDS: levETIRAcetam 500 MG/5 ML INJECTION VIAL IVPB SCH ×2 (11:00→22:56)
[2022-04-02 11:01] LABS: TOT PROT 5.4 g/dl (6.4-8.2)
[2022-04-02 11:04] LABS: BILIRUBIN,TOTAL 0.7 mg/dL (0.2-1)
[2022-04-02] MEDS: THIAMINE HCL 200 MG/2 ML VIAL IVPB SCH (11:34)
[2022-04-02] MEDS: buPROPion HCL 75 MG TABLET PO SCH ×2 (11:34→23:12)
[2022-04-02] MEDS: MIDODRINE HCL 5 MG TABLET PO SCH ×3 (11:36→18:11)
[2022-04-02] MEDS: FOLIC ACID 1 MG TABLET (FP) PO SCH (11:36)
[2022-04-02] MEDS: SPIRONOLACTONE 25 MG TABLET PO SCH (11:36)
[2022-04-02] MEDS: PANTOPRAZOLE SODIUM 40 MG VIAL IVPUSH SCH ×2 (11:37→22:59)
[2022-04-02] MEDS: FLUoxetine HCL 20 MG CAPSULE PO SCH (11:37)
[2022-04-02] MEDS ORDERED: SODIUM BICARBONATE 8.4% 50 MEQ/50 ML DISP.SYRIN IVPUSH ONE (12:00)
[2022-04-02 12:14] VITALS: BMI 27.9
[2022-04-02] MEDS ORDERED: SODIUM BICARBONATE 8.4% 50 MEQ/50 ML VIAL IVPUSH ONE ×2 (12:15→15:00)
[2022-04-02 13:56] LABS: ANISOCYTOSIS 2+; MACROCYTOSIS 1+; OVALOCYTE 2+
[2022-04-02] MEDS: NAPH,MB-DB/K PH,MBDB POWDER PACKET PO SCH ×2 (18:11→23:12)
[2022-04-02] MEDS ORDERED: MIRTAZAPINE 15 MG TABLET (FP) PO SCH (22:00)
[2022-04-02] MEDS: MIRTAZAPINE 15 MG TABLET (FP) PO SCH (23:12)
[2022-04-02] MEDS: traZODone HCL 50 MG TABLET (FP) PO SCH (23:12)
[2022-04-03] MEDS: LACTULOSE 20 GM/30 ML UDC (FOR ORAL USE ONLY) PO SCH ×2 (05:52→23:23)
[2022-04-03 08:04] LABS: HEMATOCRIT 23.7 % (32.4-45.2); HEMOGLOBIN 7.9 GM/dL (10.7-15.3); MCH 30.7 pg (25.7-33.7); MCHC 33.3 g/dl (32.0-36.0); MEAN CELL VOLUME 92.4 fl (80-96); MEAN PLT VOLUME 7.8 fl (7.5-11.1); PLATELET COUNT 166 10^3/uL (134-434); RBC 2.56 M/mm3 (3.60-5.2); RDW 21.6 % (11.6-15.6); WHITE BLOOD COUNT 5.7 K/mm3 (4.0-10.0)
[2022-04-03 08:17] LABS: BLOOD UREA NITROGEN 33.8 mg/dL (7-18)
[2022-04-03 08:18] LABS: ALBUMIN 1.9 g/dl (3.4-5.0); MAGNESIUM 1.9 mg/dL (1.8-2.4)
[2022-04-03 08:21] LABS: CREATININE 1.4 mg/dL (0.55-1.3); PHOSPHOROUS 2.7 mg/dL (2.5-4.9)
[2022-04-03 08:22] LABS: BILIRUBIN,TOTAL 0.5 mg/dL (0.2-1); TOT PROT 5.3 g/dl (6.4-8.2)
[2022-04-03] MEDS: PANTOPRAZOLE SODIUM 40 MG VIAL IVPUSH SCH ×2 (09:09→23:23)
[2022-04-03] MEDS: levETIRAcetam 500 MG/5 ML INJECTION VIAL IVPB SCH (09:09)
[2022-04-03] MEDS: NAPH,MB-DB/K PH,MBDB POWDER PACKET PO SCH (09:09)
[2022-04-03] MEDS: FLUoxetine HCL 20 MG CAPSULE PO SCH (09:09)
[2022-04-03] MEDS: FOLIC ACID 1 MG TABLET (FP) PO SCH (09:10)
[2022-04-03] MEDS: buPROPion HCL 75 MG TABLET PO SCH ×2 (09:10→23:24)
[2022-04-03] MEDS: SPIRONOLACTONE 25 MG TABLET PO SCH (09:10)
[2022-04-03] MEDS: MIDODRINE HCL 5 MG TABLET PO SCH ×3 (09:10→17:10)
[2022-04-03] MEDS: THIAMINE HCL 200 MG/2 ML VIAL IVPB SCH (10:38)
[2022-04-03] MEDS ORDERED: POTASSIUM CHLORIDE ORAL LIQUID 20 MEQ/15 ML PO ONE (12:41)
[2022-04-03] MEDS: traZODone HCL 50 MG TABLET (FP) PO SCH (23:23)
[2022-04-03] MEDS: levETIRAcetam 500 MG TABLET (FP) PO SCH (23:23)
[2022-04-03] MEDS: MIRTAZAPINE 15 MG TABLET (FP) PO SCH (23:24)
[2022-04-04 07:30] LABS: BASO % 0.9 % (0-2.0); EOS % 3.9 % (0-4.5); HEMOGLOBIN 7.6 GM/dL (10.7-15.3); LYMPH % 28.2 % (8-40); MCH 30.4 pg (25.7-33.7); MCHC 33.1 g/dl (32.0-36.0); MEAN CELL VOLUME 91.9 fl (80-96); MONO % 7.1 % (3.8-10.2); NEUT % 59.9 % (42.8-82.8); PLATELET COUNT 170 10^3/uL (134-434); WHITE BLOOD COUNT 5.5 K/mm3 (4.0-10.0)
[2022-04-04 07:47] LABS: BLOOD UREA NITROGEN 26.8 mg/dL (7-18); CALCIUM 8.4 mg/dL (8.5-10.1)
[2022-04-04 07:48] LABS: ALBUMIN 1.8 g/dl (3.4-5.0); CREATININE 1.3 mg/dL (0.55-1.3)
[2022-04-04 07:50] LABS: BILIRUBIN,TOTAL 0.7 mg/dL (0.2-1); TOT PROT 5.2 g/dl (6.4-8.2)
[2022-04-04] MEDS: buPROPion HCL 75 MG TABLET PO SCH ×2 (10:36→23:30)
[2022-04-04] MEDS: FLUoxetine HCL 20 MG CAPSULE PO SCH (10:36)
[2022-04-04] MEDS: levETIRAcetam 500 MG TABLET (FP) PO SCH ×2 (10:36→23:23)
[2022-04-04] MEDS: POTASSIUM CHLORIDE ORAL LIQUID 20 MEQ/15 ML PO SCH ×2 (10:36→23:38)
[2022-04-04] MEDS: SPIRONOLACTONE 25 MG TABLET PO SCH (10:37)
[2022-04-04] MEDS: MIDODRINE HCL 5 MG TABLET PO SCH ×3 (10:37→17:40)
[2022-04-04] MEDS: FOLIC ACID 1 MG TABLET (FP) PO SCH (10:38)
[2022-04-04] MEDS: THIAMINE HCL 100 MG TABLET (FP) PO SCH ×2 (10:38→23:26)
[2022-04-04] MEDS: LACTULOSE 20 GM/30 ML UDC (FOR ORAL USE ONLY) PO SCH ×2 (10:39→23:39)
[2022-04-04] MEDS: PANTOPRAZOLE SODIUM 40 MG VIAL IVPUSH SCH ×2 (11:24→23:38)
[2022-04-04] MEDS: traZODone HCL 50 MG TABLET (FP) PO SCH (23:25)
[2022-04-04] MEDS: MIRTAZAPINE 15 MG TABLET (FP) PO SCH (23:27)
[2022-04-05] MEDS ORDERED: IPRATROPIUM BR 0.02% 0.5 MG/2.5 ML VIAL.NEB. NEB PRN (09:02)
[2022-04-05] MEDS ORDERED: MAG HYDROX/AL HYDROX/SIMETH 30 ML UNIT-DOSE CUP PO PRN (09:02)
[2022-04-05] MEDS ORDERED: ALBUTEROL SO4 HFA INHALER IH PRN (09:02)
[2022-04-05 09:23] LABS: HEMATOCRIT 23.9 % (32.4-45.2); MCH 30.7 pg (25.7-33.7); MCHC 33.5 g/dl (32.0-36.0); MEAN CELL VOLUME 91.9 fl (80-96); MEAN PLT VOLUME 8.2 fl (7.5-11.1); PLATELET COUNT 181 10^3/uL (134-434); RBC 2.61 M/mm3 (3.60-5.2); RDW 22.6 % (11.6-15.6); WHITE BLOOD COUNT 5.6 K/mm3 (4.0-10.0)
[2022-04-05 09:54] LABS: CALCIUM 8.6 mg/dL (8.5-10.1)
[2022-04-05 09:55] LABS: BLOOD UREA NITROGEN 22.1 mg/dL (7-18)
[2022-04-05 09:58] LABS: CREATININE 1.3 mg/dL (0.55-1.3)
[2022-04-05] MEDS: SPIRONOLACTONE 25 MG TABLET PO SCH (10:19)
[2022-04-05] MEDS: levETIRAcetam 500 MG TABLET (FP) PO SCH ×2 (10:19→23:19)
[2022-04-05] MEDS: THIAMINE HCL 100 MG TABLET (FP) PO SCH (10:19)
[2022-04-05] MEDS: LACTULOSE 20 GM/30 ML UDC (FOR ORAL USE ONLY) PO SCH ×3 (10:20→23:41)
[2022-04-05] MEDS: FOLIC ACID 1 MG TABLET (FP) PO SCH (10:20)
[2022-04-05] MEDS: MIDODRINE HCL 5 MG TABLET PO SCH ×3 (10:20→17:36)
[2022-04-05] MEDS: buPROPion HCL 75 MG TABLET PO SCH ×2 (10:21→23:38)
[2022-04-05] MEDS: FLUoxetine HCL 20 MG CAPSULE PO SCH (10:21)
[2022-04-05] MEDS: PANTOPRAZOLE SODIUM 40 MG VIAL IVPUSH SCH ×2 (10:51→23:20)
[2022-04-05] MEDS: traZODone HCL 50 MG TABLET (FP) PO SCH (23:19)
[2022-04-05] MEDS: MIRTAZAPINE 15 MG TABLET (FP) PO SCH (23:20)
[2022-04-06] MEDS ORDERED: ONDANSETRON 4 MG/2 ML VIAL ONE (09:02)
[2022-04-06 10:08] LABS: HEMATOCRIT 24.3 % (32.4-45.2); HEMOGLOBIN 8.1 GM/dL (10.7-15.3); MCH 30.9 pg (25.7-33.7); MCHC 33.5 g/dl (32.0-36.0); MEAN CELL VOLUME 92.2 fl (80-96); MEAN PLT VOLUME 8.4 fl (7.5-11.1); PLATELET COUNT 174 10^3/uL (134-434); RBC 2.63 M/mm3 (3.60-5.2); RDW 22.2 % (11.6-15.6)
[2022-04-06 10:30] LABS: ALBUMIN 1.9 g/dl (3.4-5.0); CALCIUM 8.5 mg/dL (8.5-10.1)
[2022-04-06 10:32] LABS: BLOOD UREA NITROGEN 20.6 mg/dL (7-18)
[2022-04-06 10:34] LABS: CREATININE 1.4 mg/dL (0.55-1.3); PHOSPHOROUS 3.2 mg/dL (2.5-4.9)
[2022-04-06 10:36] LABS: BILIRUBIN,TOTAL 0.7 mg/dL (0.2-1); TOT PROT 5.5 g/dl (6.4-8.2)
[2022-04-06] MEDS: PANTOPRAZOLE SODIUM 40 MG VIAL IVPUSH SCH ×3 (11:19→23:24)
[2022-04-06] MEDS: buPROPion HCL 75 MG TABLET PO SCH ×2 (11:19→23:15)
[2022-04-06] MEDS: LACTULOSE 20 GM/30 ML UDC (FOR ORAL USE ONLY) PO SCH ×3 (11:20→22:33)
[2022-04-06] MEDS: MIDODRINE HCL 5 MG TABLET PO SCH ×3 (11:23→17:28)
[2022-04-06] MEDS: SPIRONOLACTONE 25 MG TABLET PO SCH (11:24)
[2022-04-06] MEDS: FLUoxetine HCL 20 MG CAPSULE PO SCH (11:24)
[2022-04-06] MEDS: levETIRAcetam 500 MG TABLET (FP) PO SCH ×2 (11:25→22:34)
[2022-04-06] MEDS: FOLIC ACID 1 MG TABLET (FP) PO SCH (11:32)
[2022-04-06] MEDS: traZODone HCL 50 MG TABLET (FP) PO SCH (22:34)
[2022-04-06] MEDS: MIRTAZAPINE 15 MG TABLET (FP) PO SCH (22:34)
[2022-04-07 08:59] LABS: HEMATOCRIT 23.8 % (32.4-45.2); HEMOGLOBIN 7.8 GM/dL (10.7-15.3); MCHC 32.8 g/dl (32.0-36.0); MEAN CELL VOLUME 94.5 fl (80-96); MEAN PLT VOLUME 8.8 fl (7.5-11.1); PLATELET COUNT 173 10^3/uL (134-434); RBC 2.52 M/mm3 (3.60-5.2); RDW 22.3 % (11.6-15.6); WHITE BLOOD COUNT 5.1 K/mm3 (4.0-10.0)
[2022-04-07 09:49] LABS: CALCIUM 8.5 mg/dL (8.5-10.1)
[2022-04-07 09:50] LABS: BLOOD UREA NITROGEN 21.6 mg/dL (7-18)
[2022-04-07 09:54] LABS: CREATININE 1.5 mg/dL (0.55-1.3)
[2022-04-07] MEDS: LACTULOSE 20 GM/30 ML UDC (FOR ORAL USE ONLY) PO SCH ×2 (11:08→21:58)
[2022-04-07] MEDS: MIDODRINE HCL 5 MG TABLET PO SCH ×5 (11:09→18:58)
[2022-04-07] MEDS: levETIRAcetam 500 MG TABLET (FP) PO SCH ×2 (11:09→21:57)
[2022-04-07] MEDS: FOLIC ACID 1 MG TABLET (FP) PO SCH (11:10)
[2022-04-07] MEDS: MULTIVITAMINS (DAILY MVI) TABLET (FP) PO SCH (11:10)
[2022-04-07] MEDS: PANTOPRAZOLE 40 MG TABLET PO SCH ×2 (11:10→21:58)
[2022-04-07] MEDS: SPIRONOLACTONE 25 MG TABLET PO SCH (11:10)
[2022-04-07] MEDS: FLUoxetine HCL 20 MG CAPSULE PO SCH (11:11)
[2022-04-07] MEDS: buPROPion HCL 75 MG TABLET PO SCH ×3 (11:11→22:39)
[2022-04-07] MEDS: ZINC OXIDE 20% TOPICAL OINTMENT 30 GM TUBE TP SCH ×2 (14:15→21:59)
[2022-04-07] MEDS: MIRTAZAPINE 15 MG TABLET (FP) PO SCH (21:58)
[2022-04-07] MEDS: traZODone HCL 50 MG TABLET (FP) PO SCH (21:58)
[2022-04-08] MEDS: MIDODRINE HCL 5 MG TABLET PO SCH ×2 (10:32→14:36)
[2022-04-08] MEDS: SPIRONOLACTONE 25 MG TABLET PO SCH ×2 (10:32→12:11)
[2022-04-08] MEDS: levETIRAcetam 500 MG TABLET (FP) PO SCH ×2 (10:32→12:12)
[2022-04-08] MEDS: PANTOPRAZOLE 40 MG TABLET PO SCH ×2 (10:32→12:12)
[2022-04-08] MEDS: MULTIVITAMINS (DAILY MVI) TABLET (FP) PO SCH ×2 (10:32→12:12)
[2022-04-08] MEDS: buPROPion HCL 75 MG TABLET PO SCH ×2 (10:33→12:12)
[2022-04-08] MEDS: FLUoxetine HCL 20 MG CAPSULE PO SCH ×2 (10:33→12:12)
[2022-04-08] MEDS: FOLIC ACID 1 MG TABLET (FP) PO SCH ×2 (10:33→12:11)
[2022-04-08] MEDS: ZINC OXIDE 20% TOPICAL OINTMENT 30 GM TUBE TP SCH ×2 (10:34→12:13)
[2022-04-08] MEDS: LACTULOSE 20 GM/30 ML UDC (FOR ORAL USE ONLY) PO SCH (10:34)
[2022-04-08] MEDS ORDERED: MICONAZOLE NITRATE 2% VAGINAL CREAM 45 GM TUBE VG SCH (11:00)
[2022-04-08] MEDS: MICONAZOLE NITRATE 2% VAGINAL CREAM 45 GM TUBE VG SCH ×2 (12:13→15:38)
[2022-04-08 13:44] VITALS: BP 119/57; PULSE 82; RESP 20; TEMP 97.7
== END 2022-04-08 16:50 | DRG 241 ==
LOC: JER 19:46 → JERBED 03-26 04:34 → J5S 03-26 09:58 → JICU 03-27 14:05 → J7W 03-31 22:54
PROVIDERS: ADMIT Internal Medicine; ATTEND Internal Medicine
PROC: 0DB68ZX Excision of Stomach, Via Natural or Artificial Opening Endoscopic, Diagnostic (ICD-10-PCS; 2022-03-26)
PROC: 0DJ08ZZ Inspection of Upper Intestinal Tract, Via Natural or Artificial Opening Endoscopic (ICD-10-PCS; 2022-03-26)
PROC: 30233N1 Transfusion of Nonautologous Red Blood Cells into Peripheral Vein, Percutaneous Approach (ICD-10-PCS; 2022-03-26)
PROC: 0W3P8ZZ Control Bleeding in Gastrointestinal Tract, Via Natural or Artificial Opening Endoscopic (ICD-10-PCS; 2022-03-27)
PROC: 3E0G8GC Introduction of Other Therapeutic Substance into Upper GI, Via Natural or Artificial Opening Endoscopic (ICD-10-PCS; 2022-03-27)
PROC: 3E0G8GC Introduction of Other Therapeutic Substance into Upper GI, Via Natural or Artificial Opening Endoscopic (ICD-10-PCS; 2022-03-29)
PROC: 0D9670Z Drainage of Stomach with Drainage Device, Via Natural or Artificial Opening (ICD-10-PCS; principal; 2022-03-30)
DX: K26.4 Chronic or unspecified duodenal ulcer with hemorrhage (principal); K72.00 Acute and subacute hepatic failure without coma; D62 Acute posthemorrhagic anemia; K70.10 Alcoholic hepatitis without ascites; J44.9 Chronic obstructive pulmonary disease, unspecified; N17.9 Acute kidney failure, unspecified; I95.9 Hypotension, unspecified; E87.0 Hyperosmolality and hypernatremia; E86.0 Dehydration; E87.6 Hypokalemia; F12.90 Cannabis use, unspecified, uncomplicated; G40.909 Epilepsy, unspecified, not intractable, without status epilepticus; E78.00 Pure hypercholesterolemia, unspecified; K70.31 Alcoholic cirrhosis of liver with ascites; K92.0 Hematemesis; I12.9 Hypertensive chronic kidney disease with stage 1 through stage 4 chronic kidney disease, or unspecified chronic kidney disease; N18.9 Chronic kidney disease, unspecified; F25.8 Other schizoaffective disorders; F43.10 Post-traumatic stress disorder, unspecified; D64.9 Anemia, unspecified; K76.0 Fatty (change of) liver, not elsewhere classified; F17.200 Nicotine dependence, unspecified, uncomplicated; K44.9 Diaphragmatic hernia without obstruction or gangrene; M54.50 Low back pain, unspecified; R91.1 Solitary pulmonary nodule; F41.8 Other specified anxiety disorders; R57.8 Other shock; G47.30 Sleep apnea, unspecified; F14.10 Cocaine abuse, uncomplicated; E87.2 Acidosis; I80.8 Phlebitis and thrombophlebitis of other sites; R41.82 Altered mental status, unspecified; K76.6 Portal hypertension; K31.89 Other diseases of stomach and duodenum; K29.60 Other gastritis without bleeding; K29.80 Duodenitis without bleeding; D37.1 Neoplasm of uncertain behavior of stomach; K31.84 Gastroparesis
CPT/HCPCS: 36415; 36430; 36600; 71045-TC-FY; 74174-TC; 76775-TC; 80048; 80053; 80076; 80307; 81003; 82140; 82436; 82570; 82803; 83540; 83550; 83735; 84100; 84133; 84300; 84540; 85025; 85027; 85610; 85730; 86850; 86900; 86901; 86922; 87086; 88305-TC; 93005; 93010; 94002; 97116-GP; 97161-GP; 99285-25; C9803-CS; J2597; P9047; P9058; Q9967; U0003; U0005

== ENCOUNTER 2022-06-29 11:00 | Emergency (ER) | payer OTHER ==
[2022-06-29] MEDS ORDERED: ONDANSETRON 4 MG/2 ML VIAL ONE (11:26)
[2022-06-29] MEDS ORDERED: morphine CARPU-JECT 4 MG/1 ML DISP.SYRIN IVPUSH ONE (11:41)
[2022-06-29] MEDS ORDERED: PANTOPRAZOLE SODIUM 40 MG VIAL IVPUSH ONE (11:41)
[2022-06-29 11:42] VITALS: BMI 28.0
[2022-06-29] MEDS ORDERED: morphine SULFATE 4 MG/ML VIAL ONE (12:01)
[2022-06-29] MEDS ORDERED: PANTOPRAZOLE SODIUM 40 MG VIAL ONE (12:02)
[2022-06-29] MEDS ORDERED: OCTREOTIDE ACETATE 50 MCG/1 ML - 1 ML VIAL IVPUSH ONE (13:05)
[2022-06-29 13:23] LABS: BASO % 0.4 % (0-2.0); EOS % 0.1 % (0-4.5); HEMATOCRIT 18.7 % (32.4-45.2); LYMPH % 16.2 % (8-40); MCH 30.3 pg (25.7-33.7); MCHC 33.7 g/dl (32.0-36.0); MEAN PLT VOLUME 8.3 fl (7.5-11.1); MONO % 8.6 % (3.8-10.2); NEUT % 74.7 % (42.8-82.8); PLATELET COUNT 130 10^3/uL (134-434); RBC 2.07 M/mm3 (3.60-5.2); RDW 18.9 % (11.6-15.6); WHITE BLOOD COUNT 6.3 K/mm3 (4.0-10.0)
[2022-06-29 13:26] LABS: HEMOGLOBIN 6.3 GM/dL (10.7-15.3)
[2022-06-29 13:29] LABS: INR 1.58 (0.83-1.09); PROTHROMBIN TIME (PATIENT) 18.2 SEC (9.7-13.0)
[2022-06-29 13:32] LABS: ACTIVATED PTT 30.4 SECONDS (25.2-36.5)
[2022-06-29] MEDS ORDERED: OCTREOTIDE ACETATE 100 MCG/1 ML ONE (13:41)
[2022-06-29 13:42] LABS: ALBUMIN 2.3 g/dl (3.4-5.0); BLOOD UREA NITROGEN 28.2 mg/dL (7-18)
[2022-06-29 13:43] LABS: CALCIUM 8.3 mg/dL (8.5-10.1); MAGNESIUM 1.8 mg/dL (1.8-2.4)
[2022-06-29] MEDS ORDERED: OCTREOTIDE ACETATE 200 MCG, OCTREOTIDE ACETATE 1,000 MCG in DEXTROSE 5%-WATER - 496 ML IVPB SCH (13:45)
[2022-06-29 13:46] LABS: CREATININE 1.4 mg/dL (0.55-1.3)
[2022-06-29 13:48] LABS: BILIRUBIN,TOTAL 1.5 mg/dL (0.2-1); TOT PROT 5.8 g/dl (6.4-8.2)
[2022-06-29] MEDS ORDERED: LIDOCAINE HCL 2% (20ML MULTI-DOSE VIAL) ONE (15:48)
[2022-06-29] MEDS ORDERED: PANTOPRAZOLE SODIUM 80 MG in SODIUM CHLORIDE 100 ML IVPB SCH (16:00)
[2022-06-29] MEDS ORDERED: CEFTRIAXONE 2,000 MG in DEXTROSE 5%-WATER - 50 ML IVPB ONE (16:19)
[2022-06-29 16:42] VITALS: PULSE 100; RESP 20
[2022-06-29] MEDS ORDERED: CEFTRIAXONE 2 GM/100 ML BAG IVPB ONE (16:43)
[2022-06-29 17:42] VITALS: TEMP 98.7
[2022-06-29 17:59] VITALS: BP 90/40
== END 2022-06-29 17:56 | disposition short-term general hospital (02) ==
LOC: JER 11:00
PROC: 3E0333Z Introduction of Anti-inflammatory into Peripheral Vein, Percutaneous Approach (ICD-10-PCS; principal; 2022-06-29)
PROC: 3E033NZ Introduction of Analgesics, Hypnotics, Sedatives into Peripheral Vein, Percutaneous Approach (ICD-10-PCS; 2022-06-29)
PROC: 3E033GC Introduction of Other Therapeutic Substance into Peripheral Vein, Percutaneous Approach (ICD-10-PCS; 2022-06-29)
PROC: 3E033GC Introduction of Other Therapeutic Substance into Peripheral Vein, Percutaneous Approach (ICD-10-PCS; 2022-06-29)
PROC: 3E033GC Introduction of Other Therapeutic Substance into Peripheral Vein, Percutaneous Approach (ICD-10-PCS; 2022-06-29)
DX: K92.2 Gastrointestinal hemorrhage, unspecified (principal); K92.0 Hematemesis; R18.8 Other ascites
CPT/HCPCS: 0241U-QW; 36415; 36430; 71045-TC-FY; 80053; 82272; 83605; 83690; 83735; 85025; 85610; 85730; 86850; 86900; 86901; 86922; 87040; 93005; 93010; 99285-25; P9058

== ENCOUNTER 2023-07-21 09:20 | Emergency (ER) | payer OTHER ==
[2023-07-21 09:29] VITALS: BP 143/70; PULSE 89; RESP 18; TEMP 97.7; BMI 29.0
[2023-07-21] MEDS ORDERED: AMOX TR/POT CLAV 875MG/125MG TABLETS (FP) ONE (10:26)
[2023-07-21] MEDS ORDERED: AMOX TR/POT CLAV 875MG/125MG TABLETS (FP) PO ONE (10:26)
== END 2023-07-21 10:31 | disposition home or self-care (01) ==
LOC: JERFT 09:20
DX: J01.90 Acute sinusitis, unspecified (principal); R09.81 Nasal congestion; Z20.822 Contact with and (suspected) exposure to COVID-19
CPT/HCPCS: 0241U-QW; 99283-25

== ENCOUNTER 2023-07-24 08:39 | Emergency (ER) | payer OTHER ==
[2023-07-24 08:50] VITALS: BP 142/68; PULSE 78; RESP 18; TEMP 98
[2023-07-24] MEDS ORDERED: ACETAMINOPHEN 1000 MG/100 ML BAG IVPB ONE (09:41)
[2023-07-24] MEDS ORDERED: ACETAMINOPHEN INJECTION 100 ML IVPB ONE (09:56)
[2023-07-24 10:33] LABS: BASO % 1.3 % (0-2.0); EOS % 5.3 % (0-4.5); HEMATOCRIT 24.6 % (32.4-45.2); HEMOGLOBIN 8.2 GM/dL (10.7-15.3); LYMPH % 23.4 % (8-40); MCH 31.1 pg (25.7-33.7); MCHC 33.1 g/dl (32.0-36.0); MEAN CELL VOLUME 93.9 fl (80-96); MEAN PLT VOLUME 8.3 fl (7.5-11.1); MONO % 10.4 % (3.8-10.2); NEUT % 59.6 % (42.8-82.8); PLATELET COUNT 125 10^3/uL (134-434); RBC 2.62 M/mm3 (3.60-5.2); RDW 14.9 % (11.6-15.6); WHITE BLOOD COUNT 4.6 K/mm3 (4.0-10.0)
[2023-07-24 10:39] LABS: INR 1.17 (0.83-1.09); PROTHROMBIN TIME (PATIENT) 13.6 SEC (9.7-13.0)
[2023-07-24 10:41] LABS: ACTIVATED PTT 39.5 SECONDS (25.2-36.5)
[2023-07-24 10:46] LABS: POTASSIUM 5.4 mmol/L (3.5-5.1)
[2023-07-24 10:48] LABS: ALBUMIN 2.8 g/dl (3.4-5.0); BLOOD UREA NITROGEN 32.5 mg/dL (7-18); CALCIUM 8.4 mg/dL (8.5-10.1); MAGNESIUM 2.1 mg/dL (1.8-2.4)
[2023-07-24 10:51] LABS: CREATININE 2.1 mg/dL (0.55-1.3)
[2023-07-24 10:53] LABS: BILIRUBIN,TOTAL 0.6 mg/dL (0.2-1); TOT PROT 7.7 g/dl (6.4-8.2)
[2023-07-24 11:05] LABS: EPI CELLS >36 /uL (0-25.1); HYALINE CASTS 1 /uL (0-3.1); PH,URINE 5.5 (5.0-8.0); URINE APPEARANCE CLEAR; URINE BACTERIA 1330 /uL (0-1359); URINE BILIRUBIN NEGATIVE (NEGATIVE); URINE COLOR YELLOW; URINE GLUCOSE (UA) NEGATIVE (NEGATIVE); URINE KETONE NEGATIVE (NEGATIVE); URINE LEUK ESTERASE TRACE (NEGATIVE); URINE NITRITE NEGATIVE (NEGATIVE); URINE PROTEIN NEGATIVE (NEGATIVE); URINE RBC 10 /uL (0-23.9); URINE UROBILINOGEN 0.2 mg/dL (0.2-1.0); URINE WBC 43 /uL (0-25.8)
== END 2023-07-24 12:14 | disposition left against medical advice (07) ==
LOC: JER 08:39
PROC: 3E033NZ Introduction of Analgesics, Hypnotics, Sedatives into Peripheral Vein, Percutaneous Approach (ICD-10-PCS; principal; 2023-07-24)
DX: S62.102A Fracture of unspecified carpal bone, left wrist, initial encounter for closed fracture (principal); R55 Syncope and collapse; W19.XXXA Unspecified fall, initial encounter; Y92.008 Other place in unspecified non-institutional (private) residence as the place of occurrence of the external cause
CPT/HCPCS: 36415; 71045-TC-FY; 71101-TC-RT-FY; 73110-TC-LT-FY; 73130-TC-LT-FY; 80053; 81003; 83735; 84484; 85025; 85610; 85730; 87086; 99284-25

== ENCOUNTER 2024-02-22 13:04 | Observation (INO) | payer OTHER ==
[2024-02-22 15:24] LABS: BASO % 0.7 % (0-2.0); EOS % 3.7 % (0-4.5); HEMATOCRIT 25.4 % (32.4-45.2); HEMOGLOBIN 8.6 GM/dL (10.7-15.3); LYMPH % 34.9 % (8-40); MCH 32.7 pg (25.7-33.7); MCHC 33.7 g/dl (32.0-36.0); MEAN CELL VOLUME 97.1 fl (80-96); MEAN PLT VOLUME 9.2 fl (7.5-11.1); MONO % 11.4 % (3.8-10.2); NEUT % 49.3 % (42.8-82.8); PLATELET COUNT 107 10^3/uL (134-434); RBC 2.61 M/mm3 (3.60-5.2); WHITE BLOOD COUNT 3.8 K/mm3 (4.0-10.0)
[2024-02-22 15:33] LABS: INR 1.02 (0.83-1.09); PROTHROMBIN TIME (PATIENT) 11.5 SEC (9.7-13.0); VENOUS O2 SATURATION 88.8 % (70-80); VENOUS PCO2 36.2 mmHg (38-52); VENOUS PH 7.405 (7.310-7.410)
[2024-02-22 15:36] LABS: ACTIVATED PTT 20.1 SECONDS (25.2-36.5)
[2024-02-22] MEDS ORDERED: ACETAMINOPHEN INJECTION 100 ML IVPB ONE (16:20)
[2024-02-22] MEDS: SODIUM CHLORIDE 0.9% 500 ML INFUS.BAG IV ONE (16:45)
[2024-02-22] MEDS: ACETAMINOPHEN 1000 MG/100 ML BAG IVPB ONE (16:45)
[2024-02-22 16:46] LABS: CHLORIDE 109 mmol/L (98-107); POTASSIUM 4.1 mmol/L (3.5-5.1); SODIUM 142 mmol/L (136-145)
[2024-02-22 16:49] LABS: ALBUMIN 2.7 g/dl (3.4-5.0); ANION GAP 9 mmol/L (4-13); BLOOD UREA NITROGEN 28.3 mg/dL (7-18); CO2 24 mmol/L (21-32); GLUCOSE,RANDOM 89 mg/dL (74-106)
[2024-02-22 16:50] LABS: MAGNESIUM 2.1 mg/dL (1.8-2.4)
[2024-02-22 16:52] LABS: CREATININE 1.7 mg/dL (0.55-1.3); SGOT/AST 31 U/L (15-37); SGPT/ALT 16 U/L (13-61)
[2024-02-22 16:53] LABS: BILIRUBIN,TOTAL 0.6 mg/dL (0.2-1)
[2024-02-22 16:54] LABS: TOT PROT 7.1 g/dl (6.4-8.2)
[2024-02-22 16:55] LABS: ALK PHOS 164 U/L (45-117); N-TERMINAL BNP 725.7 pg/ml (5-125)
[2024-02-22] MEDS ORDERED: LACTULOSE 20 GM/30 ML UDC (FOR ORAL USE ONLY) ONE (17:00)
[2024-02-22] MEDS: LACTULOSE 20 GM/30 ML UDC (FOR ORAL USE ONLY) PO ONE (17:11)
[2024-02-22] MEDS ORDERED: LACTULOSE 20 GM/30 ML UDC (FOR ORAL USE ONLY) PO PRN (18:04)
[2024-02-22] MEDS ORDERED: LIDOCAINE 5% TOPICAL PATCH ONE (19:14)
[2024-02-22] MEDS: LIDOCAINE 5% TOPICAL PATCH TP ONE (20:15)
[2024-02-22] MEDS ORDERED: PREGABALIN 25 MG CAPSULE ONE (20:40)
[2024-02-22] MEDS ORDERED: QUEtiapine FUMARATE 100 MG TABLET (FP) ONE (20:40)
[2024-02-22] MEDS ORDERED: PREGABALIN 50 MG CAPSULE ONE (20:40)
[2024-02-22] MEDS ORDERED: HEPARIN NA (PORCINE) 5,000 UNITS/ML 1ML VIAL ONE (20:41)
[2024-02-22] MEDS: DOXEPIN HCL 25 MG CAPSULE PO SCH (22:40)
[2024-02-22] MEDS: HEPARIN NA (PORCINE) 5,000 UNITS/ML 1ML VIAL SQ SCH (22:40)
[2024-02-22] MEDS: PREGABALIN 75 MG CAPSULE PO SCH (22:40)
[2024-02-22] MEDS: QUEtiapine FUMARATE 100 MG TABLET (FP) PO SCH (22:40)
[2024-02-23 03:31] VITALS: BMI 28.8
[2024-02-23 07:04] LABS: BASO % 0.5 % (0-2.0); EOS % 4.4 % (0-4.5); HEMATOCRIT 24.9 % (32.4-45.2); HEMOGLOBIN 8.8 GM/dL (10.7-15.3); LYMPH % 42.2 % (8-40); MCH 33.9 pg (25.7-33.7); MCHC 35.1 g/dl (32.0-36.0); MEAN CELL VOLUME 96.6 fl (80-96); MEAN PLT VOLUME 8.7 fl (7.5-11.1); MONO % 11.6 % (3.8-10.2); NEUT % 41.3 % (42.8-82.8); PLATELET COUNT 94 10^3/uL (134-434); RBC 2.58 M/mm3 (3.60-5.2); WHITE BLOOD COUNT 3.5 K/mm3 (4.0-10.0)
[2024-02-23] MEDS: LIDOCAINE PATCH REMOVAL MC SCH (08:05)
[2024-02-23] MEDS: PANTOPRAZOLE 40 MG TABLET PO SCH (10:07)
[2024-02-23] MEDS: FUROSEMIDE 40 MG TABLET (FP) PO SCH (10:07)
[2024-02-23] MEDS: LOSARTAN POTASSIUM 50 MG TABLET PO SCH (10:07)
[2024-02-23] MEDS: LORATADINE 10 MG TABLET PO SCH (10:07)
[2024-02-23] MEDS: buPROPion HCL 100 MG TABLET PO SCH (10:11)
[2024-02-23 14:01] VITALS: BP 132/62; PULSE 73; RESP 20; TEMP 98.1
[2024-02-23] MEDS ORDERED: THIAMINE HCL 200 MG/2 ML VIAL IVPB SCH (14:30)
[2024-02-23] MEDS ORDERED: LORazepam 2 MG/ML SDV VIAL IVPUSH PRN (15:32)
[2024-02-23] MEDS: PREGABALIN 75 MG CAPSULE PO ONE (18:22)
[2024-02-23] MEDS ORDERED: ACETAMINOPHEN 325 MG TABLET (FP) PO PRN (18:25)
== END 2024-02-23 18:56 | disposition home or self-care (01) ==
LOC: JER 13:04 → JERBED 17:36 → J7W 02-23 02:37
PROVIDERS: ADMIT Internal Medicine; ATTEND Nurse Practitioner
PROC: 3E033NZ Introduction of Analgesics, Hypnotics, Sedatives into Peripheral Vein, Percutaneous Approach (ICD-10-PCS; principal; 2024-02-22)
PROC: 3E0337Z Introduction of Electrolytic and Water Balance Substance into Peripheral Vein, Percutaneous Approach (ICD-10-PCS; 2024-02-22)
DX: E72.4 Disorders of ornithine metabolism (principal); R40.0 Somnolence; Z91.81 History of falling; W19.XXXA Unspecified fall, initial encounter; K76.82 Hepatic encephalopathy; F10.920 Alcohol use, unspecified with intoxication, uncomplicated; I12.9 Hypertensive chronic kidney disease with stage 1 through stage 4 chronic kidney disease, or unspecified chronic kidney disease; N18.9 Chronic kidney disease, unspecified; K70.30 Alcoholic cirrhosis of liver without ascites; G40.909 Epilepsy, unspecified, not intractable, without status epilepticus; F17.210 Nicotine dependence, cigarettes, uncomplicated; J44.9 Chronic obstructive pulmonary disease, unspecified; Z88.0 Allergy status to penicillin; Z88.1 Allergy status to other antibiotic agents; Z88.5 Allergy status to narcotic agent; Z88.6 Allergy status to analgesic agent; Z88.8 Allergy status to other drugs, medicaments and biological substances
CPT/HCPCS: 0241U-QW; 36415; 70450-TC; 71045-TC-FY; 72125-TC; 72170-TC-FY; 73521-TC-FY; 80053; 80307; 82140; 82550; 82803; 82962; 83735; 83880; 84100; 84484; 85025; 85027; 85610; 85730; 86850; 86900; 86901; 93005; 93010; 96374; 99285-25; G0378; J0131